=== PATIENT | male | born 1960 | race Caucasian/White ===

== ENCOUNTER → 2020-08-06 10:23 | Outpatient (BNVA) | payer MEDICARE, SELFPAY | PROVIDERS: Family Provider Family Medicine; Referring Provider Nurse Practitioner Family; Visit Provider Specialist | DX: M75.81 Other shoulder lesions, right shoulder (principal) | CPT/HCPCS: 73030 ==

== ENCOUNTER 2021-03-05 13:23 | Inpatient (IN) | payer MEDICARE, SELFPAY ==
[2021-03-05] VITALS (12 sets, daily range): BP systolic 100–127; BP diastolic 47–71; PULSE 60–114; RESP 18–30; TEMP 36.9–37.1; O2SAT 72–96; BMI 27.8; BMI 29.8
--- NOTE | 2021-03-05 14:04 | ECG_ITS ---
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 Measurements Intervals [place] Rate: 65 P: 49 VT: 171 QRS: 37 QRSD: 106 T: 21 QT: 436 QTc: 455 Interpretive Statements SINUS RHYTHM Compared to ECG 04/22/2017 17:23:08 Sinus bradycardia no longer present Electronically Signed On 03-07-2021 7:43:52 CDT by Mirna Finnegan M.D. [id number]
--- NOTE | 2021-03-05 14:04 | XRR_ITS ---
PROCEDURE INFORMATION: Exam: XR Chest Exam date and time: 03/05/2021 2:04 PM Age: 60 years old Clinical indication: Condition or disease; Lung condition and disease; Respiratory distress; Prior surgery; Surgery type: Thyroid; Patient HX: Covid symptoms x1week, SOB TECHNIQUE: Imaging protocol: XR of the chest. Views: Frontal portable upright view of the chest. COMPARISON: CR Chest 1 [place] [id number] 04/22/2017 4:50 PM FINDINGS: Lungs: Moderate pulmonary hypoexpansion. Heterogeneous interstitial and air space opacities in the bilateral mid-lower lung zones. The pulmonary vasculature is exaggerated by inspiratory volume. Pleural spaces: No pleural effusion. No pneumothorax. Heart/Mediastinum: The heart is normal in size and contour. Mediastinum: Stable. Bones/joints: Right lateral vertebral body marginal osteophytes are noted at multiple thoracic spinal levels. Other findings: . XR/XR chest 1V portable [id number] IMPRESSION: 1. Moderate pulmonary hypoexpansion. 2. Heterogeneous interstitial and air space opacities in the bilateral mid-lower lung zones. Pneumonitis, including viral pneumonitis, is difficult to exclude. Clinical correlation is recommended.
--- NOTE | 2021-03-05 14:04 | ED_ITS ---
HPI - COVID General: Chief Complaint: COVID symptoms Stated Complaint: SOB Time Seen by Provider: 03/05/21 13:49 Triage information: Has fever, cough or shortness of breath . Exposure to COVID + person last 14 days History of Present Illness: HPI Narrative: Mr. De is a 60 year old gentleman without significant past medical history who presents to the emergency department due to COVID symptoms and hypoxemia. Symptom onset was subacute approximately two to three weeks ago. He endorses typical symptoms including generalized malaise, fevers, chills, headache, cough, shortness of breath. Overall, the course of symptoms has been worsening and is now severe in intensity. He called EMS today do shortness breath and was found to have oxygen saturation in the mid 60s on room air. He was subsequently placed on non rebreather with some improvement in symptoms. he has sick contacts . His symptoms are worse with exertion and activity but do not go away with rest. No other specific exacerbating, alleviating, or provoking factors identified. COVID Results: SARS-CoV-2 Antigen (Rapid) Negative (Negative) 03/05/21 23:00 03/05/21 Nasal/Oral Coronavirus 2019 PCR Detected H 03/05/21 16:30 03/05/21 Review of Systems General: Reports: 10 or more systems reviewed and unremarkable except in HPI and below Narrative: CONSTITUTIONAL: As noted in HPI EYES - denies pain, denies loss of vision EARS - denies ear issues. NOSE - denies congestion or rhinorrhea. THROAT - denies sore throat or difficulty swallowing. CARDIOVASCULAR - denies chest pain and palpitations RESPIRATORY - see HPI GASTROINTESTINAL - denies abdominal pain, n/v intermittently GENITOURINARY - denies dysuria or urinary frequency MUSCULOSKELETAL- denies deformity. generalized arthralgias and myalgias SKIN - denies rashes or new changed skin lesions NEUROLOGIC - denies focal weakness or sensory changes HEMATOLOGIC/LYMPHATIC - denies easy bruising or lymphadenopathy. [facility] ED PFS: Medical History (Updated 03/05/21 @ 20:29 by Svetlana Sanchez MD) BPH (benign prostatic hyperplasia) Cardiomegaly Elevated PSA Hematuria Hypertriglyceridemia Hypokalemia Hypotension Papillary thyroid carcinoma Prostatitis Surgical History History of thyroidectomy 2014 due to cancer Social History Smoking and tobacco status: never smoked Alcohol intake: never Physical Exam Narrative: EXAM NARRATIVE: GENERAL/CONSTITUTIONAL - Ill appearing. Mild to moderate distress. Eyes - PERRL, no conjunctival injection ENMT - Atraumatic external nose and ears. Moist mucous membranes NECK - supple. trachea midline CARDIOVASCULAR - regular rate and rhythm. Peripheral pulses 2+ and equal RESPIRATORY - Course breath sounds throughout. Tachypnea. Mild accessory muscle use. ABDOMEN/GI - Nontender/Nondistended. No tenderness to percussion or evidence of peritonitis MSK - Extremities without obvious deformity or tenderness to palpation SKIN - Warm, Dry NEURO - alert and appropriately oriented. strength and sensation intact. Moves all extremities equally. PSYCH - Appropriate mood and affect Course ED course: - Monitor, IV access, and vital signs obtained. - The patient was seen and evaluated me at bedside. - Initial evaluation was notable for There were parents, patient has increased work of breathing and low oxygen saturations despite Non rebreather mask. - Labs and imaging were ordered. - heated high flow oxygen ordered - Labs and imaging were obtained and reviewed. - Labs notable for While Leukocytosis, procalcitonin negative. - Imaging notable for Infiltrate - Internal medicine hospitalist service, Dr Briggs, was contacted and agreed admit the patient. - Upon serial reexamation the patient's condition remained fair. He appeared more comfortable with improved work of breathing on heated high flow . They were admitted without incident or further clinical deterioration. Vital Signs: Vital signs: Vital Signs Temperature 97.8 F 03/06/21 19:28 Pulse Rate 68 03/06/21 19:28 Respiratory Rate 18 03/06/21 19:28 Blood Pressure 124/69 03/06/21 19:28 Pulse Oximetry 91 03/06/21 19:28 MDM - COVID 2 Medical Records: Attestation: I reviewed the patient's medical records. Lab Data: Attestation: I reviewed the patient's lab results. Labs: Lab Results 03/05/21 03/05/21 03/05/21 Range/Units 14:35 14:35 14:35 WBC 7.5 (4.0-10.0) 10^3/ uL RBC 4.24 (4.1-5.3) 10^6/u L Hgb 12.8 (11.7-16.6) g/dL Hct 37.3 L (42.0-52.0) % MCV 88.0 (80-94) fL MCH 30.2 (28.0-34.0) pg MCHC 34.3 (30.0-36.0) g/dL RDW 14.4 (12.1-15.1) % Plt Count 200 (130-400) 10^3/c mm MPV 9.4 (7.4-10.4) fL Neut % (Auto) 85.8 % Lymph % (Auto) 5.8 % Lynn % (Auto) 7.6 % Eos % (Auto) 0.0 % Baso % (Auto) 0.0 % Neut # (Auto) 6.47 (1.8-7.7) 10^3/u L Lymph # (Auto) 0.4 L (0.8-4.8) 10^3/u L Lynn # (Auto) 0.6 (0.2-0.9) 10^3/u L Eos # (Auto) 0.0 (0.0-0.8) 10^3/u L Baso # (Auto) 0.0 (0.0-0.1) 10^3/u L Nucleated RBC % (a uto) 0 % Nucleated RBCs # 0.0 /100WBC D-Dimer (0-0.59) ug/mIFE U Specimen Type Sample Site Gus Test VBG pH (7.32-7.42) VBG pCO2 (41-51) mmHg VBG pO2 (25-40) mmHg VBG HCO3 (24-28) mmol/L VBG Base Excess (-3.0-3.0) mmol/ L VBG Hematocrit (42-52) % O2 Delivery Device O2 Liters/Min % FiO2 % Welfare Project Manager ID Sodium 135 L (136-145) mmol/L Potassium 3.5 (3.5-5.1) mmol/L Chloride 98 (98-107) mmol/L Carbon Dioxide 25 (22-29) mmol/L Anion Gap 15.5 (5-19) BUN 18 (8-23) mg/dL Creatinine 0.7 (0.7-1.2) mg/dL GFR Calculation 114.6 (90-130) mL/min Glucose 115 (65-115) mg/dL Calculated Osmolal ity 283 L (285-295) mOsm/k g Lactic Acid 1.4 (0.5-2.2) mmol/L Calcium 7.6 L (8.5-10.5) mg/dL Total Bilirubin 1.4 H (0.15-1.2) mg/dL AST 53 H (0-40) U/L ALT 39 (0-41) U/L Alkaline Phosphata se 76 (40-130) IU/L C-Reactive Protein 147.7 H (0.0-4.9) mg/L NT-Pro-B Natriuret Pep 287 H (0-125) pg/mL Total Protein 6.0 L (6.6-8.7) g/dL Albumin 3.2 L (3.5-5.2) g/dL Globulin 2.8 (1.3-4.6) g/dL Procalcitonin 0.37 (0-0.5) ng/mL Nasal/Oral COVID-1 9 PCR 03/05/21 03/05/21 03/05/21 Range/Units 14:35 15:10 16:30 WBC (4.0-10.0) 10^3/ uL RBC (4.1-5.3) 10^6/u L Hgb (11.7-16.6) g/dL Hct (42.0-52.0) % MCV (80-94) fL MCH (28.0-34.0) pg MCHC (30.0-36.0) g/dL RDW (12.1-15.1) % Plt Count (130-400) 10^3/c mm MPV (7.4-10.4) fL Neut % (Auto) % Lymph % (Auto) % Lynn % (Auto) % Eos % (Auto) % Baso % (Auto) % Neut # (Auto) (1.8-7.7) 10^3/u L Lymph # (Auto) (0.8-4.8) 10^3/u L Lynn # (Auto) (0.2-0.9) 10^3/u L Eos # (Auto) (0.0-0.8) 10^3/u L Baso # (Auto) (0.0-0.1) 10^3/u L Nucleated RBC % (a uto) % Nucleated RBCs # /100WBC D-Dimer 1.60 H (0-0.59) ug/mIFE U Specimen Type Venous Sample Site Not Reportable Gus Test N/a VBG pH 7.47 H (7.32-7.42) VBG pCO2 41.5 (41-51) mmHg VBG pO2 29.2 (25-40) mmHg VBG HCO3 30.0 H (24-28) mmol/L VBG Base Excess 5.8 H (-3.0-3.0) mmol/ L VBG Hematocrit 7.5 L (42-52) % O2 Delivery Device Hag O2 Liters/Min 55.0 % FiO2 50.0 % Welfare Project Manager ID ,congi Sodium (136-145) mmol/L Potassium (3.5-5.1) mmol/L Chloride (98-107) mmol/L Carbon Dioxide (22-29) mmol/L Anion Gap (5-19) BUN (8-23) mg/dL Creatinine (0.7-1.2) mg/dL GFR Calculation (90-130) mL/min Glucose (65-115) mg/dL Calculated Osmolal ity (285-295) mOsm/k g Lactic Acid (0.5-2.2) mmol/L Calcium (8.5-10.5) mg/dL Total Bilirubin (0.15-1.2) mg/dL AST (0-40) U/L ALT (0-41) U/L Alkaline Phosphata se (40-130) IU/L C-Reactive Protein (0.0-4.9) mg/L NT-Pro-B Natriuret Pep (0-125) pg/mL Total Protein (6.6-8.7) g/dL Albumin (3.5-5.2) g/dL Globulin (1.3-4.6) g/dL Procalcitonin (0-0.5) ng/mL Nasal/Oral COVID-1 9 PCR Detected H Imaging Data: CXR: Attestation: I personally reviewed and interpreted this imaging study as follows: My impression: no pneumothorax, patchy consolidation Radiologist's impression: 1. Moderate pulmonary hypoexpansion. 2. Heterogeneous interstitial and air space opacities in the bilateral mid-lower lung zones. Pneumonitis, including viral pneumonitis, is difficult to exclude. Clinical correlation is recommended. EKG Data: EKG 1: Attestation: I personally reviewed and interpreted this EKG as follows: EKG interpretation date: 03/05/21 Prior EKG tracings: not available for review Ischemic changes: non-specific ST-T wave changes Interpretation: 12 lead EKG shows a regular sinus rhythm at a rate of 65. MD interval 171, QRS duration 106, QTC 455 . Normal axis. No St segment abnormalities meeting stemi criteria. Interpretation: sinus rhythm with nonspecific St segment abnormalities. COVID Results: SARS-CoV-2 Antigen (Rapid) Negative (Negative) 03/05/21 23:00 03/05/21 Nasal/Oral Coronavirus 2019 PCR Detected H 03/05/21 16:30 03/05/21 Discharge Plan Discharge Patient Disposition: Admitted As Inpatient Admit Provider: Ade Briggs Coding Level of Care Code ED Steel Layer for Miroslava Rodríguez
[2021-03-05 14:48] LABS: Hematocrit 37.3 % (42.0-52.0); Hemoglobin 12.8 g/dL (11.7-16.6); Lymphocytes # 0.4 10^3/uL (0.8-4.8); Lymphocytes % 5.8 %; Mean Corpuscular HGB Conc 34.3 g/dL (30.0-36.0); Mean Corpuscular Hemoglobin 30.2 pg (28.0-34.0); Mean Platelet Volume 9.4 fL (7.4-10.4); Monocytes # 0.6 10^3/uL (0.2-0.9); Monocytes % 7.6 %; Neutrophils # 6.47 10^3/uL (1.8-7.7); Neutrophils % 85.8 %; Nucleated Red Blood Cells % 0 %; Platelet Count 200 10^3/cmm (130-400); Red Blood Count 4.24 10^6/uL (4.1-5.3); Red Cell Distribution Width 14.4 % (12.1-15.1); White Blood Count 7.5 10^3/uL (4.0-10.0)
[2021-03-05 15:10] LABS: Lactic Sepsis W/Reflex 1.4 mmol/L (0.5-2.2)
[2021-03-05 15:22] LABS: Blood Gas Sample Type Venous
[2021-03-05 15:23] LABS: Oxygen Device HAG
[2021-03-05 15:27] LABS: PCO2 VBG 41.5 mmHg (41-51); PO2 VBG 29.2 mmHg (25-40); Venous Blood Gas Hematocrit 7.5 % (42-52); pH VBG 7.47 (7.32-7.42)
[2021-03-05 15:28] LABS: Base Excess VBG 5.8 mmol/L (-3.0-3.0)
[2021-03-05 15:30] LABS: NT Pro B Type Natriuretic Pept 287 pg/mL (0-125); Procalcitonin 0.37 ng/mL (0-0.5)
[2021-03-05 15:49] LABS: Alanine Aminotransferase 39 U/L (0-41); Albumin Level 3.2 g/dL (3.5-5.2); Alkaline Phosphatase 76 IU/L (40-130); Anion Gap 15.5 (5-19); Aspartate Amino Transferase 53 U/L (0-40); Blood Urea Nitrogen 18 mg/dL (8-23); C Reactive Protein 147.7 mg/L (0.0-4.9); Calcium 7.6 mg/dL (8.5-10.5); Carbon Dioxide 25 mmol/L (22-29); Chloride 98 mmol/L (98-107); Creatinine Clr Calc Pharmacy 127.6966; Globulin 2.8 g/dL (1.3-4.6); Glomerular Filtration Rate 114.6 mL/min (90-130); Glucose 115 mg/dL (65-115); Osmolality Calculated 283 mOsm/kg (285-295); Potassium 3.5 mmol/L (3.5-5.1); Sodium 135 mmol/L (136-145); Total Bilirubin 1.4 mg/dL (0.15-1.2)
--- NOTE | 2021-03-05 20:01 | PC.NURSE ---
Report received from BARBARA Lopez in ER. Reported: 60 yr M pt came from home normally on RA, but came in on non-rebreather transitioned over to heated HF. Pt noted to be A&Ox4, ambulates. Family currently sick with COVID (Daughter admitted). pt PCR done in ER sent to [facility] for results. RR 20, HR 110, 95% on heated HF, bp 100/47.
--- NOTE | 2021-03-05 20:15 | P.HP_ITS ---
Providers/Chief Complaint Admitting Physician: Ade Brigsg Primary Care Provider: SARA Sanchez Chief Complaint: SOB History of Present Illness Rickey De is a 60 year old male with PMH hypothyroidism, h/o thyroid malignancy presenting today with shortness of breath. 02 sat upon arrival at 72%, initially on NRB, now on heated hi flow. CXR with B/L infiltrates concerning for COVID 19 pneumonia. Covid PCR pending. Review of Systems General: Reports: 10 or more systems reviewed and unremarkable except in HPI and below Const: Denies: fever(s), chills or body aches Eyes: Denies: change in vision, blurry vision or photophobia ENMT: Reports: hoarseness; Denies: throat pain, enlarged tonsils, odynophagia or nasal congestion Card: Denies: chest pain, palpitations, irregular heart rhythm, edema, swelling of feet/ankles, lightheadedness, pre-syncope, dyspnea on exertion or orthopnea Resp: Denies: dyspnea, productive cough, non-productive cough, wheezing, stridor, pain on inspiration, change in phlegm color, hemoptysis or chest congestion GI: Denies: abdominal pain, nausea, vomiting, hematemesis, coffee ground emesis, dysphagia, heartburn, diarrhea, constipation, GI cramping, change in stool character, hematochezia or melena : Denies: flank pain, dysuria, urinary frequency, urinary urgency, urinary hesitancy or hematuria Musc: Denies: neck pain, back pain, extremity pain, joint swelling, joint warmth or deformity Neuro: Denies: headache(s), numbness in extremities, weakness in extremities, sensory changes, difficulty walking, frequent falls, dizziness, vertigo, behavioral changes, Slurred speech present or seizure-like activity Psych: Denies: anxiety, depression, suicidal ideation or homicidal ideation Endo: Denies: polyuria, polydipsia, tired all the time, cold intolerance or hot flashes Rolando/Lymph: Denies: easy bruising or easy bleeding Medications/Allergies Home Medications Medication Instructions Recorded Confirmed Last Taken Type aspirin 81 mg tablet,delayed 81 mg PO DAILY@79908/06/20 03/05/21 03/05/21 History release losartan 100 mg tablet 100 mg PO DAILY@79908/06/20 03/05/21 03/05/21 History metoprolol succinate 50 mg 50 mg PO DAILY@1800 08/06/20 03/05/21 03/04/21 H istory tablet,extended release 24 hr calcium carbonate-vitamin D3 1 tab PO DAILY@1800 03/05/21 03/05/21 03/04/21 History [Calcium + D] levothyroxine [Euthyrox] 200 mcg PO DAILY@0700 03/05/21 03/05/21 03/05/21 History Allergies Allergy/AdvReac Type Severity Reaction Status Date / Time No Known Allergies Allergy Verified 03/05/21 13:35 PFSH Acute PFSH: Medical History (Updated 03/05/21 @ 20:29 by Svetlana Sanchez MD) BPH (benign prostatic hyperplasia) Cardiomegaly Elevated PSA Hematuria Hypertriglyceridemia Hypokalemia Hypotension Papillary thyroid carcinoma Prostatitis Surgical History History of thyroidectomy 2014 due to cancer Social History Smoking and tobacco status: never smoked Alcohol intake: never Vitals/I&O/Wt Last Vital Signs Temp 98.5 F 03/05/21 13:26 Pulse 60 03/05/21 19:15 Resp 20 H 03/05/21 19:15 BP 100/47 03/05/21 19:15 Pulse Ox 95 03/05/21 19:15 Weight last 48 hrs Weight 90.718 kg Physical Exam Narrative: EXAM NARRATIVE: General: Heated hi flow HEENT: PERRLA, pupils bilaterally equal and reactive, pallors not present Chest: B/L coarse crackles to auscultation CVS: S1-S2 regular, no murmurs, no tachycardia, no gallops, no rubs Abdomen: Soft, nontender, no organomegaly, bowel sounds present Neuro: No focal deficits, no facial deformity, AO x3, power 5/5 in all limbs Data : 03/05/21 14:35 03/05/21 14:35 Micro: Microbiology 03/05/21 15:10 Blood Culture - Preliminary Blood SPECIMEN COLLECTED 03/05/21 14:35 Blood Culture - Preliminary Blood SPECIMEN COLLECTED A&P Assessment and plan (1) COVID-19: Presumed diagnosis based on clinical picture Pending Covid PCR, check rapid Ag Oxygen supplementation keeping saturation over 88%. Dexamethasone 6 mg daily. Remdesivir to finish a 5-day course. Advair, Spiriva. Pulmonary toilet with incentive spirometry flutter valve. We will monitor inflammatory markers including ferritin, ESR, CRP, D-dimer, fibrinogen. D-dimer elevated. CTA negative for pulmonary embolism. For now we will start patient on full dose anticoagulation given history of CVA, patient requiring high oxygen supplementation. Will monitor for anemia or blood loss. Check procalcitonin, blood culture. ceftriaxone and azithromycin empirically Strict input output charting, daily weights. Status: Acute Additional A&P Information Hypothyrodism: Continue levothyroxine Hold losartan given SBP 100 for now. Continue metoprolol Dvt ppx: lovenox Full code Attestations Medical Necessity Statement*: >2midnight stay anticipated for above defined care Coding Level of Care Code Acute Cogeneration Operator for [facility] Fwd Diagnoses COVID-19 U07.1
--- NOTE | 2021-03-05 20:58 | PC.NURSE ---
report to Shirin JIMENEZ
[2021-03-05] MEDS: ipratropium-albuterol 3 mL Neb INHALATION (21:09)
[2021-03-05] MEDS: budesonide 0.5 mg/2 mL Neb INHALATION (21:09)
--- NOTE | 2021-03-05 21:45 | PC.NURSE ---
Admit Note Patient admitted to [facility] from ER via [facility] @2130 ON 15L NON-REBREATHER (RESP @ BEDSIDE). Covering service notified. Patient presents with COVID SYMPTOMS AND HYPOXIA. PT PLACED IN FACILITY GOWN. Orders reviewed & will continue to monitor. Patient and/or traveling representative oriented to environment, equipment, and informed of the following as found in the admission booklet: patient rights & responsibilities, visitor policy, hand and respiratory hygiene practice. Other education includes: [SCD, CONTINUOUS PULSE OX, AND IV PUMP]. Patient and/or traveling representative VERBALIZED UNDERSTANDING
[2021-03-05] MEDS: enoxaparin 40 mg/0.4 mL Syringe SUBCUT (22:58)
[2021-03-05] MEDS: dexamethasone 4 mg/mL INJ 6 MG IVP (22:58)
[2021-03-05] MEDS: cefTRIAXone 1,000 MG in sodium chloride 0.9% (plus) 50 ML 100 MG IV (23:00)
[2021-03-05] MEDS: remdesivir 200 MG in sodium chloride 0.9% (100 ml) 100 ML 100 MG IV (23:30)
[2021-03-05] MEDS: azithromycin 500 MG in sodium chloride 0.9% 250 ML 250 MG IV (23:52)
[2021-03-06] VITALS (18 sets, daily range): BP systolic 103–146; BP diastolic 64–84; PULSE 54–85; RESP 16–26; TEMP 36.6–37.7; O2SAT 88–96
[2021-03-06 00:14] LABS: SARS Covid-2 Antigen Negative (Negative)
[2021-03-06] MEDS: ipratropium-albuterol 3 mL Neb INHALATION ×4 (02:18→20:01)
[2021-03-06 04:01] LABS: Basophils % 0.1 %; Hematocrit 37.8 % (42.0-52.0); Hemoglobin 12.6 g/dL (11.7-16.6); Lymphocytes # 0.4 10^3/uL (0.8-4.8); Lymphocytes % 4.8 %; Mean Corpuscular HGB Conc 33.3 g/dL (30.0-36.0); Mean Corpuscular Hemoglobin 29.8 pg (28.0-34.0); Mean Corpuscular Volume 89.4 fL (80-94); Mean Platelet Volume 9.4 fL (7.4-10.4); Monocytes # 0.4 10^3/uL (0.2-0.9); Monocytes % 5.1 %; Neutrophils # 7.15 10^3/uL (1.8-7.7); Neutrophils % 88.8 %; Nucleated Red Blood Cells % 0 %; Platelet Count 207 10^3/cmm (130-400); Red Blood Count 4.23 10^6/uL (4.1-5.3); Red Cell Distribution Width 14.4 % (12.1-15.1); White Blood Count 8.1 10^3/uL (4.0-10.0)
[2021-03-06 04:10] LABS: C Reactive Protein 148.8 mg/L (0.0-4.9); Lactate Dehydrogenase 660 U/L (135-225)
[2021-03-06 04:15] LABS: Alanine Aminotransferase 53 U/L (0-41); Albumin Level 3.2 g/dL (3.5-5.2); Alkaline Phosphatase 117 IU/L (40-130); Anion Gap 15.6 (5-19); Aspartate Amino Transferase 61 U/L (0-40); Blood Urea Nitrogen 19 mg/dL (8-23); Calcium 7.6 mg/dL (8.5-10.5); Carbon Dioxide 26 mmol/L (22-29); Chloride 100 mmol/L (98-107); Globulin 2.7 g/dL (1.3-4.6); Glomerular Filtration Rate 114.6 mL/min (90-130); Glucose 148 mg/dL (65-115); Osmolality Calculated 291 mOsm/kg (285-295); Potassium 3.6 mmol/L (3.5-5.1); Procalcitonin 0.28 ng/mL (0-0.5); Sodium 138 mmol/L (136-145); Total Bilirubin 1.5 mg/dL (0.15-1.2); Total Protein 5.9 g/dL (6.6-8.7)
[2021-03-06 05:16] LABS: Ferritin 1630 ng/mL (30-400)
[2021-03-06] MEDS: levothyroxine 200 mcg Tablet PO (06:31)
[2021-03-06] MEDS: budesonide 0.5 mg/2 mL Neb INHALATION ×2 (08:36→20:01)
[2021-03-06] MEDS: aspirin 81 mg EC Tablet PO (08:50)
[2021-03-06] MEDS: pantoprazole DR 40 mg Tablet PO (08:50)
[2021-03-06 14:53] LABS: Coronavirus Test Green County Detected
[2021-03-06] MEDS: metoprolol succinate ER (24 HR) 50 mg Tablet PO (17:04)
[2021-03-06] MEDS: remdesivir 100 MG in sodium chloride 0.9% (100 ml) 100 ML IV (17:04)
--- NOTE | 2021-03-06 17:09 | PC.NURSE ---
263 is asking if there is something he can do to get some sleep. he said if he falls asleep his oxygen drops and the machine wakes him up. notified Dr Briggs and RT
--- NOTE | 2021-03-06 17:58 | PC.NURSE ---
Called patient's sister Ana Maria [phone] and updated on patient's condition.
[2021-03-06] MEDS: enoxaparin 40 mg/0.4 mL Syringe SUBCUT (19:52)
--- NOTE | 2021-03-06 20:56 | P.PN_ITS ---
Subjective Subjective: Interval history: Patient was stable overnight. Continued on high-flow nasal cannula. Medications: Reviewed: Yes Vitals/I&O/Wt Last Vital Signs Temp 97.8 F 03/06/21 19:28 Pulse 75 03/06/21 20:13 Resp 22 H 03/06/21 20:01 BP 124/69 03/06/21 19:28 Pulse Ox 89 L 03/06/21 20:13 03/06/21 03/06/21 03/06/21 06:59 14:59 22:59 Intake Total 520 / 520 354 / 354 340 / 694 Output Total 600 / 600 200 / 200 Balance -80 / -80 354 / 354 140 / 494 Weight last 48 hrs Weight 97.069 kg Weight 90.718 kg Physical Exam Narrative: EXAM NARRATIVE: General: Heated hi flow HEENT: PERRLA, pupils bilaterally equal and reactive, pallors not present Chest: B/L coarse crackles to auscultation CVS: S1-S2 regular, no murmurs, no tachycardia, no gallops, no rubs Abdomen: Soft, nontender, no organomegaly, bowel sounds present Neuro: No focal deficits, no facial deformity, AO x3, power 5/5 in all limbs Data : 03/06/21 03:35 03/06/21 03:35 Micro: Microbiology 03/05/21 14:35 Blood Culture - Preliminary Blood NEGATIVE TO DATE 03/05/21 15:10 Blood Culture - Preliminary Blood NEGATIVE TO DATE A&P Assessment and plan (1) COVID-19: COVID-19 PCR positive Dexamethasone 6 mg daily. Remdesivir to finish a 5-day course. Advair, Spiriva. Pulmonary toilet with incentive spirometry flutter valve. We will monitor inflammatory markers including ferritin, ESR, CRP, D-dimer, fibrinogen. recheck in a.m. D-dimer elevated. CTA negative for pulmonary embolism. For now we will start patient on full dose anticoagulation given history of CVA, patient requiring high oxygen supplementation. Will monitor for anemia or blood loss. ceftriaxone and azithromycin empirically Strict input output charting, daily weights. Will likely require home O2 perform evaluation at the time of discharge Status: Acute Additional A&P Information Hypothyrodism: Continue levothyroxine Hold losartan given SBP 100 for now. Continue metoprolol Dvt ppx: lovenox Full code Attestations Medical Necessity Statement*: Require further hospitalizationFor management of COVID-19 pneumonia. Requiring high-flow nasal cannula and IV Remdesivir Time Spent in Patient Care: Greater than 35 minutes (>than 50% of time spent in counselling and/or direct pt care on unit) . Coding Level of Care Code Acute Security Sales Manager for [facility] Fwd Diagnoses COVID-19 U07.1
[2021-03-06] MEDS: cefTRIAXone 1,000 MG in sodium chloride 0.9% (plus) 50 ML 100 MG IV (22:41)
[2021-03-06] MEDS: dexamethasone 4 mg/mL INJ 6 MG IVP (22:41)
[2021-03-06] MEDS: azithromycin 500 MG in sodium chloride 0.9% 250 ML 250 MG IV (23:24)
[2021-03-07] VITALS (17 sets, daily range): BP systolic 119–160; BP diastolic 49–72; PULSE 54–79; RESP 16–20; TEMP 36.4–38.1; O2SAT 88–95
[2021-03-07] MEDS: ipratropium-albuterol 3 mL Neb INHALATION ×4 (02:58→21:06)
[2021-03-07] MEDS: levothyroxine 200 mcg Tablet PO (06:19)
[2021-03-07] MEDS: aspirin 81 mg EC Tablet PO (08:09)
[2021-03-07] MEDS: pantoprazole DR 40 mg Tablet PO (08:09)
[2021-03-07] MEDS: budesonide 0.5 mg/2 mL Neb INHALATION ×2 (09:21→21:06)
--- NOTE | 2021-03-07 10:41 | PC.CHAP ---
Pastoral Care Encounter/Spiritual Assessment Type of Contact [] Declined site reliability engineer visit [] Patient/Family/Request visit [] Outpatient visit [] Follow-up visit [] Physician referral [] Code/Alert [] Routine visit [] Staff referral [] Actively dying [] Patient sleeping [] Family support [] [] Out of room [] Palliative care [] [] Receiving care in room [] Pre-surgical visit [] Trauma [] Long length of stay [] ICU visit [x] Other: Isolation Relational/Emotional Strength [] Patient feels connected with others/family/visitors/staff [] Distress [] Loneliness/isolation [] Abandonment Spirituality of Patient [] Person of Basilia [] Attends Yazdanism of their Basilia [] Believes in Prayer [] Reads Bible or Bahai materials [] There are Spiritual issues to be addressed Sap Hana Developer Interventions [] Prayer [] Active listening [] Non-anxious presence [] Spiritual/emotional support [] Crisis/trauma care [] Spiritual counseling [] Bereavement support [] Provided bereavement packet [] Provided Bible/devotional materials [] Provided toy/stuffed animal, coloring book to patient or family member [] Provided Communion [] Anointing/[place] [] Salvation [] Completed spiritual assessment [] Other: Impact on Illness or Injury [] Angry [] Fearful [] Anxious [] Often cries [] Exhaustion [] Unable to work [] Unable to attend advent [] Unable to walk/stand [] Unable to read [] Unable to drive [] Unable to eat/drink [] Unable to sleep [] Unable to be with family [] Patient intubated [] Other: Summary Isolation Time spent with patient 5 mins
[2021-03-07] MEDS: acetaminophen 325 mg Tablet 650 MG PO (16:22)
--- NOTE | 2021-03-07 16:59 | P.PN_ITS ---
Subjective Subjective: Interval history: No new clinical events overnight. Medications: Reviewed: Yes Vitals/I&O/Wt Last Vital Signs Temp 100.5 F H 03/07/21 15:54 Pulse 54 L 03/07/21 15:54 Resp 19 H 03/07/21 15:54 BP 143/58 03/07/21 15:54 Pulse Ox 95 03/07/21 15:54 03/07/21 03/07/21 03/07/21 06:59 14:59 22:59 Intake Total 420 / 1114 660 / 660 Output Total 420 / 620 300 / 300 Balance 0 / 494 660 / 660 -300 / 360 Weight last 48 hrs Weight 97.069 kg Physical Exam 2 Narrative: EXAM NARRATIVE: General: Heated hi flow HEENT: PERRLA, pupils bilaterally equal and reactive, pallors not present Chest: B/L coarse crackles to auscultation CVS: S1-S2 regular, no murmurs, no tachycardia, no gallops, no rubs Abdomen: Soft, nontender, no organomegaly, bowel sounds present Neuro: No focal deficits, no facial deformity, AO x3, power 5/5 in all limbs Data : 03/06/21 03:35 03/06/21 03:35 Micro: Microbiology 03/05/21 14:35 Blood Culture - Preliminary Blood NEGATIVE TO DATE 03/05/21 15:10 Blood Culture - Preliminary Blood NEGATIVE TO DATE A&P Assessment and plan (1) COVID-19: COVID-19 PCR positive Dexamethasone 6 mg daily. Remdesivir to finish a 5-day course. Advair, Spiriva. Pulmonary toilet with incentive spirometry flutter valve. We will monitor inflammatory markers including ferritin, ESR, CRP, D-dimer, fibrinogen. recheck in a.m. D-dimer elevated. CTA negative for pulmonary embolism. For now we will start patient on full dose anticoagulation given history of CVA, patient requiring high oxygen supplementation. Will monitor for anemia or blood loss. ceftriaxone and azithromycin empirically Strict input output charting, daily weights. Will likely require home O2 perform evaluation at the time of discharge No change to current management as noted above Status: Acute Additional A&P Information Hypothyrodism: Continue levothyroxine Hold losartan given SBP 100 for now. Continue metoprolol Dvt ppx: lovenox Full code Attestations Medical Necessity Statement*: will require further hospitalization for management of COVID-19 pneumonia requiring IV Remdesivir Time Spent in Patient Care: Greater than 35 minutes (>than 50% of time spent in counselling and/or direct pt care on unit) . Coding Level of Care Code Acute Germination Testing Manager for [facility] Fwd Diagnoses COVID-19 U07.1
[2021-03-07] MEDS: remdesivir 100 MG in sodium chloride 0.9% (100 ml) 100 ML IV (17:14)
[2021-03-07] MEDS: metoprolol succinate ER (24 HR) 50 mg Tablet PO (17:14)
[2021-03-07] MEDS: enoxaparin 40 mg/0.4 mL Syringe SUBCUT (20:51)
[2021-03-07] MEDS: cefTRIAXone 1,000 MG in sodium chloride 0.9% (plus) 50 ML 100 MG IV (23:26)
[2021-03-07] MEDS: dexamethasone 4 mg/mL INJ 6 MG IVP (23:27)
[2021-03-08] VITALS (14 sets, daily range): BP systolic 133–152; BP diastolic 55–71; PULSE 59–85; RESP 18–28; TEMP 36.4–37.4; O2SAT 77–95
[2021-03-08] MEDS: azithromycin 500 MG in sodium chloride 0.9% 250 ML 250 MG IV (00:06)
[2021-03-08] MEDS: ipratropium-albuterol 3 mL Neb INHALATION ×4 (04:26→20:43)
[2021-03-08 05:03] LABS: ABG PCO2 34.2 mmHg (35-45); Arterial Blood Gas Hematocrit 38.8 % (42-52); Base Excess ABG 3.9 mmol/L (-2.0-2.0); Blood Gas Operator Identificat HARKR; Blood Gas Sample Site Brachial, right; Blood Gas Sample Type Arterial; HCO3 ABG 26.9 mmol/L (22-26); Oxygen Device HAG; PO2 ABG 54.9 mmHg (80.0-100.0)
[2021-03-08 05:33] LABS: Basophils % 0.2 %; Hematocrit 38.4 % (42.0-52.0); Hemoglobin 12.8 g/dL (11.7-16.6); Lymphocytes # 0.7 10^3/uL (0.8-4.8); Lymphocytes % 4.6 %; Mean Corpuscular HGB Conc 33.3 g/dL (30.0-36.0); Mean Corpuscular Volume 90.1 fL (80-94); Mean Platelet Volume 9.1 fL (7.4-10.4); Monocytes # 0.7 10^3/uL (0.2-0.9); Monocytes % 4.8 %; Neutrophils % 87.3 %; Nucleated Red Blood Cells % 0 %; Platelet Count 272 10^3/cmm (130-400); Red Blood Count 4.26 10^6/uL (4.1-5.3); Red Cell Distribution Width 13.7 % (12.1-15.1); White Blood Count 14.4 10^3/uL (4.0-10.0)
[2021-03-08 06:06] LABS: Alanine Aminotransferase 82 U/L (0-41); Albumin Level 2.9 g/dL (3.5-5.2); Alkaline Phosphatase 125 IU/L (40-130); Anion Gap 17.6 (5-19); Aspartate Amino Transferase 56 U/L (0-40); Blood Urea Nitrogen 23 mg/dL (8-23); C Reactive Protein 38.6 mg/L (0.0-4.9); Calcium 7.6 mg/dL (8.5-10.5); Carbon Dioxide 24 mmol/L (22-29); Chloride 102 mmol/L (98-107); Globulin 2.7 g/dL (1.3-4.6); Glucose 139 mg/dL (65-115); Osmolality Calculated 296 mOsm/kg (285-295); Potassium 3.6 mmol/L (3.5-5.1); Sodium 140 mmol/L (136-145); Total Bilirubin 0.9 mg/dL (0.15-1.2); Total Protein 5.6 g/dL (6.6-8.7)
[2021-03-08 06:10] LABS: Procalcitonin 0.13 ng/mL (0-0.5)
[2021-03-08 06:17] LABS: D Dimer >= 20.00 ug/mIFEU (0-0.59)
[2021-03-08] MEDS: levothyroxine 200 mcg Tablet PO (06:21)
[2021-03-08 06:31] LABS: Ferritin 1469 ng/mL (30-400)
[2021-03-08] MEDS: pantoprazole DR 40 mg Tablet PO (08:49)
[2021-03-08] MEDS: aspirin 81 mg EC Tablet PO (08:49)
[2021-03-08] MEDS: budesonide 0.5 mg/2 mL Neb INHALATION ×2 (09:16→20:43)
--- NOTE | 2021-03-08 10:01 | PM.PN ---
Subjective Subjective: Interval history: Increase work of breathing. hypoxia with ambulation Medications: Reviewed: Yes Vitals/I&O/Wt Last Vital Signs Temp 98.4 F 03/08/21 20:00 Pulse 64 03/08/21 20:44 Resp 28 H 03/08/21 20:44 BP 146/70 03/08/21 20:00 Pulse Ox 87 L 03/08/21 20:44 03/08/21 03/08/21 03/09/21 14:59 22:59 06:59 Intake Total 240 / 240 460 / 700 Output Total 700 / 700 200 / 900 Balance -460 / -460 260 / -200 Physical Exam Narrative: EXAM NARRATIVE: General: Heated hi flow HEENT: PERRLA, pupils bilaterally equal and reactive, pallors not present Chest: B/L coarse crackles to auscultation CVS: S1-S2 regular, no murmurs, no tachycardia, no gallops, no rubs Abdomen: Soft, nontender, no organomegaly, bowel sounds present Neuro: No focal deficits, no facial deformity, AO x3, power 5/5 in all limbs Data : 03/08/21 05:10 03/08/21 05:10 A&P Assessment and plan (1) COVID-19: COVID-19 PCR positive Dexamethasone 6 mg daily. Remdesivir to finish a 5-day course. Advair, Spiriva. Pulmonary toilet with incentive spirometry flutter valve. We will monitor inflammatory markers including ferritin, ESR, CRP, D-dimer, fibrinogen. recheck in a.m. D-dimer elevated. CTA negative for pulmonary embolism. For now we will start patient on full dose anticoagulation given history of CVA, patient requiring high oxygen supplementation. Will monitor for anemia or blood loss. Will increase lovenox to q12hr ceftriaxone and azithromycin empirically Strict input output charting, daily weights. Will likely require home O2 perform evaluation at the time of discharge Transfer to Status: Acute Additional A&P Information Hypothyrodism: Continue levothyroxine Hold losartan given SBP 100 for now. Continue metoprolol Dvt ppx: lovenox Full code Attestations Medical Necessity Statement*: will need ongoing hospitalization for management of covid19 induced respiratory failure Time Spent in Patient Care: Greater than 35 minutes (>than 50% of time spent in counselling and/or direct pt care on unit). Coding Level of Care Code Acute [employer] School Science Tutor for [facility] Fwd Diagnoses COVID-19 U07.1
--- NOTE | 2021-03-08 11:07 | PC.SOCIAL ---
IMM Update pg 2 of IMM reviewed w/ patient via telephone. Copy placed in chart.
--- NOTE | 2021-03-08 14:44 | PC.NURSE ---
Patient transferred to [facility] and nurse notified.
[2021-03-08] MEDS: acetaminophen 325 mg Tablet 650 MG PO (18:13)
[2021-03-08] MEDS: metoprolol succinate ER (24 HR) 50 mg Tablet PO (18:13)
[2021-03-08] MEDS: remdesivir 100 MG in sodium chloride 0.9% (100 ml) 100 ML IV (18:15)
--- NOTE | 2021-03-08 20:15 | PC.NURSE ---
Shift Note Frequent safety and comfort rounds continue. Orders and/or nursing care completed as indicated. Patient monitored for response to intervention and treatment(s). Education provided include such as importance of oxygen safety and Iv med for covid. Patient verbalizes understanding. Will continue to monitor.
[2021-03-08] MEDS: enoxaparin 40 mg/0.4 mL Syringe SUBCUT (20:24)
[2021-03-08] MEDS: dexamethasone 4 mg/mL INJ 6 MG IVP (22:44)
[2021-03-08] MEDS: cefTRIAXone 1,000 MG in sodium chloride 0.9% (plus) 50 ML 100 MG IV (22:44)
[2021-03-09] VITALS (28 sets, daily range): BP systolic 92–155; BP diastolic 45–78; PULSE 56–88; RESP 20–43; TEMP 36.6–37.2; O2SAT 89–98
[2021-03-09] MEDS: ALPRAZolam 0.5 mg Tablet PO ×2 (00:15→09:22)
[2021-03-09] MEDS: enoxaparin 40 mg/0.4 mL Syringe SUBCUT ×2 (00:42→09:22)
[2021-03-09] MEDS: morphine 4 mg/mL SDV 1 mL 2 MG IVP ×2 (02:20→15:07)
[2021-03-09] MEDS: ipratropium-albuterol 3 mL Neb INHALATION ×4 (02:27→21:31)
[2021-03-09] MEDS: levothyroxine 200 mcg Tablet PO (06:50)
[2021-03-09] MEDS: aspirin 81 mg EC Tablet PO (09:22)
[2021-03-09] MEDS: pantoprazole DR 40 mg Tablet PO (09:22)
[2021-03-09] MEDS: benzonatate 100 mg Capsule PO (09:22)
[2021-03-09] MEDS: budesonide 0.5 mg/2 mL Neb INHALATION ×2 (09:30→21:31)
--- NOTE | 2021-03-09 13:46 | P.PN_ITS ---
Subjective Subjective: Interval history: 60-year-old male with past medical history significant for hypertension, hypertriglyceridemia, papillary thyroid carcinoma status post thyroidectomy 2015, subsequent hypothyroidism, benign prostatic hyperplasia, who presented to the hospital with respiratory distress. Patient was found to have oxygen saturation in the 70s on arrival. He was placed on n on-rebreather however due to progressively worsening respiratory distress he was transition to high-flow nasal cannula.Imaging studies on admission included chest x-ray which showed a heterogeneous interstitial and airspace opacities in bilateral mid lower lung lobes. Monitor pulmonary hyperexpansion was also noted.Laboratory workup showed a WBC of 7.5, hemoglobin 12.8, hematocrit 37.3 and platelet count 200. D-dimer was 1.60. Sodium 135, potassium 3.5, chloride 98, bicarb 25, BUN 18 and creatinine of 0.7. Total bilirubin of 1.4. AST was elevated at 53. , ALT of 39. C reactive protein 147.7. ProBNP of 287. Patient was found to have COVID-19 PCR positive. He was started on Remdesivir 5 day protocol. Addition was started on Decadron 6 mg IV daily and empirically on IV Rocephin 1 g Q 24 hour. Initially patient was stable and improving however was unable to prone. Transferred to COVID-19 step-down unit. Due to progressively worsening respiratory distress he was requiring 60 L with 100% FiO2. O2 sats were maintained between mid to high 80s. D-dimer had increased to over 20. Suspected to have development of acute pulmonary embolism. Transition to full dose Lovenox. At this time patient was transferred to the intensive care unit. High risk for requiring intubation and mechanical ventilation. Medications: Reviewed: Yes Vitals/I&O/Wt Last Vital Signs Temp 97.9 F 03/09/21 08:00 Pulse 77 03/09/21 09:35 Resp 32 H 03/09/21 09:35 BP 129/67 03/09/21 08:00 Pulse Ox 92 03/09/21 09:35 03/08/21 03/09/21 03/09/21 22:59 06:59 14:59 Intake Total 460 / 700 290 / 990 Output Total 200 / 900 450 / 1350 200 / 200 Balance 260 / -200 -160 / -360 -200 / -200 Physical Exam Narrative: EXAM NARRATIVE: General: Heated hi flow 60 L, FiO2 100% HEENT: PERRLA, pupils bilaterally equal and reactive, pallors not present Chest: Labored respiration today CVS: S1-S2 regular, no murmurs, no tachycardia, no gallops, no rubs Abdomen: Soft, nontender, no organomegaly, bowel sounds present Neuro: No focal deficits, no facial deformity, AO x3, power 5/5 in all limbs Data : 03/08/21 05:10 03/08/21 05:10 A&P Assessment and plan (1) Acute respiratory failure due to severe acute respiratory syndrome fan virus 2 (SARS-CoV-2) infection: Status: Acute (2) D-dimer, elevated: Status: Acute (3) Transaminitis: Status: Acute (4) DVT prophylaxis: Status: Acute Additional A&P Information Acute respiratory failure with hypoxia due to COVID 19 pneumonia with probable PE Increased respiratory rate, labored respiration, on HFNC FIo2 100% - unvaccinated On Remdesivir - Final dose on 03/10/21 Decadron 6 mg IV daily - Started on 03/05 Will broaden abs coverage - Vancomycin/Zosyn Pharmacy to dose D-Dimer > 20 -> will change to full dose anticoagulation Lovenox 1mg/KG BID Actemra 780 mg Iv x 1 ordered CRP 147 - > 38.6, Ferritin 1630->1469 Repeat COVID inflammatory labs in am Ferritin, CRP, Pro-chirag in am Will obtain CT chest PE protocol stat now Continue to wean FIO2 - Currently 100%, 60L Continue duoneb q6hr, Pulmicort 0.5 mg inh BID Transfer to ICU - High risk for intubation May try Precedex D/w Dr. Herring / Dr. Niño Transaminitis Ast 53-> 56 ALT 39 -> 82 Trend LFT Hypertension Metoprolol XL 50 mg daily Hypothyroidism hx of papillary thyroid carcinoma Status post thyroidectomy Levothyroxine 200 mcg p.o. daily GI prophylaxis Protonix 40 mg oral daily DVT prophylaxis Lovenox 100 mg subcu b.i.d. Attestations Medical Necessity Statement*: Will require further hospitalizationFor management of COVID-19 related respiratory failure requiring high-flow oxygen and IV Remdesivir Decadron Time Spent in Patient Care: Greater than 35 minutes (>than 50% of time spent in counselling and/or direct pt care on unit) . Critical Care Time: Critical Care Time (min): 55 Coding Level of Care Code Acute Services Program Manager for [facility] Fwd Diagnoses Acute respiratory failure due to severe acute respiratory syndrome coronavirus 2 (SARS-CoV-2) infection U07.1; J96.00 D-dimer, elevated R79.89 Transaminitis R74.01 DVT prophylaxis Z29.9
--- NOTE | 2021-03-09 13:47 | CTR_ITS ---
PROCEDURE INFORMATION: Exam: CTA Chest With Contrast Exam date and time: 03/09/2021 1:47 PM Age: 60 years old Clinical indication: Other: SOB & covid +; Additional info: Concern for pe, SOB, covid + TECHNIQUE: Imaging protocol: Computed tomographic angiography of the chest with contrast. 3D rendering (Not supervised by radiologist): MIP and/or 3D reconstructed images were created by the technologist. Radiation optimization: All CT scans at this facility use at least one of these dose optimization techniques: automated exposure control; mA and/or kV adjustment per patient size (includes targeted exams where dose is matched to clinical indication); or iterative reconstruction. Contrast material: OMNI 350; Contrast volume: 72 ml; Contrast route: INTRAVENOUS (IV); COMPARISON: CT chest w con* [id number] 06/09/2014 12:46 PM RADIATION DOSE METRICS: Total DLP (mGy-cm): 567.74 FINDINGS: Pulmonary arteries: Positive for subsegmental pulmonary embolism in the right lower lung (series 2, image 271). No saddle embolism. Aorta: No aortic aneurysm. No aortic dissection. Lungs: Nearly diffuse multifocal ground-glass opacities and partial consolidation. Pleural spaces: Unremarkable. No pneumothorax. No pleural effusion. Heart: No cardiomegaly. No pericardial effusion. RV/LV ratio less than 1. Lymph nodes: No significant adenopathy. Bones/joints: No acute findings. Soft tissues: Unremarkable. CT/CT angio chest PE protcl [id number] IMPRESSION: Positive for subsegmental right lower lobe pulmonary embolism. Bilateral pneumonia consistent with COVID-19 pneumonia. Findings discussed with Dr. Edwards by Dr. Rodrick Espinosa at 4:37 p.m., 03/09/2021. Radiation Dose CTDIVOL = (mGy): DLP = 567.74 (mGy-cm)
[2021-03-09] MEDS: vancomycin 1,500 MG/300 ML PIGGYBACK 200 MG IV ×2 (15:08→23:55)
--- NOTE | 2021-03-09 15:46 | PC.NURSE ---
Patient arrived to ICU Room 10 at 1515. Patient resting in bed, vital signs as listed below. Pt on HHF fI02 100% at 50L. Patient has generalized pain at this time, 9 on a scale 1-10. Prn Morphine administered. Lungs sounds noted to be coarse bilaterally. Pulse strength 3+ on palpation to bilateral dorasalis pedis and bilateral radial pulses. Skin noted to be warm and dry, no edema noted. Pt states he is coughing up cream sputum. Pt denies N&V, bowel sounds are active with his last bowel movement being this am. Pt breathing is labored with RR 40 with O2 at 91%, Physician notified, Precedex drip ordered. Will continue to monitor.
[2021-03-09] MEDS: dexmedetomidine 400 MCG in sodium chloride 0.9% (100 ml) 100 ML IV (15:58)
[2021-03-09] MEDS: remdesivir 100 MG in sodium chloride 0.9% (100 ml) 100 ML IV (16:54)
[2021-03-09] MEDS: metoprolol succinate ER (24 HR) 50 mg Tablet PO (16:55)
--- NOTE | 2021-03-09 17:59 | XRR_ITS ---
PROCEDURE INFORMATION: Exam: XR Chest Exam date and time: 03/09/2021 5:59 PM Age: 60 years old Clinical indication: Device placement; Ett placement (vent status); Patient HX: Check S/P et and central line placement; Additional info: Post-intubation TECHNIQUE: Imaging protocol: XR of the chest. Views: 1 view. COMPARISON: CR XR chest 1V portable [id number] 03/05/2021 2:07 PM FINDINGS: Tubes, catheters and devices: Endotracheal tube is 6 cm above [place]. Left subclavian vein approach central venous catheter terminates at confluence of SVC and left innominate vein. Surgical clips in the right lateral neck. Lungs: Widespread ground-glass opacities of the lungs increased from comparison imaging with poor definition of the interstitial lung markings. Pleural spaces: Unremarkable. No pleural effusion. No pneumothorax. Heart/Mediastinum: Unremarkable. No cardiomegaly. Bones/joints: Unremarkable. XR/XR chest 1V portable [id number] IMPRESSION: 1. Satisfactory endotracheal tube and central venous catheter placements. 2. Increasing airspace opacities.
[2021-03-09] MEDS: succinylcholine 20 mg/mL SDV 10mL IVP (19:01)
[2021-03-09] MEDS: rocuronium 10 mg/mL INJ 5mL 50 MG (19:03)
[2021-03-09] MEDS: midazolam 1 mg/mL INJ 5 ML 5 MG (19:04)
[2021-03-09] MEDS: propofol 1,000 MG/100 ML INJ 11.65 MG IV (19:09)
--- NOTE | 2021-03-09 19:11 | ANES.PROC ---
Anesthesia Procedures Procedure/Date: 03/09/21 Intubation: Time Out Performed: Yes Consent: requested by attending/covering physician, risks and benefits reviewed and patient agrees to proceed Sedative (amount): etomidate (12mg) Paralytic (amount): succinylcholine (100mg) Laryngoscope: other (Glidescope) ET Tube Size: other (Per RT) ET Tube Uncuffed: Yes Tube Secured Depth (cm): 22 Tube Secured Location: teeth Tube Placement Confirmation: visualized tube passing through cords, equal breath sounds bilaterally, confirmation by capnometry and color change noted Patient Tolerated Procedure: well Intubation Complications: none
--- NOTE | 2021-03-09 19:21 | PC.NURSE ---
Patient HHF 50L @ FiO2 100% O2 84%. Physician called. Orders to prepare for intubation. Daughter called, face timed father. See physician's note for intubation proceedings. Physician placed central line.
--- NOTE | 2021-03-09 19:40 | PM.ACPR ---
Acute Procedures Central Line Placement^: Left SC: Time out performed: Yes Patient placed on monitor/pulse ox: Yes MD prep: mask, gown and gloves Central line prep: Povidone-Iodine 1% Ultrasound used for placement: No (Manual landmark identification ) Central line lumen inserted: triple Post procedure: sutured in place, good blood return, all ports aspirated, flushed, capped and sterile dressing applied Post procedure x-ray: tip of catheter in good position and no pneumothorax seen Patient tolerated procedure: well Complications: none Additional comments: Procedure was performed with direct supervision by Dr. Ayala Chest xray - confirmed position.
[2021-03-09] MEDS: cisatracurium 100 MG in sodium chloride 0.9% 50 ML IV (19:58)
[2021-03-09] MEDS: piperacillin-tazobactam 3.375 GM in sodium chloride 0.9% (plus) 50 ML IV (22:17)
[2021-03-09] MEDS: dexamethasone 4 mg/mL INJ 6 MG IVP (22:17)
[2021-03-09] MEDS: enoxaparin 100 mg/mL Syringe SUBCUT (22:18)
[2021-03-09] MEDS: famotidine 20 mg/2 mL INJ IVP (22:18)
[2021-03-09 23:28] LABS: Arterial Blood Gas Hematocrit 37.1 % (42-52); Base Excess ABG 3.7 mmol/L (-2.0-2.0); Blood Gas Allen Test Pos; Blood Gas Sample Site Radial, right; Blood Gas Sample Type Arterial; Blood Gas Tidal Volume 0.42; HCO3 ABG 31.8 mmol/L (22-26); Oxygen Device VENT
[2021-03-09 23:33] LABS: ABG PCO2 64.7 mmHg (35-45)
[2021-03-10] VITALS (28 sets, daily range): BP systolic 90–128; BP diastolic 45–68; PULSE 48–74; RESP 19–27; TEMP 35.9–36.9; O2SAT 93–100
[2021-03-10] MEDS: piperacillin-tazobactam 3.375 GM in sodium chloride 0.9% (plus) 50 ML IV ×3 (01:43→17:19)
[2021-03-10] MEDS: ipratropium-albuterol 3 mL Neb INHALATION ×3 (03:27→15:06)
[2021-03-10 04:03] LABS: Basophils # 0.1 10^3/uL (0.0-0.1); Basophils % 0.5 %; Eosinophils % 0.1 %; Hematocrit 34.1 % (42.0-52.0); Hemoglobin 11.5 g/dL (11.7-16.6); Lymphocytes # 0.3 10^3/uL (0.8-4.8); Mean Corpuscular HGB Conc 33.7 g/dL (30.0-36.0); Mean Corpuscular Hemoglobin 31.7 pg (28.0-34.0); Mean Corpuscular Volume 93.9 fl (80-94); Mean Platelet Volume 9.4 fL (7.4-10.4); Monocytes # 0.3 10^3/uL (0.2-0.9); Monocytes % 1.9 %; Neutrophils % 89.6 %; Nucleated Red Blood Cells % 0.3 %; Platelet Count 178 10^3/cmm (130-400); Red Blood Count 3.63 10^6/uL (4.1-5.3); Red Cell Distribution Width 14.3 % (12.1-15.1); White Blood Count 14.5 10^3/uL (4.0-10.0)
[2021-03-10 04:18] LABS: Alanine Aminotransferase 40 U/L (0-41); Albumin Level 2.5 g/dL (3.5-5.2); Alkaline Phosphatase 103 IU/L (40-130); Anion Gap 13.5 (5-19); Aspartate Amino Transferase 24 U/L (0-40); Blood Urea Nitrogen 27 mg/dL (8-23); C Reactive Protein 138.5 mg/L (0.0-4.9); Calcium 6.8 mg/dL (8.5-10.5); Carbon Dioxide 29 mmol/L (22-29); Chloride 101 mmol/L (98-107); Globulin 2.2 g/dL (1.3-4.6); Glomerular Filtration Rate 114.6 mL/min (90-130); Glucose 173 mg/dL (65-115); Osmolality Calculated 297 mOsm/kg (285-295); Potassium 4.5 mmol/L (3.5-5.1); Sodium 139 mmol/L (136-145); Total Bilirubin 0.7 mg/dL (0.15-1.2); Total Protein 4.7 g/dL (6.6-8.7)
[2021-03-10 04:22] LABS: D Dimer >= 20.00 ug/mIFEU (0-0.59); Procalcitonin 0.46 ng/mL (0-0.5)
[2021-03-10 04:39] LABS: Ferritin 1323 ng/mL (30-400)
[2021-03-10 04:54] LABS: Slide Review Slide Review Perform
[2021-03-10 05:49] LABS: ABG PCO2 46.9 mmHg (35-45); ABG PH Result 7.43 (7.35-7.45); Arterial Blood Gas Hematocrit 36.1 % (42-52); Base Excess ABG 5.6 mmol/L (-2.0-2.0); Blood Gas Allen Test Pos; Blood Gas Sample Type Arterial; HCO3 ABG 30.8 mmol/L (22-26)
[2021-03-10 05:51] LABS: Blood Gas Sample Site Radial, right; Blood Gas Tidal Volume 0.42; Oxygen Device VENT
[2021-03-10] MEDS: propofol 1,000 MG/100 ML INJ 29.12 MG IV ×2 (06:13→08:08)
--- NOTE | 2021-03-10 07:22 | XRR_ITS ---
PROCEDURE INFORMATION: Exam: XR Chest Exam date and time: 03/10/2021 7:22 AM Age: 60 years old Clinical indication: Device placement; Other: Og placement; Additional info: Confirm og placement TECHNIQUE: Imaging protocol: XR of the chest. Views: 1 view. Total images: 1 COMPARISON: CR (CHEST, ) 03/09/2021 6:57 PM FINDINGS: Tubes, catheters and devices: Enteric tube seen entering the stomach with tip not visualized. A left subclavian central venous catheter is present, with its tip overlying the region of the superior vena cava and unchanged from prior exam. An endotracheal tube is present, terminating above the [place] by 4 cm. Lungs: Bilateral pulmonary opacities have improved from the prior exam. Pleural spaces: Unremarkable. No pleural effusion. No pneumothorax. Heart/Mediastinum: Heart size is stable when compared to the prior exam. Bones/joints: Osseous structures are unchanged from the prior exam. XR/XR chest 1V portable [id number] IMPRESSION: 1. Enteric tube seen entering the stomach with tip not visualized. 2. A left subclavian central venous catheter is present, with its tip overlying the region of the superior vena cava and unchanged from prior exam. 3. An endotracheal tube is present, terminating above the [place] by 4 cm. 4. Bilateral pulmonary opacities have improved from the prior exam.
[2021-03-10 07:27] LABS: Vancomycin Trough 16.2 ug/mL (10-15)
[2021-03-10] MEDS: vancomycin 1,500 MG/300 ML PIGGYBACK 200 MG IV ×3 (08:06→23:30)
[2021-03-10] MEDS: famotidine 20 mg/2 mL INJ IVP ×2 (08:07→20:55)
[2021-03-10] MEDS: enoxaparin 100 mg/mL Syringe SUBCUT ×2 (10:13→20:55)
[2021-03-10] MEDS: FUROsemide 10 mg/mL SDV 4mL 40 MG IVP (10:54)
[2021-03-10] MEDS: cisatracurium 100 MG in sodium chloride 0.9% 50 ML IV (10:56)
--- NOTE | 2021-03-10 12:43 | PC.SOCIAL ---
IMM not updated IMM not updated. Patient is still intubated and not expected to D/c in the next 24-48 hours.
[2021-03-10] MEDS: propofol 1,000 MG/100 ML INJ 17.47 MG IV (14:38)
--- NOTE | 2021-03-10 15:46 | PC.NURSE ---
Patient home medication, Nintedanib, put in biohazard bad, labeled, and placed in pyxis.
[2021-03-10] MEDS: remdesivir 100 MG in sodium chloride 0.9% (100 ml) 100 ML IV (17:53)
--- NOTE | 2021-03-10 18:39 | P.PN_ITS ---
Subjective Subjective: Interval history: 60-year-old male with past medical history significant for hypertension, hypertriglyceridemia, papillary thyroid carcinoma status post thyroidectomy 2014, subsequent hypothyroidism, benign prostatic hyperplasia, who presented to the hospital with respiratory distress. Patient was found to have oxygen saturation in the 70s on arrival. He was placed on n on-rebreather however due to progressively worsening respiratory distress he was transition to high-flow nasal cannula.Imaging studies on admission included chest x-ray which showed a heterogeneous interstitial and airspace opacities in bilateral mid lower lung lobes. Monitor pulmonary hyperexpansion was also noted.Laboratory workup showed a WBC of 7.5, hemoglobin 12.8, hematocrit 37.3 and platelet count 200. D-dimer was 1.60. Sodium 135, potassium 3.5, chloride 98, bicarb 25, BUN 18 and creatinine of 0.7. Total bilirubin of 1.4. AST was elevated at 53. , ALT of 39. C reactive protein 147.7. ProBNP of 287. Patient was found to have COVID-19 PCR positive. He was started on Remdesivir 5 day protocol. Addition was started on Decadron 6 mg IV daily and empirically on IV Rocephin 1 g Q 24 hour. Initially patient was stable and improving however was unable to prone. Transferred to COVID-19 step-down unit. Due to progressively worsening respiratory distress he was requiring 60 L with 100% FiO2. O2 sats were maintained between mid to high 80s. D-dimer had increased to over 20. Suspected to have development of acute pulmonary embolism. Transition to full dose Lovenox. At this time patient was transferred to the intensive care unit. High risk for requiring intubation and mechanical ventilation. 03/10 Patient remained stable overnight on intubation No fever, chills, nausea or vomiting Medications: Reviewed: Yes Vitals/I&O/Wt Last Vital Signs Temp 98.2 F 03/10/21 15:00 Pulse 55 L 03/10/21 15:12 Resp 22 H 03/10/21 17:46 BP 112/54 03/10/21 15:00 Pulse Ox 96 03/10/21 17:46 03/10/21 03/10/21 03/10/21 06:59 14:59 22:59 Intake Total 571.006 / 1106.238 722.257 / 722.257 30.417 / 752.674 Output Total 450 / 650 1050 / 1050 Balance 121.006 / 456.238 722.257 / 722.257 -1019.583 / -297.326 Physical Exam Narrative: EXAM NARRATIVE: General: intubated on vent HEENT: ET tube in place. Chest: vented breath sounds, Left SC line CVS: S1-S2 regular, no murmurs, no tachycardia, no gallops, no rubs Abdomen:non-distended : Rodríguez Neuro: Sedated Urinary Catheter Management^: Rodríguez: Cath Placed During This Visit: yes Reason for Continuing Indwelling Catheter: Accurate Measurement of Urinary Output in Critically Ill Patients Urinary Catheter Date of Insertion: 03/09/21 Urinary Catheter Time of Insertion: 22:34 Data : 03/10/21 03:25 03/10/21 03:25 Micro: Microbiology 03/05/21 15:10 Blood Culture - Final Blood NO GROWTH AFTER 5 DAYS 03/05/21 14:35 Blood Culture - Final Blood NO GROWTH AFTER 5 DAYS A&P Assessment and plan (1) Acute respiratory failure due to severe acute respiratory syndrome coronavirus 2 (SARS-CoV-2) infection: Status: Acute (2) D-dimer, elevated: Status: Acute (3) Transaminitis: Status: Acute (4) DVT prophylaxis: Status: Acute Additional A&P Information Acute respiratory failure with hypoxia due to COVID 19 pneumonia with acute pulmonary embolism - S/p Remdesivir, Actemera - Continue decadron - Did not tolerate HFNC - Intubated and placed on MV on 03/09 - Continue fentanyl, versed , propofol for sedation - Maintain in deep sedation - intiated on nimbex - Prone 16hr on x 3 - Continue broad specturm abx - Continue Lovenox full dose - ABG and chest xray in am Transaminitis - Ast 53-> 56 - ALT 39 -> 82 - Trend LFT Hypertension - Metoprolol on hold Hypothyroidism hx of papillary thyroid carcinoma - Status post thyroidectomy - Levothyroxine 200 mcg p.o. daily GI prophylaxis - Pepcid 20 mg IV BID DVT prophylaxis - Lovenox 100 mg subcu b.i.d. Attestations Medical Necessity Statement*: Continue hospitalization for management of COVID-19 pneumonia requiring mechanical ventilation. Time Spent in Patient Care: Greater than 35 minutes (>than 50% of time spent in counselling and/or direct pt care on unit) . 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
--- NOTE | 2021-03-10 19:07 | PC.NURSE ---
TO4/BIS: 1000 1200 1400 1600 1800
--- NOTE | 2021-03-10 19:08 | PC.NURSE ---
Shift Note Frequent safety and comfort rounds continue. Orders and/or nursing care completed as indicated. Patient monitored for response to intervention and treatment. Overall uneventful shift. Patient Rested in bed throughout the day. Was placed prone at 1000 on 03/10/2021 and needs to go supine at 0200 on 03/11/2021. Proning was uneventful. We were able to reduce FIO2 requirement from 65% to 40%. Nurse has updated daughter chelsea on pt condition and treatment plan.
--- NOTE | 2021-03-10 19:26 | P.CONIM_ITS ---
Providers/Reason For Consult Consulting Physician/Specialty*: Brandon Niño MD/ Pulmonary Critical Care Medicine Reason for Consult*: Acute hypoxic respiratory failure sec acute hypoxic respiratory failure secondary to ARDS due to COVID-19 pneumonia Requesting Physician: Ade Velez Attending Physician: Ade Briggs Primary Care Provider: SARA Sanchez History of Present Illness History of Present Illness Rickey De is a 60 year old male past medical history significant for hypertension, hypertriglyceridemia, papillary thyroid carcinoma status post thyroidectomy 2014, subsequent hypothyroidism, benign prostatic hyperplasia, who presented to the hospital with respiratory distress on 03/05/2021. Patient was found to have oxygen saturation in 70s on and placed on nonrebreather and gradually worsened and required high flow nasal cannula. Admission chest x-ray which showed a heterogeneous interstitial and airspace opacities in bilateral mid lower lung lobes C reactive protein 147.7. ProBNP of 287. Patient was fo und to have COVID-19 PCR positive. He was started on Remdesivir 5 day protocol. Addition was started on Decadron 6 mg IV daily and empirically on IV Rocephin 1 g Q 24 hour. Initially patient was stable and improving however was unable to prone. Transferred to COVID-19 step-down unit. Due to progressively worsening respiratory distress he was requiring 60 L with 100% FiO2. O2 sats were [place]i manisha between mid to high 80s. D-dimer had increased to over 20. Suspected to have development of acute pulmonary embolism. Transition to full dose Lovenox. At this time patient was transferred to the intensive care unit. Critical care was consulted and eventually patient was intubated and connected to ventilator. Seen patient at bedside today morning Intubated and sedated Plan is to do first session of proning today Labs and imaging reviewed Review of Systems General: Reports: ROS unobtainable due to endotracheal tube, ROS unobtainable due to medical condition and ROS unobtainable due to mental status Meds/Allergies Home Medications and Allergies Home Medications Medication Instructions Recorded Confirmed Last Taken Type aspirin 81 mg tablet,delayed 81 mg PO DAILY@0800 08/06/20 03/05/21 03/05/21 History release losartan 100 mg tablet 100 mg PO DAILY@0800 08/06/20 03/05/21 03/05/21 History metoprolol succinate 50 mg 50 mg PO DAILY@1800 08/06/20 03/05/2121 History tablet,extended release 24 hr calcium carbonate-vitamin D3 1 tab PO DAILY@1800 03/05/21 03/05/21 03/04/21 History [Calcium + D] levothyroxine [Euthyrox] 200 mcg PO DAILY@0700 03/05/21 03/05/21 03/05/21 History Allergies Allergy/AdvReac Type Severity Reaction Status Date / Time No Known Allergies Allergy Verified 03/05/21 13:35 Current Medications Current Medications Generic Name Dose Route Start Last Admin Trade Name Freq PRN Reason Stop Dose Admin Acetaminophen 650 mg 03/05/21 20:05 03/08/21 18:13 Acetaminophen 325 Mg Tablet PO 650 mg Q6H PRN Administration Mild/Mod Pain Or Temp >/= 101 Albuterol/Ipratropium 3 ml 03/05/21 21:00 03/10/21 15:06 Ipratropium-Albuterol 3 Ml Neb INHALATION 3 ml Q6H.RESPIRATORY VICTORIANO Administration Aspirin 81 mg 03/06/21 08:00 03/10/21 10:12 Aspirin 81 Mg Ec Tablet PO Not Given DAILY@0800 [facility] Budesonide 0.5 mg 03/05/21 20:00 03/10/21 15:06 Budesonide 0.5 Mg/2 Ml Neb INHALATION Not Given BID.RESPIRATORY VICTORIANO Dexamethasone 6 mg 03/05/21 20:30 03/09/21 22:17 Dexamethasone 4 Mg/Ml Inj IVP 6 mg Q24H VICTORIANO Administration Enoxaparin Sodium 100 mg 03/09/21 21:00 03/10/21 10:13 Enoxaparin 100 Mg/Ml Syringe 1 mg/kg (100 mg) 100 mg SUBCUT Administration Q12H VICTORIANO Famotidine 20 mg 03/09/21 20:00 03/10/21 08:07 Famotidine 20 Mg/2 Ml Inj IVP 20 mg Q12H VICTORIANO Administration Piperacillin Sod/Tazobactam 50 mls @ 12.5 mls/hr 03/09/21 16:30 03/10/21 17:19 Sod 3.375 gm/ Sodium Chloride IV 12.5 mls/hr Q8H VICTORIANO Administration Protocol As Directed Vancomycin/PEG/NADA/Lysine/Water 1,500 mg in 300 mls @ 200 mls/hr 03/09/21 15:00 03/10/21 15:56 Vancocin IV 200 mls/hr Q8H VICTORIANO Administration Dexmedetomidine HCl 400 mcg/ 104 mls @ 0 mls/hr 03/09/21 15:45 03/10/21 13:27 Sodium Chloride IV 0 mcg/kg/hr .Q0M VICTORIANO 0 mls/hr Titration Protocol Per Protocol Propofol 1,000 mg in 100 mls @ 0 mls/hr 03/09/21 18:00 03/10/21 14:38 Diprivan IV 30 mcg/kg/min .Q0M VICTORIANO 17.47 mls/hr Administration Protocol Per Protocol Fentanyl 1,000 mcg/ Sodium 100 mls @ 0 mls/hr 03/09/21 18:30 03/10/21 15:53 Chloride IV 125 mcg/hr .Q0M VICTORIANO 12.5 mls/hr Administration Protocol Per Protocol Cisatracurium Besylate 100 mg/ 100 mls @ 0 mls/hr 03/09/21 19:30 03/10/21 13:27 Sodium Chloride IV 1.05 mcg/kg/min .Q0M VICTORIANO 6.12 mls/hr Titration Protocol Per Protocol Midazolam HCl 100 mg/ Sodium 100 mls @ 0 mls/hr 03/10/21 10:30 03/10/21 13:28 Chloride IV 3 mg/hr .Q0M VICTORIANO 3 mls/hr Titration Protocol Per Protocol Levothyroxine Sodium 200 mcg 03/06/21 07:00 03/10/21 10:12 Levothyroxine 200 Mcg Tablet PO Not Given DAILY@0700 VICTORIANO PFSH Acute PFSH: Medical History (Updated 03/10/21 @ 23:42 by Brandon Niño MD) BPH (benign prostatic hyperplasia) Cardiomegaly Elevated PSA Hematuria Hypertriglyceridemia Hypokalemia Hypotension Papillary thyroid carcinoma Prostatitis Surgical History History of thyroidectomy 2014 due to cancer Social History Smoking and tobacco status: never smoked Alcohol intake: never Vitals/I&O/Wt Last Vital Signs Temp 97.6 F 03/10/21 17:00 Pulse 52 L 03/10/21 17:00 Resp 22 H 03/10/21 17:46 BP 99/54 08/15/21 17:00 Pulse Ox 96 03/10/21 17:46 03/10/21 03/10/21 03/10/21 06:59 14:59 22:59 Intake Total 571.006 / 1106.238 722.257 / 722.257 30.417 / 752.674 Output Total 450 / 650 1400 / 1400 Balance 121.006 / 456.238 722.257 / 722.257 -1369.583 / -647.326 Physical Exam Narrative: EXAM NARRATIVE: PHYSICAL EXAM: General: lying in bed, sedated and intubated. HEENT:NCAT, PERRLA, EOMI Neck: Supple Lungs: Clear, Heart: s1/s2, RRR Abd: soft, NT, ND, BS + Normoactive Extremities: No edema PASTORAL WORKER: sedated and limited PASTORAL WORKER exam possible. SKIN: no rash LDA: # CVC: Left subclavian central line 03/09/2021 # Rodríguez: 03/09/2021 Urinary Catheter Management^: Rodríguez: Cath Placed During This Visit: yes Reason for Continuing Indwelling Catheter: Accurate Measurement of Urinary Output in Critically Ill Patients Urinary Catheter Date of Insertion: 03/09/21 Urinary Catheter Time of Insertion: 22:34 Data Labs: Other Labs: Laboratory Results WBC 14.5 10^3/uL (4.0 -10.0) H 03/10/21 03:25 RBC 3.63 10^6/uL (4.1 -5.3) L 03/10/21 03:25 Hgb 11.5 g/dL (11.7-1 6.6) L 03/10/21 03:25 Hct 34.1 % (42.0-52.0 ) L 03/10/21 03:25 MCV 93.9 fl (80-94) 03/10/21 03:25 MCH 31.7 pg (28.0-34. 0) 03/10/21 03:25 MCHC 33.7 g/dL (30.0-3 6.0) 03/10/21 03:25 RDW 14.3 % (12.1-15.1 ) 03/10/21 03:25 Plt Count 178 10^3/cmm (130 -400) 03/10/21 03:25 MPV 9.4 fL (7.4-10.4) 03/10/21 03:25 Neut % (Auto) 89.6 % 03/10/21 03:25 Lymph % (Auto) 2.0 % 03/10/21 03:25 [place] % (Auto) 1.9 % 03/10/21 03:25 Eos % (Auto) 0.1 % 03/10/21 03:25 Baso % (Auto) 0.5 % 03/10/21 03:25 Neut # (Auto) 13.00 10^3/uL (1. 8-7.7) H 03/10/21 03:25 Lymph # (Auto) 0.3 10^3/uL (0.8- 4.8) L 03/10/21 03:25 [place] # (Auto) 0.3 10^3/uL (0.2- 0.9) 03/10/21 03:25 Eos # (Auto) 0.0 10^3/uL (0.0- 0.8) 03/10/21 03:25 Baso # (Auto) 0.1 10^3/uL (0.0- 0.1) 03/10/21 03:25 Nucleated RBC % (a uto) 0.3 % 03/10/21 03:25 Nucleated RBCs # 0.0 /100WBC 03/10/21 03:25 D-Dimer >= 20.00 ug/mIFEU (0-0.59) H 03/10/21 03:25 Specimen Type Arterial 03/10/21 05:45 Sample Site Radial, right 03/10/21 05:45 ABG pH 7.43 (7.35-7.45) 03/10/21 05:45 ABG pCO2 46.9 mmHg (35-45) H 03/10/21 05:45 ABG pO2 124.0 mmHg (80.0- 100.0) H 03/10/21 05:45 ABG HCO3 30.8 mmol/L (22-2 6) H 03/10/21 05:45 ABG Base Excess 5.6 mmol/L (-2.0- 2.0) H 03/10/21 05:45 Gus Test Pos 03/10/21 05:45 VBG pH 7.47 (7.32-7.42) H 03/05/21 15:10 VBG pCO2 41.5 mmHg (41-51) 03/05/21 15:10 VBG pO2 29.2 mmHg (25-40) 03/05/21 15:10 VBG HCO3 30.0 mmol/L (24-2 8) H 03/05/21 15:10 VBG Base Excess 5.8 mmol/L (-3.0- 3.0) H 03/05/21 15:10 VBG Hematocrit 7.5 % (42-52) L 03/05/21 15:10 Hematocrit 36.1 % (42-52) L 03/10/21 05:45 O2 Delivery Device Vent 03/10/21 05:45 O2 Liters/Min 55.0 % 03/08/21 04:52 FiO2 75.0 % 03/10/21 05:45 Tidal Volume 0.42 03/10/21 05:45 PEEP 15.0 cmH20 03/10/21 05:45 Driver License Agent ID Hinja 03/10/21 05:45 Sodium 139 mmol/L (136-1 45) 03/10/21 03:25 Potassium 4.5 mmol/L (3.5-5 .1) 03/10/21 03:25 Chloride 101 mmol/L (98-10 7) 03/10/21 03:25 Carbon Dioxide 29 mmol/L (22-29) 03/10/21 03:25 Anion Gap 13.5 (5-19) 03/10/21 03:25 BUN 27 mg/dL (8-23) H 03/10/21 03:25 Creatinine 0.7 mg/dL (0.7-1. 2) 03/10/21 03:25 GFR Calculation 114.6 mL/min (90- 130) 03/10/21 03:25 Glucose 173 mg/dL (65-115 ) H 03/10/21 03:25 Calculated Osmolal ity 297 mOsm/kg (285- 295) H 03/10/21 03:25 Lactic Acid 1.4 mmol/L (0.5-2 .2) 03/05/21 14:35 Calcium 6.8 mg/dL (8.5-10 .5) L 03/10/21 03:25 Magnesium 2.0 mg/dL (1.7-2. 3) 03/08/21 05:10 Ferritin 1323 ng/mL (30-40 0) H 03/10/21 03:25 Total Bilirubin 0.7 mg/dL (0.15-1 .2) 03/10/21 03:25 AST 24 U/L (0-40) 03/10/21 03:25 ALT 40 U/L (0-41) 03/10/21 03:25 Alkaline Phosphata se 103 IU/L (40-130) 03/10/21 03:25 Lactate Dehydrogen ase 660 U/L (135-225) H 03/06/21 03:35 C-Reactive Protein 138.5 mg/L (0.0-4 .9) H 03/10/21 03:25 NT-Pro-B Natriuret Pep 287 pg/mL (0-125) H 03/05/21 14:35 Total Protein 4.7 g/dL (6.6-8.7 ) L 03/10/21 03:25 Albumin 2.5 g/dL (3.5-5.2 ) L 03/10/21 03:25 Globulin 2.2 g/dL (1.3-4.6 ) 03/10/21 03:25 Procalcitonin 0.46 ng/mL (0-0.5 ) 03/10/21 03:25 Vancomycin Trough 16.2 ug/mL (10-15 ) H 03/10/21 06:30 Nasal/Oral COVID-1 9 PCR Detected H 03/05/21 16:30 SARS-CoV-2 Ag (Rap id) Negative (Negati ve) 03/05/21 23:00 Impressions Chest CTA 03/09/21 13:47 IMPRESSION: Positive for subsegmental right lower lobe pulmonary embolism. Bilateral pneumonia consistent with COVID-19 pneumonia. Findings discussed with Dr. Edwards by Dr. Rodrick Espinosa at 4:37 p.m., 03/09/2021. Radiation Dose CTDIVOL = (mGy): DLP = 567.74 (mGy-cm) Chest X-Ray 03/10/21 07:22 IMPRESSION: 1. Enteric tube seen entering the stomach with tip not visualized. 2. A left subclavian central venous catheter is present, with its tip overlying the region of the superior vena cava and unchanged from prior exam. 3. An endotracheal tube is present, terminating above the [place] by 4 cm. 4. Bilateral pulmonary opacities have improved from the prior exam. Micro: Micro: Microbiology 03/05/21 15:10 Blood Culture - Fi nal Blood NO GROWTH AFTER 5 DAYS 03/05/21 14:35 Blood Culture - Fi nal Blood NO GROWTH AFTER 5 DAYS A&P Assessment and plan (1) Acute respiratory failure with hypoxia: Status: Acute (2) Acute respiratory failure due to severe acute respiratory syndrome coronavirus 2 (SARS-CoV-2) infection: Status: Acute (3) DVT prophylaxis: Status: Acute (4) Transaminitis: Status: Acute (5) COVID-19: Status: Acute (6) BPH (benign prostatic hyperplasia): Status: Acute Qualifiers: Lower urinary tract symptom presence: unspecified whether lower urinary tract symptoms present Qualified Code(s): N40.0 - Benign prostatic hyperplasia without lower urinary tract symptoms (7) Hypothyroidism associated with surgical procedure: Status: Acute (8) Pulmonary embolism associated with COVID-19: Status: Acute #Acute respiratory #acute hypoxic respiratory failure secondary to ARDS due to COVID-19 pneumonia complicated by right subsegmental PE #Transaminitis due to COVID-19 pneumonia #Hypothyroidism #BPH #Hypertension - Covid PCR positive, CRP 138 - CTA Positive for PE - intubated, sedated and connected to ventilator-plan is to paralyze & prone-due for first session today -Currently on 420/15/75% CMV-ABG today morning 7.4 3/46/124/30 -DuoNeb nebulizations and Pulmicort nebulization scheduled -Currently on empiric coverage with Rocephin and azithromycin started 03/05/2021 -On remdesivir 5-day protocol started 03/06/2021 -On dexamethasone 6 mg daily started 03/05/2021 -Monitor inflammatory markers every 48 hours -s/p 1 dose of Actemra -Urine Legionella negative; bacterial antigens negative; MRSA nares pending , low procalcitonin -Blood cultures so far negative; On empiric Vancomycin and zosyn -Monitor renal functions and urine output-try to keep negative to even -Flomax 0.4 mg p.o. daily for BPH -Lovenox 100 q12 hr for Right subsegmental PE -Levothyroxine 200 mcg PO daily -Diabetes-A1c 7.5 -N.p.o. for now -We will start Glucerna tomorrow after first proning session -Insulin scale coverage-monitor sugars -[id number] for GI prophylaxis -Full code -Prognosis guarded -updated family Hospitalist, RN, RT covering discussed with hospitalist, RN, RT covering the patient Consult Attestations Medical Necessity Statement: Acute hypoxic complicated wave subsegmental PE needs close ICU monitoring for respiratory status-currently intubated and connected to ventilator Time Spent in Patient Care: Greater than 35 minutes (>than 50% of time spent in counselling and/or direct pt care on unit) . Critical Care Time: Critical Care Time (min): 45 Coding Level of Care Code New Pt Acute Prompt Care Rn for Chg Fwd Patient Type New History Comprehensive Exam Comprehensive Medical Decision Making High Complexity Diagnoses Acute respiratory failure with hypoxia J96.01 Acute respiratory failure due to severe acute respiratory syndrome coronavirus 2 (SARS-CoV-2) infection U07.1; J96.00 DVT prophylaxis Z29.9 Transaminitis R74.01 COVID-19 U07.1 BPH (benign prostatic hyperplasia) N40.0 Lower urinary tract symptom presence: unspecified whether lower urinary tract symptoms present Hypothyroidism associated with surgical procedure E89.0 Pulmonary embolism associated with COVID-19 U07.1; I26.99 Time Spent (min) 45
--- NOTE | 2021-03-10 20:49 | PC.NUTR ---
NUTR TF RECOMMENDATIONS: Jevity with a goal rate of 50 ml/hr providing 1440 kcal (73%), 66 g PRO (85%), and 968 ml fluid (49%)(%NEEDS). Suggest starting TF at 20 ml/hr and increase by 10 ml Q6H as tolerated till goal rate is met. Suggest 120 ml H2O flushes Q4H to approach fluid needs or per physician.
[2021-03-10] MEDS: propofol 1,000 MG/100 ML INJ 11.65 MG IV (22:00)
[2021-03-10] MEDS: cisatracurium 100 MG in sodium chloride 0.9% 50 ML 11.65 MG IV (22:29)
[2021-03-10] MEDS: dexamethasone 4 mg/mL INJ 6 MG IVP (22:30)
[2021-03-11] VITALS (31 sets, daily range): BP systolic 100–201; BP diastolic 55–94; PULSE 46–98; RESP 18–97; TEMP 36.5–37.1; O2SAT 94–100
[2021-03-11] MEDS: ipratropium-albuterol 3 mL Neb INHALATION ×5 (02:26→20:00)
[2021-03-11] MEDS: piperacillin-tazobactam 3.375 GM in sodium chloride 0.9% (plus) 50 ML IV ×3 (02:50→15:40)
--- NOTE | 2021-03-11 04:00 | XRR_ITS ---
PROCEDURE INFORMATION: Exam: XR Chest Exam date and time: 03/11/2021 4:00 AM Age: 60 years old Clinical indication: Condition or disease; Lung condition and disease; Patient HX: Covid+ resp failure; Additional info: Respiratory failure TECHNIQUE: Imaging protocol: XR of the chest. Views: 1 view. Total images: 1 COMPARISON: CR (CHEST, ) 03/10/2021 7:54 AM FINDINGS: Tubes, catheters and devices: Tubes and catheters are unchanged from the prior exam. Lungs: Bilateral pulmonary opacities have slightly improved from the prior exam. Pleural spaces: Unremarkable. No pleural effusion. No pneumothorax. Heart/Mediastinum: Heart size is stable when compared to the prior exam. Bones/joints: Osseous structures are unchanged from the prior exam. XR/XR chest 1V portable [id number] IMPRESSION: 1. Tubes and catheters are unchanged from the prior exam. 2. Bilateral pulmonary opacities have slightly improved from the prior exam.
[2021-03-11 04:53] LABS: ABG PCO2 51.6 mmHg (35-45); ABG PH Result 7.42 (7.35-7.45); Arterial Blood Gas Hematocrit 35.3 % (42-52); Base Excess ABG 7.9 mmol/L (-2.0-2.0); Blood Gas Allen Test Pos; Blood Gas Sample Type Arterial; HCO3 ABG 33.7 mmol/L (22-26); PO2 ABG 97.4 mmHg (80.0-100.0)
[2021-03-11 04:56] LABS: Blood Gas Sample Site Radial, right; Blood Gas Tidal Volume 0.45; Oxygen Device VENT
[2021-03-11] MEDS: propofol 1,000 MG/100 ML INJ 11.65 MG IV (05:36)
[2021-03-11 06:37] LABS: Basophils % 0.2 %; Eosinophils % 0.1 %; Hematocrit 34.8 % (42.0-52.0); Hemoglobin 11.5 g/dL (11.7-16.6); Lymphocytes # 0.2 10^3/uL (0.8-4.8); Lymphocytes % 1.5 %; Mean Corpuscular Hemoglobin 31.2 pg (28.0-34.0); Mean Corpuscular Volume 94.3 fl (80-94); Mean Platelet Volume 9.5 fL (7.4-10.4); Monocytes # 0.4 10^3/uL (0.2-0.9); Neutrophils # 12.04 10^3/uL (1.8-7.7); Nucleated Red Blood Cells % 0.1 %; Platelet Count 213 10^3/cmm (130-400); Red Blood Count 3.69 10^6/uL (4.1-5.3); Red Cell Distribution Width 14.2 % (12.1-15.1); White Blood Count 13.7 10^3/uL (4.0-10.0)
[2021-03-11 06:41] LABS: Alanine Aminotransferase 31 U/L (0-41); Albumin Level 2.5 g/dL (3.5-5.2); Alkaline Phosphatase 91 IU/L (40-130); Anion Gap 10.4 (5-19); Aspartate Amino Transferase 16 U/L (0-40); Blood Urea Nitrogen 31 mg/dL (8-23); C Reactive Protein 53.4 mg/L (0.0-4.9); Calcium 6.9 mg/dL (8.5-10.5); Carbon Dioxide 33 mmol/L (22-29); Chloride 102 mmol/L (98-107); Globulin 2.3 g/dL (1.3-4.6); Glucose 150 mg/dL (65-115); Osmolality Calculated 301 mOsm/kg (285-295); Potassium 4.4 mmol/L (3.5-5.1); Sodium 141 mmol/L (136-145); Total Bilirubin 0.6 mg/dL (0.15-1.2); Total Protein 4.8 g/dL (6.6-8.7); Triglycerides 202 mg/dL (0-150)
[2021-03-11 06:53] LABS: Ferritin 1507 ng/mL (30-400)
[2021-03-11 07:20] LABS: Neutrophils % 95.2 %
--- NOTE | 2021-03-11 08:56 | PC.CHAP ---
Pastoral Care Encounter/Spiritual Assessment Type of Contact [] Declined transformer mechanic visit [] Patient/Family/Request visit [] Outpatient visit [] Follow-up visit [] Physician referral [] Code/Alert [x] Routine visit [] Staff referral [] Actively dying [] Patient sleeping [] Family support [] [] Out of room [] Palliative care [] [] Receiving care in room [] Pre-surgical visit [] Trauma [] Long length of stay []x ICU visit [x] Other:vent Relational/Emotional Strength [] Patient feels connected with others/family/visitors/staff [] Distress [] Loneliness/isolation [] Abandonment Spirituality of Patient [] Person of Basilia [] Attends Jain of their Basilia [] Believes in Prayer [] Reads Bible or Hoahaoism materials [] There are Spiritual issues to be addressed Compressed Gas Tester Interventions [x] Prayer [] Active listening [] Non-anxious presence [] Spiritual/emotional support [] Crisis/trauma care [] Spiritual counseling [] Bereavement support [] Provided bereavement packet [] Provided Bible/devotional materials [] Provided toy/stuffed animal, coloring book to patient or family member [] Provided Communion [] Anointing/[place] [] Salvation [x] Completed spiritual assessment [] Other: Impact on Illness or Injury [] Angry [] Fearful [] Anxious [] Often cries [] Exhaustion [] Unable to work [] Unable to attend yarsanism [] Unable to walk/stand [] Unable to read [] Unable to drive [] Unable to eat/drink [] Unable to sleep [] Unable to be with family [] Patient intubated [] Other: Summary Time spent with patient
[2021-03-11] MEDS: vancomycin 1,500 MG/300 ML PIGGYBACK 200 MG IV ×3 (09:05→23:36)
[2021-03-11] MEDS: famotidine 20 mg/2 mL INJ IVP ×2 (09:05→21:02)
[2021-03-11] MEDS: enoxaparin 100 mg/mL Syringe SUBCUT ×2 (09:07→21:02)
[2021-03-11] MEDS: budesonide 0.5 mg/2 mL Neb INHALATION ×2 (10:01→19:56)
--- NOTE | 2021-03-11 11:24 | PC.NURSE ---
Proned patient at 1100 on 03/11/2021. Repositioning was uneventful. This is the start of the second proning session. Needs to supinate at 0300 on 03/12/2021
[2021-03-11] MEDS: cisatracurium 100 MG in sodium chloride 0.9% 50 ML 8.15 MG IV (12:28)
[2021-03-11] MEDS: propofol 1,000 MG/100 ML INJ 17.47 MG IV ×3 (12:29→23:37)
[2021-03-11] MEDS: hyDRALAzine 20 mg/mL INJ 1 mL 10 MG IVP (17:34)
--- NOTE | 2021-03-11 19:45 | PC.NURSE ---
TOF/BIS: 03/11/2021 1000 1200 1400 1600 1800
--- NOTE | 2021-03-11 19:46 | PC.NURSE ---
Shift Note Frequent safety and comfort rounds continue. Orders and/or nursing care completed as indicated. Patient monitored for response to intervention and treatment. Uneventful shift for patient. Patient was proned at 1100 without incident and needs to be placed supine at 0300 on 03/12/2021. THis will be the second proning session completed. Patient did have an episode of hypertension (systolic of 220) PRN hydralazine was given but was not effective. Nurse repositioned patient to previous position, with left arm towards the head of the bed, patient facing left, and right arm down by his side. Patient blood pressure returned to normal.
--- NOTE | 2021-03-11 20:08 | P.PN_ITS ---
Subjective Subjective: Interval history: 60-year-old male with past medical history significant for hypertension, hypertriglyceridemia, papillary thyroid carcinoma status post thyroidectomy 2014, subsequent hypothyroidism, benign prostatic hyperplasia, who presented to the hospital with respiratory distress. Patient was found to have oxygen saturation in the 70s on arrival. He was placed on n on-rebreather however due to progressively worsening respiratory distress he was transition to high-flow nasal cannula.Imaging studies on admission included chest x-ray which showed a heterogeneous interstitial and airspace opacities in bilateral mid lower lung lobes. Monitor pulmonary hyperexpansion was also noted.Laboratory workup showed a WBC of 7.5, hemoglobin 12.8, hematocrit 37.3 and platelet count 200. D-dimer was 1.60. Sodium 135, potassium 3.5, chloride 98, bicarb 25, BUN 18 and creatinine of 0.7. Total bilirubin of 1.4. AST was elevated at 53. , ALT of 39. C reactive protein 147.7. ProBNP of 287. Patient was found to have COVID-19 PCR positive. He was started on Remdesivir 5 day protocol. Addition was started on Decadron 6 mg IV daily and empirically on IV Rocephin 1 g Q 24 hour. Initially patient was stable and improving however was unable to prone. Transferred to COVID-19 step-down unit. Due to progressively worsening respiratory distress he was requiring 60 L with 100% FiO2. O2 sats were maintained between mid to high 80s. D-dimer had increased to over 20. Suspected to have development of acute pulmonary embolism. Transition to full dose Lovenox. At this time patient was transferred to the intensive care unit. High risk for requiring intubation and mechanical ventilation. 03/10 Patient remained stable overnight on intubation No fever, chills, nausea or vomiting 03/11 Stable on vent overnight. Medications: Reviewed: Yes Vitals/I&O/Wt Last Vital Signs Temp 98.7 F 03/11/21 17:00 Pulse 86 03/11/21 20:00 Resp 22 H 03/11/21 19:55 BP 201/94 03/11/21 17:00 Pulse Ox 94 03/11/21 19:55 03/11/21 03/11/21 03/11/21 06:59 14:59 22:59 Intake Total 614.658 / 2005.604 562.455 / 562.455 150 / 712.455 Output Total 700 / 2100 800 / 800 Balance -85.342 / -94.396 562.455 / 562.455 -650 / -87.545 Physical Exam Narrative: EXAM NARRATIVE: General: intubated on vent HEENT: ET tube in place. Chest: vented breath sounds, Left SC line CVS: S1-S2 regular, no murmurs, no tachycardia, no gallops, no rubs Abdomen:non-distended : Rodríguez Neuro: Sedated Urinary Catheter Management^: Rodríguez: Cath Placed During This Visit: yes Reason for Continuing Indwelling Catheter: Accurate Measurement of Urinary Output in Critically Ill Patients Urinary Catheter Date of Insertion: 03/09/21 Urinary Catheter Time of Insertion: 22:34 Data : 03/11/21 05:50 03/11/21 05:50 Micro: Microbiology 03/10/21 09:38 Gram Stain - Final Sputum - Endotracheal Tube Aspirate 03/11/21 03:15 MRSA Culture - Final Nose 03/11/21 03:15 Legionella Urinary Antigen - Final Urine,Clean Catch Bacterial Antigens - Final 03/05/21 15:10 Blood Culture - Final Blood NO GROWTH AFTER 5 DAYS 03/05/21 14:35 Blood Culture - Final Blood NO GROWTH AFTER 5 DAYS A&P Assessment and plan (1) Acute respiratory failure due to severe acute respiratory syndrome coronavirus 2 (SARS-CoV-2) infection: Status: Acute (2) D-dimer, elevated: Status: Acute (3) Transaminitis: Status: Acute (4) DVT prophylaxis: Status: Acute Additional A&P Information Acute respiratory failure with hypoxia due to COVID 19 pneumonia with acute pulmonary embolism - S/p Remdesivir, Actemera - Continue decadron - Did not tolerate HFNC - Intubated and placed on MV on 03/09 - Continue fentanyl, propofol for sedation - Maintain in deep sedation - - Paralytic and proning - Prone 16hr on x 3 - Continue broad specturm abx - Continue Lovenox full dose - ABG and chest xray in am Transaminitis - Ast 53-> 56 - ALT 39 -> 82 - Trend LFT - Cmp in am Hypertension - Metoprolol on hold - Hyralazine 10 mg IV q8hr prn added Hypothyroidism hx of papillary thyroid carcinoma - Status post thyroidectomy - Levothyroxine 200 mcg p.o. daily GI prophylaxis - Pepcid 20 mg IV BID DVT prophylaxis - Lovenox 100 mg subcu b.i.d. Attestations Medical Necessity Statement*: Continue current hospitalization for management of resp failure Time Spent in Patient Care: Greater than 35 minutes (>than 50% of time spent in counselling and/or direct pt care on unit) . 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
[2021-03-11] MEDS: sennosides-docusate Tablet 1 TAB PO (21:01)
--- NOTE | 2021-03-11 23:22 | PM.PN ---
Subjective Subjective: Interval history: -Patient seen at bedside today -Labs and imaging reviewed -No overnight events -Due for first proning session today Medications: Reviewed: Yes Vitals/I&O/Wt Last Vital Signs Temp 98.7 F 03/11/21 19:00 Pulse 69 03/11/21 23:00 Resp 22 H 03/11/21 23:00 BP 124/58 03/11/21 23:00 Pulse Ox 94 03/11/21 20:57 03/11/21 03/11/21 03/12/21 14:59 22:59 06:59 Intake Total 562.455 / 562.455 450 / 1012.455 Output Total 800 / 800 Balance 562.455 / 562.455 -350 / 212.455 Physical Exam Narrative: EXAM NARRATIVE: EXAM NARRATIVE: PHYSICAL EXAM: General: lying in bed, sedated and intubated. HEENT:NCAT, PERRLA, EOMI Neck: Supple Lungs: Bilateral diffuse crackles Heart: s1/s2, RRR Abd: soft, NT, ND, BS + Normoactive Extremities: No edema COBBLER APPRENTICE: sedated and limited COBBLER APPRENTICE exam possible. SKIN: no rash LDA: # CVC: Left subclavian central line 03/09/2021 # Rodríguez: 03/09/2021 Urinary Catheter Management^: Rodríguez: Cath Placed During This Visit: yes Reason for Continuing Indwelling Catheter: Accurate Measurement of Urinary Output in Critically Ill Patients Urinary Catheter Date of Insertion: 03/09/21 Urinary Catheter Time of Insertion: 22:34 Data : 03/13/21 03:50 03/13/21 03:50 Other Labs: Laboratory Results WBC 13.7 10^3/uL (4.0-10.0) H 03/11/21 05:50 RBC 3.69 10^6/uL (4.1-5.3) L 03/11/21 05:50 Hgb 11.5 g/dL (11.7-16.6) L 03/11/21 05:50 Hct 34.8 % (42.0-52.0) L 03/11/21 05:50 MCV 94.3 fl (80-94) H 03/11/21 05:50 MCH 31.2 pg (28.0-34.0) 03/11/21 05:50 MCHC 33.0 g/dL (30.0-36.0) 03/11/21 05:50 RDW 14.2 % (12.1-15.1) 03/11/21 05:50 Plt Count 213 10^3/cmm (130-400) 03/11/21 05:50 MPV 9.5 fL (7.4-10.4) 03/11/21 05:50 Neut % (Auto) 95.2 % 03/11/21 05:50 Lymph % (Auto) 1.5 % 03/11/21 05:50 [place] % (Auto) 3.0 % 03/11/21 05:50 Eos % (Auto) 0.1 % 03/11/21 05:50 Baso % (Auto) 0.2 % 03/11/21 05:50 Neut # (Auto) 12.04 10^3/uL (1.8-7.7) H 03/11/21 05:50 Lymph # (Auto) 0.2 10^3/uL (0.8-4.8) L 03/11/21 05:50 [place] # (Auto) 0.4 10^3/uL (0.2-0.9) 03/11/21 05:50 Eos # (Auto) 0.0 10^3/uL (0.0-0.8) 03/11/21 05:50 Baso # (Auto) 0.0 10^3/uL (0.0-0.1) 03/11/21 05:50 Nucleated RBC % (auto) 0.1 % 03/11/21 05:50 Nucleated RBCs # 0.0 /100WBC 03/11/21 05:50 D-Dimer >= 20.00 ug/mIFEU (0-0.59) H 03/10/21 03:25 Specimen Type Arterial 03/11/21 04:40 Sample Site Radial, right 03/11/21 04:40 ABG pH 7.42 (7.35-7.45) 03/11/21 04:40 ABG pCO2 51.6 mmHg (35-45) H 03/11/21 04:40 ABG pO2 97.4 mmHg (80.0-100.0) 03/11/21 04:40 ABG HCO3 33.7 mmol/L (22-26) H 03/11/21 04:40 ABG Base Excess 7.9 mmol/L (-2.0-2.0) H 03/11/21 04:40 Gus Test Pos 03/11/21 04:40 VBG pH 7.47 (7.32-7.42) H 03/05/21 15:10 VBG pCO2 41.5 mmHg (41-51) 03/05/21 15:10 VBG pO2 29.2 mmHg (25-40) 03/05/21 15:10 VBG HCO3 30.0 mmol/L (24-28) H 03/05/21 15:10 VBG Base Excess 5.8 mmol/L (-3.0-3.0) H 03/05/21 15:10 VBG Hematocrit 7.5 % (42-52) L 03/05/21 15:10 Hematocrit 35.3 % (42-52) L 03/11/21 04:40 O2 Delivery Device Vent 03/11/21 04:40 O2 Liters/Min 55.0 % 03/08/21 04:52 FiO2 50.0 % 03/11/21 04:40 Tidal Volume 0.45 03/11/21 04:40 PEEP 12.0 cmH20 03/11/21 04:40 Leak Operator Paraffin Plant ID Hinja 03/11/21 04:40 Sodium 141 mmol/L (136-145) 03/11/21 05:50 Potassium 4.4 mmol/L (3.5-5.1) 03/11/21 05:50 Chloride 102 mmol/L (98-107) 03/11/21 05:50 Carbon Dioxide 33 mmol/L (22-29) H 03/11/21 05:50 Anion Gap 10.4 (5-19) 03/11/21 05:50 BUN 31 mg/dL (8-23) H 03/11/21 05:50 Creatinine 0.6 mg/dL (0.7-1.2) L 03/11/21 05:50 GFR Calculation 137.0 mL/min (90-130) H 03/11/21 05:50 Glucose 150 mg/dL (65-115) H 03/11/21 05:50 Calculated Osmolality 301 mOsm/kg (285-295) H 03/11/21 05:50 Lactic Acid 1.4 mmol/L (0.5-2.2) 03/05/21 14:35 Calcium 6.9 mg/dL (8.5-10.5) L 03/11/21 05:50 Magnesium 2.0 mg/dL (1.7-2.3) 03/08/21 05:10 Ferritin 1507 ng/mL (30-400) H 03/11/21 05:50 Total Bilirubin 0.6 mg/dL (0.15-1.2) 03/11/21 05:50 AST 16 U/L (0-40) 03/11/21 05:50 ALT 31 U/L (0-41) 03/11/21 05:50 Alkaline Phosphatase 91 IU/L (40-130) 03/11/21 05:50 Lactate Dehydrogenase 660 U/L (135-225) H 03/06/21 03:35 C-Reactive Protein 53.4 mg/L (0.0-4.9) H 03/11/21 05:50 NT-Pro-B Natriuret Pep 287 pg/mL (0-125) H 03/05/21 14:35 Total Protein 4.8 g/dL (6.6-8.7) L 03/11/21 05:50 Albumin 2.5 g/dL (3.5-5.2) L 03/11/21 05:50 Globulin 2.3 g/dL (1.3-4.6) 03/11/21 05:50 Triglycerides 202 mg/dL (0-150) H 03/11/21 05:50 Procalcitonin 0.46 ng/mL (0-0.5) 03/10/21 03:25 Vancomycin Trough 16.2 ug/mL (10-15) H 03/10/21 06:30 Nasal/Oral COVID-19 PCR Detected H 03/05/21 16:30 SARS-CoV-2 Ag (Rapid) Negative (Negative) 03/05/21 23:00 Impressions Chest CTA 03/09/21 13:47 IMPRESSION: Positive for subsegmental right lower lobe pulmonary embolism. Bilateral pneumonia consistent with COVID-19 pneumonia. Findings discussed with Dr. Edwards by Dr. Rodrick Espinosa at 4:37 p.m., 03/09/2021. Radiation Dose CTDIVOL = (mGy): DLP = 567.74 (mGy-cm) Chest X-Ray 03/11/21 04:00 IMPRESSION: 1. Tubes and catheters are unchanged from the prior exam. 2. Bilateral pulmonary opacities have slightly improved from the prior exam. Micro: Microbiology 03/10/21 09:38 Gram Stain - Final Sputum - Endotracheal Tube Aspirate 03/11/21 03:15 MRSA Culture - Final Nose 03/11/21 03:15 Legionella Urinary Antigen - Final Urine,Clean Catch Bacterial Antigens - Final A&P Assessment and plan (1) Acute respiratory failure with hypoxia: Status: Acute (2) Acute respiratory failure due to severe acute respiratory syndrome coronavirus 2 (SARS-CoV-2) infection: Status: Acute (3) DVT prophylaxis: Status: Acute (4) Transaminitis: Status: Acute (5) COVID-19: Status: Acute (6) BPH (benign prostatic hyperplasia): Status: Acute Qualifiers: Lower urinary tract symptom presence: unspecified whether lower urinary tract symptoms present Qualified Code(s): N40.0 - Benign prostatic hyperplasia without lower urinary tract symptoms (7) Hypothyroidism associated with surgical procedure: Status: Acute (8) Pulmonary embolism associated with COVID-19: Status: Acute #Acute respiratory #acute hypoxic respiratory failure secondary to ARDS due to COVID-19 pneumonia complicated by right subsegmental PE #Transaminitis due to COVID-19 pneumonia #Hypothyroidism #BPH #Hypertension - Covid PCR positive, CRP 138 - CTA Positive for PE - intubated, sedated and connected to ventilator-plan is to paralyze & prone-for first session today -Currently on percent-ABG 7.4 //33/ -DuoNeb nebulizations and Pulmicort nebulization scheduled -On remdesivir 5-day protocol started 03/06/2021 -On dexamethasone 6 mg daily started 03/05/2021 -Monitor inflammatory markers every 48 hours -s/p 1 dose of Actemra 03/09/2021 -Urine Legionella negative; bacterial antigens negative; MRSA nares pending , low procalcitonin- -Blood cultures so far negative; On empiric Vancomycin and zosyn; discontinue Rocephin and azithromycin -Monitor renal functions and urine output-try to keep negative to even -Flomax 0.4 mg p.o. daily for BPH -Lovenox 100 q12 hr for Right subsegmental PE -Levothyroxine 200 mcg PO daily -Diabetes-A1c 7.5 -N.p.o. during proning and We will start Glucerna after proning session -Insulin scale coverage-monitor sugars -[id number] for GI prophylaxis -Full code -Prognosis guarded -updated family Hospitalist, RN, RT covering discussed with hospitalist, RN, RT covering the patient Attestations Medical Necessity Statement*: Acute hypoxic respiratory failure secondary to ARDS due to COVID-19 pneumonia complicated by pulmonary embolism requiring mechanical ventilation for respiratory support Time Spent in Patient Care: Greater than 35 minutes (>than 50% of time spent in counselling and/or direct pt care on unit). Critical Care Time: The high probability of a clinically significant, sudden or life threatening deterioration of the patient's [respiratory, hepatic, endocrine] system(s) required my full and direct attention, intervention and personal management. The critical care time is as shown. This time is in addition to time spent performing any reported procedures but includes the following: [x] Data and vital sign review and interpretation [x] Patient assessment, examination and intervention [x] Documentation [x] Medication orders and management Critical Care Time (min): 45 Coding Level of Care Code Established Pt Acute Painter Rough for Chg Fwd Patient Type Established History Comprehensive Exam Comprehensive Medical Decision Making High Complexity Diagnoses Acute respiratory failure with hypoxia J96.01 Acute respiratory failure due to severe acute respiratory syndrome coronavirus 2 (SARS-CoV-2) infection U07.1; J96.00 DVT prophylaxis Z29.9 Transaminitis R74.01 COVID-19 U07.1 BPH (benign prostatic hyperplasia) N40.0 Lower urinary tract symptom presence: unspecified whether lower urinary tract symptoms present Hypothyroidism associated with surgical procedure E89.0 Pulmonary embolism associated with COVID-19 U07.1; I26.99 Time Spent (min) 45
[2021-03-11] MEDS: dexamethasone 4 mg/mL INJ 6 MG IVP (23:37)
[2021-03-12] VITALS (30 sets, daily range): BP systolic 110–156; BP diastolic 57–77; PULSE 51–94; RESP 18–26; TEMP 36.3–37.2; O2SAT 88–97
[2021-03-12] MEDS: cisatracurium 100 MG in sodium chloride 0.9% 50 ML 11.65 MG IV (00:09)
[2021-03-12] MEDS: piperacillin-tazobactam 3.375 GM in sodium chloride 0.9% (plus) 50 ML IV ×2 (01:54→08:13)
[2021-03-12] MEDS: ipratropium-albuterol 3 mL Neb INHALATION ×4 (02:50→20:07)
--- NOTE | 2021-03-12 04:24 | PC.NURSE ---
patient proned at this time. paralytic paused. patient tolerated events well.
[2021-03-12] MEDS: propofol 1,000 MG/100 ML INJ 17.47 MG IV ×4 (04:26→20:36)
[2021-03-12 05:32] LABS: Basophils # 0.1 10^3/uL (0.0-0.1); Basophils % 0.4 %; Eosinophils # 0.1 10^3/uL (0.0-0.8); Eosinophils % 0.6 %; Hematocrit 35.6 % (42.0-52.0); Hemoglobin 11.7 g/dL (11.7-16.6); Lymphocytes # 0.2 10^3/uL (0.8-4.8); Mean Corpuscular HGB Conc 32.9 g/dL (30.0-36.0); Mean Corpuscular Hemoglobin 30.2 pg (28.0-34.0); Mean Platelet Volume 9.2 fL (7.4-10.4); Monocytes # 0.5 10^3/uL (0.2-0.9); Monocytes % 4.1 %; Neutrophils # 9.55 10^3/uL (1.8-7.7); Neutrophils % 84.8 %; Nucleated Red Blood Cells % 0.2 %; Platelet Count 219 10^3/cmm (130-400); Red Blood Count 3.87 10^6/uL (4.1-5.3); Red Cell Distribution Width 14.3 % (12.1-15.1); White Blood Count 11.3 10^3/uL (4.0-10.0)
[2021-03-12 05:46] LABS: Alanine Aminotransferase 27 U/L (0-41); Albumin Level 2.4 g/dL (3.5-5.2); Alkaline Phosphatase 82 IU/L (40-130); Anion Gap 6.3 (5-19); Aspartate Amino Transferase 16 U/L (0-40); Blood Urea Nitrogen 40 mg/dL (8-23); Calcium 7.1 mg/dL (8.5-10.5); Carbon Dioxide 35 mmol/L (22-29); Chloride 104 mmol/L (98-107); Globulin 2.3 g/dL (1.3-4.6); Glucose 157 mg/dL (65-115); Magnesium 2.5 mg/dL (1.7-2.3); Osmolality Calculated 305 mOsm/kg (285-295); Potassium 4.3 mmol/L (3.5-5.1); Sodium 141 mmol/L (136-145); Total Bilirubin 0.8 mg/dL (0.15-1.2); Total Protein 4.7 g/dL (6.6-8.7)
[2021-03-12 05:58] LABS: Slide Review Slide Review Perform; Vancomycin Trough 16.4 ug/mL (10-15)
--- NOTE | 2021-03-12 06:00 | XRR_ITS ---
PROCEDURE INFORMATION: Exam: XR Chest Exam date and time: 03/12/2021 6:00 AM Age: 60 years old Clinical indication: Condition or disease; Lung condition and disease; Pneumonia; Patient HX: F/u covid. Intubated. TECHNIQUE: Imaging protocol: XR of the chest. Views: 1 view. Total images: 1 COMPARISON: CR XR chest 1V portable [id number] 03/11/2021 4:59 AM FINDINGS: Tubes, catheters and devices: Tubes and catheters are unchanged from the prior exam. Multiple surgical clips are present. Lungs: Bilateral pulmonary opacities are again noted with the right-sided opacities showing interval worsening. Pleural spaces: Unremarkable. No pleural effusion. No pneumothorax. Heart/Mediastinum: Heart size is stable when compared to the prior exam. Bones/joints: Osseous structures are unchanged from the prior exam. XR/XR chest 1V portable [id number] IMPRESSION: 1. Tubes and catheters are unchanged from the prior exam. 2. Bilateral pulmonary opacities are again noted with the right-sided opacities showing interval worsening.
[2021-03-12] MEDS: vancomycin 1,500 MG/300 ML PIGGYBACK 200 MG IV ×3 (06:06→23:59)
[2021-03-12] MEDS: levothyroxine 200 mcg Tablet PO (06:06)
--- NOTE | 2021-03-12 06:11 | PC.NURSE ---
Shift Note Frequent safety and comfort rounds continue. Orders and nursing care completed as indicated. Patient monitored for response to intervention and treatments. Education provided including ventilator management and proning therapy. Patients daughter verbalizes understanding. Will continue to monitor.
--- NOTE | 2021-03-12 08:09 | PM.PN ---
Subjective Subjective: Interval history: 60-year-old male with past medical history significant for hypertension, hypertriglyceridemia, papillary thyroid carcinoma status post thyroidectomy 2014, subsequent hypothyroidism, benign prostatic hyperplasia, who presented to the hospital with respiratory distress. Patient was found to have oxygen saturation in the 70s on arrival. He was placed on non-rebreather however due to progressively worsening respiratory distress he was transition to high-flow nasal cannula.Imaging studies on admission included chest x-ray which showed a heterogeneous interstitial and airspace opacities in bilateral mid lower lung lobes. Monitor pulmonary hyperexpansion was also noted.Laboratory workup showed a WBC of 7.5, hemoglobin 12.8, hematocrit 37.3 and platelet count 200. D-dimer was 1.60. Sodium 135, potassium 3.5, chloride 98, bicarb 25, BUN 18 and creatinine of 0.7. Total bilirubin of 1.4. AST was elevated at 53. , ALT of 39. C reactive protein 147.7. ProBNP of 287. Patient was found to have COVID-19 PCR positive. He was started on Remdesivir 5 day protocol. Addition was started on Decadron 6 mg IV daily and empirically on IV Rocephin 1 g Q 24 hour. Initially patient was stable and improving however was unable to prone. Transferred to COVID-19 step-down unit. Due to progressively worsening respiratory distress he was requiring 60 L with 100% FiO2. O2 sats were maintained between mid to high 80s. D-dimer had increased to over 20. Suspected to have development of acute pulmonary embolism. Transition to full dose Lovenox. At this time patient was transferred to the intensive care unit. High risk for requiring intubation and mechanical ventilation. 03/10 Patient remained stable overnight on intubation No fever, chills, nausea or vomiting 03/11 Stable on vent overnight. 03/11 patient remained on mechanical ventilation overnight. No new clinical events. Is able to prone x3. Medications: Reviewed: Yes Vitals/I&O/Wt Last Vital Signs Temp 97.9 F 03/13/21 07:00 Pulse 62 03/13/21 07:00 Resp 21 H 03/13/21 05:00 BP 115/67 03/13/21 07:00 Pulse Ox 96 03/13/21 05:00 03/12/21 03/13/21 03/13/21 22:59 06:59 14:59 Intake Total 1488.122 / 1925.083 678.933 / 2604.016 Output Total 1000 / 1000 1000 / 2000 Balance 488.122 / 925.083 -321.067 / 604.016 Weight last 48 hrs Weight 95.481 kg Weight 97.636 kg Physical Exam Narrative: EXAM NARRATIVE: General: intubated on vent HEENT: ET tube in place. Chest: vented breath sounds, Left SC line CVS: S1-S2 regular, no murmurs, no tachycardia, no gallops, no rubs Abdomen:non-distended : Rodríguez Neuro: Sedated Urinary Catheter Management^: Rodríguez: Cath Placed During This Visit: yes Reason for Continuing Indwelling Catheter: Accurate Measurement of Urinary Output in Critically Ill Patients Urinary Catheter Date of Insertion: 03/09/21 Urinary Catheter Time of Insertion: 22:34 Data : 03/13/21 03:50 03/13/21 03:50 Micro: Microbiology 03/10/21 09:38 Gram Stain - Final Sputum - Endotracheal Tube Aspirate Sputum Culture - Preliminary Gram Negative Rods A&P Assessment and plan (1) Acute respiratory failure due to severe acute respiratory syndrome coronavirus 2 (SARS-CoV-2) infection: Status: Acute (2) D-dimer, elevated: Status: Acute (3) Transaminitis: Status: Acute (4) DVT prophylaxis: Status: Acute Additional A&P Information Acute respiratory failure with hypoxia due to COVID 19 pneumonia with acute pulmonary embolism - S/p Remdesivir, Actemera - Continue decadron - Did not tolerate HFNC - Intubated and placed on MV on 03/09 - Continue fentanyl, propofol for sedation - Maintain in deep sedation - - Paralytic and proning - Continue broad specturm abx - Continue Lovenox full dose - ABG and chest xray in am - Status post prone x3 - pulmonary Critical Care on board Transaminitis - Ast 53-> 56 - ALT 39 -> 82 - Trend LFT - Cmp in am Hypertension - Metoprolol on hold - Hyralazine 10 mg IV q8hr prn added Hypothyroidism hx of papillary thyroid carcinoma - Status post thyroidectomy - Levothyroxine 200 mcg p.o. daily GI prophylaxis - Pepcid 20 mg IV BID DVT prophylaxis - Lovenox 100 mg subcu b.i.d. Attestations Medical Necessity Statement*: continue hospitalization for management of COVID-19 Time Spent in Patient Care: Greater than 35 minutes (>than 50% of time spent in counselling and/or direct pt care on unit). Coding Level of Care Code Acute [employer] Developer for [facility] Fwd Diagnoses Acute respiratory failure due to severe acute respiratory syndrome coronavirus 2 (SARS-CoV-2) infection U07.1; J96.00 D-dimer, elevated R79.89 Transaminitis R74.01 DVT prophylaxis Z29.9
[2021-03-12] MEDS: budesonide 0.5 mg/2 mL Neb INHALATION ×2 (08:10→20:07)
[2021-03-12] MEDS: enoxaparin 100 mg/mL Syringe SUBCUT ×2 (08:12→20:35)
[2021-03-12] MEDS: docusate sodium 100 mg Capsule PO ×2 (08:12→17:35)
[2021-03-12] MEDS: famotidine 20 mg/2 mL INJ IVP ×2 (08:12→20:35)
[2021-03-12] MEDS: aspirin 81 mg EC Tablet PO (08:12)
--- NOTE | 2021-03-12 09:06 | PC.SOCIAL ---
IMM update IMM not updated as patient is still intubated and not expected to Dc in the next 24-48 hours.
--- NOTE | 2021-03-12 09:42 | PC.CHAP ---
Pastoral Care Encounter/Spiritual Assessment Type of Contact [] Declined manager nc visit [] Patient/Family/Request visit [] Outpatient visit [] Follow-up visit [] Physician referral [] Code/Alert [x] Routine visit [] Staff referral [] Actively dying [] Patient sleeping [] Family support [] [] Out of room [] Palliative care [] [] Receiving care in room [] Pre-surgical visit [] Trauma [] Long length of stay [x] ICU visit [x] Other: vent Relational/Emotional Strength [] Patient feels connected with others/family/visitors/staff [] Distress [] Loneliness/isolation [] Abandonment Spirituality of Patient [] Person of Basilia [] Attends Church of their Basilia [] Believes in Prayer [] Reads Bible or Orthodox materials [] There are Spiritual issues to be addressed Administrative Services Coordinator Interventions [x] Prayer [] Active listening [] Non-anxious presence [] Spiritual/emotional support [] Crisis/trauma care [] Spiritual counseling [] Bereavement support [] Provided bereavement packet [] Provided Bible/devotional materials [] Provided toy/stuffed animal, coloring book to patient or family member [] Provided Communion [] Anointing/[place] [] Salvation [x] Completed spiritual assessment [] Other: Impact on Illness or Injury [] Angry [] Fearful [] Anxious [] Often cries [] Exhaustion [] Unable to work [] Unable to attend mandaen [] Unable to walk/stand [] Unable to read [] Unable to drive [] Unable to eat/drink [] Unable to sleep [] Unable to be with family [] Patient intubated [] Other: Summary Time spent with patient
[2021-03-12] MEDS: sennosides-docusate Tablet 1 TAB PO (20:35)
--- NOTE | 2021-03-12 21:35 | PC.NURSE ---
attempted to decrease patients sedation. patient became agitated, never following commands. asynchronous with ventilator. sedation increased at this time for vent compliance
--- NOTE | 2021-03-12 23:19 | P.PN_ITS ---
Subjective Subjective: Interval history: -Patient seen at bedside today -Due for second proning session -Labs and imaging reviewed Medications: Reviewed: Yes Vitals/I&O/Wt Last Vital Signs Temp 98.2 F 03/12/21 19:00 Pulse 92 03/12/21 21:00 Resp 18 03/12/21 21:00 BP 153/77 03/12/21 21:00 Pulse Ox 94 03/12/21 21:00 03/12/21 03/12/21 03/13/21 14:59 22:59 06:59 Intake Total 436.961 / 279.952 5334.122 / 1925.083 Output Total 1000 / 1000 Balance 436.961 / 436.961 488.122 / 925.083 Weight last 48 hrs Weight 215 lb 4 oz Physical Exam Narrative: EXAM NARRATIVE: EXAM NARRATIVE: PHYSICAL EXAM: General: lying in bed, sedated and intubated. HEENT:NCAT, PERRLA, EOMI Neck: Supple Lungs: Bilateral diffuse crackles Heart: s1/s2, RRR Abd: soft, NT, ND, BS + Normoactive Extremities: No edema PREFABRICATED HOUSES TRIMMER: sedated and limited PREFABRICATED HOUSES TRIMMER exam possible. SKIN: no rash LDA: # CVC: Left subclavian central line 03/09/2021 # Rodríguez: 03/09/2021 Urinary Catheter Management^: Rodríguez: Cath Placed During This Visit: yes Reason for Continuing Indwelling Catheter: Accurate Measurement of Urinary Output in Critically Ill Patients Urinary Catheter Date of Insertion: 03/09/21 Urinary Catheter Time of Insertion: 22:34 Data : 03/13/21 03:50 03/13/21 03:50 Other Labs: Laboratory Results WBC 11.3 10^3/uL (4.0-10.0) H 03/12/21 05:20 RBC 3.87 10^6/uL (4.1-5.3) L 03/12/21 05:20 Hgb 11.7 g/dL (11.7-16.6) 03/12/21 05:20 Hct 35.6 % (42.0-52.0) L 03/12/21 05:20 MCV 92.0 fl (80-94) 03/12/21 05:20 MCH 30.2 pg (28.0-34.0) 03/12/21 05:20 MCHC 32.9 g/dL (30.0-36.0) 03/12/21 05:20 RDW 14.3 % (12.1-15.1) 03/12/21 05:20 Plt Count 219 10^3/cmm (130-400) 03/12/21 05:20 MPV 9.2 fL (7.4-10.4) 03/12/21 05:20 Neut % (Auto) 84.8 % 03/12/21 05:20 Lymph % (Auto) 2.0 % 03/12/21 05:20 [place] % (Auto) 4.1 % 03/12/21 05:20 Eos % (Auto) 0.6 % 03/12/21 05:20 Baso % (Auto) 0.4 % 03/12/21 05:20 Neut # (Auto) 9.55 10^3/uL (1.8-7.7) H 03/12/21 05:20 Lymph # (Auto) 0.2 10^3/uL (0.8-4.8) L 03/12/21 05:20 [place] # (Auto) 0.5 10^3/uL (0.2-0.9) 03/12/21 05:20 Eos # (Auto) 0.1 10^3/uL (0.0-0.8) 03/12/21 05:20 Baso # (Auto) 0.1 10^3/uL (0.0-0.1) 03/12/21 05:20 Nucleated RBC % (auto) 0.2 % 03/12/21 05:20 Nucleated RBCs # 0.0 /100WBC 03/12/21 05:20 D-Dimer >= 20.00 ug/mIFEU (0-0.59) H 03/10/21 03:25 Specimen Type Arterial 03/11/21 04:40 Sample Site Radial, right 03/11/21 04:40 ABG pH 7.42 (7.35-7.45) 03/11/21 04:40 ABG pCO2 51.6 mmHg (35-45) H 03/11/21 04:40 ABG pO2 97.4 mmHg (80.0-100.0) 03/11/21 04:40 ABG HCO3 33.7 mmol/L (22-26) H 03/11/21 04:40 ABG Base Excess 7.9 mmol/L (-2.0-2.0) H 03/11/21 04:40 Gus Test Pos 03/11/21 04:40 VBG pH 7.47 (7.32-7.42) H 03/05/21 15:10 VBG pCO2 41.5 mmHg (41-51) 03/05/21 15:10 VBG pO2 29.2 mmHg (25-40) 03/05/21 15:10 VBG HCO3 30.0 mmol/L (24-28) H 03/05/21 15:10 VBG Base Excess 5.8 mmol/L (-3.0-3.0) H 03/05/21 15:10 VBG Hematocrit 7.5 % (42-52) L 03/05/21 15:10 Hematocrit 35.3 % (42-52) L 03/11/21 04:40 O2 Delivery Device Vent 03/11/21 04:40 O2 Liters/Min 55.0 % 03/08/21 04:52 FiO2 50.0 % 03/11/21 04:40 Tidal Volume 0.45 03/11/21 04:40 PEEP 12.0 cmH20 03/11/21 04:40 Drawer Liner ID Hinja 03/11/21 04:40 Sodium 141 mmol/L (136-145) 03/12/21 05:20 Potassium 4.3 mmol/L (3.5-5.1) 03/12/21 05:20 Chloride 104 mmol/L (98-107) 03/12/21 05:20 Carbon Dioxide 35 mmol/L (22-29) H 03/12/21 05:20 Anion Gap 6.3 (5-19) 03/12/21 05:20 BUN 40 mg/dL (8-23) H 03/12/21 05:20 Creatinine 0.5 mg/dL (0.7-1.2) L 03/12/21 05:20 GFR Calculation 169.0 mL/min (90-130) H 03/12/21 05:20 Glucose 157 mg/dL (65-115) H 03/12/21 05:20 Calculated Osmolality 305 mOsm/kg (285-295) H 03/12/21 05:20 Lactic Acid 1.4 mmol/L (0.5-2.2) 03/05/21 14:35 Calcium 7.1 mg/dL (8.5-10.5) L 03/12/21 05:20 Magnesium 2.5 mg/dL (1.7-2.3) H 03/12/21 05:20 Ferritin 1507 ng/mL (30-400) H 03/11/21 05:50 Total Bilirubin 0.8 mg/dL (0.15-1.2) 03/12/21 05:20 AST 16 U/L (0-40) 03/12/21 05:20 ALT 27 U/L (0-41) 03/12/21 05:20 Alkaline Phosphatase 82 IU/L (40-130) 03/12/21 05:20 Lactate Dehydrogenase 660 U/L (135-225) H 03/06/21 03:35 C-Reactive Protein 53.4 mg/L (0.0-4.9) H 03/11/21 05:50 NT-Pro-B Natriuret Pep 287 pg/mL (0-125) H 03/05/21 14:35 Total Protein 4.7 g/dL (6.6-8.7) L 03/12/21 05:20 Albumin 2.4 g/dL (3.5-5.2) L 03/12/21 05:20 Globulin 2.3 g/dL (1.3-4.6) 03/12/21 05:20 Triglycerides 202 mg/dL (0-150) H 03/11/21 05:50 Procalcitonin 0.46 ng/mL (0-0.5) 03/10/21 03:25 Vancomycin Trough 16.4 ug/mL (10-15) H 03/12/21 05:20 Nasal/Oral COVID-19 PCR Detected H 03/05/21 16:30 SARS-CoV-2 Ag (Rapid) Negative (Negative) 03/05/21 23:00 Impressions Chest CTA 03/09/21 13:47 IMPRESSION: Positive for subsegmental right lower lobe pulmonary embolism. Bilateral pneumonia consistent with COVID-19 pneumonia. Findings discussed with Dr. Edwards by Dr. Rodrick Espinosa at 4:37 p.m., 03/09/2021. Radiation Dose CTDIVOL = (mGy): DLP = 567.74 (mGy-cm) Chest X-Ray 03/12/21 06:00 IMPRESSION: 1. Tubes and catheters are unchanged from the prior exam. 2. Bilateral pulmonary opacities are again noted with the right-sided opacities showing interval worsening. Micro: Microbiology 03/10/21 09:38 Gram Stain - Final Sputum - Endotracheal Tube Aspirate Sputum Culture - Preliminary Gram Negative Rods A&P Assessment and plan (1) Acute respiratory failure due to severe acute respiratory syndrome coronavirus 2 (SARS-CoV-2) infection: Status: Acute (2) D-dimer, elevated: Status: Acute (3) Transaminitis: Status: Acute (4) DVT prophylaxis: Status: Acute (5) Pneumonia due to gram-negative bacteria: Status: Acute Additional A&P Information #Acute respiratory #acute hypoxic respiratory failure secondary to ARDS due to COVID-19 pneumonia complicated by right subsegmental PE #Transaminitis due to COVID-19 pneumonia #Hypothyroidism #BPH #Hypertension - Covid PCR positive, CRP 138 - CTA Positive for PE - intubated 03/09/2021, sedated and connected to ventilator-plan is to paralyze & prone-for first session today -Currently on CMV 20/450/8/45% -DuoNeb nebulizations and Pulmicort nebulization scheduled -On remdesivir 5-day protocol started 03/06/2021 -On dexamethasone 6 mg daily started 03/05/2021 -Monitor inflammatory markers every 48 hours -s/p 1 dose of Actemra 03/09/2021 -Urine Legionella negative; bacterial antigens negative; MRSA nares negative, low procalcitonin- -Blood cultures so far negative; On empiric Vancomycin and zosyn; -Sputum cultures gram-negative rods - DC vancomycin and and imipenem -Monitor renal functions and urine output-try to keep negative to even -Flomax 0.4 mg p.o. daily for BPH -Lovenox 100 q12 hr for Right subsegmental PE -Levothyroxine 200 mcg PO daily -Diabetes-A1c 7.5 -N.p.o. during proning and We will start Glucerna after proning session -Insulin scale coverage-monitor sugars -[id number] for GI prophylaxis -Full code -Prognosis guarded -updated family Hospitalist, RN, RT covering discussed with hospitalist, RN, RT covering the patient Attestations Medical Necessity Statement*: Acute hypoxic respiratory failure secondary to ARDS due to COVID-19 pneumonia complicated by pulmonary embolism requiring mechanical ventilation for respiratory support Time Spent in Patient Care: Greater than 35 minutes (>than 50% of time spent in counselling and/or direct pt care on unit) . Critical Care Time: The high probability of a clinically significant, sudden or life threatening deterioration of the patient's [respiratory, hepatic, endocrine] system(s) required my full and direct attention, intervention and personal management. The critical care time is as shown. This time is in addition to time spent performing any reported procedures but includes the following: [x] Data and vital sign review and interpretation [x] Patient assessment, examination and intervention [x] Documentation [x] Medication orders and management Critical Care Time (min): 45 Coding Level of Care Code Established Pt Acute Harvest Manager for g Fwd Patient Type Established History Comprehensive Exam Comprehensive Diagnoses Acute respiratory failure due to severe acute respiratory syndrome coronavirus 2 (SARS-CoV-2) infection U07.1; J96.00 D-dimer, elevated R79.89 Transaminitis R74.01 DVT prophylaxis Z29.9 Pneumonia due to gram-negative bacteria J15.6
--- NOTE | 2021-03-12 23:57 | PC.NURSE ---
episode of desaturation noted. RT called to bedside. Patient suctioned with return of pink tinged secretions. bilat breath sounds noted. JVD noted at this time. patient repositioned for comfort. fio2 titrated to 50%.
[2021-03-13] VITALS (27 sets, daily range): BP systolic 115–186; BP diastolic 67–91; PULSE 62–110; RESP 14–34; TEMP 36.6–37.7; O2SAT 90–97
[2021-03-13] MEDS: propofol 1,000 MG/100 ML INJ 17.47 MG IV (02:20)
[2021-03-13] MEDS: ipratropium-albuterol 3 mL Neb INHALATION ×4 (02:39→20:36)
--- NOTE | 2021-03-13 04:11 | PC.NURSE ---
bath done at this time. Skin assessed. coccyx and inner buttocks red and blancheable. increased redness of groin folds noted.
[2021-03-13 04:15] LABS: ABG PCO2 47.1 mmHg (35-45); ABG PH Result 7.47 (7.35-7.45); Alveolar-Arterial Oxygen Gradi 23.9 mmHg (5-10); Arterial Blood Gas Hematocrit 40.9 % (42-52); Base Excess ABG 8.9 mmol/L (-2.0-2.0); Blood Gas Allen Test Pos; Blood Gas Operator Identificat MONRO; Blood Gas Sample Site Radial, right; Blood Gas Sample Type Arterial; Blood Gas Tidal Volume 0.45; Carboxyhemoglobin 1.1 %THgb (0.4-20.1); HGB O2 Sat 94.2 % (95-100); Ionized Calcium Level - ABG 1.1 mmol/L (1.1-1.4); Methemoglobin 0.7 % (0.4-1.5); Oxygen Device VENT; Oxygen Saturation ABG 95.9; Potassium Level - ABG 4.1 mmol/L (3.5-5.0); Total Hemoglobin 13.3 g/dL (14-18)
[2021-03-13 04:20] LABS: Basophils # 0.1 10^3/uL (0.0-0.1); Basophils % 0.3 %; Eosinophils # 0.1 10^3/uL (0.0-0.8); Eosinophils % 0.5 %; Hematocrit 39.7 % (42.0-52.0); Hemoglobin 12.9 g/dL (11.7-16.6); Lymphocytes # 0.3 10^3/uL (0.8-4.8); Lymphocytes % 1.6 %; Mean Corpuscular HGB Conc 32.5 g/dL (30.0-36.0); Mean Corpuscular Hemoglobin 30.1 pg (28.0-34.0); Mean Corpuscular Volume 92.5 fl (80-94); Mean Platelet Volume 9.2 fL (7.4-10.4); Monocytes # 0.7 10^3/uL (0.2-0.9); Monocytes % 3.8 %; Neutrophils # 16.73 10^3/uL (1.8-7.7); Neutrophils % 86.5 %; Nucleated Red Blood Cells % 0.1 %; Platelet Count 246 10^3/cmm (130-400); Red Blood Count 4.29 10^6/uL (4.1-5.3); Red Cell Distribution Width 14.1 % (12.1-15.1); White Blood Count 19.4 10^3/uL (4.0-10.0)
[2021-03-13 04:36] LABS: Alanine Aminotransferase 25 U/L (0-41); Albumin Level 2.8 g/dL (3.5-5.2); Alkaline Phosphatase 82 IU/L (40-130); Anion Gap 8.2 (5-19); Aspartate Amino Transferase 28 U/L (0-40); Blood Urea Nitrogen 36 mg/dL (8-23); Calcium 7.2 mg/dL (8.5-10.5); Carbon Dioxide 33 mmol/L (22-29); Chloride 103 mmol/L (98-107); Globulin 2.2 g/dL (1.3-4.6); Glucose 163 mg/dL (65-115); Magnesium 2.2 mg/dL (1.7-2.3); Osmolality Calculated 302 mOsm/kg (285-295); Potassium 4.2 mmol/L (3.5-5.1); Sodium 140 mmol/L (136-145); Total Bilirubin 1.1 mg/dL (0.15-1.2)
[2021-03-13 05:03] LABS: Slide Review Slide Review Perform
[2021-03-13] MEDS: levothyroxine 200 mcg Tablet PO (05:56)
[2021-03-13] MEDS: vancomycin 1,500 MG/300 ML PIGGYBACK 200 MG IV (05:56)
--- NOTE | 2021-03-13 06:00 | XR_ITS ---
WS: [id number] Portable AP semiupright chest, 03/13/2021 Clinical Data: pneumonia Comparison: Portable chest, 03/12/2021 Findings: The endotracheal tube, nasogastric tube and feeding left subclavian catheter remain in same position. The bilateral pulmonary opacities show little change. The heart is enlarged. Monitor leads on the chest wall. XR/XR chest 1V portable [id number] Impression: 1. No change in multiple tubes. 2. No change in bilateral patchy pulmonary opacities.
--- NOTE | 2021-03-13 06:05 | PC.NURSE ---
Shift Note Frequent safety and comfort rounds continue. Orders and nursing care completed as indicated. Patient monitored for response to intervention and treatments. spoke with patients daughter at the beginning of the shift. updated on progress and plan of care for tonight. Education provided including ventilator management and sedation medication. she verbalizes understanding and has no further questions. patient continues to have agitation that prevents weaning of sedation due to ventilator asynchrony. patient does not appear to follow commands, does not track, and has sluggish blink and corneal reflexes. patient does have cough and gag reflex. movements appear to be spontaneous but withdrawal to noxious stimuli also noted. oxygen requirements have decreased through the shift. patient continues to have thick, copious secretions. they have become pink tinged at times Will continue to monitor.
[2021-03-13] MEDS: propofol 1,000 MG/100 ML INJ 23.3 MG IV ×3 (07:04→17:01)
[2021-03-13] MEDS: FUROsemide 10 mg/mL SDV 4mL 40 MG IVP (07:20)
[2021-03-13] MEDS: enoxaparin 100 mg/mL Syringe SUBCUT ×2 (09:18→20:58)
[2021-03-13] MEDS: docusate sodium 100 mg Capsule PO ×2 (09:19→17:01)
[2021-03-13] MEDS: famotidine 20 mg/2 mL INJ IVP ×2 (09:19→20:58)
[2021-03-13] MEDS: aspirin 81 mg EC Tablet PO (09:19)
[2021-03-13] MEDS: budesonide 0.5 mg/2 mL Neb INHALATION ×2 (10:10→20:36)
--- NOTE | 2021-03-13 13:03 | PC.NUTR ---
Addendum entered by Nida Galvin 03/14/21 17:04: Per initial RD assessment on 03/10 for LOS, no po intake was noted X [address]. [address]'s completion of follow-up assessment 03/13, noted no further po intake 03/11-03/13, and therefore documented as 9 days. However, upon further review of chart today going back to the time window documented by other RD, noted some po intakes through 03/08/21, indicating today is day 7 of no intake, not day 10. Have notified MD. However, given 7 days of no intake, continue to recommend as below. Original Note: Tube feeding follow up: Possible extubation today. If fails, recommend initiation of tube feeding as soon as safely possible (if consistent with goals of care) given 9 days of no nutrition. Agree with previous RD recommendation: Jevity 1.2 with a goal rate of 50 ml/hr, with 120 ml H2O flushes q 4 hrs, to provide 1440 kcal, 66 g PRO, and 1688 ml fluid. Suggest starting TF at 20 ml/hr and increase by 10 ml Q6H as tolerated till goal rate is met. Noted propofol providing additional 615 ml/hr at current rate. See full RD assessments for further details.
--- NOTE | 2021-03-13 14:04 | P.PN_ITS ---
Subjective Subjective: Interval history: 60-year-old male with past medical history significant for hypertension, hypertriglyceridemia, papillary thyroid carcinoma status post thyroidectomy 2014, subsequent hypothyroidism, benign prostatic hyperplasia, who presented to the hospital with respiratory distress. Patient was found to have oxygen saturation in the 70s on arrival. He was placed on n on-rebreather however due to progressively worsening respiratory distress he was transition to high-flow nasal cannula.Imaging studies on admission included chest x-ray which showed a heterogeneous interstitial and airspace opacities in bilateral mid lower lung lobes. Monitor pulmonary hyperexpansion was also noted.Laboratory workup showed a WBC of 7.5, hemoglobin 12.8, hematocrit 37.3 and platelet count 200. D-dimer was 1.60. Sodium 135, potassium 3.5, chloride 98, bicarb 25, BUN 18 and creatinine of 0.7. Total bilirubin of 1.4. AST was elevated at 53. , ALT of 39. C reactive protein 147.7. ProBNP of 287. Patient was found to have COVID-19 PCR positive. He was started on Remdesivir 5 day protocol. Addition was started on Decadron 6 mg IV daily and empirically on IV Rocephin 1 g Q 24 hour. Initially patient was stable and improving however was unable to prone. Transferred to COVID-19 step-down unit. Due to progressively worsening respiratory distress he was requiring 60 L with 100% FiO2. O2 sats were maintained between mid to high 80s. D-dimer had increased to over 20. Suspected to have development of acute pulmonary embolism. Transition to full dose Lovenox. At this time patient was transferred to the intensive care unit. High risk for requiring intubation and mechanical ventilation. 03/10 Patient remained stable overnight on intubation No fever, chills, nausea or vomiting 03/11 Stable on vent overnight. 03/12 patient remained on mechanical ventilation overnight. No new clinical events. Is able to prone x3. 03/13 Weaning sedation and vent, no new clinical events overnight Medications: Reviewed: Yes Vitals/I&O/Wt Last Vital Signs Temp 98.1 F 03/13/21 09:00 Pulse 90 03/13/21 11:00 Resp 23 H 03/13/21 12:10 BP 150/87 03/13/21 11:00 Pulse Ox 95 03/13/21 12:10 03/12/21 03/13/21 03/13/21 22:59 06:59 14:59 Intake Total 1488.122 / 1925.083 778.933 / 2704.016 143.333 / 143.333 Output Total 1000 / 1000 1000 / 2000 Balance 488.122 / 925.083 -221.067 / 704.016 143.333 / 143.333 Weight last 48 hrs Weight 95.481 kg Weight 97.636 kg Physical Exam Narrative: EXAM NARRATIVE: General: intubated on vent HEENT: ET tube in place. Chest: vented breath sounds, Left SC line CVS: S1-S2 regular, no murmurs, no tachycardia, no gallops, no rubs Abdomen:non-distended : Rodríguez Neuro: Sedated Urinary Catheter Management^: Rodríguez: Cath Placed During This Visit: yes Reason for Continuing Indwelling Catheter: Accurate Measurement of Urinary Output in Critically Ill Patients Urinary Catheter Date of Insertion: 03/09/21 Urinary Catheter Time of Insertion: 22:34 Data : 03/13/21 03:50 03/13/21 03:50 Micro: Microbiology 03/10/21 09:38 Gram Stain - Final Sputum - Endotracheal Tube Aspirate Sputum Culture - Final Stenotrophomonas maltophilia A&P Assessment and plan (1) Acute respiratory failure due to severe acute respiratory syndrome coron avirus 2 (SARS-CoV-2) infection: Status: Acute (2) D-dimer, elevated: Status: Acute (3) Transaminitis: Status: Acute (4) DVT prophylaxis: Status: Acute Additional A&P Information Acute respiratory failure with hypoxia due to COVID 19 pneumonia with acute pulmonary embolism - S/p Remdesivir, Actemera - Continue decadron - Did not tolerate HFNC - Intubated and placed on MV on 03/09 - Weaning sedation - S/p Proning x 3 - Continue broad specturm abx - Continue Lovenox full dose - ABG and chest xray in am - Lasix 40 mg IV x 1 given today - Pulmonary/Critical Care on board Transaminitis - Resolved - LFT returned to normal Hypertension - Metoprolol on hold - Hyralazine 10 mg IV q8hr prn added Hypothyroidism hx of papillary thyroid carcinoma - Status post thyroidectomy - Levothyroxine 200 mcg p.o. daily GI prophylaxis - Pepcid 20 mg IV BID DVT prophylaxis - Lovenox 100 mg subcu b.i.d. Attestations Medical Necessity Statement*: continue hospitalization for management of respiratory failure due to COVID-19 pneumonia Time Spent in Patient Care: Greater than 35 minutes (>than 50% of time spe nt in counselling and/or direct pt care on unit) . Coding Level of Care Code Acute Childbirth And Infant Care Teacher for [facility] Fwd Diagnoses Acute respiratory failure due to severe acute respiratory syndrome coronavirus 2 (SARS-CoV-2) infection U07.1; J96.00 D-dimer, elevated R79.89 Transaminitis R74.01 DVT prophylaxis Z29.9
--- NOTE | 2021-03-13 14:44 | PC.RESP ---
RT Shift Note Frequent safety and respiratory rounds continue. Orders completed as indicated. Patient monitored pre and post treatments throughout shift. Patient [Did] tolerate treatments appropriately. Condition [.DidNotChange]. Patient and/or medical detail representative educated on respiratory treatment and medications. Patient and/or medical detail representative [unable to comprehend]. Will continue to monitor patient progress.
--- NOTE | 2021-03-13 18:15 | P.PN_ITS ---
Subjective Subjective: Interval history: -Patient seen at bedside today -Plan is to taper down sedation and start awakening him -No overnight events -Labs and imaging reviewed Medications: Reviewed: Yes Vitals/I&O/Wt Last Vital Signs Temp 98.1 F 03/13/21 17:00 Pulse 83 03/13/21 17:00 Resp 21 H 03/13/21 17:11 BP 182/70 03/13/21 17:00 Pulse Ox 90 03/13/21 17:11 03/13/21 03/13/21 03/13/21 06:59 14:59 22:59 Intake Total 778.933 / 2704.016 143.333 / 143.333 200 / 343.333 Output Total 1000 / 2000 1100 / 1100 Balance -221.067 / 704.016 143.333 / 143.333 -900 / -756.667 Weight last 48 hrs Weight 210 lb 8 oz Weight 215 lb 4 oz Physical Exam Narrative: EXAM NARRATIVE: General: lying in bed, sedated and intubated. HEENT:NCAT, PERRLA, EOMI Neck: Supple Lungs: Bilateral diffuse crackles Heart: s1/s2, RRR Abd: soft, NT, ND, BS + Normoactive Extremities: No edema MANAGER AUTO: sedated and limited MANAGER AUTO exam possible. SKIN: no rash LDA: # CVC: Left subclavian central line 03/09/2021 # Rodríguez: 03/09/2021 Urinary Catheter Management^: Rodríguez: Cath Placed During This Visit: yes Reason for Continuing Indwelling Catheter: Accurate Measurement of Urinary Output in Critically Ill Patients Urinary Catheter Date of Insertion: 03/09/21 Urinary Catheter Time of Insertion: 22:34 Data : 03/13/21 03:50 03/13/21 03:50 Other Labs: Laboratory Results WBC 19.4 10^3/uL (4.0-10.0) H 03/13/21 03:50 RBC 4.29 10^6/uL (4.1-5.3) 03/13/21 03:50 Hgb 12.9 g/dL (11.7-16.6) 03/13/21 03:50 Hct 39.7 % (42.0-52.0) L 03/13/21 03:50 MCV 92.5 fl (80-94) 03/13/21 03:50 MCH 30.1 pg (28.0-34.0) 03/13/21 03:50 MCHC 32.5 g/dL (30.0-36.0) 03/13/21 03:50 RDW 14.1 % (12.1-15.1) 03/13/21 03:50 Plt Count 246 10^3/cmm (130-400) 03/13/21 03:50 MPV 9.2 fL (7.4-10.4) 03/13/21 03:50 Neut % (Auto) 86.5 % 03/13/21 03:50 Lymph % (Auto) 1.6 % 03/13/21 03:50 Toole % (Auto) 3.8 % 03/13/21 03:50 Eos % (Auto) 0.5 % 03/13/21 03:50 Baso % (Auto) 0.3 % 03/13/21 03:50 Neut # (Auto) 16.73 10^3/uL (1.8-7.7) H 03/13/21 03:50 Lymph # (Auto) 0.3 10^3/uL (0.8-4.8) L 03/13/21 03:50 Toole # (Auto) 0.7 10^3/uL (0.2-0.9) 03/13/21 03:50 Eos # (Auto) 0.1 10^3/uL (0.0-0.8) 03/13/21 03:50 Baso # (Auto) 0.1 10^3/uL (0.0-0.1) 03/13/21 03:50 Nucleated RBC % (auto) 0.1 % 03/13/21 03:50 Nucleated RBCs # 0.0 /100WBC 03/13/21 03:50 D-Dimer >= 20.00 ug/mIFEU (0-0.59) H 03/10/21 03:25 Specimen Type Arterial 03/13/21 04:00 Sample Site Radial, right 03/13/21 04:00 ABG pH 7.47 (7.35-7.45) H 03/13/21 04:00 ABG pCO2 47.1 mmHg (35-45) H 03/13/21 04:00 ABG pO2 79.0 mmHg (80.0-100.0) L 03/13/21 04:00 ABG HCO3 34.0 mmol/L (22-26) H 03/13/21 04:00 ABG O2 Saturation 95.9 03/13/21 04:00 ABG Base Excess 8.9 mmol/L (-2.0-2.0) H 03/13/21 04:00 Gus Test Pos 03/13/21 04:00 VBG pH 7.47 (7.32-7.42) H 03/05/21 15:10 VBG pCO2 41.5 mmHg (41-51) 03/05/21 15:10 VBG pO2 29.2 mmHg (25-40) 03/05/21 15:10 VBG HCO3 30.0 mmol/L (24-28) H 03/05/21 15:10 VBG Base Excess 5.8 mmol/L (-3.0-3.0) H 03/05/21 15:10 VBG Hematocrit 7.5 % (42-52) L 03/05/21 15:10 A-a O2 Gradient 23.9 mmHg (5-10) H 03/13/21 04:00 Hematocrit 40.9 % (42-52) L 03/13/21 04:00 Hgb O2 Saturation 94.2 % (95-100) L 03/13/21 04:00 Carboxyhemoglobin 1.1 %THgb (0.4-20.1) 03/13/21 04:00 Methemoglobin 0.7 % (0.4-1.5) 03/13/21 04:00 Total Hemoglobin 13.3 g/dL (14-18) L 03/13/21 04:00 Sodium 142.0 mmol/L (131-143) 03/13/21 04:00 Potassium 4.1 mmol/L (3.5-5.0) 03/13/21 04:00 Glucose 161.0 mg/dL (70-115) H 03/13/21 04:00 Ionized Calcium 1.1 mmol/L (1.1-1.4) 03/13/21 04:00 O2 Delivery Device Vent 03/13/21 04:00 O2 Liters/Min 55.0 % 03/08/21 04:52 FiO2 45.0 % 03/13/21 04:00 Tidal Volume 0.45 03/13/21 04:00 PEEP 10.0 cmH20 03/13/21 04:00 Cutter Operator Brick ID Monro 03/13/21 04:00 Sodium 140 mmol/L (136-145) 03/13/21 03:50 Potassium 4.2 mmol/L (3.5-5.1) 03/13/21 03:50 Chloride 103 mmol/L (98-107) 03/13/21 03:50 Carbon Dioxide 33 mmol/L (22-29) H 03/13/21 03:50 Anion Gap 8.2 (5-19) 03/13/21 03:50 BUN 36 mg/dL (8-23) H 03/13/21 03:50 Creatinine 0.5 mg/dL (0.7-1.2) L 03/13/21 03:50 GFR Calculation 169.0 mL/min (90-130) H 03/13/21 03:50 Glucose 163 mg/dL (65-115) H 03/13/21 03:50 Calculated Osmolality 302 mOsm/kg (285-295) H 03/13/21 03:50 Lactic Acid 1.4 mmol/L (0.5-2.2) 03/05/21 14:35 Calcium 7.2 mg/dL (8.5-10.5) L 03/13/21 03:50 Magnesium 2.2 mg/dL (1.7-2.3) 03/13/21 03:50 Ferritin 1507 ng/mL (30-400) H 03/11/21 05:50 Total Bilirubin 1.1 mg/dL (0.15-1.2) 03/13/21 03:50 AST 28 U/L (0-40) 03/13/21 03:50 ALT 25 U/L (0-41) 03/13/21 03:50 Alkaline Phosphatase 82 IU/L (40-130) 03/13/21 03:50 Lactate Dehydrogenase 660 U/L (135-225) H 03/06/21 03:35 C-Reactive Protein 53.4 mg/L (0.0-4.9) H 03/11/21 05:50 NT-Pro-B Natriuret Pep 287 pg/mL (0-125) H 03/05/21 14:35 Total Protein 5.0 g/dL (6.6-8.7) L 03/13/21 03:50 Albumin 2.8 g/dL (3.5-5.2) L 03/13/21 03:50 Globulin 2.2 g/dL (1.3-4.6) 03/13/21 03:50 Triglycerides 202 mg/dL (0-150) H 03/11/21 05:50 Procalcitonin 0.46 ng/mL (0-0.5) 03/10/21 03:25 Vancomycin Trough 16.4 ug/mL (10-15) H 03/12/21 05:20 Nasal/Oral COVID-19 PCR Detected H 03/05/21 16:30 SARS-CoV-2 Ag (Rapid) Negative (Negative) 03/05/21 23:00 Impressions Chest CTA 03/09/21 13:47 IMPRESSION: Positive for subsegmental right lower lobe pulmonary embolism. Bilateral pneumonia consistent with COVID-19 pneumonia. Findings discussed with Dr. Edwards by Dr. Rodrick Espinosa at 4:37 p.m., 03/09/2021. Radiation Dose CTDIVOL = (mGy): DLP = 567.74 (mGy-cm) Chest X-Ray 03/13/21 06:00 Impression: 1. No change in multiple tubes. 2. No change in bilateral patchy pulmonary opacities. Micro: Microbiology 03/10/21 09:38 Gram Stain - Final Sputum - Endotracheal Tube Aspirate Sputum Culture - Final Stenotrophomonas maltophilia A&P Assessment and plan (1) Acute respiratory failure due to severe acute respiratory syndrome coronavirus 2 (SARS-CoV-2) infection: Status: Acute (2) D-dimer, elevated: Status: Acute (3) Transaminitis: Status: Acute (4) DVT prophylaxis: Status: Acute (5) Pneumonia due to gram-negative bacteria: Status: Acute (6) Pulmonary embolism associated with COVID-19: Status: Acute Additional A&P Information #Acute respiratory #acute hypoxic respiratory failure secondary to ARDS due to COVID-19 pneumonia complicated by right subsegmental PE #Stenotrophomonas maltophilia-sensitive to Levaquin #Transaminitis due to COVID-19 pneumonia-improved #Hypothyroidism #BPH #Hypertension - Covid PCR positive, CRP 138 - CTA Positive for PE - intubated 03/09/2021, sedated and connected to ventilator-completed to proning sessions -Today's goal is to taper off sedation and do awakening trial -Currently on CMV 450/45%/10 and ABG 7.4 7/47/79/34/95% -DuoNeb nebulizations and Pulmicort nebulization scheduled -On remdesivir 5-day protocol started 03/06/2021 -On dexamethasone 6 mg daily started 03/05/2021 -Monitor inflammatory markers every 48 hours -s/p 1 dose of Actemra 03/09/2021 -Urine Legionella negative; bacterial antigens negative; MRSA nares negative, low procalcitonin- -Blood cultures so far negative; On empiric Vancomycin and zosyn; -Sputum cultures 03/10/2021 + for Stenotrophomonas maltophilia sensitive to Levaquin, discontinue imipenem and started on Levaquin-monitor QTC -Input output +521 cc last 24 hours / +1.9 L since admission-Lasix 40 mg 1 dose given -Monitor renal functions and urine output-try to keep negative to even -Flomax 0.4 mg p.o. daily for BPH -Lovenox 100 q12 hr for Right subsegmental PE -Levothyroxine 200 mcg PO daily -Diabetes-A1c 7.5 -Continue tube feeds -Insulin scale coverage-monitor sugars -[id number] for GI prophylaxis -Full code -Prognosis guarded -updated family Discussed with hospitalist, RN, RT covering the patient Attestations Medical Necessity Statement*: Acute hypoxic respiratory failure secondary to ARDS due to COVID-19 pneumonia complicated by pulmonary embolism requiring mechanical ventilation for respiratory support Time Spent in Patient Care: Greater than 35 minutes (>than 50% of time spent in counselling and/or direct pt care on unit) . Critical Care Time: The high probability of a clinically significant, sudden or life threatening deterioration of the patient's [respiratory, hepatic, end ocrine] system(s) required my full and direct attention, intervention and p ersonal management. The critical care time is as shown. This time is in addition to time spent performing any reported procedures but includes the following: [x] Data and vital sign review and interpretation [x] Patient assessment, examination and intervention [x] Documentation [x] Medication orders and management Critical Care Time (min): 45 Coding Level of Care Code Established Pt Acute Senior Asset Manager for Chg Fwd Patient Type Established History Comprehensive Exam Comprehensive Medical Decision Making High Complexity Diagnoses Acute respiratory failure due to severe acute respiratory syndrome coronavirus 2 (SARS-CoV-2) infection U07.1; J96.00 D-dimer, elevated R79.89 Transaminitis R74.01 DVT prophylaxis Z29.9 Pneumonia due to gram-negative bacteria J15.6 Pulmonary embolism associated with COVID-19 U07.1; I26.99 Time Spent (min) 45
[2021-03-13] MEDS: sennosides-docusate Tablet 1 TAB PO (20:58)
[2021-03-13] MEDS: levofloxacin-dextrose 5 % 750 MG/150 ML PREMIX 100 MG IV (20:58)
--- NOTE | 2021-03-13 21:17 | PC.NURSE ---
patient seems increasingly more agitated despite current sedation medication. patient started on precedex gtt for sedation management at this time. propofol gtt decreased. BP continues to decrease and signs of agitation are decreasing
--- NOTE | 2021-03-13 21:28 | PC.NURSE ---
patients daughter updated on progress and plan of care at this time
[2021-03-13] MEDS: hyDRALAzine 20 mg/mL INJ 1 mL 10 MG IVP (21:46)
[2021-03-13] MEDS: propofol 1,000 MG/100 ML INJ 11.65 MG IV (22:04)
--- NOTE | 2021-03-13 22:12 | PC.NURSE ---
Dr. grullon notified of increasing blood pressure and tachycardia despite hydralazine administration
[2021-03-13] MEDS: dexamethasone 4 mg/mL INJ 6 MG IVP ×2 (22:45)
[2021-03-14] VITALS (27 sets, daily range): BP systolic 144–205; BP diastolic 79–173; PULSE 49–89; RESP 16–28; TEMP 36.5–36.9; O2SAT 90–96
[2021-03-14] MEDS: dexmedetomidine 400 MCG in sodium chloride 0.9% (100 ml) 100 ML 17.67 MCG IV ×4 (02:26→21:32)
[2021-03-14] MEDS: ipratropium-albuterol 3 mL Neb INHALATION ×4 (03:22→20:44)
[2021-03-14 05:27] LABS: Hematocrit 38.6 % (42.0-52.0); Hemoglobin 12.7 g/dL (11.7-16.6); Mean Corpuscular HGB Conc 32.9 g/dL (30.0-36.0); Mean Corpuscular Hemoglobin 29.9 pg (28.0-34.0); Mean Corpuscular Volume 90.8 fl (80-94); Mean Platelet Volume 9.2 fL (7.4-10.4); Platelet Count 197 10^3/cmm (130-400); Red Blood Count 4.25 10^6/uL (4.1-5.3); Red Cell Distribution Width 13.8 % (12.1-15.1); White Blood Count 13.5 10^3/uL (4.0-10.0)
[2021-03-14 05:48] LABS: Procalcitonin 0.08 ng/mL (0-0.5)
[2021-03-14 05:50] LABS: Alanine Aminotransferase 26 U/L (0-41); Albumin Level 2.8 g/dL (3.5-5.2); Alkaline Phosphatase 82 IU/L (40-130); Aspartate Amino Transferase 29 U/L (0-40); Blood Urea Nitrogen 31 mg/dL (8-23); Calcium 7.2 mg/dL (8.5-10.5); Carbon Dioxide 31 mmol/L (22-29); Chloride 103 mmol/L (98-107); Globulin 2.2 g/dL (1.3-4.6); Glomerular Filtration Rate 304.8 mL/min (90-130); Glucose 157 mg/dL (65-115); Magnesium 2.1 mg/dL (1.7-2.3); Osmolality Calculated 300 mOsm/kg (285-295); Sodium 140 mmol/L (136-145); Total Bilirubin 1.3 mg/dL (0.15-1.2); Triglycerides 250 mg/dL (0-150)
[2021-03-14 05:51] LABS: ABG PH Result 7.51 (7.35-7.45); Arterial Blood Gas Hematocrit 39.6 % (42-52); Base Excess ABG 8.5 mmol/L (-2.0-2.0); Blood Gas Sample Type Arterial; HCO3 ABG 32.4 mmol/L (22-26); PO2 ABG 59.9 mmHg (80.0-100.0)
[2021-03-14 05:53] LABS: Blood Gas Operator Identificat HARKR; Blood Gas Sample Site Brachial, right; Blood Gas Tidal Volume 0.45; Oxygen Device VENT
[2021-03-14] MEDS: levothyroxine 200 mcg Tablet PO (06:12)
[2021-03-14 06:25] LABS: Absolute Eosinophils 0.1 10^3/cmm (0.0-0.7); Absolute Neutrophil 12.3 10^3/cmm (1.4-6.5); Absolute Segmented Neutrophil 11.6 10/cmm (1.6-7.1); Band Neutrophils Absolute 0.7 10^3/cmm (0.0-1.2); Eosinophils 1 %; Lymphocytes 4 %; Lymphocytes Absolute 0.7 10^3/cmm (1.2-3.4); Monocytes Absolute 0.1 10^3/cmm (0.1-0.6); Platelet Estimate Normal (Normal); Segmented Neutrophils 86 %; Slide Review Slide Review Perform; Total Cells Counted 100 (0-100)
--- NOTE | 2021-03-14 07:00 | XR_ITS ---
WS: [id number] Portable AP semiupright chest, 03/14/2021 Clinical Data: respiratory failure Comparison: Portable chest, yesterday Findings: The bilateral patchy opacities in both lungs are not changed. The endotracheal tube, nasoga stric tube and left subclavian catheter remain in same position. The heart is slightly enlarged. Yoselin tor leads are on the chest wall. XR/XR chest 1V portable [id number] Impression: 1. No change in multiple tubes. 2. No change in bilateral pulmonary opacities.
--- NOTE | 2021-03-14 07:42 | PC.NURSE ---
Shift Note Frequent safety and comfort rounds continue. Orders and nursing care completed as indicated. Patient monitored for response to intervention and treatments. Education provided including ventilator management. Patient requires reinforcement due to sedation. Will continue to monitor.
[2021-03-14] MEDS: aspirin 81 mg EC Tablet PO (08:30)
[2021-03-14] MEDS: docusate sodium 100 mg Capsule PO ×2 (08:30→17:31)
[2021-03-14] MEDS: famotidine 20 mg/2 mL INJ IVP ×2 (08:30→20:13)
[2021-03-14] MEDS: enoxaparin 100 mg/mL Syringe SUBCUT ×2 (08:31→20:13)
[2021-03-14] MEDS: budesonide 0.5 mg/2 mL Neb INHALATION ×2 (08:34→20:44)
[2021-03-14] MEDS: hyDRALAzine 20 mg/mL INJ 1 mL 10 MG IVP (10:25)
[2021-03-14] MEDS: ALPRAZolam 0.5 mg Tablet PO (11:05)
--- NOTE | 2021-03-14 13:17 | PC.NURSE ---
1305 RT extubated patient to a heated lisa flow on 50L and 75%, head of bed elevated to sit up straight. Asking with sore throat for drink of water, swabbed mouth and let suck on swab once.
--- NOTE | 2021-03-14 14:09 | PC.SOCIAL ---
IMM not Updated IMM not updated. Pt is still intubated & not expected to discharge within the next 24-48hrs.
--- NOTE | 2021-03-14 14:14 | PC.RESP ---
RT Shift Note Frequent safety and respiratory rounds continue. Orders completed as indicated. Patient monitored pre and post treatments throughout shift. Patient [Did.] tolerate treatments appropriately. Condition [Improved.]. Patient and/or patient financial representative educated on respiratory treatment and medications. Patient and/or patient financial representative [unable to comprehend]. Will continue to monitor patient progress.
--- NOTE | 2021-03-14 19:59 | PM.PN ---
Subjective Subjective: Interval history: Patient was extubated to high-flow nasal cannula. Medications: Reviewed: Yes Vitals/I&O/Wt Last Vital Signs Temp 97.7 F 03/14/21 18:00 Pulse 68 03/14/21 18:00 Resp 20 H 03/14/21 18:00 BP 167/84 03/14/21 18:00 Pulse Ox 93 03/14/21 18:00 03/14/21 03/14/21 03/14/21 06:59 14:59 22:59 Intake Total 281.445 / 822.929 208 / 208 34.917 / 242.917 Output Total 1250 / 2350 950 / 950 Balance -968.555 / -1527.071 208 / 208 -915.083 / -707.083 Weight last 48 hrs Weight 94.801 kg Weight 95.481 kg Physical Exam Narrative: EXAM NARRATIVE: General: extubated to high-flow HEENT: ET tube in place. Chest: Nonlabored respiration CVS: S1-S2 regular, no murmurs, no tachycardia, no gallops, no rubs Abdomen:non-distended : Rodríguez Neuro: awake however drowsy Urinary Catheter Management^: Rodríguez: Cath Placed During This Visit: yes Reason for Continuing Indwelling Catheter: Accurate Measurement of Urinary Output in Critically Ill Patients Urinary Catheter Date of Insertion: 03/09/21 Urinary Catheter Time of Insertion: 22:34 Data : 03/14/21 04:25 03/14/21 04:25 A&P Assessment and plan (1) Acute respiratory failure due to severe acute respiratory syndrome coronavirus 2 (SARS-CoV-2) infection: Status: Acute (2) D-dimer, elevated: Status: Acute (3) Transaminitis: Status: Acute (4) DVT prophylaxis: Status: Acute Additional A&P Information Acute respiratory failure with hypoxia due to COVID 19 pneumonia with acute pulmonary embolism - S/p Remdesivir, Actemera - Continue decadron - Did not tolerate HFNC - Intubated and placed on MV on 03/09 -extubated today - Weaning sedation -currently on Precedex - Continue broad specturm abx - Continue Lovenox full dose - ABG and chest xray in am - Lasix 40 mg IV x 1 given today - Pulmonary/Critical Care on board - Repeat labs in a.m. Transaminitis - Resolved - LFT returned to normal Hypertension - Metoprolol on hold - Hyralazine 10 mg IV q8hr prn added Hypothyroidism hx of papillary thyroid carcinoma - Status post thyroidectomy - Levothyroxine 200 mcg p.o. daily GI prophylaxis - Pepcid 20 mg IV BID DVT prophylaxis - Lovenox 100 mg subcu b.i.d. Attestations Medical Necessity Statement*: continue hospitalization for COVID-19 pneumonia Time Spent in Patient Care: Greater than 35 minutes (>than 50% of time spent in counselling and/or direct pt care on unit). Coding Level of Care Code Acute Accounts Receivable Specialist for [facility] Fwd Diagnoses Acute respiratory failure due to severe acute respiratory syndrome coronavirus 2 (SARS-CoV-2) infection U07.1; J96.00 D-dimer, elevated R79.89 Transaminitis R74.01 DVT prophylaxis Z29.9
[2021-03-14] MEDS: levofloxacin-dextrose 5 % 750 MG/150 ML PREMIX 100 MG IV (20:13)
[2021-03-14] MEDS: sennosides-docusate Tablet 1 TAB PO (20:18)
--- NOTE | 2021-03-14 22:55 | PM.PN ---
Subjective Subjective: Interval history: - Patient seen at bedside multiple times-prior to extubation and after extubation -Awakening in the following commands when tapered off sedation -Successfully extubated to HFNC 50 L and 50% -Continue bedside physical therapy and incentive spirometry -Bedside swallow evaluation and start feeding -Other labs and imaging reviewed Medications: Reviewed: Yes Vitals/I&O/Wt Last Vital Signs Temp 97.7 F 03/14/21 18:00 Pulse 89 03/14/21 21:00 Resp 23 H 03/14/21 21:00 BP 205/173 03/14/21 21:00 Pulse Ox 90 03/14/21 21:00 03/14/21 03/14/21 03/14/21 06:59 14:59 22:59 Intake Total 281.445 / 822.929 208 / 208 138.917 / 346.917 Output Total 1250 / 2350 950 / 950 Balance -968.555 / -1527.071 208 / 208 -811.083 / -603.083 Weight last 48 hrs Weight 209 lb Weight 210 lb 8 oz Physical Exam Narrative: EXAM NARRATIVE: General: lying in bed, extubated to high flow nasal cannula-following commands HEENT:NCAT, PERRLA, EOMI Neck: Supple Lungs: Bilateral diffuse crackles Heart: s1/s2, RRR Abd: soft, NT, ND, BS + Normoactive Extremities: No edema RF TEST ENGINEER: Off sedation, awake but drowsy and following commands, moving all limbs SKIN: no rash LDA: # CVC: Left subclavian central line 03/09/2021 # Rodríguez: 03/09/2021 Urinary Catheter Management^: Rodríguez: Cath Placed During This Visit: yes Reason for Continuing Indwelling Catheter: Accurate Measurement of Urinary Output in Critically Ill Patients Urinary Catheter Date of Insertion: 03/09/21 Urinary Catheter Time of Insertion: 22:34 Data : 03/15/21 03:00 03/15/21 03:00 Other Labs: Laboratory Results WBC 13.5 10^3/uL (4.0-10.0) H 03/14/21 04:25 RBC 4.25 10^6/uL (4.1-5.3) 03/14/21 04:25 Hgb 12.7 g/dL (11.7-16.6) 03/14/21 04:25 Hct 38.6 % (42.0-52.0) L 03/14/21 04:25 MCV 90.8 fl (80-94) 03/14/21 04:25 MCH 29.9 pg (28.0-34.0) 03/14/21 04:25 MCHC 32.9 g/dL (30.0-36.0) 03/14/21 04:25 RDW 13.8 % (12.1-15.1) 03/14/21 04:25 Plt Count 197 10^3/cmm (130-400) 03/14/21 04:25 MPV 9.2 fL (7.4-10.4) 03/14/21 04:25 Neut % (Auto) 86.5 % 03/13/21 03:50 Lymph % (Auto) Not Reportable 03/14/21 04:25 Taliaferro % (Auto) Not Reportable 03/14/21 04:25 Eos % (Auto) 0.5 % 03/13/21 03:50 Baso % (Auto) 0.3 % 03/13/21 03:50 Neut # (Auto) 16.73 10^3/uL (1.8-7.7) H 03/13/21 03:50 Lymph # (Auto) Not Reportable 03/14/21 04:25 Taliaferro # (Auto) Not Reportable 03/14/21 04:25 Eos # (Auto) 0.1 10^3/uL (0.0-0.8) 03/13/21 03:50 Baso # (Auto) 0.1 10^3/uL (0.0-0.1) 03/13/21 03:50 Nucleated RBC % (auto) 0.1 % 03/13/21 03:50 Total Counted 100 (0-100) 03/14/21 04:25 Atypical Lymphs % 1.0 % (0-5) 03/14/21 04:25 Absolute Neutrophils 12.3 10^3/cmm (1.4-6.5) H 03/14/21 04:25 Segmented Neutrophils 86 % 03/14/21 04:25 Abs Segm Neuts (Man) 11.6 10/cmm (1.6-7.1) H 03/14/21 04:25 Band Neutrophils 5.0 % 03/14/21 04:25 Abs Band Neuts (Man) 0.7 10^3/cmm (0.0-1.2) 03/14/21 04:25 Absolute Lymphocytes 0.7 10^3/cmm (1.2-3.4) L 03/14/21 04:25 Lymphocytes (Manual) 4 % 03/14/21 04:25 Monocytes (Manual) 1.0 % 03/14/21 04:25 Absolute Monocytes 0.1 10^3/cmm (0.1-0.6) 03/14/21 04:25 Eosinophils (Manual) 1 % 03/14/21 04:25 Absolute Eosinophils 0.1 10^3/cmm (0.0-0.7) 03/14/21 04:25 Basophils (Manual) 0.0 % 03/14/21 04:25 Absolute Basophils 0.0 10^3/cmm (0.0-0.2) 03/14/21 04:25 Metamyelocytes 1.0 % 03/14/21 04:25 Myelocytes 1.0 % 03/14/21 04:25 Nucleated RBCs 1.0 /100WBC (0-1) 03/14/21 04:25 Nucleated RBCs # 0.0 /100WBC 03/13/21 03:50 Platelet Estimate Normal (Normal) 03/14/21 04:25 D-Dimer >= 20.00 ug/mIFEU (0-0.59) H 03/10/21 03:25 Specimen Type Arterial 03/14/21 05:41 Sample Site Brachial, right 03/14/21 05:41 ABG pH 7.51 (7.35-7.45) H 03/14/21 05:41 ABG pCO2 41.0 mmHg (35-45) 03/14/21 05:41 ABG pO2 59.9 mmHg (80.0-100.0) L 03/14/21 05:41 ABG HCO3 32.4 mmol/L (22-26) H 03/14/21 05:41 ABG O2 Saturation 95.9 03/13/21 04:00 ABG Base Excess 8.5 mmol/L (-2.0-2.0) H 03/14/21 05:41 Gus Test N/a 03/14/21 05:41 VBG pH 7.47 (7.32-7.42) H 03/05/21 15:10 VBG pCO2 41.5 mmHg (41-51) 03/05/21 15:10 VBG pO2 29.2 mmHg (25-40) 03/05/21 15:10 VBG HCO3 30.0 mmol/L (24-28) H 03/05/21 15:10 VBG Base Excess 5.8 mmol/L (-3.0-3.0) H 03/05/21 15:10 VBG Hematocrit 7.5 % (42-52) L 03/05/21 15:10 A-a O2 Gradient 23.9 mmHg (5-10) H 03/13/21 04:00 Hematocrit 39.6 % (42-52) L 03/14/21 05:41 Hgb O2 Saturation 94.2 % (95-100) L 03/13/21 04:00 Carboxyhemoglobin 1.1 %THgb (0.4-20.1) 03/13/21 04:00 Methemoglobin 0.7 % (0.4-1.5) 03/13/21 04:00 Total Hemoglobin 13.3 g/dL (14-18) L 03/13/21 04:00 Sodium 142.0 mmol/L (131-143) 03/13/21 04:00 Potassium 4.1 mmol/L (3.5-5.0) 03/13/21 04:00 Glucose 161.0 mg/dL (70-115) H 03/13/21 04:00 Ionized Calcium 1.1 mmol/L (1.1-1.4) 03/13/21 04:00 O2 Delivery Device Vent 03/14/21 05:41 O2 Liters/Min 55.0 % 03/08/21 04:52 FiO2 40.0 % 03/14/21 05:41 Tidal Volume 0.45 03/14/21 05:41 PEEP 8.0 cmH20 03/14/21 05:41 Wrong Address Clerk ID Harkr 03/14/21 05:41 Sodium 140 mmol/L (136-145) 03/14/21 04:25 Potassium 4.0 mmol/L (3.5-5.1) 03/14/21 04:25 Chloride 103 mmol/L (98-107) 03/14/21 04:25 Carbon Dioxide 31 mmol/L (22-29) H 03/14/21 04:25 Anion Gap 10.0 (5-19) 03/14/21 04:25 BUN 31 mg/dL (8-23) H 03/14/21 04:25 Creatinine 0.3 mg/dL (0.7-1.2) L 03/14/21 04:25 GFR Calculation 304.8 mL/min (90-130) H 03/14/21 04:25 Glucose 157 mg/dL (65-115) H 03/14/21 04:25 Calculated Osmolality 300 mOsm/kg (285-295) H 03/14/21 04:25 Lactic Acid 1.4 mmol/L (0.5-2.2) 03/05/21 14:35 Calcium 7.2 mg/dL (8.5-10.5) L 03/14/21 04:25 Magnesium 2.1 mg/dL (1.7-2.3) 03/14/21 04:25 Ferritin 1507 ng/mL (30-400) H 03/11/21 05:50 Total Bilirubin 1.3 mg/dL (0.15-1.2) H 03/14/21 04:25 AST 29 U/L (0-40) 03/14/21 04:25 ALT 26 U/L (0-41) 03/14/21 04:25 Alkaline Phosphatase 82 IU/L (40-130) 03/14/21 04:25 Lactate Dehydrogenase 660 U/L (135-225) H 03/06/21 03:35 C-Reactive Protein 53.4 mg/L (0.0-4.9) H 03/11/21 05:50 NT-Pro-B Natriuret Pep 287 pg/mL (0-125) H 03/05/21 14:35 Total Protein 5.0 g/dL (6.6-8.7) L 03/14/21 04:25 Albumin 2.8 g/dL (3.5-5.2) L 03/14/21 04:25 Globulin 2.2 g/dL (1.3-4.6) 03/14/21 04:25 Triglycerides 250 mg/dL (0-150) H 03/14/21 04:25 Procalcitonin 0.08 ng/mL (0-0.5) 03/14/21 04:25 Vancomycin Trough 16.4 ug/mL (10-15) H 03/12/21 05:20 Nasal/Oral COVID-19 PCR Detected H 03/05/21 16:30 SARS-CoV-2 Ag (Rapid) Negative (Negative) 03/05/21 23:00 Impressions Chest CTA 03/09/21 13:47 IMPRESSION: Positive for subsegmental right lower lobe pulmonary embolism. Bilateral pneumonia consistent with COVID-19 pneumonia. Findings discussed with Dr. Edwards by Dr. Rodrick Espinosa at 4:37 p.m., 03/09/2021. Radiation Dose CTDIVOL = (mGy): DLP = 567.74 (mGy-cm) Chest X-Ray 03/14/21 07:00 Impression: 1. No change in multiple tubes. 2. No change in bilateral pulmonary opacities. A&P Assessment and plan (1) Acute respiratory failure due to severe acute respiratory syndrome coronavirus 2 (SARS-CoV-2) infection: Status: Acute (2) D-dimer, elevated: Status: Acute (3) Transaminitis: Status: Acute (4) DVT prophylaxis: Status: Acute (5) Pneumonia due to gram-negative bacteria: Status: Acute (6) Pulmonary embolism associated with COVID-19: Status: Acute Additional A&P Information #Acute respiratory #acute hypoxic respiratory failure secondary to ARDS due to COVID-19 pneumonia complicated by right subsegmental PE #Stenotrophomonas maltophilia-sensitive to Levaquin #Transaminitis due to COVID-19 pneumonia-improved #Hypothyroidism #BPH #Hypertension - Covid PCR positive, CRP 138 - CTA Positive for PE - intubated 03/09/2021, sedated and connected to ventilator-completed 2 proning sessions -Today morning CMV 450/40%/8 and ABG 7.5 //32 -Successful awakening trial and breathing trial, following commands-extubated to high flow 50 L 50% -DuoNeb nebulizations and Pulmicort nebulization scheduled -On remdesivir 5-day protocol started 03/06/2021 -On dexamethasone 6 mg daily started 03/05/2021 -Monitor inflammatory markers every 48 hours -s/p 1 dose of Actemra 03/09/2021 -Urine Legionella negative; bacterial antigens negative; MRSA nares negative, low procalcitonin- -Blood cultures so far negative; On empiric Vancomycin and zosyn; -Sputum cultures 03/10/2021 + for Stenotrophomonas maltophilia sensitive to Levaquin, discontinue imipenem and started on Levaquin 03/13/2021-monitor QTC -Input output +15 cc last 24 hours / +700 cc since admission -Monitor renal functions and urine output-try to keep negative to even -Flomax 0.4 mg p.o. daily for BPH -Lovenox 100 q12 hr for Right subsegmental PE -Levothyroxine 200 mcg PO daily -Diabetes-A1c 7.5 -Just extubated-need bedside swallow evaluation before feeding -Sugars controlled, insulin scale coverage-monitor sugars -[id number] for GI prophylaxis -Full code -Prognosis guarded -updated family Discussed with hospitalist, RN, RT covering the patient Attestations Medical Necessity Statement*: Acute hypoxic respiratory failure secondary to ARDS due to COVID-19 pneumonia complicated by pulmonary embolism requiring mechanical ventilation for respiratory support Time Spent in Patient Care: Greater than 35 minutes (>than 50% of time spent in counselling and/or direct pt care on unit). Critical Care Time: The high probability of a clinically significant, sudden or life threatening deterioration of the patient's [respiratory, hepatic, endocrine] system(s) required my full and direct attention, intervention and personal management. The critical care time is as shown. This time is in addition to time spent performing any reported procedures but includes the following: [x] Data and vital sign review and interpretation [x] Patient assessment, examination and intervention [x] Documentation [x] Medication orders and management Critical Care Time (min): 45 Coding Level of Care Code Established Pt Acute Embroidery Assistant for g Fwd Patient Type Established History Comprehensive Exam Comprehensive Medical Decision Making High Complexity Diagnoses Acute respiratory failure due to severe acute respiratory syndrome coronavirus 2 (SARS-CoV-2) infection U07.1; J96.00 D-dimer, elevated R79.89 Transaminitis R74.01 DVT prophylaxis Z29.9 Pneumonia due to gram-negative bacteria J15.6 Pulmonary embolism associated with COVID-19 U07.1; I26.99 Time Spent (min) 45
[2021-03-14] MEDS: dexamethasone 4 mg/mL INJ 6 MG IVP (23:19)
[2021-03-15] VITALS (41 sets, daily range): BP systolic 126–175; BP diastolic 68–107; PULSE 56–89; RESP 16–36; TEMP 36.7–37; O2SAT 88–97
[2021-03-15] MEDS: ipratropium-albuterol 3 mL Neb INHALATION ×4 (02:11→20:15)
[2021-03-15] MEDS: dexmedetomidine 400 MCG in sodium chloride 0.9% (100 ml) 100 ML 17.67 MCG IV ×2 (03:24→08:56)
[2021-03-15 03:52] LABS: Basophils # 0.1 10^3/uL (0.0-0.1); Basophils % 0.4 %; Eosinophils % 0.2 %; Hematocrit 39.6 % (42.0-52.0); Hemoglobin 13.3 g/dL (11.7-16.6); Lymphocytes # 0.3 10^3/uL (0.8-4.8); Lymphocytes % 1.8 %; Mean Corpuscular HGB Conc 33.6 g/dL (30.0-36.0); Mean Corpuscular Volume 89.4 fl (80-94); Mean Platelet Volume 9.5 fL (7.4-10.4); Monocytes # 0.4 10^3/uL (0.2-0.9); Monocytes % 2.6 %; Neutrophils # 12.72 10^3/uL (1.8-7.7); Nucleated Red Blood Cells % 0.1 %; Platelet Count 157 10^3/cmm (130-400); Red Blood Count 4.43 10^6/uL (4.1-5.3); Red Cell Distribution Width 13.9 % (12.1-15.1); White Blood Count 14.1 10^3/uL (4.0-10.0)
[2021-03-15 03:53] LABS: Alanine Aminotransferase 26 U/L (0-41); Albumin Level 2.8 g/dL (3.5-5.2); Alkaline Phosphatase 83 IU/L (40-130); Anion Gap 14.7 (5-19); Aspartate Amino Transferase 21 U/L (0-40); Blood Urea Nitrogen 28 mg/dL (8-23); Calcium 7.6 mg/dL (8.5-10.5); Carbon Dioxide 27 mmol/L (22-29); Chloride 103 mmol/L (98-107); Globulin 2.1 g/dL (1.3-4.6); Glomerular Filtration Rate 304.8 mL/min (90-130); Glucose 143 mg/dL (65-115); Osmolality Calculated 300 mOsm/kg (285-295); Potassium 3.7 mmol/L (3.5-5.1); Sodium 141 mmol/L (136-145); Total Bilirubin 2.4 mg/dL (0.15-1.2); Total Protein 4.9 g/dL (6.6-8.7)
[2021-03-15] MEDS: levothyroxine 200 mcg Tablet PO (06:43)
[2021-03-15] MEDS: aspirin 81 mg EC Tablet PO (08:12)
[2021-03-15] MEDS: enoxaparin 100 mg/mL Syringe SUBCUT ×2 (08:12→20:37)
[2021-03-15] MEDS: famotidine 20 mg/2 mL INJ IVP ×2 (08:12→20:36)
[2021-03-15] MEDS: docusate sodium 100 mg Capsule PO ×2 (08:12→16:53)
[2021-03-15] MEDS: budesonide 0.5 mg/2 mL Neb INHALATION ×2 (08:13→20:15)
--- NOTE | 2021-03-15 10:49 | PC.NURSE ---
Witnessed waste of 55ml fentanyl with Jasmin JIMENEZ.
--- NOTE | 2021-03-15 10:51 | PC.NURSE ---
Wasted 55ml of Fentanyl at this time.
[2021-03-15 11:48] LABS: Glucose Point of Care 121 mg/dL (70-110)
--- NOTE | 2021-03-15 16:03 | PM.PN ---
Subjective Subjective: Interval history: Remained on HFNC with 50% fio2 No new clinical events. Medications: Reviewed: Yes Vitals/I&O/Wt Last Vital Signs Temp 98.6 F 03/15/21 15:13 Pulse 86 03/15/21 15:13 Resp 18 03/15/21 15:13 BP 133/70 03/15/21 15:13 Pulse Ox 92 03/15/21 15:13 03/15/21 03/15/21 03/15/21 06:59 14:59 22:59 Intake Total 103.664 / 450.581 363.258 / 363.258 33.022 / 396.280 Output Total 1000 / 1950 600 / 600 Balance -896.336 / -1499.419 -236.742 / -236.742 33.022 / -203.720 Weight last 48 hrs Weight 92.079 kg Weight 94.801 kg Physical Exam Narrative: EXAM NARRATIVE: General: extubated to high-flow HEENT: ET tube in place. Chest: Nonlabored respiration CVS: S1-S2 regular, no murmurs, no tachycardia, no gallops, no rubs Abdomen:non-distended : Rodríguez Neuro: awake however drowsy Urinary Catheter Management^: Rodríguez: Cath Placed During This Visit: yes Reason for Continuing Indwelling Catheter: Accurate Measurement of Urinary Output in Critically Ill Patients Urinary Catheter Date of Insertion: 03/09/21 Urinary Catheter Time of Insertion: 22:34 Data : 03/15/21 03:00 03/15/21 03:00 A&P Assessment and plan (1) Acute respiratory failure due to severe acute respiratory syndrome coronavirus 2 (SARS-CoV-2) infection: Status: Acute (2) D-dimer, elevated: Status: Acute (3) Transaminitis: Status: Acute (4) DVT prophylaxis: Status: Acute Additional A&P Information Acute respiratory failure with hypoxia due to COVID 19 pneumonia with acute pulmonary embolism - S/p Remdesivir, Actemera - Continue decadron - Initially did not tolerate HFNC - Intubated and placed on MV on 03/09 -extubated 03/14 - Continue broad specturm abx - Continue Lovenox full dose - change to eliquis 10mg PO BID x 7 days -> 5 mg PO BID - Lasix PRN - Pulmonary/Critical Care on board - Repeat labs in a.m. Transaminitis - Resolved - LFT returned to normal Hypertension - Metoprolol on hold - Hyralazine 10 mg IV q8hr prn added Hypothyroidism hx of papillary thyroid carcinoma - Status post thyroidectomy - Levothyroxine 200 mcg p.o. daily GI prophylaxis - Pepcid 20 mg IV BID DVT prophylaxis - Lovenox 100 mg subcu b.i.d. Attestations Medical Necessity Statement*: continue hospitalization for managment of covid 19 Time Spent in Patient Care: Greater than 35 minutes Coding Level of Care Code Acute Stripping Shovel Operator for g Fwd Diagnoses Acute respiratory failure due to severe acute respiratory syndrome coronavirus 2 (SARS-CoV-2) infection U07.1; J96.00 D-dimer, elevated R79.89 Transaminitis R74.01 DVT prophylaxis Z29.9
[2021-03-15] MEDS: dexmedetomidine 400 MCG in sodium chloride 0.9% (100 ml) 100 ML 12.62 MCG IV (18:08)
[2021-03-15] MEDS: dexamethasone 4 mg/mL INJ 6 MG IVP (20:37)
[2021-03-15] MEDS: levofloxacin-dextrose 5 % 750 MG/150 ML PREMIX 100 MG IV (20:37)
[2021-03-15] MEDS: sennosides-docusate Tablet 1 TAB PO (20:37)
--- NOTE | 2021-03-15 22:36 | PM.PN ---
Subjective Subjective: Interval history: -Extubated yesterday -Still on 50 L and 50% FiO2 -Passed bedside swallow evaluation-started on oral feeding -Today plan is to do bedside physical therapy, incentive spirometry -Labs and imaging reviewed Medications: Reviewed: Yes Vitals/I&O/Wt Last Vital Signs Temp 98.0 F 03/15/21 20:00 Pulse 60 03/15/21 22:00 Resp 32 H 03/15/21 22:00 BP 142/69 03/15/21 22:00 Pulse Ox 92 03/15/21 22:00 03/15/21 03/15/21 03/15/21 06:59 14:59 22:59 Intake Total 103.664 / 450.581 363.258 / 363.258 34.249 / 397.507 Output Total 1000 / 1950 600 / 600 150 / 750 Balance -896.336 / -1499.419 -236.742 / -236.742 -115.751 / -352.493 Weight last 48 hrs Weight 203 lb Weight 209 lb Physical Exam Narrative: EXAM NARRATIVE: General: lying in bed, extubated to high flow nasal cannula-following commands HEENT:NCAT, PERRLA, EOMI Neck: Supple Lungs: Bilateral diffuse crackles Heart: s1/s2, RRR Abd: soft, NT, ND, BS + Normoactive Extremities: No edema ROOM SERVICE ATTENDANT: Off sedation, awake but drowsy and following commands, moving all limbs SKIN: no rash LDA: # CVC: Left subclavian central line 03/09/2021 # Rodríguez: 03/09/2021 Urinary Catheter Management^: Rodríguez: Cath Placed During This Visit: yes Reason for Continuing Indwelling Catheter: Accurate Measurement of Urinary Output in Critically Ill Patients Urinary Catheter Date of Insertion: 03/09/21 Urinary Catheter Time of Insertion: 22:34 Data : 03/15/21 03:00 03/15/21 03:00 Other Labs: Laboratory Results WBC 14.1 10^3/uL (4.0-10.0) H 03/15/21 03:00 RBC 4.43 10^6/uL (4.1-5.3) 03/15/21 03:00 Hgb 13.3 g/dL (11.7-16.6) 03/15/21 03:00 Hct 39.6 % (42.0-52.0) L 03/15/21 03:00 MCV 89.4 fl (80-94) 03/15/21 03:00 MCH 30.0 pg (28.0-34.0) 03/15/21 03:00 MCHC 33.6 g/dL (30.0-36.0) 03/15/21 03:00 RDW 13.9 % (12.1-15.1) 03/15/21 03:00 Plt Count 157 10^3/cmm (130-400) 03/15/21 03:00 MPV 9.5 fL (7.4-10.4) 03/15/21 03:00 Neut % (Auto) 90.0 % 03/15/21 03:00 Lymph % (Auto) 1.8 % 03/15/21 03:00 Wilkinson % (Auto) 2.6 % 03/15/21 03:00 Eos % (Auto) 0.2 % 03/15/21 03:00 Baso % (Auto) 0.4 % 03/15/21 03:00 Neut # (Auto) 12.72 10^3/uL (1.8-7.7) H 03/15/21 03:00 Lymph # (Auto) 0.3 10^3/uL (0.8-4.8) L 03/15/21 03:00 Wilkinson # (Auto) 0.4 10^3/uL (0.2-0.9) 03/15/21 03:00 Eos # (Auto) 0.0 10^3/uL (0.0-0.8) 03/15/21 03:00 Baso # (Auto) 0.1 10^3/uL (0.0-0.1) 03/15/21 03:00 Nucleated RBC % (auto) 0.1 % 03/15/21 03:00 Total Counted 100 (0-100) 03/14/21 04:25 Atypical Lymphs % 1.0 % (0-5) 03/14/21 04:25 Absolute Neutrophils 12.3 10^3/cmm (1.4-6.5) H 03/14/21 04:25 Segmented Neutrophils 86 % 03/14/21 04:25 Abs Segm Neuts (Man) 11.6 10/cmm (1.6-7.1) H 03/14/21 04:25 Band Neutrophils 5.0 % 03/14/21 04:25 Abs Band Neuts (Man) 0.7 10^3/cmm (0.0-1.2) 03/14/21 04:25 Absolute Lymphocytes 0.7 10^3/cmm (1.2-3.4) L 03/14/21 04:25 Lymphocytes (Manual) 4 % 03/14/21 04:25 Monocytes (Manual) 1.0 % 03/14/21 04:25 Absolute Monocytes 0.1 10^3/cmm (0.1-0.6) 03/14/21 04:25 Eosinophils (Manual) 1 % 03/14/21 04:25 Absolute Eosinophils 0.1 10^3/cmm (0.0-0.7) 03/14/21 04:25 Basophils (Manual) 0.0 % 03/14/21 04:25 Absolute Basophils 0.0 10^3/cmm (0.0-0.2) 03/14/21 04:25 Metamyelocytes 1.0 % 03/14/21 04:25 Myelocytes 1.0 % 03/14/21 04:25 Nucleated RBCs 1.0 /100WBC (0-1) 03/14/21 04:25 Nucleated RBCs # 0.0 /100WBC 03/15/21 03:00 Platelet Estimate Normal (Normal) 03/14/21 04:25 D-Dimer >= 20.00 ug/mIFEU (0-0.59) H 03/10/21 03:25 Specimen Type Arterial 03/14/21 05:41 Sample Site Brachial, right 03/14/21 05:41 ABG pH 7.51 (7.35-7.45) H 03/14/21 05:41 ABG pCO2 41.0 mmHg (35-45) 03/14/21 05:41 ABG pO2 59.9 mmHg (80.0-100.0) L 03/14/21 05:41 ABG HCO3 32.4 mmol/L (22-26) H 03/14/21 05:41 ABG O2 Saturation 95.9 03/13/21 04:00 ABG Base Excess 8.5 mmol/L (-2.0-2.0) H 03/14/21 05:41 Gus Test N/a 03/14/21 05:41 VBG pH 7.47 (7.32-7.42) H 03/05/21 15:10 VBG pCO2 41.5 mmHg (41-51) 03/05/21 15:10 VBG pO2 29.2 mmHg (25-40) 03/05/21 15:10 VBG HCO3 30.0 mmol/L (24-28) H 03/05/21 15:10 VBG Base Excess 5.8 mmol/L (-3.0-3.0) H 03/05/21 15:10 VBG Hematocrit 7.5 % (42-52) L 03/05/21 15:10 A-a O2 Gradient 23.9 mmHg (5-10) H 03/13/21 04:00 Hematocrit 39.6 % (42-52) L 03/14/21 05:41 Hgb O2 Saturation 94.2 % (95-100) L 03/13/21 04:00 Carboxyhemoglobin 1.1 %THgb (0.4-20.1) 03/13/21 04:00 Methemoglobin 0.7 % (0.4-1.5) 03/13/21 04:00 Total Hemoglobin 13.3 g/dL (14-18) L 03/13/21 04:00 Sodium 142.0 mmol/L (131-143) 03/13/21 04:00 Potassium 4.1 mmol/L (3.5-5.0) 03/13/21 04:00 Glucose 161.0 mg/dL (70-115) H 03/13/21 04:00 Ionized Calcium 1.1 mmol/L (1.1-1.4) 03/13/21 04:00 O2 Delivery Device Vent 03/14/21 05:41 O2 Liters/Min 55.0 % 03/08/21 04:52 FiO2 40.0 % 03/14/21 05:41 Tidal Volume 0.45 03/14/21 05:41 PEEP 8.0 cmH20 03/14/21 05:41 Grounds/Maintenance Specialist ID Harkr 03/14/21 05:41 Sodium 141 mmol/L (136-145) 03/15/21 03:00 Potassium 3.7 mmol/L (3.5-5.1) 03/15/21 03:00 Chloride 103 mmol/L (98-107) 03/15/21 03:00 Carbon Dioxide 27 mmol/L (22-29) 03/15/21 03:00 Anion Gap 14.7 (5-19) 03/15/21 03:00 BUN 28 mg/dL (8-23) H 03/15/21 03:00 Creatinine 0.3 mg/dL (0.7-1.2) L 03/15/21 03:00 GFR Calculation 304.8 mL/min (90-130) H 03/15/21 03:00 Glucose 143 mg/dL (65-115) H 03/15/21 03:00 POC Glucose 121 mg/dL (70-110) H 03/15/21 11:44 Calculated Osmolality 300 mOsm/kg (285-295) H 03/15/21 03:00 Lactic Acid 1.4 mmol/L (0.5-2.2) 03/05/21 14:35 Calcium 7.6 mg/dL (8.5-10.5) L 03/15/21 03:00 Magnesium 2.1 mg/dL (1.7-2.3) 03/14/21 04:25 Ferritin 1507 ng/mL (30-400) H 03/11/21 05:50 Total Bilirubin 2.4 mg/dL (0.15-1.2) H 03/15/21 03:00 AST 21 U/L (0-40) 03/15/21 03:00 ALT 26 U/L (0-41) 03/15/21 03:00 Alkaline Phosphatase 83 IU/L (40-130) 03/15/21 03:00 Lactate Dehydrogenase 660 U/L (135-225) H 03/06/21 03:35 C-Reactive Protein 53.4 mg/L (0.0-4.9) H 03/11/21 05:50 NT-Pro-B Natriuret Pep 287 pg/mL (0-125) H 03/05/21 14:35 Total Protein 4.9 g/dL (6.6-8.7) L 03/15/21 03:00 Albumin 2.8 g/dL (3.5-5.2) L 03/15/21 03:00 Globulin 2.1 g/dL (1.3-4.6) 03/15/21 03:00 Triglycerides 250 mg/dL (0-150) H 03/14/21 04:25 Procalcitonin 0.08 ng/mL (0-0.5) 03/14/21 04:25 Vancomycin Trough 16.4 ug/mL (10-15) H 03/12/21 05:20 Nasal/Oral COVID-19 PCR Detected H 03/05/21 16:30 SARS-CoV-2 Ag (Rapid) Negative (Negative) 03/05/21 23:00 Impressions Chest CTA 03/09/21 13:47 IMPRESSION: Positive for subsegmental right lower lobe pulmonary embolism. Bilateral pneumonia consistent with COVID-19 pneumonia. Findings discussed with Dr. Edwards by Dr. Rodrick Espinosa at 4:37 p.m., 03/09/2021. Radiation Dose CTDIVOL = (mGy): DLP = 567.74 (mGy-cm) Chest X-Ray 03/14/21 07:00 Impression: 1. No change in multiple tubes. 2. No change in bilateral pulmonary opacities. A&P Assessment and plan (1) Acute respiratory failure due to severe acute respiratory syndrome coronavirus 2 (SARS-CoV-2) infection: Status: Acute (2) D-dimer, elevated: Status: Acute (3) Transaminitis: Status: Acute (4) DVT prophylaxis: Status: Acute (5) Pneumonia due to gram-negative bacteria: Status: Acute (6) Pulmonary embolism associated with COVID-19: Status: Acute Additional A&P Information #Acute respiratory #acute hypoxic respiratory failure secondary to ARDS due to COVID-19 pneumonia complicated by right subsegmental PE #Stenotrophomonas maltophilia-sensitive to Levaquin #Transaminitis due to COVID-19 pneumonia-improved #Hypothyroidism #BPH #Hypertension - Covid PCR positive, CRP 138 - CTA Positive for PE - intubated 03/09/2021, sedated and connected to ventilator-completed 2 proning sessions -Successful awakening trial and breathing trial, following commands-extubated to high flow 50 L 50% on 03/14/2021 -Gradually wean off fentanyl drip and later wean down on Precedex drip -Encourage bedside physical therapy, incentive spirometry, flutter valve and out of bed to chair -DuoNeb nebulizations and Pulmicort nebulization scheduled -On remdesivir 5-day protocol started 03/06/2021 -On dexamethasone 6 mg daily started 03/05/2021 -Monitor inflammatory markers every 48 hours -s/p 1 dose of Actemra 03/09/2021 -Urine Legionella negative; bacterial antigens negative; MRSA nares negative, low procalcitonin- -Blood cultures so far negative; On empiric Vancomycin and zosyn; -Sputum cultures 03/10/2021 + for Stenotrophomonas maltophilia sensitive to Levaquin, discontinue imipenem and started on Levaquin 03/13/2021-monitor QTC -Afebrile last 24 hours Endo WBC 14 K -Input output -1500 cc last 24 hours / - 895 cc since admission -Monitor renal functions and urine output-try to keep negative to even -Flomax 0.4 mg p.o. daily for BPH -Lovenox 100 q12 hr for Right subsegmental PE -Levothyroxine 200 mcg PO daily -Diabetes-A1c 7.5 -Just extubated-need bedside swallow evaluation before feeding -Sugars controlled, insulin scale coverage-monitor sugars -[id number] for GI prophylaxis -Full code -Prognosis guarded -updated family Discussed with hospitalist, RN, RT covering the patient Attestations Medical Necessity Statement*: Acute hypoxic respiratory failure secondary to ARDS due to COVID-19 pneumonia complicated by pulmonary embolism requiring mechanical ventilation for respiratory support Time Spent in Patient Care: Greater than 35 minutes (>than 50% of time spent in counselling and/or direct pt care on unit). Critical Care Time: The high probability of a clinically significant, sudden or life threatening deterioration of the patient's [respiratory, hepatic, endocrine] system(s) required my full and direct attention, intervention and personal management. The critical care time is as shown. 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
[2021-03-16] VITALS (38 sets, daily range): BP systolic 104–187; BP diastolic 55–103; PULSE 53–120; RESP 20–58; TEMP 36.8–37.1; O2SAT 83–97; BMI 28.3
[2021-03-16] MEDS: dexmedetomidine 400 MCG in sodium chloride 0.9% (100 ml) 100 ML 12.62 MCG IV ×2 (02:11→18:36)
[2021-03-16] MEDS: ipratropium-albuterol 3 mL Neb INHALATION ×4 (02:44→21:20)
[2021-03-16] MEDS: ALPRAZolam 0.5 mg Tablet PO ×3 (03:07→22:14)
--- NOTE | 2021-03-16 03:54 | XRR_ITS ---
PROCEDURE INFORMATION: Exam: XR Chest Exam date and time: 03/16/2021 3:54 AM Age: 60 years old Clinical indication: Dyspnea and shortness of breath; Patient HX: Worsening hypoxia with sob/dyspnea. Covid +; Additional info: Acute distress TECHNIQUE: Imaging protocol: XR of the chest. Views: 1 view. COMPARISON: CR XR chest 1V portable [id number] 03/14/2021 5:10 AM FINDINGS: Tubes, catheters and devices: Left subclavian approach central line is in satisfactory position, with distal tip in the SVC, approximately 8 cm above the SVC/RA junction. Interval removal of endotracheal tube and feeding tube; Surgical clip is seen projecting over the right lower neck/lung apex. Lungs: Persistent bilateral airspace opacities. No large pleural effusion or pneumothorax. Pleural spaces: See Lungs finding. Heart/Mediastinum: Stable cardiomediastinal silhouette. Bones/joints: No acute osseous injury identified. XR/XR chest 1V portable [id number] IMPRESSION: Persistent bilateral airspace opacities.
[2021-03-16] MEDS: morphine 4 mg/mL SDV 1 mL 2 MG IVP (04:32)
[2021-03-16 04:55] LABS: ABG PCO2 35.2 mmHg (35-45); ABG PH Result 7.48 (7.35-7.45); Arterial Blood Gas Hematocrit 44.4 % (42-52); Base Excess ABG 3.2 mmol/L (-2.0-2.0); Blood Gas Allen Test Pos; Blood Gas Sample Site Radial, right; Blood Gas Sample Type Arterial; HCO3 ABG 26.5 mmol/L (22-26); PO2 ABG 54.2 mmHg (80.0-100.0)
--- NOTE | 2021-03-16 05:04 | P.PNCC_ITS ---
Critical Care Event Note Critical Care Event The high probability of a clinically significant, sudden or life threatening deterioration of the patient's respiratory system(s) required my full and direct attention, intervention and personal management. The critical care time is as shown. This time is in addition to time spent performing any reported procedures but includes the following: [x] Data and vital sign review and interpretation [x] Patient assessment, examination and intervention [x] Documentation [x] Medication orders and management Mr. De has been on heated high flow with FiO2 of 90 to 100% since around 3:00 or so yesterday afternoon. He had been having increased work of breathing but was doing okay. Recently however he has had increasing respiratory rate up into the 50s and 60s. Oxygen saturations have dropped into the upper 80s. Chest x-ray does not show any evidence of pneumothorax. Bilateral infiltrates are more prominent than on x-ray from 2 days ago. He is negative approximately 1600 mL for the hospital stay and approximately 700 mL in the last 24 hours. BiPAP was tried but he did not tolerate it with significant retractions, abdominal breathing and progressive tachypnea. He has received some morphine, his Precedex drip has been increased. I am going to give him some Lasix and will also give him some Ativan. He had Xanax not too long ago. We have changed him back to heated high flow and he is doing better currently with respiratory rate in the upper 20s low 30s. Oxygen saturations are maintaining around 87%. ABG shows 7.4 8/35/54/26. Blood pressure is currently elevated. Will monitor response closely. I was concerned that we would have to reintubate him for a while but his work of breathing has improved. He may still require reintubation if we are not able to see some improvement. He may simply be tiring out. Critical Care Time Critical Care Time: Code activated: No Critical Care Time (min): 32 Coding Level of Care Code Acute Insurance Claims Representative for Miroslava Rodríguez
[2021-03-16 05:16] LABS: Basophils # 0.1 10^3/uL (0.0-0.1); Basophils % 0.3 %; Hematocrit 42.8 % (42.0-52.0); Hemoglobin 14.1 g/dL (11.7-16.6); Lymphocytes # 0.4 10^3/uL (0.8-4.8); Lymphocytes % 1.6 %; Mean Corpuscular HGB Conc 32.9 g/dL (30.0-36.0); Mean Corpuscular Volume 91.1 fl (80-94); Mean Platelet Volume 8.9 fL (7.4-10.4); Monocytes # 0.9 10^3/uL (0.2-0.9); Monocytes % 3.3 %; Neutrophils # 24.34 10^3/uL (1.8-7.7); Neutrophils % 90.3 %; Nucleated Red Blood Cells % 0.1 %; Platelet Count 180 10^3/cmm (130-400); Red Cell Distribution Width 14.3 % (12.1-15.1)
[2021-03-16] MEDS: LORazepam 2 mg/mL INJ 1 mL 1 MG IVP (05:35)
[2021-03-16] MEDS: FUROsemide 10 mg/mL SDV 2mL 20 MG IVP (05:35)
[2021-03-16 05:43] LABS: Alanine Aminotransferase 32 U/L (0-41); Alkaline Phosphatase 106 IU/L (40-130); Anion Gap 15.5 (5-19); Aspartate Amino Transferase 36 U/L (0-40); Blood Urea Nitrogen 30 mg/dL (8-23); Carbon Dioxide 26 mmol/L (22-29); Chloride 101 mmol/L (98-107); Globulin 2.5 g/dL (1.3-4.6); Glomerular Filtration Rate 304.8 mL/min (90-130); Glucose 131 mg/dL (65-115); Osmolality Calculated 296 mOsm/kg (285-295); Potassium 3.5 mmol/L (3.5-5.1); Sodium 139 mmol/L (136-145); Total Bilirubin 3.1 mg/dL (0.15-1.2); Total Protein 5.5 g/dL (6.6-8.7)
[2021-03-16] MEDS: levothyroxine 200 mcg Tablet PO (06:54)
[2021-03-16] MEDS: potassium chloride premix 100 ML 50 MEQ IV (06:55)
[2021-03-16] MEDS: dexmedetomidine 400 MCG in sodium chloride 0.9% (100 ml) 100 ML 25.24 MCG IV (08:11)
[2021-03-16] MEDS: budesonide 0.5 mg/2 mL Neb INHALATION ×2 (09:13→21:20)
[2021-03-16] MEDS: aspirin 81 mg EC Tablet PO (09:51)
[2021-03-16] MEDS: vancomycin 1,500 MG/300 ML PIGGYBACK 200 MG IV ×2 (09:51→18:04)
[2021-03-16] MEDS: docusate sodium 100 mg Capsule PO ×2 (09:51→18:04)
[2021-03-16] MEDS: famotidine 20 mg/2 mL INJ IVP ×2 (09:51→20:41)
[2021-03-16] MEDS: enoxaparin 100 mg/mL Syringe SUBCUT ×2 (09:51→20:41)
[2021-03-16] MEDS: cefepime 1,000 MG in sodium chloride 0.9% (plus) 100 ML 200 MG IV ×2 (09:52→20:40)
--- NOTE | 2021-03-16 11:57 | PC.NURSE ---
Haley De, daughter, called with update. Pt out of bed to chair, pt weak but able to stand with help. He became nervous after and his O2 sats decreased. He needed encouragement to relax and deep breath.
--- NOTE | 2021-03-16 12:00 | PC.NURSE ---
Pt up to chair at bedside. Pt able to bear weight but is very weak repetitive encouragement needed, remain calm and deep breaths, for pt.
[2021-03-16] MEDS: dexmedetomidine 400 MCG in sodium chloride 0.9% (100 ml) 100 ML 20.19 MCG IV (12:41)
--- NOTE | 2021-03-16 13:50 | PC.NURSE ---
Pt back to bed with Physical Therapy.
--- NOTE | 2021-03-16 14:36 | PC.SOCIAL ---
IMM update IMM updated with patient's daughter. Verbalized an understanding. Intialled, date, timed, and placed in chart.
--- NOTE | 2021-03-16 14:53 | P.PN_ITS ---
Subjective Subjective: Interval history: Overnight patient was noted have respiratory distress. Was given Lasix 20 mg IV x1 in a.m., Ativan. FiO2 remained 100%. At the time of my evaluation is respiratory status had somewhat improved. No fever, chills, nausea vomiting. Medications: Reviewed: Yes Vitals/I&O/Wt Last Vital Signs Temp 98.2 F 03/16/21 13:00 Pulse 77 03/16/21 14:37 Resp 20 H 03/16/21 14:37 BP 131/75 03/16/21 14:00 Pulse Ox 92 03/16/21 14:37 03/15/21 03/16/21 03/16/21 22:59 06:59 14:59 Intake Total 34.249 / 397.507 282.510 / 222.168 6058.081 / 1247.081 Output Total 150 / 750 1150 / 1900 750 / 750 Balance -115.751 / -352.493 -867.490 / -1219.983 497.081 / 497.081 Weight last 48 hrs Weight 92.079 kg Weight 92.079 kg Physical Exam Narrative: EXAM NARRATIVE: General: extubated to high-flow HEENT: ET tube in place. Chest: Nonlabored respiration CVS: S1-S2 regular, no murmurs, no tachycardia, no gallops, no rubs Abdomen:non-distended : Rodríguez Neuro: awake however drowsy Urinary Catheter Management^: Rodríguez: Cath Placed During This Visit: yes Reason for Continuing Indwelling Catheter: Accurate Measurement of Urinary Output in Critically Ill Patients Urinary Catheter Date of Insertion: 03/09/21 Urinary Catheter Time of Insertion: 22:34 Data : 03/16/21 04:15 03/16/21 04:15 Micro: Microbiology 03/16/21 09:00 Blood Culture - Preliminary Blood SPECIMEN COLLECTED 03/16/21 09:05 Blood Culture - Preliminary Blood SPECIMEN COLLECTED A&P Assessment and plan (1) Acute respiratory failure due to severe acute respiratory syndrome coronavirus 2 (SARS-CoV-2) infection: Status: Acute (2) D-dimer, elevated: Status: Acute (3) Transaminitis: Status: Acute (4) DVT prophylaxis: Status: Acute Additional A&P Information Acute respiratory failure with hypoxia due to COVID 19 pneumonia with acute pulmonary embolism - S/p Remdesivir, Actemera - Continue decadron - Initially did not tolerate HFNC - Intubated and placed on MV on 03/09 -extubated 03/14 - Continue broad specturm abx - Vancomycin pharmacy to dose and Cefepime - Continue Lovenox full dose -Will maintain lovenox until respiratory status improves - Lasix 40 mg PO daily - Pulmonary/Critical Care on board - Repeat labs in a.m. - Currently on HFNC with 100% fio2 Transaminitis - Resolved - LFT returned to normal Hypertension - Metoprolol on hold - Hyralazine 10 mg IV q8hr prn added Hypothyroidism hx of papillary thyroid carcinoma - Status post thyroidectomy - Levothyroxine 200 mcg p.o. daily GI prophylaxis - Pepcid 20 mg IV BID DVT prophylaxis - Lovenox 100 mg subcu b.i.d. Attestations Medical Necessity Statement*: Will require further hospitalization for management of COVID-19 Time Spent in Patient Care: Greater than 35 minutes (>than 50% of time spent in counselling and/or direct pt care on unit) . Coding Level of Care Code Acute Brake Engineer for [facility] Fwd Diagnoses Acute respiratory failure due to severe acute respiratory syndrome coronavirus 2 (SARS-CoV-2) infection U07.1; J96.00 D-dimer, elevated R79.89 Transaminitis R74.01 DVT prophylaxis Z29.9
--- NOTE | 2021-03-16 15:26 | PC.NUTR ---
Nutrition follow up: Exbuated 03/14. Consumed 25% of breakfast today, which was first intake in 8 days. (Most recent nutrition intake was on 03/08) Spoke with pt regarding tolerance of today's meal (first meal since 03/08). Reports nausea, but denies other symptoms of poor tolerance. Reports poor appetite at this time. Requesting milk, juice, pudding, and jello. Does not want nutritional supplements. See full RD note for further details.
--- NOTE | 2021-03-16 16:29 | PC.RESP ---
RT Shift Note Frequent safety and respiratory rounds continue. Orders completed as indicated. Patient monitored pre and post treatments throughout shift. Patient tolerated treatments appropriately. Condition did not change. Patient and/or abrasives sales representative educated on respiratory treatment and medications. Patient and/or abrasives sales representative verbalized understanding. Will continue to monitor patient progress.
--- NOTE | 2021-03-16 17:20 | PC.NURSE ---
Daughter, Haley, called for further update. Pt resting well after sitting up in hair His O2 sats are at 96% when he stays calm and relzed.
[2021-03-16] MEDS: fentaNYL 50 mcg/mL INJ 2mL 25 MCG IVP ×2 (18:40→23:08)
--- NOTE | 2021-03-16 19:44 | PC.NURSE ---
Shift Note Frequent safety and comfort rounds continue. Orders and/or nursing care completed as indicated. Patient monitored for response to intervention and treatment(s). Education provided includes relaxing and deep breathing, ways to reduce anxiety, eating to improve healing, . Patient and/or family verbalizes understanding but needs reinforcement. Will continue to monitor.
[2021-03-16] MEDS: levofloxacin-dextrose 5 % 750 MG/150 ML PREMIX 100 MG IV (20:39)
[2021-03-16] MEDS: sennosides-docusate Tablet 1 TAB PO (20:41)
[2021-03-16] MEDS: LORazepam 2 mg/mL INJ 1 mL IVP (20:55)
--- NOTE | 2021-03-16 20:55 | P.PN_ITS ---
Subjective Subjective: Interval history: - pt seen at bedside today - pt back to 100% fio2 and 50L on HFNC - high risk for intubation - received fentanyl 25 mcg push and on precedex drip and is comfortably resting for now - labs and imaging reviewed Medications: Reviewed: Yes Vitals/I&O/Wt Last Vital Signs Temp 98.7 F 03/16/21 16:00 Pulse 55 L 03/16/21 19:00 Resp 27 H 03/16/21 19:00 BP 117/59 03/16/21 19:00 Pulse Ox 92 03/16/21 19:00 03/16/21 03/16/21 03/16/21 06:59 14:59 22:59 Intake Total 282.510 / 717.690 2099.081 / 1247.081 704.000 / 1951.081 Output Total 1150 / 1900 750 / 750 500 / 1250 Balance -867.490 / -1219.983 497.081 / 497.081 204.000 / 701.081 Weight last 48 hrs Weight 203 lb Weight 203 lb Physical Exam Narrative: EXAM NARRATIVE: General: lying in bed, extubated to high flow nasal cannula-following commands HEENT:NCAT, PERRLA, EOMI Neck: Supple Lungs: Bilateral diffuse crackles Heart: s1/s2, RRR Abd: soft, NT, ND, BS + Normoactive Extremities: No edema COKE WORKER: Off sedation, awake but drowsy and following commands, moving all limbs SKIN: no rash LDA: # CVC: Left subclavian central line 03/09/2021 # Rodríguez: 03/09/2021 Urinary Catheter Management^: Rodríguez: Cath Placed During This Visit: yes Reason for Continuing Indwelling Catheter: Accurate Measurement of Urinary Output in Critically Ill Patients Urinary Catheter Date of Insertion: 03/09/21 Urinary Catheter Time of Insertion: 22:34 Data : 03/17/21 03:50 03/17/21 03:50 Other Labs: Laboratory Results WBC 27.0 10^3/uL (4.0-10.0) H 03/16/21 04:15 RBC 4.70 10^6/uL (4.1-5.3) 03/16/21 04:15 Hgb 14.1 g/dL (11.7-16.6) 03/16/21 04:15 Hct 42.8 % (42.0-52.0) 03/16/21 04:15 MCV 91.1 fl (80-94) 03/16/21 04:15 MCH 30.0 pg (28.0-34.0) 03/16/21 04:15 MCHC 32.9 g/dL (30.0-36.0) 03/16/21 04:15 RDW 14.3 % (12.1-15.1) 03/16/21 04:15 Plt Count 180 10^3/cmm (130-400) 03/16/21 04:15 MPV 8.9 fL (7.4-10.4) 03/16/21 04:15 Neut % (Auto) 90.3 % 03/16/21 04:15 Lymph % (Auto) 1.6 % 03/16/21 04:15 Stevens % (Auto) 3.3 % 03/16/21 04:15 Eos % (Auto) 0.0 % 03/16/21 04:15 Baso % (Auto) 0.3 % 03/16/21 04:15 Neut # (Auto) 24.34 10^3/uL (1.8-7.7) H 03/16/21 04:15 Lymph # (Auto) 0.4 10^3/uL (0.8-4.8) L 03/16/21 04:15 Stevens # (Auto) 0.9 10^3/uL (0.2-0.9) 03/16/21 04:15 Eos # (Auto) 0.0 10^3/uL (0.0-0.8) 03/16/21 04:15 Baso # (Auto) 0.1 10^3/uL (0.0-0.1) 03/16/21 04:15 Nucleated RBC % (auto) 0.1 % 03/16/21 04:15 Total Counted 100 (0-100) 03/14/21 04:25 Atypical Lymphs % 1.0 % (0-5) 03/14/21 04:25 Absolute Neutrophils 12.3 10^3/cmm (1.4-6.5) H 03/14/21 04:25 Segmented Neutrophils 86 % 03/14/21 04:25 Abs Segm Neuts (Man) 11.6 10/cmm (1.6-7.1) H 03/14/21 04:25 Band Neutrophils 5.0 % 03/14/21 04:25 Abs Band Neuts (Man) 0.7 10^3/cmm (0.0-1.2) 03/14/21 04:25 Absolute Lymphocytes 0.7 10^3/cmm (1.2-3.4) L 03/14/21 04:25 Lymphocytes (Manual) 4 % 03/14/21 04:25 Monocytes (Manual) 1.0 % 03/14/21 04:25 Absolute Monocytes 0.1 10^3/cmm (0.1-0.6) 03/14/21 04:25 Eosinophils (Manual) 1 % 03/14/21 04:25 Absolute Eosinophils 0.1 10^3/cmm (0.0-0.7) 03/14/21 04:25 Basophils (Manual) 0.0 % 03/14/21 04:25 Absolute Basophils 0.0 10^3/cmm (0.0-0.2) 03/14/21 04:25 Metamyelocytes 1.0 % 03/14/21 04:25 Myelocytes 1.0 % 03/14/21 04:25 Nucleated RBCs 1.0 /100WBC (0-1) 03/14/21 04:25 Nucleated RBCs # 0.0 /100WBC 03/16/21 04:15 Platelet Estimate Normal (Normal) 03/14/21 04:25 D-Dimer >= 20.00 ug/mIFEU (0-0.59) H 03/10/21 03:25 Specimen Type Arterial 03/16/21 04:45 Sample Site Radial, right 03/16/21 04:45 ABG pH 7.48 (7.35-7.45) H 03/16/21 04:45 ABG pCO2 35.2 mmHg (35-45) 03/16/21 04:45 ABG pO2 54.2 mmHg (80.0-100.0) L 03/16/21 04:45 ABG HCO3 26.5 mmol/L (22-26) H 03/16/21 04:45 ABG O2 Saturation 95.9 03/13/21 04:00 ABG Base Excess 3.2 mmol/L (-2.0-2.0) H 03/16/21 04:45 Gus Test Pos 03/16/21 04:45 VBG pH 7.47 (7.32-7.42) H 03/05/21 15:10 VBG pCO2 41.5 mmHg (41-51) 03/05/21 15:10 VBG pO2 29.2 mmHg (25-40) 03/05/21 15:10 VBG HCO3 30.0 mmol/L (24-28) H 03/05/21 15:10 VBG Base Excess 5.8 mmol/L (-3.0-3.0) H 03/05/21 15:10 VBG Hematocrit 7.5 % (42-52) L 03/05/21 15:10 A-a O2 Gradient 23.9 mmHg (5-10) H 03/13/21 04:00 Hematocrit 44.4 % (42-52) 03/16/21 04:45 Hgb O2 Saturation 94.2 % (95-100) L 03/13/21 04:00 Carboxyhemoglobin 1.1 %THgb (0.4-20.1) 03/13/21 04:00 Methemoglobin 0.7 % (0.4-1.5) 03/13/21 04:00 Total Hemoglobin 13.3 g/dL (14-18) L 03/13/21 04:00 Sodium 142.0 mmol/L (131-143) 03/13/21 04:00 Potassium 4.1 mmol/L (3.5-5.0) 03/13/21 04:00 Glucose 161.0 mg/dL (70-115) H 03/13/21 04:00 Ionized Calcium 1.1 mmol/L (1.1-1.4) 03/13/21 04:00 O2 Delivery Device N/a 03/16/21 04:45 O2 Liters/Min 60.0 % 03/16/21 04:45 FiO2 100.0 % 03/16/21 04:45 Tidal Volume 0.45 03/14/21 05:41 PEEP 8.0 cmH20 03/14/21 05:41 Health Care Sanitary Technician ID Hinja 03/16/21 04:45 Sodium 139 mmol/L (136-145) 03/16/21 04:15 Potassium 3.5 mmol/L (3.5-5.1) 03/16/21 04:15 Chloride 101 mmol/L (98-107) 03/16/21 04:15 Carbon Dioxide 26 mmol/L (22-29) 03/16/21 04:15 Anion Gap 15.5 (5-19) 03/16/21 04:15 BUN 30 mg/dL (8-23) H 03/16/21 04:15 Creatinine 0.3 mg/dL (0.7-1.2) L 03/16/21 04:15 GFR Calculation 304.8 mL/min (90-130) H 03/16/21 04:15 Glucose 131 mg/dL (65-115) H 03/16/21 04:15 POC Glucose 121 mg/dL (70-110) H 03/15/21 11:44 Calculated Osmolality 296 mOsm/kg (285-295) H 03/16/21 04:15 Lactic Acid 1.4 mmol/L (0.5-2.2) 03/05/21 14:35 Calcium 8.0 mg/dL (8.5-10.5) L 03/16/21 04:15 Magnesium 2.1 mg/dL (1.7-2.3) 03/14/21 04:25 Ferritin 1507 ng/mL (30-400) H 03/11/21 05:50 Total Bilirubin 3.1 mg/dL (0.15-1.2) H 03/16/21 04:15 AST 36 U/L (0-40) 03/16/21 04:15 ALT 32 U/L (0-41) 03/16/21 04:15 Alkaline Phosphatase 106 IU/L (40-130) 03/16/21 04:15 Lactate Dehydrogenase 660 U/L (135-225) H 03/06/21 03:35 C-Reactive Protein 53.4 mg/L (0.0-4.9) H 03/11/21 05:50 NT-Pro-B Natriuret Pep 287 pg/mL (0-125) H 03/05/21 14:35 Total Protein 5.5 g/dL (6.6-8.7) L 03/16/21 04:15 Albumin 3.0 g/dL (3.5-5.2) L 03/16/21 04:15 Globulin 2.5 g/dL (1.3-4.6) 03/16/21 04:15 Triglycerides 250 mg/dL (0-150) H 03/14/21 04:25 Procalcitonin 0.08 ng/mL (0-0.5) 03/14/21 04:25 Vancomycin Trough 16.4 ug/mL (10-15) H 03/12/21 05:20 Nasal/Oral COVID-19 PCR Detected H 03/05/21 16:30 SARS-CoV-2 Ag (Rapid) Negative (Negative) 03/05/21 23:00 Impressions Chest CTA 03/09/21 13:47 IMPRESSION: Positive for subsegmental right lower lobe pulmonary embolism. Bilateral pneumonia consistent with COVID-19 pneumonia. Findings discussed with Dr. Edwards by Dr. Rodrick Espinosa at 4:37 p.m., 03/09/2021. Radiation Dose CTDIVOL = (mGy): DLP = 567.74 (mGy-cm) Chest X-Ray 03/16/21 03:54 IMPRESSION: Persistent bilateral airspace opacities. Micro: Microbiology 03/16/21 09:00 Blood Culture - Preliminary Blood SPECIMEN COLLECTED 03/16/21 09:05 Blood Culture - Preliminary Blood SPECIMEN COLLECTED A&P Assessment and plan (1) Acute respiratory failure due to severe acute respiratory syndrome coronavirus 2 (SARS-CoV-2) infection: Status: Acute (2) D-dimer, elevated: Status: Acute (3) Transaminitis: Status: Acute (4) DVT prophylaxis: Status: Acute (5) Pneumonia due to gram-negative bacteria: Status: Acute (6) Pulmonary embolism associated with COVID-19: Status: Acute Additional A&P Information #Acute respiratory #acute hypoxic respiratory failure secondary to ARDS due to COVID-19 pneumonia complicated by right subsegmental PE #Stenotrophomonas maltophilia-sensitive to Levaquin #Transaminitis due to COVID-19 pneumonia-improved #Hypothyroidism #BPH #Hypertension - Covid PCR positive, CRP 138 - CTA Positive for PE - intubated 03/09/2021, sedated and connected to ventilator-completed 2 proning sessions -Successful awakening trial and breathing trial, following commands-extubated to high flow 50 L 50% on 03/14/2021 -Today - pt back to 100% fio2 and 50L on HFNC but FIO2 down to 70% after receiving ativan 1 mg and Fentanyl 25 mcg one dose - On precedex as well. - high risk for intubation -DuoNeb nebulizations and Pulmicort nebulization scheduled -completed remdesivir 5-day protocol started 03/06/2021 and extended course -On dexamethasone 6 mg daily started 03/05/2021 -Monitor inflammatory markers every 48 hours -s/p 1 dose of Actemra 03/09/2021 -Urine Legionella negative; bacterial antigens negative; MRSA nares negative, low procalcitonin- -Blood cultures so far negative; On empiric Vancomycin and zosyn; -Sputum cultures 03/10/2021 + for Stenotrophomonas maltophilia sensitive to Levaquin, discontinue imipenem and started on Levaquin 03/13/2021-monitor QTC -Afebrile last 24 hours; WBC increased to 27 K -broaden coverage with vancomycin and cefepime -Input output -1.2 L last 24 hours /-2.1 Lsince admission -Monitor renal functions and urine output-try to keep negative to even -Flomax 0.4 mg p.o. daily for BPH -Lovenox 100 q12 hr for Right subsegmental PE -Levothyroxine 200 mcg PO daily -Diabetes-A1c 7.5 -N.p.o. for now as patient is high risk for intubation -Sugars controlled, insulin scale coverage-monitor sugars -[id number] for GI prophylaxis -Full code -Prognosis guarded -updated family Discussed with hospitalist, RN, RT covering the patient Attestations Medical Necessity Statement*: Acute hypoxic respiratory failure secondary to ARDS due to COVID-19 pneumonia complicated by pulmonary embolism requiring mechanical ventilation for respiratory support Time Spent in Patient Care: Greater than 35 minutes (>than 50% of time spent in counselling and/or direct pt care on unit) . Critical Care Time: The high probability of a clinically significant, sudden or life threatening deterioration of the patient's [respiratory, hepatic, endocrine] system(s) required my full and direct attention, intervention and personal management. The critical care time is as shown. This time is in addition to time spent performing any reported procedures but includes the following: [x] Data and vital sign review and interpretation [x] Patient assessment, examination and intervention [x] Documentation [x] Medication orders and management Critical Care Time (min): 45 Coding Level of Care Code Established Pt Acute Non Destructive Evaluation Technician for Ch[facility] Fwd Patient Type Established History Comprehensive Exam Comprehensive Medical Decision Making High Complexity Diagnoses Acute respiratory failure due to severe acute respiratory syndrome coronavirus 2 (SARS-CoV-2) infection U07.1; J96.00 D-dimer, elevated R79.89 Transaminitis R74.01 DVT prophylaxis Z29.9 Pneumonia due to gram-negative bacteria J15.6 Pulmonary embolism associated with COVID-19 U07.1; I26.99 Time Spent (min) 45
--- NOTE | 2021-03-16 22:00 | PC.NURSE ---
received verbal order to titrate precedex to 1 mcg/kg/hr
[2021-03-16] MEDS: dexamethasone 4 mg/mL INJ 6 MG IVP (22:20)
--- NOTE | 2021-03-16 23:42 | XRR_ITS ---
PROCEDURE INFORMATION: Exam: XR Chest Exam date and time: 03/16/2021 11:42 PM Age: 60 years old Clinical indication: Device placement; Ett placement (vent status); Additional info: Post-intubation TECHNIQUE: Imaging protocol: XR of the chest. Views: 1 view. COMPARISON: CR (CHEST, ) 03/16/2021 3:56 AM FINDINGS: Tubes, catheters and devices: The endotracheal tube is appropriately positioned in the distal thoracic trachea with the tip above the [place]. Left subclavian central line tip is in the left brachiocephalic vein or upper SVC. Lungs: There is stable extensive ill-defined bilateral pulmonary consolidation. Pleural spaces: Unremarkable. No pleural effusion. No pneumothorax. Heart/Mediastinum: There is mild enlargement of the cardiac silhouette. Bones/joints: Bones are unremarkable. Gastrointestinal tract: There is gaseous distention of the stomach. XR/XR chest 1V portable [id number] IMPRESSION: 1. Stable bilateral pulmonary consolidation. 2. Satisfactory endotracheal tube position. 3. Stable position of the left subclavian central line with the tip in the left brachiocephalic vein or upper SVC. 4. New gaseous distention of the stomach.
[2021-03-17] VITALS (51 sets, daily range): BP systolic 68–209; BP diastolic 42–108; PULSE 72–131; RESP 21–40; TEMP 36.5–37.9; O2SAT 91–100
[2021-03-17 00:47] LABS: ABG PCO2 52.8 mmHg (35-45); ABG PH Result 7.32 (7.35-7.45); Base Excess ABG 0.3 mmol/L (-2.0-2.0); Blood Gas Allen Test Pos; Blood Gas Sample Type Arterial; HCO3 ABG 27.4 mmol/L (22-26); PO2 ABG 66.6 mmHg (80.0-100.0)
[2021-03-17 00:49] LABS: Blood Gas Sample Site Radial, right; Oxygen Device VENT
--- NOTE | 2021-03-17 00:51 | P.PNCC_ITS ---
Critical Care Event Note Critical Care Event The high probability of a clinically significant, sudden or life threatening deterioration of the patient's respiratorysystem(s) required my full and direct attention, intervention and personal management. The critical care time is as shown. This time is in addition to time spent performing any reported procedures but includes the following: [x] Data and vital sign review and interpretation [x] Patient assessment, examination and intervention [x] Documentation [x] Medication orders and management Patient with increasing work of breathing again. Was changed from HHF to bipap with facemask. Was not tolerating either HHF or Biapap and started having hallucinations, trying to pull off whatever was on for oxygen. Tried fentanyl which had worked earlier without improvement. He was breathing 40+ times a minutes with significant retractions and abdominal breathing. Decision made to proceed with re-intubation. Spoke to daughter Haley at [phone]. Patients was with the daughter. Discussed with them plan to re-intubate. Also discussed with patient that we were going to let him get some rest by sedating him, replacing the ETT and resumung ventilation. He gave a thumbs up sign. Supplies and medications were prepared and checked and ED physican called to be on hand as back up. RSI medications administered. Able to easily visualize the cords but the first ETT would not pass through the cords. Tube was withdrawn and lubricated. Again easily visualized the cords and this time able to pass tube through cords to 26 at lip. Saturations initially improved to 93%, HR and BP stable. A few moments later a cuff leak was noted and saturations began to drop. Cuff had been checked prior to the first attempt but not rechecked before the 2nd attempt. ED provider first attempted to use bougie to replace ETT. ETT was dislodged in process. Patient was bagged and attempts to reintubate with henry blade unsuccessful. Some bleeding from oropharygeal mucosa noted and suctioned. Patient received another 20 etomidate and 100 succinylcholine. Fentanyl and versed drips had been started. Attempted reintubation with glidescope and with cricoid pressure able to place a new 8.0 ETT, visualized passing through the cords, condensation seen, color change, equal breath sounds. Again saturations improved. HR and BP remained stable. Pulse strong. Initial ETT was confirmed to have a small tear in it, probably from teeth on removal. A few minutes later, patient again began to desaturate. Vent settings CMV 500 R20 P12 100% FIO2. He would not improve with bagging but was easy to bag. No crepitus, not tracheal deviation, equal breath sounds with bagging. Increased sedation and gave 100 Ray, repositioned his neck. Small amount of blood suctioned from ETT. Saturations ultimately improved with adjustments. Nimbix will be started to keep him paralyzed to allow adequate ventilation this evening. Have increased versed to 8, fentanyl to 150. Propofol is being started. Precedex is also ordered. Has had some hypertension and tachycardia which is being monitored as we increase sedation. Post intubation ABG Laboratory Tests 03/17/21 00:45 ABG pH 7.32 L ABG pCO2 52.8 H ABG pO2 66.6 L ABG HCO3 27.4 H Critical Care Time Critical Care Time: Code activated: No Critical Care Time (min): 135 Additional information about critical care time: 100% of time on unit caring for patient, updating family, discussing with respiratory therapy and nursing staff Procedures Intubation Time out performed: Yes Sedative: etomidate Mg given: 20 Paralytic: succinylcholine Mg given: 100 Laryngoscope: fiber optic video scope ET tube size: 8 ET tube uncuffed: No Tube secured depth (cm): 26 Tube secured location: lips Tube placement confirmation: visualized tube passing through cords, equal breath sounds bilaterally, no breath sounds over epigastrium and color change noted Patient tolerated procedure: well Intubation complications: other (see narrative) Additional comments: versed 2 mg also given Intubation Time out performed: Yes Sedative: etomidate Mg given: 20 Paralytic: succinylcholine Mg given: 100 Laryngoscope: fiber optic video scope ET tube size: 8 ET tube uncuffed: No Tube secured depth (cm): 26 Tube secured location: lips Tube placement confirmation: visualized tube passing through cords, equal breath sounds bilaterally, no breath sounds over epigastrium and color change noted Patient tolerated procedure: well Intubation complications: other (see narrative) Coding Level of Care Code Acute Terminal Operations Manager for Miroslava Rodríguez
[2021-03-17] MEDS: cisatracurium 100 MG in sodium chloride 0.9% 50 ML IV (01:03)
[2021-03-17] MEDS: rocuronium 10 mg/mL INJ 5mL 100 MG IV (01:06)
[2021-03-17] MEDS: midazolam 1 mg/mL INJ 2 mL 2 MG IVP ×2 (01:07→01:10)
[2021-03-17] MEDS: succinylcholine 20 mg/mL SDV 10mL IVP (01:08)
--- NOTE | 2021-03-17 01:12 | PC.NURSE ---
Received verbal orders from Dr. Herring to titrate Fentanyl up to 100 mcg/hr.
[2021-03-17] MEDS: hyDRALAzine 20 mg/mL INJ 1 mL 10 MG IVP (01:16)
[2021-03-17] MEDS: propofol 1,000 MG/100 ML INJ 2.76 MG IV (01:19)
--- NOTE | 2021-03-17 01:30 | PC.NURSE ---
received verbal order from Dr Herring to titrate Nimbex to 1 mcg/kg/min
--- NOTE | 2021-03-17 01:36 | PC.NURSE ---
received verbal orders to titrate versed to 6 mg/hr, fentanyl to 125 mcg/hr, propofol to 30 mcg/kg/min
[2021-03-17] MEDS: vancomycin 1,500 MG/300 ML PIGGYBACK 200 MG IV ×3 (01:49→18:20)
--- NOTE | 2021-03-17 02:23 | PC.NURSE ---
late entry, pt not maintaining O2 sat on heated high flow O2, pt placed on bipap, pt with labored breathing, notified Dr Herring and received telephone order for 25 mcg fentenyl, pt still not tolerating bipap, decision made to intubate pt 0005 HR 78, O2 sat 91% bp 113/79 0009 2 mg versed, 139/76, HR 76, 82% 0010 Etomidate 0011 Succs, HR 80, 82% 0012 75% bag 0013 86%, 220/123, HR 84 0014 + color change, equal breath sounds, 25 @ lip, ETT 8 size 0015 188/99, HR 70, 94% 0019 HR 64, 176/87, 86%, tube leak 0021 142/72, 81% - 79%, 100 mg Succ 0023 62% 0025 LMA, 52%, HR 80, 245/139, 25 @ lip 0026 91%, HR 85 0028 HR 77, 90%, 146/88
[2021-03-17] MEDS: ipratropium-albuterol 3 mL Neb INHALATION ×4 (03:46→20:06)
[2021-03-17 04:10] LABS: Basophils # 0.2 10^3/uL (0.0-0.1); Basophils % 0.4 %; Hematocrit 45.4 % (42.0-52.0); Hemoglobin 14.7 g/dL (11.7-16.6); Lymphocytes # 0.5 10^3/uL (0.8-4.8); Mean Corpuscular HGB Conc 32.4 g/dL (30.0-36.0); Mean Corpuscular Hemoglobin 30.5 pg (28.0-34.0); Mean Corpuscular Volume 94.2 fl (80-94); Mean Platelet Volume 9.6 fL (7.4-10.4); Monocytes # 1.6 10^3/uL (0.2-0.9); Monocytes % 3.3 %; Neutrophils # 42.34 10^3/uL (1.8-7.7); Nucleated Red Blood Cells % 0 %; Platelet Count 240 10^3/cmm (130-400); Red Blood Count 4.82 10^6/uL (4.1-5.3); Red Cell Distribution Width 15.2 % (12.1-15.1)
[2021-03-17 04:20] LABS: White Blood Count 46.5 10^3/uL (4.0-10.0)
[2021-03-17 04:43] LABS: Alanine Aminotransferase 34 U/L (0-41); Albumin Level 3.1 g/dL (3.5-5.2); Alkaline Phosphatase 138 IU/L (40-130); Anion Gap 14.6 (5-19); Aspartate Amino Transferase 28 U/L (0-40); Blood Urea Nitrogen 33 mg/dL (8-23); Calcium 7.8 mg/dL (8.5-10.5); Carbon Dioxide 25 mmol/L (22-29); Chloride 103 mmol/L (98-107); Globulin 2.6 g/dL (1.3-4.6); Glomerular Filtration Rate 218.7 mL/min (90-130); Glucose 157 mg/dL (65-115); Osmolality Calculated 299 mOsm/kg (285-295); Potassium 3.6 mmol/L (3.5-5.1); Sodium 139 mmol/L (136-145); Total Bilirubin 2.4 mg/dL (0.15-1.2); Total Protein 5.7 g/dL (6.6-8.7)
[2021-03-17 05:01] LABS: ABG PH Result 7.21 (7.35-7.45); Arterial Blood Gas Hematocrit 45.4 % (42-52); Base Excess ABG -2.3 mmol/L (-2.0-2.0); Blood Gas Allen Test Pos; Blood Gas Sample Type Arterial; Carboxyhemoglobin 1.3 %THgb (0.4-20.1); HCO3 ABG 27.5 mmol/L (22-26); HGB O2 Sat 94.3 % (95-100); Ionized Calcium Level - ABG 1.2 mmol/L (1.1-1.4); Methemoglobin 0.9 % (0.4-1.5); Oxygen Saturation ABG 96.5; Potassium Level - ABG 3.4 mmol/L (3.5-5.0); Total Hemoglobin 14.8 g/dL (14-18)
[2021-03-17 05:02] LABS: Alveolar-Arterial Oxygen Gradi 69.4 mmHg (5-10); Blood Gas Sample Site Radial, left; Oxygen Device VENT
[2021-03-17 05:05] LABS: ABG PCO2 69.7 mmHg (35-45)
--- NOTE | 2021-03-17 06:05 | PC.NURSE ---
Shift Note Frequent safety and comfort rounds continue. Orders and/or nursing care completed as indicated. Patient monitored for response to intervention and treatment(s). Education provided includes plan of care. 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 Will continue to monitor.
[2021-03-17] MEDS: propofol 1,000 MG/100 ML INJ 14.56 MG IV ×2 (07:39→14:35)
[2021-03-17] MEDS: famotidine 20 mg/2 mL INJ IVP ×2 (07:41→20:32)
--- NOTE | 2021-03-17 08:22 | PC.NURSE ---
Haley De daughter called for an update> NO significant changes since intubation on pm shift.
[2021-03-17] MEDS: budesonide 0.5 mg/2 mL Neb INHALATION ×2 (08:27→20:06)
[2021-03-17 08:53] LABS: ABG PH Result 7.25 (7.35-7.45); Alveolar-Arterial Oxygen Gradi 48.2 mmHg (5-10); Arterial Blood Gas Hematocrit 46.4 % (42-52); Base Excess ABG -0.7 mmol/L (-2.0-2.0); Blood Gas Allen Test Pos; Blood Gas Sample Site Radial, right; Blood Gas Sample Type Arterial; Carboxyhemoglobin 1.3 %THgb (0.4-20.1); HCO3 ABG 28.3 mmol/L (22-26); HGB O2 Sat 93.7 % (95-100); Ionized Calcium Level - ABG 1.1 mmol/L (1.1-1.4); Methemoglobin 0.8 % (0.4-1.5); Oxygen Device VENT; Oxygen Saturation ABG 95.7; PO2 ABG 87.5 mmHg (80.0-100.0); Potassium Level - ABG 3.8 mmol/L (3.5-5.0); Total Hemoglobin 15.1 g/dL (14-18)
[2021-03-17 10:17] LABS: Vancomycin Trough 15.1 ug/mL (10-15)
--- NOTE | 2021-03-17 11:10 | XRR_ITS ---
PROCEDURE INFORMATION: Exam: XR Chest Exam date and time: 03/17/2021 11:10 AM Age: 60 years old Clinical indication: Device placement; Other: Og; Additional info: Og tube placement TECHNIQUE: Imaging protocol: XR of the chest. Views: 1 view. COMPARISON: CR (CHEST, ) 03/17/2021 12:25 AM FINDINGS: The thorax is partially obscured by overlying EKG leads and patch. Tubes, catheters and devices: Endotracheal tube, feeding tube, central venous catheter. The endotracheal tube terminates 5.0 cm above the af[place]. The feeding tube terminates in the proximal stomach. Lungs: Interstitial/airspace disease, with asymmetric airspace disease in the left mid lung field and interval improvement in right-sided airspace disease. Pleural spaces: No significant pleural effusion. Heart/Mediastinum: No cardiomegaly. Bones/joints: Mild scoliosis and degenerative change. XR/XR chest 1V portable [id number] IMPRESSION: Interstitial/airspace disease, with asymmetric airspace disease in the left mid lung field and interval improvement in right-sided airspace disease.
--- NOTE | 2021-03-17 11:10 | PC.NURSE ---
OG placed as ordered. Difficult insertion. Placement auscultated and xray obtained to verify. Dr Niño, on unit, verified placement per xray. He was also notified of difficult placement, blood in tube.
--- NOTE | 2021-03-17 11:57 | PC.NURSE ---
Haley De, daughter, called with update. Pt o ut fo bed to chair, pt weak but able to stand with help.He became nervous after and his O2 sats decreased. He needed encouragement to relax and deep breath.
[2021-03-17] MEDS: cefepime 1,000 MG in sodium chloride 0.9% (plus) 100 ML 200 MG IV ×2 (12:13→20:32)
[2021-03-17] MEDS: aspirin 81 mg EC Tablet PO (12:18)
[2021-03-17] MEDS: docusate sodium 100 mg Capsule PO ×2 (12:18→18:20)
[2021-03-17] MEDS: enoxaparin 100 mg/mL Syringe SUBCUT ×2 (12:18→20:33)
[2021-03-17] MEDS: FUROsemide 10 mg/mL SDV 4mL 40 MG IVP (12:22)
[2021-03-17] MEDS: dexmedetomidine 400 MCG in sodium chloride 0.9% (100 ml) 100 ML IV (12:22)
--- NOTE | 2021-03-17 14:35 | PC.NURSE ---
Hypotension . Levophed started. ET crowing , Rt and Dr Datar at bed side. Rocuronium admin. ETT changed out. Propofol, adjusted for comfort
[2021-03-17] MEDS: rocuronium 10 mg/mL INJ 5mL 50 MG IV (15:35)
--- NOTE | 2021-03-17 15:42 | XRR_ITS ---
PROCEDURE INFORMATION: Exam: XR Chest Exam date and time: 03/17/2021 3:42 PM Age: 60 years old Clinical indication: Device placement; Ett placement (vent status); Additional info: Post reintubation TECHNIQUE: Imaging protocol: XR of the chest. Views: 1 view. COMPARISON: CR XR chest 1V portable [id number] 03/17/2021 11:02 AM FINDINGS: Tubes, catheters and devices: Endotracheal tube in the midtrachea with unremarkable position. Enteric tube in the gastric fundus. Left-sided central venous catheter terminates in the midline of the upper chest in the expected region of the left innominate vein stable from prior. Lungs: There is compression of the right lung. Widespread airspace opacities are somewhat increased from prior. Pleural spaces: There is development of a large right-sided pneumothorax. Heart/Mediastinum: Mild leftward mediastinal shift cannot be excluded. Bones/joints: Unremarkable. XR/XR chest 1V portable [id number] IMPRESSION: Large right pneumothorax. Tension pneumothorax is not excluded.
--- NOTE | 2021-03-17 15:56 | PC.NURSE ---
Returned daughter, Haley De, call. Updated her on pt's condition: sedation medications, Levophed, hypotension, ETT changed.
--- NOTE | 2021-03-17 17:11 | XRR_ITS ---
PROCEDURE INFORMATION: Exam: XR Chest Exam date and time: 03/17/2021 5:11 PM Age: 60 years old Clinical indication: Device placement; Chest tube; Additional info: Chest tube placement TECHNIQUE: Imaging protocol: XR of the chest. Views: 1 view. COMPARISON: CR (CHEST, ) 03/17/2021 4:17 PM FINDINGS: Tubes, catheters and devices: Placement of a right pleural drainage catheter. No changes in position of endotracheal tube, central venous catheter, or enteric tube. Lungs: Scattered alveolar ground-glass opacities and diffusely increased interstitial opacities are unchanged from prior imaging. Pleural spaces: There is a trace residual right pneumothorax but significant improvement from prior is noted. Heart/Mediastinum: Unremarkable. No cardiomegaly. Bones/joints: Unremarkable. XR/XR chest 1V portable [id number] IMPRESSION: Interval treatment of a large right pneumothorax with a pleural drainage catheter in good position. Trace right lateral residual pneumothorax noted.
--- NOTE | 2021-03-17 17:32 | P.PCN_ITS ---
Procedure/Consent Time out: Time Out Performed: Yes Consent: Consent for Procedure: Emergency procedure Procedure Narrative: 28 Fr Chest tube Placement Date of procedure: 03/17/2021 Pre-op Diagnosis: Large right-sided pneumothorax Post-op diagnosis: same Procedure Done: 1. Right 28 Nauruan thoracostomy tube placement Pathology: none sent Manager Business Development Hosp[facility]: Brandon Niño MD Anesthesia: Local Complications: None: Post procedure chest x-ray reveals significant right lung expansion with evidence for small atrial pneumothorax Condition: critical Disposition: ICU Brief History: Procedure: The patient was placed in the supine position with the right chest slightly elevated. IV conscious sedation continued with continous monitoring of heart rate, rhythm, ekg, and O2 saturation. The entire right chest was thorough ly prepped and draped. 1% lidocaine was infiltrated in the midaxillary line over the seventh rib. A #15 scalpel blade was used to incise the skin, silk stay suture was placed, followed by utilizing a small hemostat to enter the pleural space with return of air and pleural fluid. A 28 Nauruan drain was placed. Chest tube was secured to the skin followed by placement of sterile dressings. Chest tube is placed to Pleur-evac suction. Post procedure chest x-ray:Interval treatment of a large right pneumothorax with a pleural drainage catheter in good position. Trace right lateral residual pne umothorax noted. Complications: None Acute Procedures Epistaxis Control: Time out performed: Yes
--- NOTE | 2021-03-17 17:32 | P.PCN_ITS ---
Procedure/Consent Time out: Time Out Performed: Yes Consent: Consent for Procedure: Emergency procedure Procedure Narrative: Endotracheal tube exchange: Indication: -Patient has significant air leak since morning -patient has been pulling variable tidal volumes ranging from 160cc to 800 cc -Patient is saturating 97% on FiO2 75% Consent: There was not time to obtain consent. The patient was in immediate danger, and required the procedure emergently. Sedation: Patient is already sedated with fentanyl, Versed, propofol drips Paralytic: Rocuronium 50 mg given Equipment: Bougie Procedure: After achieving adequate sedation with titration of drips rocuronium 50 mg was given. New 8.0 cm tube was exchanged with the old ET tube. Cuff inflated and connected to ventilator. Desaturation she was 92% during the procedure. Fogging of ET tube seen and left the ET at lip cm Number of attempts: 1 ETT location confirmed by chest x-ray Brandon Niño MD Pulm/Critical Care Medicine [facility] Acute Procedures Epistaxis Control: Time out performed: Yes
--- NOTE | 2021-03-17 17:32 | PM.PN ---
Subjective Subjective: Interval history: -Patient was intubated overnight and his ET tube has been exchanged -Today morning labs showed significant leukocytosis 40 6K -Patient is sedated and on ventilator -Rounded afternoon noted significant exudate with variable tidal volumes and so again ET tube was exchanged. Apparently the cuff at the rupture also noted to the right -Pneumothorax on the chest x-ray-chest tube was placed and connected to suction -Labs and imaging reviewed Medications: Reviewed: Yes Vitals/I&O/Wt Last Vital Signs Temp 97.7 F 03/17/21 13:30 Pulse 85 03/17/21 16:00 Resp 25 H 03/17/21 17:23 BP 94/60 03/17/21 16:00 Pulse Ox 98 03/17/21 17:23 03/17/21 03/17/21 03/17/21 06:59 14:59 22:59 Intake Total 893.135 / 3538.386 665.387 / 665.387 59.640 / 725.027 Output Total 700 / 1950 Balance 193.135 / 1588.386 665.387 / 665.387 59.640 / 725.027 Weight last 48 hrs Weight 210 lb Weight 203 lb Physical Exam Narrative: EXAM NARRATIVE: General: Lying in bed, sedated and connected to ventilator HEENT:NCAT, PERRLA, EOMI Neck: Supple Lungs: Bilateral diffuse crackles; right chest tube in place Heart: s1/s2, RRR Abd: soft, NT, ND, BS + Normoactive Extremities: No edema EMR IMPLEMENTATION SPECIALIST: Sedated and 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 SKIN: no rash LDA: # CVC: Left subclavian central line 03/09/2021 # Rodríguez: 03/09/2021 Urinary Catheter Management^: Rodríguez: Cath Placed During This Visit: yes Reason for Continuing Indwelling Catheter: Accurate Measurement of Urinary Output in Critically Ill Patients Urinary Catheter Date of Insertion: 03/09/21 Urinary Catheter Time of Insertion: 22:34 Data : 03/17/21 03:50 03/17/21 03:50 Other Labs: Laboratory Results WBC 46.5 10^3/uL (4.0-10.0) H* 03/17/21 03:50 RBC 4.82 10^6/uL (4.1-5.3) 03/17/21 03:50 Hgb 14.7 g/dL (11.7-16.6) 03/17/21 03:50 Hct 45.4 % (42.0-52.0) 03/17/21 03:50 MCV 94.2 fl (80-94) H 03/17/21 03:50 MCH 30.5 pg (28.0-34.0) 03/17/21 03:50 MCHC 32.4 g/dL (30.0-36.0) 03/17/21 03:50 RDW 15.2 % (12.1-15.1) H 03/17/21 03:50 Plt Count 240 10^3/cmm (130-400) D 03/17/21 03:50 MPV 9.6 fL (7.4-10.4) 03/17/21 03:50 Neut % (Auto) 91.0 % 03/17/21 03:50 Lymph % (Auto) 1.0 % 03/17/21 03:50 Miner % (Auto) 3.3 % 03/17/21 03:50 Eos % (Auto) 0.0 % 03/17/21 03:50 Baso % (Auto) 0.4 % 03/17/21 03:50 Neut # (Auto) 42.34 10^3/uL (1.8-7.7) H 03/17/21 03:50 Lymph # (Auto) 0.5 10^3/uL (0.8-4.8) L 03/17/21 03:50 Miner # (Auto) 1.6 10^3/uL (0.2-0.9) H 03/17/21 03:50 Eos # (Auto) 0.0 10^3/uL (0.0-0.8) 03/17/21 03:50 Baso # (Auto) 0.2 10^3/uL (0.0-0.1) H 03/17/21 03:50 Nucleated RBC % (auto) 0 % 03/17/21 03:50 Total Counted 100 (0-100) 03/14/21 04:25 Atypical Lymphs % 1.0 % (0-5) 03/14/21 04:25 Absolute Neutrophils 12.3 10^3/cmm (1.4-6.5) H 03/14/21 04:25 Segmented Neutrophils 86 % 03/14/21 04:25 Abs Segm Neuts (Man) 11.6 10/cmm (1.6-7.1) H 03/14/21 04:25 Band Neutrophils 5.0 % 03/14/21 04:25 Abs Band Neuts (Man) 0.7 10^3/cmm (0.0-1.2) 03/14/21 04:25 Absolute Lymphocytes 0.7 10^3/cmm (1.2-3.4) L 03/14/21 04:25 Lymphocytes (Manual) 4 % 03/14/21 04:25 Monocytes (Manual) 1.0 % 03/14/21 04:25 Absolute Monocytes 0.1 10^3/cmm (0.1-0.6) 03/14/21 04:25 Eosinophils (Manual) 1 % 03/14/21 04:25 Absolute Eosinophils 0.1 10^3/cmm (0.0-0.7) 03/14/21 04:25 Basophils (Manual) 0.0 % 03/14/21 04:25 Absolute Basophils 0.0 10^3/cmm (0.0-0.2) 03/14/21 04:25 Metamyelocytes 1.0 % 03/14/21 04:25 Myelocytes 1.0 % 03/14/21 04:25 Nucleated RBCs 1.0 /100WBC (0-1) 03/14/21 04:25 Nucleated RBCs # 0.0 /100WBC 03/17/21 03:50 Platelet Estimate Normal (Normal) 03/14/21 04:25 D-Dimer >= 20.00 ug/mIFEU (0-0.59) H 03/10/21 03:25 Specimen Type Arterial 03/17/21 08:42 Sample Site Radial, right 03/17/21 08:42 ABG pH 7.25 (7.35-7.45) L 03/17/21 08:42 ABG pCO2 64.7 mmHg (35-45) H* 03/17/21 08:42 ABG pO2 87.5 mmHg (80.0-100.0) 03/17/21 08:42 ABG HCO3 28.3 mmol/L (22-26) H 03/17/21 08:42 ABG O2 Saturation 95.7 03/17/21 08:42 ABG Base Excess -0.7 mmol/L (-2.0-2.0) 03/17/21 08:42 Gus Test Pos 03/17/21 08:42 VBG pH 7.47 (7.32-7.42) H 03/05/21 15:10 VBG pCO2 41.5 mmHg (41-51) 03/05/21 15:10 VBG pO2 29.2 mmHg (25-40) 03/05/21 15:10 VBG HCO3 30.0 mmol/L (24-28) H 03/05/21 15:10 VBG Base Excess 5.8 mmol/L (-3.0-3.0) H 03/05/21 15:10 VBG Hematocrit 7.5 % (42-52) L 03/05/21 15:10 A-a O2 Gradient 48.2 mmHg (5-10) H 03/17/21 08:42 Hematocrit 46.4 % (42-52) 03/17/21 08:42 Hgb O2 Saturation 93.7 % (95-100) L 03/17/21 08:42 Carboxyhemoglobin 1.3 %THgb (0.4-20.1) 03/17/21 08:42 Methemoglobin 0.8 % (0.4-1.5) 03/17/21 08:42 Total Hemoglobin 15.1 g/dL (14-18) 03/17/21 08:42 Sodium 142.0 mmol/L (131-143) 03/17/21 08:42 Potassium 3.8 mmol/L (3.5-5.0) 03/17/21 08:42 Glucose 137.0 mg/dL (70-115) H 03/17/21 08:42 Ionized Calcium 1.1 mmol/L (1.1-1.4) 03/17/21 08:42 O2 Delivery Device Vent 03/17/21 08:42 O2 Liters/Min 60.0 % 03/16/21 04:45 Mechanical Rate 20.0 03/17/21 04:50 FiO2 75.0 % 03/17/21 08:42 Tidal Volume 0.50 03/17/21 04:50 PEEP 12.0 cmH20 03/17/21 08:42 Rotor Balancer ID [id number] 03/17/21 08:42 Sodium 139 mmol/L (136-145) 03/17/21 03:50 Potassium 3.6 mmol/L (3.5-5.1) 03/17/21 03:50 Chloride 103 mmol/L (98-107) 03/17/21 03:50 Carbon Dioxide 25 mmol/L (22-29) 03/17/21 03:50 Anion Gap 14.6 (5-19) 03/17/21 03:50 BUN 33 mg/dL (8-23) H 03/17/21 03:50 Creatinine 0.4 mg/dL (0.7-1.2) L 03/17/21 03:50 GFR Calculation 218.7 mL/min (90-130) H 03/17/21 03:50 Glucose 157 mg/dL (65-115) H 03/17/21 03:50 POC Glucose 121 mg/dL (70-110) H 03/15/21 11:44 Calculated Osmolality 299 mOsm/kg (285-295) H 03/17/21 03:50 Lactic Acid 1.4 mmol/L (0.5-2.2) 03/05/21 14:35 Calcium 7.8 mg/dL (8.5-10.5) L 03/17/21 03:50 Magnesium 2.1 mg/dL (1.7-2.3) 03/14/21 04:25 Ferritin 1507 ng/mL (30-400) H 03/11/21 05:50 Total Bilirubin 2.4 mg/dL (0.15-1.2) H 03/17/21 03:50 AST 28 U/L (0-40) 03/17/21 03:50 ALT 34 U/L (0-41) 03/17/21 03:50 Alkaline Phosphatase 138 IU/L (40-130) H 03/17/21 03:50 Lactate Dehydrogenase 660 U/L (135-225) H 03/06/21 03:35 C-Reactive Protein 53.4 mg/L (0.0-4.9) H 03/11/21 05:50 NT-Pro-B Natriuret Pep 287 pg/mL (0-125) H 03/05/21 14:35 Total Protein 5.7 g/dL (6.6-8.7) L 03/17/21 03:50 Albumin 3.1 g/dL (3.5-5.2) L 03/17/21 03:50 Globulin 2.6 g/dL (1.3-4.6) 03/17/21 03:50 Triglycerides 250 mg/dL (0-150) H 03/14/21 04:25 Procalcitonin 0.08 ng/mL (0-0.5) 03/14/21 04:25 Vancomycin Trough 15.1 ug/mL (10-15) H 03/17/21 09:10 Nasal/Oral COVID-19 PCR Detected H 03/05/21 16:30 SARS-CoV-2 Ag (Rapid) Negative (Negative) 03/05/21 23:00 Impressions Chest CTA 03/09/21 13:47 IMPRESSION: Positive for subsegmental right lower lobe pulmonary embolism. Bilateral pneumonia consistent with COVID-19 pneumonia. Findings discussed with Dr. Edwards by Dr. Rodrick Espinosa at 4:37 p.m., 03/09/2021. Radiation Dose CTDIVOL = (mGy): DLP = 567.74 (mGy-cm) Chest X-Ray 03/17/21 17:11 IMPRESSION: Interval treatment of a large right pneumothorax with a pleural drainage catheter in good position. Trace right lateral residual pneumothorax noted. Micro: Microbiology 03/16/21 08:14 Urine Culture - Preliminary Urine Catheterized 03/16/21 09:00 Blood Culture - Preliminary Blood NEGATIVE TO DATE 03/16/21 09:05 Blood Culture - Preliminary Blood NEGATIVE TO DATE A&P Assessment and plan (1) Acute respiratory failure due to severe acute respiratory syndrome coronavirus 2 (SARS-CoV-2) infection: Status: Acute (2) D-dimer, elevated: Status: Acute (3) Transaminitis: Status: Acute (4) DVT prophylaxis: Status: Acute (5) Pneumonia due to gram-negative bacteria: Status: Acute (6) Pulmonary embolism associated with COVID-19: Status: Acute Additional A&P Information #Acute respiratory #acute hypoxic respiratory failure secondary to ARDS due to COVID-19 pneumonia complicated by right subsegmental PE #Right lung pneumothorax-s/p chest tube placement 03/17/2021 #Stenotrophomonas maltophilia-sensitive to Levaquin #Transaminitis due to COVID-19 pneumonia-improved #Hypothyroidism #BPH #Hypertension - Covid PCR positive, CRP 138 - CTA Positive for PE - intubated 03/09/2021, sedated and connected to ventilator-completed 2 proning sessions -Successful awakening trial and breathing trial, following commands-extubated to high flow 50 L 50% on 03/14/2021 -Reintubated 03/16/2021 night and ET tube exchanged yesterday after intubation -ET tube cuff leak noted again today and changed -Chest x-ray right large pneumothorax-s/p chest tube placement-post procedure chest x-ray showed significant improvement -DuoNeb nebulizations and Pulmicort nebulization scheduled -completed remdesivir 5-day protocol started 03/06/2021 and extended course -On dexamethasone 6 mg daily started 03/05/2021 -Monitor inflammatory markers every 48 hours -s/p 1 dose of Actemra 03/09/2021 -Urine Legionella negative; bacterial antigens negative; MRSA nares negative, low procalcitonin- -Blood cultures so far negative; On empiric Vancomycin and zosyn; -Sputum cultures 03/10/2021 + for Stenotrophomonas maltophilia sensitive to Levaquin, discontinue imipenem and started on Levaquin 03/13/2021-monitor QTC -Afebrile last 24 hours; WBC increased to 46K-already broaden coverage with vancomycin and cefepime -Input output 1.5 L last 24 hours /290 cc since admission -Monitor renal functions and urine output-try to keep negative to even -Flomax 0.4 mg p.o. daily for BPH -Lovenox 100 q12 hr for Right subsegmental PE -Levothyroxine 200 mcg PO daily -Diabetes-A1c 7.5 -Can start tube feeds -Sugars controlled, insulin scale coverage-monitor sugars -[id number] for GI prophylaxis -Full code -Prognosis guarded -updated family Discussed with hospitalist, RN, RT covering the patient Attestations Medical Necessity Statement*: Acute hypoxic respiratory failure secondary to ARDS due to COVID-19 pneumonia complicated by pulmonary embolism requiring mechanical ventilation for respiratory support Time Spent in Patient Care: Greater than 35 minutes (>than 50% of time spent in counselling and/or direct pt care on unit). Critical Care Time: The high probability of a clinically significant, sudden or life threatening deterioration of the patient's [respiratory, hepatic, endocrine] system(s) required my full and direct attention, intervention and personal management. The critical care time is as shown. This time is in addition to time spent performing any reported procedures but includes the following: [x] Data and vital sign review and interpretation [x] Patient assessment, examination and intervention [x] Documentation [x] Medication orders and management Critical Care Time (min): 75 Coding Level of Care Code Established Pt Acute Veterinary Medicine Scientist for Chg Fwd Patient Type Established History Comprehensive Exam Comprehensive Medical Decision Making High Complexity Diagnoses Acute respiratory failure due to severe acute respiratory syndrome coronavirus 2 (SARS-CoV-2) infection U07.1; J96.00 D-dimer, elevated R79.89 Transaminitis R74.01 DVT prophylaxis Z29.9 Pneumonia due to gram-negative bacteria J15.6 Pulmonary embolism associated with COVID-19 U07.1; I26.99 Time Spent (min) 75
[2021-03-17 17:43] LABS: ABG PCO2 64.7 mmHg (35-45)
--- NOTE | 2021-03-17 17:48 | PC.NURSE ---
Chest tube inserted by Dr Niño. Xray confirmation of placement.
--- NOTE | 2021-03-17 17:51 | PM.PN ---
Subjective Subjective: Interval history: Overnight patient was noted to have worsening respiratory distress. Was required 100% on high-flow nasal cannula. Eventually patient was intubated and placed on mechanical ventilation again. Throughout the day patient was noted to have a cuff leak. Subsequent chest x-ray did show patient to have pneumothorax. This was discussed with patients family. Medications: Reviewed: Yes Vitals/I&O/Wt Last Vital Signs Temp 97.7 F 03/17/21 13:30 Pulse 85 03/17/21 16:00 Resp 25 H 03/17/21 17:23 BP 94/60 03/17/21 16:00 Pulse Ox 98 03/17/21 17:23 03/17/21 03/17/21 03/17/21 06:59 14:59 22:59 Intake Total 893.135 / 3538.386 665.387 / 665.387 59.640 / 725.027 Output Total 700 / 1950 Balance 193.135 / 1588.386 665.387 / 665.387 59.640 / 725.027 Weight last 48 hrs Weight 95.254 kg Weight 92.079 kg Physical Exam Narrative: EXAM NARRATIVE: General: Intubated on MV HEENT: ET tube in place. Chest: Vent support CVS: S1-S2 regular, no murmurs, no tachycardia, no gallops, no rubs Abdomen:non-distended : Rodríguez Neuro: Sedation Urinary Catheter Management^: Rodríguez: Cath Placed During This Visit: yes Reason for Continuing Indwelling Catheter: Accurate Measurement of Urinary Output in Critically Ill Patients Urinary Catheter Date of Insertion: 03/09/21 Urinary Catheter Time of Insertion: 22:34 Data : 03/17/21 03:50 03/17/21 03:50 Micro: Microbiology 03/16/21 08:14 Urine Culture - Preliminary Urine Catheterized 03/16/21 09:00 Blood Culture - Preliminary Blood NEGATIVE TO DATE 03/16/21 09:05 Blood Culture - Preliminary Blood NEGATIVE TO DATE A&P Assessment and plan (1) Acute respiratory failure due to severe acute respiratory syndrome coronavirus 2 (SARS-CoV-2) infection: Status: Acute (2) D-dimer, elevated: Status: Acute (3) Transaminitis: Status: Acute (4) DVT prophylaxis: Status: Acute (5) Infection due to Stenotrophomonas maltophilia: Status: Acute Additional A&P Information Acute respiratory failure with hypoxia due to COVID 19 pneumonia with acute pulmonary embolism plus 2ndary bacterial pneumonia - S/p Remdesivir, Actemera - Continue decadron - Initially did not tolerate HFNC - Intubated and placed on MV on 03/09 -extubated 03/14 - Reintubated on 03/17 am - Noted to have a PTX - Chest tube placement - Continue Lovenox full dose -Will maintain lovenox until respiratory status improves - Lasix 40 mg PO daily - Changed to IV - Pulmonary/Critical Care on board - Sputum culture - Stenotrophomonas maltophilia - Continue broad specturm abx - Vancomycin pharmacy to dose and Cefepime / Levaquin Transaminitis - Resolved - LFT returned to normal Hypertension - Metoprolol on hold - Hyralazine 10 mg IV q8hr prn added Hypothyroidism hx of papillary thyroid carcinoma - Status post thyroidectomy - Levothyroxine 200 mcg p.o. daily GI prophylaxis - Pepcid 20 mg IV BID DVT prophylaxis - Lovenox 100 mg subcu b.i.d. Prognosis: Guarded - Family updated Attestations Medical Necessity Statement*: Require further hospitalizationFor management of COVID-19 requiring mechanical ventilation and pneumonia requiring IV antibiotics Time Spent in Patient Care: Greater than 35 minutes (>than 50% of time spent in counselling and/or direct pt care on unit). Coding Level of Care Code Acute Airport Operations Supervisor for [facility] Fwd Diagnoses Acute respiratory failure due to severe acute respiratory syndrome coronavirus 2 (SARS-CoV-2) infection U07.1; J96.00 D-dimer, elevated R79.89 Transaminitis R74.01 DVT prophylaxis Z29.9 Infection due to Stenotrophomonas maltophilia A49.8
--- NOTE | 2021-03-17 17:55 | PC.RESP ---
RT Shift Note Frequent safety and respiratory rounds continue. Orders completed as indicated. Patient monitored pre and post treatments throughout shift. Patient tolerated treatments appropriately. Condition declined throughout the shift. Patient and/or transportation services representative educated on respiratory treatment and medications. Patient and/or transportation services representative unable to comprehend. Will continue to monitor patient progress.
[2021-03-17] MEDS: propofol 1,000 MG/100 ML INJ 16.57 MG IV (18:39)
--- NOTE | 2021-03-17 19:24 | PC.NURSE ---
Shift Note: Pt remains intubated and sedated. OG inserted and xray verified. Nimbex off this am. See MAR for titration for comfort. Levophed gtt started, to achieve comfort level, pt became hypotensive. ETT replaced today, cuff had tear. Pt developed pneumothorax this afternoon. Chest tube inserted at bedside by Dr Niño. Pt tolerated well. Pt received Lasix this am. Dark yellow urine output of 1350 this shift. Oral care and HOB elevation provided to prevent VAP. Frequent safety and comfort rounds continue. Orders and/or nursing care completed as indicated. Patient monitored for response to intervention and treatment(s). Education provided includes sedation, comfort management, chest tube, 'breathing tube'. Patient and/or operations support representative verbalized understanidng of ongoing care. Will continue to monitor.
[2021-03-17] MEDS: dexmedetomidine 400 MCG in sodium chloride 0.9% (100 ml) 100 ML 7.57 MCG IV (19:53)
[2021-03-17] MEDS: levofloxacin-dextrose 5 % 750 MG/150 ML PREMIX 100 MG IV (20:32)
[2021-03-17] MEDS: sennosides-docusate Tablet 1 TAB PO (20:33)
[2021-03-17] MEDS: dexamethasone 4 mg/mL INJ 6 MG IVP (23:14)
--- NOTE | 2021-03-17 23:45 | XRR_ITS ---
PROCEDURE INFORMATION: Exam: XR Chest Exam date and time: 03/17/2021 11:45 PM Age: 60 years old Clinical indication: Dyspnea; Additional info: Pneumothorax, on vent, f/u S/P chest tube placement today TECHNIQUE: Imaging protocol: XR of the chest. Views: 1 view. COMPARISON: CR (CHEST, ) 03/17/2021 5:30 PM FINDINGS: Tubes, catheters and devices: Endotracheal tube tip in place 4.6 cm above the [place]. Enteric tube tip below the diaphragm over the gastric bubble. Left central venous catheter tip in the region of the brachiocephalic vein. Lungs: Patchy bilateral mixed interstitial and airspace infiltrates. Pleural spaces: Right-sided superiorly directed chest tube, negative for pneumothorax. Heart/Mediastinum: Unremarkable. No cardiomegaly. Bones/joints: Unremarkable. XR/XR chest 1V portable [id number] IMPRESSION: 1. Endotracheal tube tip in place 4.6 cm above the [place]. 2. Right-sided superiorly directed chest tube, negative for pneumothorax. 3. Enteric tube tip below the diaphragm over the gastric bubble. 4. Left central venous catheter tip in the region of the brachiocephalic vein. 5. Patchy bilateral mixed interstitial and airspace infiltrates.
[2021-03-18] VITALS (64 sets, daily range): BP systolic 78–149; BP diastolic 40–88; PULSE 65–74; RESP 4–142; TEMP 36.5–38.1; O2SAT 86–100; BMI 29.2
[2021-03-18] MEDS: propofol 1,000 MG/100 ML INJ 16.57 MG IV ×2 (02:00→06:47)
[2021-03-18] MEDS: vancomycin 1,500 MG/300 ML PIGGYBACK 200 MG IV ×3 (02:01→18:27)
[2021-03-18] MEDS: dexmedetomidine 400 MCG in sodium chloride 0.9% (100 ml) 100 ML 7.57 MCG IV ×2 (02:33→08:51)
[2021-03-18] MEDS: ipratropium-albuterol 3 mL Neb INHALATION ×5 (03:57→23:31)
[2021-03-18 04:21] LABS: ABG PCO2 28.1 mmHg (35-45); Arterial Blood Gas Hematocrit 39.9 % (42-52); Base Excess ABG 4.5 mmol/L (-2.0-2.0); Blood Gas Allen Test Pos; Blood Gas Sample Type Arterial; HCO3 ABG 25.8 mmol/L (22-26); PO2 ABG 73.8 mmHg (80.0-100.0)
[2021-03-18 04:22] LABS: Blood Gas Sample Site Radial, right; Oxygen Device VENT
[2021-03-18 04:24] LABS: ABG PH Result 7.57 (7.35-7.45)
[2021-03-18 05:49] LABS: Basophils # 0.1 10^3/uL (0.0-0.1); Basophils % 0.2 %; Hematocrit 36.8 % (42.0-52.0); Hemoglobin 12.3 g/dL (11.7-16.6); Lymphocytes # 0.4 10^3/uL (0.8-4.8); Lymphocytes % 1.4 %; Mean Corpuscular HGB Conc 33.4 g/dL (30.0-36.0); Mean Corpuscular Hemoglobin 30.2 pg (28.0-34.0); Mean Corpuscular Volume 90.4 fl (80-94); Mean Platelet Volume 10.3 fL (7.4-10.4); Monocytes # 0.9 10^3/uL (0.2-0.9); Monocytes % 3.3 %; Neutrophils # 25.41 10^3/uL (1.8-7.7); Neutrophils % 92.8 %; Nucleated Red Blood Cells % 0 %; Platelet Count 162 10^3/cmm (130-400); Red Blood Count 4.07 10^6/uL (4.1-5.3); Red Cell Distribution Width 15.1 % (12.1-15.1); White Blood Count 27.4 10^3/uL (4.0-10.0)
[2021-03-18 06:13] LABS: Alanine Aminotransferase 27 U/L (0-41); Albumin Level 2.6 g/dL (3.5-5.2); Alkaline Phosphatase 102 IU/L (40-130); Anion Gap 14.2 (5-19); Aspartate Amino Transferase 21 U/L (0-40); Blood Urea Nitrogen 32 mg/dL (8-23); C Reactive Protein 13.1 mg/L (0.0-4.9); Calcium 7.4 mg/dL (8.5-10.5); Carbon Dioxide 24 mmol/L (22-29); Chloride 105 mmol/L (98-107); Globulin 1.9 g/dL (1.3-4.6); Glucose 146 mg/dL (65-115); Magnesium 1.9 mg/dL (1.7-2.3); Osmolality Calculated 300 mOsm/kg (285-295); Potassium 3.2 mmol/L (3.5-5.1); Sodium 140 mmol/L (136-145); Total Bilirubin 2.2 mg/dL (0.15-1.2); Total Protein 4.5 g/dL (6.6-8.7)
[2021-03-18 06:16] LABS: D Dimer 2.36 ug/mIFEU (0-0.59)
[2021-03-18] MEDS: levothyroxine 200 mcg Tablet PO (06:47)
[2021-03-18 07:00] LABS: Procalcitonin 0.66 ng/mL (0-0.5)
--- NOTE | 2021-03-18 07:00 | XRR_ITS ---
PROCEDURE INFORMATION: Exam: XR Chest Exam date and time: 03/18/2021 7:00 AM Age: 60 years old Clinical indication: Dyspnea; Additional info: Respiratory failure TECHNIQUE: Imaging protocol: XR of the chest. Views: 1 view. COMPARISON: CR XR chest 1V portable [id number] 03/17/2021 11:53 PM FINDINGS: Tubes, catheters and devices: Stable support tubes and lines. Lungs: Stable bilateral pulmonary infiltrates. Pleural spaces: Unremarkable. No pleural effusion. No pneumothorax. Heart/Mediastinum: Unremarkable. No cardiomegaly. Bones/joints: Unremarkable. XR/XR chest 1V portable [id number] IMPRESSION: 1. Stable support tubes and lines. 2. Stable bilateral pulmonary infiltrates.
[2021-03-18 07:06] LABS: Ferritin 1510 ng/mL (30-400)
[2021-03-18] MEDS: budesonide 0.5 mg/2 mL Neb INHALATION ×2 (08:31→19:49)
[2021-03-18] MEDS: potassium chloride oral liq 20 mEq/15 mL UDC 40 MEQ PO (08:38)
[2021-03-18] MEDS: famotidine 20 mg/2 mL INJ IVP ×2 (08:39→19:25)
[2021-03-18] MEDS: cefepime 1,000 MG in sodium chloride 0.9% (plus) 100 ML 200 MG IV (08:40)
[2021-03-18] MEDS: FUROsemide 10 mg/mL SDV 4mL 40 MG IVP (08:46)
[2021-03-18] MEDS: enoxaparin 100 mg/mL Syringe SUBCUT ×2 (08:46→21:04)
--- NOTE | 2021-03-18 09:00 | PC.NURSE ---
Report received from BARBARA Fall. Care assumed.
--- NOTE | 2021-03-18 09:05 | PC.CHAP ---
Pastoral Care Encounter/Spiritual Assessment Type of Contact [] Declined senior qa tester visit [] Patient/Family/Request visit [] Outpatient visit [] Follow-up visit [] Physician referral [] Code/Alert [x] Routine visit [] Staff referral [] Actively dying [] Patient sleeping [] Family support [] [] Out of room [] Palliative care [] [] Receiving care in room [] Pre-surgical visit [] Trauma [] Long length of stay [x] ICU visit [] Other: Relational/Emotional Strength [] Patient feels connected with others/family/visitors/staff [] Distress [] Loneliness/isolation [] Abandonment Spirituality of Patient [] Person of Basilia [] Attends Scientology of their Basilia [] Believes in Prayer [] Reads Bible or Taoist materials [] There are Spiritual issues to be addressed Medical Education Specialist Interventions [x] Prayer [] Active listening [] Non-anxious presence [] Spiritual/emotional support [] Crisis/trauma care [] Spiritual counseling [] Bereavement support [] Provided bereavement packet [] Provided Bible/devotional materials [] Provided toy/stuffed animal, coloring book to patient or family member [] Provided Communion [] Anointing/[place] [] Salvation [x] Completed spiritual assessment [] Other: Impact on Illness or Injury [] Angry [] Fearful [] Anxious [] Often cries [] Exhaustion [] Unable to work [] Unable to attend mu-ism [] Unable to walk/stand [] Unable to read [] Unable to drive [] Unable to eat/drink [] Unable to sleep [] Unable to be with family [] Patient intubated [] Other: Summary Time spent with patient
--- NOTE | 2021-03-18 09:06 | PC.SOCIAL ---
IMM update IMM not updated due to patient being intubated and not expected to DC in the next 24-48 hours.
[2021-03-18] MEDS: propofol 1,000 MG/100 ML INJ 27.62 MG IV ×4 (10:31→21:41)
--- NOTE | 2021-03-18 11:05 | PC.PT ---
Nurse consulted for patient condition and recommended hold again today.
--- NOTE | 2021-03-18 13:41 | PC.NURSE ---
Pt recently repositioned to right side. Pt over breathing vent at 36 bpm. O2 sats down to 86%. Per Critical care message from Dr Herring orders ( sedation medication limits), Fentanyl increased to 130mcg/hr and Versed increased to 5mg/hr for pt comfort. Levophed increased to keep MAP greater than 65.
--- NOTE | 2021-03-18 15:06 | XR_ITS ---
WS: [id number] Exam: XR chest 1V portable [id number] Date/Time of Exam: 03/18/2021 3:06 PM Reason For Exam: pneumothorax Compared to the last exam on the same day at 0347 hours. Right-sided chest tube is in place unchanged. No obvious pneumothorax. Patchy bilateral pulmonary inf iltrates show slight improvement. No pleural effusions are seen. Normal cardiomediastinal silhouette. ET tube remains in good position. An NG tube is looped in the gastric cardia. A left subclavian cent ral line is noted and appears to end at the expected region of the medial left subclavian vein. XR/XR chest 1V portable [id number] IMPRESSION: 1. Bilateral pulmonary infiltrates showing minimal improvement. 2. No pneumothorax is seen. 3. ET tube and right chest tube unchanged in position. NG tube ending in the ca rdia of the stomach. Left-sided subclavian line probably ending in the proximal left subclavian vein.
[2021-03-18] MEDS: dexmedetomidine 400 MCG in sodium chloride 0.9% (100 ml) 100 ML 17.67 MCG IV ×2 (15:37→21:47)
--- NOTE | 2021-03-18 15:42 | PC.NURSE ---
After repeated sedation gtt increases, pt remains breathing over vent . Repositioned pt to left side.. Fentanyl gtt increased to 150mcg/min, the maximum rate. No changes to Propofol or Precedex. Chest tube draining without difficulties. Will continue to monitor.
[2021-03-18 16:07] LABS: ABG PCO2 33.8 mmHg (35-45); ABG PH Result 7.52 (7.35-7.45); Alveolar-Arterial Oxygen Gradi 52.3 mmHg (5-10); Arterial Blood Gas Hematocrit 36.4 % (42-52); Base Excess ABG 4.7 mmol/L (-2.0-2.0); Blood Gas Allen Test Pos; Blood Gas Operator Identificat CAK; Blood Gas Sample Site Radial, left; Blood Gas Sample Type Arterial; Carboxyhemoglobin 1.4 %THgb (0.4-20.1); HCO3 ABG 27.5 mmol/L (22-26); HGB O2 Sat 89.2 % (95-100); Ionized Calcium Level - ABG 1.1 mmol/L (1.1-1.4); Methemoglobin 0.7 % (0.4-1.5); Oxygen Device VENT; Oxygen Saturation ABG 91.1; PO2 ABG 52.8 mmHg (80.0-100.0); Total Hemoglobin 11.9 g/dL (14-18)
[2021-03-18 16:34] LABS: Blood Gas Tidal Volume 0.45
[2021-03-18 16:36] LABS: ABG PCO2 53.6 mmHg (35-45); ABG PH Result 7.42 (7.35-7.45); Base Excess ABG 8.6 mmol/L (-2.0-2.0); Blood Gas Operator Identificat HARKR; HCO3 ABG 34.7 mmol/L (22-26); Oxygen Device VENT; PO2 ABG 73.3 mmHg (80.0-100.0)
[2021-03-18 16:37] LABS: Arterial Blood Gas Hematocrit 38.4 % (42-52); Blood Gas Sample Type Arterial
--- NOTE | 2021-03-18 16:40 | PC.NUTR ---
Tube feeding recommendations: No po intake since 03/08 (10 days) with exception of 25% X 2 meals while extubated 03/16. No TF provided during these 10 days. Also noted ok to start TF per MD note 03/17. Recommend initiation of TF as soon as medically appropriate. Recommend Jevity 1.2, starting at 15 ml/hr, increasing by 10 ml/hr q 8 hours to goal rate of 70 ml/hr, with 100 ml H2O flushes q 4 hrs, to provide 2016 kcal, 92 g PRO, and 1956 ml fluid. Propofol providing 729 kcal/day at current rate. If unable to safely feed enterally, recommend initiation of TPN in accordance with ASPEN recommendations. See full RD assessment for further details.
[2021-03-18] MEDS: docusate sodium 100 mg Capsule PO (18:28)
[2021-03-18 18:32] LABS: Blood Gas Allen Test Pos; Blood Gas Sample Site Radial, left
--- NOTE | 2021-03-18 19:08 | PM.PN ---
Subjective Subjective: Interval history: -Patient seen at bedside today -Still critically ill requiring 75% FiO2 on ventilator -On sedation with fentanyl, Versed and requiring paralytic and sedated -Patient hypotensive requiring Levophed -200 cc serosanguineous fluid noted in the atrium; drop in H&Hfrom . -Later until evening did not notice any bloody output -We will continue to monitor -Labs and imaging reviewed Medications: Reviewed: Yes Vitals/I&O/Wt Last Vital Signs Temp 100.6 F H 03/18/21 13:00 Pulse 70 03/18/21 16:00 Resp 25 H 03/18/21 17:19 BP 102/52 03/18/21 16:00 Pulse Ox 94 03/18/21 17:19 03/18/21 03/18/21 03/18/21 06:59 14:59 22:59 Intake Total 1102.777 / 2900.677 1028.579 / 1028.579 222.490 / 1251.069 Output Total 615 / 615 Balance 487.777 / 2285.677 1018.579 / 1018.579 222.490 / 1241.069 Weight last 48 hrs Weight 210 lb Weight 210 lb Physical Exam Narrative: EXAM NARRATIVE: General: Lying in bed, sedated and connected to ventilator HEENT:NCAT, PERRLA, EOMI Neck: Supple Lungs: Bilateral diffuse crackles; right chest tube in place; noted bloody secretions in the atrium Heart: s1/s2, RRR Abd: soft, NT, ND, BS + Normoactive Extremities: No edema SENIOR INFORMATION SECURITY ANALYST: Sedated and 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 SKIN: no rash LDA: # CVC: Left subclavian central line 03/09/2021 # Rodríguez: 03/09/2021 # Right side chest tube 03/17/21 Urinary Catheter Management^: Rodríguez: Cath Placed During This Visit: yes Reason for Continuing Indwelling Catheter: Accurate Measurement of Urinary Output in Critically Ill Patients Urinary Catheter Date of Insertion: 03/09/21 Urinary Catheter Time of Insertion: 22:34 Data : 03/19/21 13:25 03/19/21 04:00 Other Labs: Laboratory Results WBC 27.4 10^3/uL (4.0-10.0) H 03/18/21 04:30 RBC 4.07 10^6/uL (4.1-5.3) L 03/18/21 04:30 Hgb 12.3 g/dL (11.7-16.6) 03/18/21 04:30 Hct 36.8 % (42.0-52.0) L 03/18/21 04:30 MCV 90.4 fl (80-94) 03/18/21 04:30 MCH 30.2 pg (28.0-34.0) 03/18/21 04:30 MCHC 33.4 g/dL (30.0-36.0) 03/18/21 04:30 RDW 15.1 % (12.1-15.1) 03/18/21 04:30 Plt Count 162 10^3/cmm (130-400) D 03/18/21 04:30 MPV 10.3 fL (7.4-10.4) 03/18/21 04:30 Neut % (Auto) 92.8 % 03/18/21 04:30 Lymph % (Auto) 1.4 % 03/18/21 04:30 [place] % (Auto) 3.3 % 03/18/21 04:30 Eos % (Auto) 0.0 % 03/18/21 04:30 Baso % (Auto) 0.2 % 03/18/21 04:30 Neut # (Auto) 25.41 10^3/uL (1.8-7.7) H 03/18/21 04:30 Lymph # (Auto) 0.4 10^3/uL (0.8-4.8) L 03/18/21 04:30 [place] # (Auto) 0.9 10^3/uL (0.2-0.9) 03/18/21 04:30 Eos # (Auto) 0.0 10^3/uL (0.0-0.8) 03/18/21 04:30 Baso # (Auto) 0.1 10^3/uL (0.0-0.1) 03/18/21 04:30 Nucleated RBC % (auto) 0 % 03/18/21 04:30 Total Counted 100 (0-100) 03/14/21 04:25 Atypical Lymphs % 1.0 % (0-5) 03/14/21 04:25 Absolute Neutrophils 12.3 10^3/cmm (1.4-6.5) H 03/14/21 04:25 Segmented Neutrophils 86 % 03/14/21 04:25 Abs Segm Neuts (Man) 11.6 10/cmm (1.6-7.1) H 03/14/21 04:25 Band Neutrophils 5.0 % 03/14/21 04:25 Abs Band Neuts (Man) 0.7 10^3/cmm (0.0-1.2) 03/14/21 04:25 Absolute Lymphocytes 0.7 10^3/cmm (1.2-3.4) L 03/14/21 04:25 Lymphocytes (Manual) 4 % 03/14/21 04:25 Monocytes (Manual) 1.0 % 03/14/21 04:25 Absolute Monocytes 0.1 10^3/cmm (0.1-0.6) 03/14/21 04:25 Eosinophils (Manual) 1 % 03/14/21 04:25 Absolute Eosinophils 0.1 10^3/cmm (0.0-0.7) 03/14/21 04:25 Basophils (Manual) 0.0 % 03/14/21 04:25 Absolute Basophils 0.0 10^3/cmm (0.0-0.2) 03/14/21 04:25 Metamyelocytes 1.0 % 03/14/21 04:25 Myelocytes 1.0 % 03/14/21 04:25 Nucleated RBCs 1.0 /100WBC (0-1) 03/14/21 04:25 Nucleated RBCs # 0.0 /100WBC 03/18/21 04:30 Platelet Estimate Normal (Normal) 03/14/21 04:25 D-Dimer 2.36 ug/mIFEU (0-0.59) H 03/18/21 04:30 Specimen Type Arterial 03/18/21 15:55 Sample Site Radial, left 03/18/21 15:55 ABG pH 7.52 (7.35-7.45) H 03/18/21 15:55 ABG pCO2 33.8 mmHg (35-45) L 03/18/21 15:55 ABG pO2 52.8 mmHg (80.0-100.0) L 03/18/21 15:55 ABG HCO3 27.5 mmol/L (22-26) H 03/18/21 15:55 ABG O2 Saturation 91.1 03/18/21 15:55 ABG Base Excess 4.7 mmol/L (-2.0-2.0) H 03/18/21 15:55 Gus Test Pos 03/18/21 15:55 VBG pH 7.47 (7.32-7.42) H 03/05/21 15:10 VBG pCO2 41.5 mmHg (41-51) 03/05/21 15:10 VBG pO2 29.2 mmHg (25-40) 03/05/21 15:10 VBG HCO3 30.0 mmol/L (24-28) H 03/05/21 15:10 VBG Base Excess 5.8 mmol/L (-3.0-3.0) H 03/05/21 15:10 VBG Hematocrit 7.5 % (42-52) L 03/05/21 15:10 A-a O2 Gradient 52.3 mmHg (5-10) H 03/18/21 15:55 Hematocrit 36.4 % (42-52) L 03/18/21 15:55 Hgb O2 Saturation 89.2 % (95-100) L 03/18/21 15:55 Carboxyhemoglobin 1.4 %THgb (0.4-20.1) 03/18/21 15:55 Methemoglobin 0.7 % (0.4-1.5) 03/18/21 15:55 Total Hemoglobin 11.9 g/dL (14-18) L 03/18/21 15:55 Sodium 140.0 mmol/L (131-143) 03/18/21 15:55 Potassium 3.0 mmol/L (3.5-5.0) L 03/18/21 15:55 Glucose 122.0 mg/dL (70-115) H 03/18/21 15:55 Ionized Calcium 1.1 mmol/L (1.1-1.4) 03/18/21 15:55 O2 Delivery Device Vent 03/18/21 15:55 O2 Liters/Min 60.0 % 03/16/21 04:45 Mechanical Rate 20.0 03/17/21 04:50 FiO2 70.0 % 03/18/21 15:55 Tidal Volume 0.50 03/17/21 04:50 PEEP 5.0 cmH20 03/18/21 15:55 Molder Bench ID Cak 03/18/21 15:55 Sodium 140 mmol/L (136-145) 03/18/21 04:30 Potassium 3.2 mmol/L (3.5-5.1) L 03/18/21 04:30 Chloride 105 mmol/L (98-107) 03/18/21 04:30 Carbon Dioxide 24 mmol/L (22-29) 03/18/21 04:30 Anion Gap 14.2 (5-19) 03/18/21 04:30 BUN 32 mg/dL (8-23) H 03/18/21 04:30 Creatinine 0.5 mg/dL (0.7-1.2) L 03/18/21 04:30 GFR Calculation 169.0 mL/min (90-130) H 03/18/21 04:30 Glucose 146 mg/dL (65-115) H 03/18/21 04:30 POC Glucose 121 mg/dL (70-110) H 03/15/21 11:44 Calculated Osmolality 300 mOsm/kg (285-295) H 03/18/21 04:30 Lactic Acid 1.4 mmol/L (0.5-2.2) 03/05/21 14:35 Calcium 7.4 mg/dL (8.5-10.5) L 03/18/21 04:30 Magnesium 1.9 mg/dL (1.7-2.3) 03/18/21 04:30 Ferritin 1510 ng/mL (30-400) H 03/18/21 04:30 Total Bilirubin 2.2 mg/dL (0.15-1.2) H 03/18/21 04:30 AST 21 U/L (0-40) 03/18/21 04:30 ALT 27 U/L (0-41) 03/18/21 04:30 Alkaline Phosphatase 102 IU/L (40-130) 03/18/21 04:30 Lactate Dehydrogenase 660 U/L (135-225) H 03/06/21 03:35 C-Reactive Protein 13.1 mg/L (0.0-4.9) H 03/18/21 04:30 NT-Pro-B Natriuret Pep 287 pg/mL (0-125) H 03/05/21 14:35 Total Protein 4.5 g/dL (6.6-8.7) L 03/18/21 04:30 Albumin 2.6 g/dL (3.5-5.2) L 03/18/21 04:30 Globulin 1.9 g/dL (1.3-4.6) 03/18/21 04:30 Triglycerides 250 mg/dL (0-150) H 03/14/21 04:25 Procalcitonin 0.66 ng/mL (0-0.5) H 03/18/21 04:30 Vancomycin Trough 15.1 ug/mL (10-15) H 03/17/21 09:10 Nasal/Oral COVID-19 PCR Detected H 03/05/21 16:30 SARS-CoV-2 Ag (Rapid) Negative (Negative) 03/05/21 23:00 Impressions Chest CTA 03/09/21 13:47 IMPRESSION: Positive for subsegmental right lower lobe pulmonary embolism. Bilateral pneumonia consistent with COVID-19 pneumonia. Findings discussed with Dr. Edwards by Dr. Rodrick Espinosa at 4:37 p.m., 03/09/2021. Radiation Dose CTDIVOL = (mGy): DLP = 567.74 (mGy-cm) Chest X-Ray 03/18/21 15:06 IMPRESSION: 1. Bilateral pulmonary infiltrates showing minimal improvement. 2. No pneumothorax is seen. 3. ET tube and right chest tube unchanged in position. NG tube ending in the cardia of the stomach. Left-sided subclavian line probably ending in the proximal left subclavian vein. Micro: Microbiology 03/18/21 13:30 Gram Stain - Final Sputum - Endotracheal Tube Aspirate 03/16/21 08:14 Urine Culture - Final Urine Catheterized 03/16/21 09:00 Blood Culture - Preliminary Blood A&P Assessment and plan (1) Acute respiratory failure due to severe acute respiratory syndrome coronavirus 2 (SARS-CoV-2) infection: Status: Acute (2) D-dimer, elevated: Status: Acute (3) Transaminitis: Status: Acute (4) DVT prophylaxis: Status: Acute (5) Pneumonia due to gram-negative bacteria: Status: Acute (6) Pulmonary embolism associated with COVID-19: Status: Acute Additional A&P Information #Acute respiratory #acute hypoxic respiratory failure secondary to ARDS due to COVID-19 pneumonia complicated by right subsegmental PE #Right lung pneumothorax-s/p chest tube placement 03/17/2021 #Stenotrophomonas maltophilia-sensitive to Levaquin #Transaminitis due to COVID-19 pneumonia-improved #Hypothyroidism #BPH #Hypertension - Covid PCR positive, CRP 138 > 13 - CTA Positive for PE - intubated 03/09/2021, sedated and connected to ventilator-completed 2 proning sessions -Successful awakening trial and breathing trial, following commands-extubated to high flow 50 L 50% on 03/14/2021 -Reintubated 03/16/2021 night and ET tube exchanged immediately after intubation -ET tube cuff leak noted again 03/17/21 and changed -Chest x-ray right large pneumothorax-s/p chest tube placement 03/17/21-post procedure chest x-ray showed significant improvement -Today noted bloody secretions -DuoNeb nebulizations and Pulmicort nebulization scheduled -completed remdesivir 5-day protocol started 03/06/2021 and extended course -On dexamethasone 6 mg daily started 03/05/2021 -Monitor inflammatory markers every 48 hours -s/p 1 dose of Actemra 03/09/2021 -Urine Legionella negative; bacterial antigens negative; MRSA nares negative, low procalcitonin- -Sputum cultures 03/10/2021 + for Stenotrophomonas maltophiliaon levaquin 03/13/21 - low grade fever - wbc 46K yesterday- sent for [place] cultures - already broaden coverage with vancomycin, levaquin and cefepime;changed cefepime to imipenam -+2.2L / + 1.6L ; k 3.2 - supplemented -Monitor renal functions and urine output-try to keep negative to even -Flomax 0.4 mg p.o. daily for BPH -Lovenox 100 q12 hr for Right subsegmental PE -Levothyroxine 200 mcg PO daily -Diabetes-A1c 7.5 -Continue tube feeds -Sugars controlled, insulin scale coverage-monitor sugars -V8autixlbs for GI prophylaxis -Full code -Prognosis guarded -updated family Discussed with hospitalist, RN, RT covering the patient Attestations Medical Necessity Statement*: Acute hypoxic respiratory failure secondary to ARDS due to COVID-19 pneumonia complicated by pulmonary embolism requiring mechanical ventilation for respiratory support Time Spent in Patient Care: Greater than 35 minutes (>than 50% of time spent in counselling and/or direct pt care on unit). Critical Care Time: The high probability of a clinically significant, sudden or life threatening deterioration of the patient's [respiratory, hepatic, endocrine] system(s) required my full and direct attention, intervention and personal management. The critical care time is as shown. This time is in addition to time spent performing any reported procedures but includes the following: [x] Data and vital sign review and interpretation [x] Patient assessment, examination and intervention [x] Documentation [x] Medication orders and management Critical Care Time (min): 45 Coding Level of Care Code Established Pt Acute Saw Maker for Chg Fwd Patient Type Established History Comprehensive Exam Comprehensive Medical Decision Making High Complexity Diagnoses Acute respiratory failure due to severe acute respiratory syndrome coronavirus 2 (SARS-CoV-2) infection U07.1; J96.00 D-dimer, elevated R79.89 Transaminitis R74.01 DVT prophylaxis Z29.9 Pneumonia due to gram-negative bacteria J15.6 Pulmonary embolism associated with COVID-19 U07.1; I26.99 Time Spent (min) 45
--- NOTE | 2021-03-18 19:20 | PC.NURSE ---
Shift Note: Pt remains intubated and sedated. Pt does not tolerate position changes very well he starts breathing over vent. Sedation adjusted to try to relieve that. Levophed increased due to sedation increase. Chest tube patent. Blood noted n m outh at oral care times. Urine output of 1100ml this shift. Frequent safety and comfort rounds continue. Orders and/or nursing care completed as indicated. Patient monitored for response to intervention and treatment(s). Education provided includes vent compliance, sedation medications,. Daughter verbalized understanding. Will continue to monitor.
[2021-03-18] MEDS: levofloxacin-dextrose 5 % 750 MG/150 ML PREMIX 100 MG IV (20:15)
[2021-03-18] MEDS: sennosides-docusate Tablet 1 TAB PO (21:04)
--- NOTE | 2021-03-18 21:11 | P.PN_ITS ---
Subjective Subjective: Interval history: Hospital course, labs appreciated. Seen multiple times during the day, multiple discussions with fire management technician. Currently on examination patient is on sedation with Precedex, fentanyl, Versed. On pressor support with Levophed. Ventilator setting of rate of 20, PEEP of 5, FiO2 of 60%. Mild hypotension during the day for which Levophed had to be titrated up. Medications: Reviewed: Yes Vitals/I&O/Wt Last Vital Signs Temp 100.6 F H 03/18/21 13:00 Pulse 67 03/18/21 19:57 Resp 20 H 03/18/21 19:53 BP 124/71 03/18/21 19:00 Pulse Ox 93 03/18/21 19:53 03/18/21 03/18/21 03/18/21 06:59 14:59 22:59 Intake Total 1102.777 / 2900.677 1028.579 / 1028.579 622.490 / 1651.069 Output Total 615 / 615 1190 / 1200 Balance 487.777 / 2285.677 1018.579 / 1018.579 -567.510 / 451.069 Weight last 48 hrs Weight 95.254 kg Weight 95.254 kg Physical Exam Narrative: EXAM NARRATIVE: General: Intubated on MV HEENT: ET tube in place. Chest: Vent support CVS: S1-S2 regular, no murmurs, no tachycardia, no gallops, no rubs Abdomen:non-distended : Rodríguez Neuro: Sedation Urinary Catheter Management^: Rodríguez: Cath Placed During This Visit: yes Reason for Continuing Indwelling Catheter: Accurate Measurement of Urinary Output in Critically Ill Patients Urinary Catheter Date of Insertion: 03/09/21 Urinary Catheter Time of Insertion: 22:34 Data : 03/18/21 04:30 03/18/21 04:30 Micro: Microbiology 03/18/21 13:30 Gram Stain - Final Sputum - Endotracheal Tube Aspirate 03/16/21 08:14 Urine Culture - Final Urine Catheterized 03/16/21 09:00 Blood Culture - Preliminary Blood A&P Assessment and plan (1) Septic shock: Status: Acute (2) Acute respiratory failure due to severe acute respiratory syndrome coron avirus 2 (SARS-CoV-2) infection: Status: Acute (3) Pulmonary embolism associated with COVID-19: Status: Acute (4) Infection due to Stenotrophomonas maltophilia: Status: Acute (5) Pneumothorax: Status: Acute (6) Transaminitis: Status: Acute (7) D-dimer, elevated: Status: Acute Additional A&P Information Acute respiratory failure with hypoxia due to COVID 19 pneumonia with acute pulmonary embolism along with superimposed bacterial infection and pneumothorax - Intubated and placed on MV on 03/09 -extubated 03/14 - Reintubated on 03/17 am. Requiring multiple tube exchanges because of cuff leak. - S/p Remdesivir, Actemera - Continue decadron. Patient has finished 10-day course so we will decrease the dose to 3 mg IV daily. - Noted to have a PTX - Chest tube placement. Monitor chest tube output. X-ray results appreciated. - Continue Lovenox full dose -Will maintain lovenox until respiratory status improves Patient has leukocytosis along with septic shock. Sputum culture growing stenotrophomonas. Continue Levaquin. Switch cefepime to imipenem for better coverage. Continue with vancomycin. Blood cultures so far negative. Repeat sputum culture, culture from chest tube. For now start patient on caspofungin 70 mg stat followed by 50 mg IV daily. If patient does not improve or leukocytosis worsens can plan for bronchoscopy. Appreciate pulmonary recommendations. Septic shock: Antibiotics as above. Blood cultures so far negative. Check procalcitonin, MRSA swab. Continue Levophed keeping mean arterial pressure over 65. Check stool studies to rule out C. difficile. Transaminitis - Resolved - LFT returned to normal Hypothyroidism hx of papillary thyroid carcinoma - Status post thyroidectomy - Levothyroxine 200 mcg p.o. daily GI prophylaxis - Pepcid 20 mg IV BID Lovenox on hold for DVT prophylaxis as well. Full code. Prognosis: Guarded - Family updated Attestations Medical Necessity Statement*: Requires further hospitalization for management of septic shock, respiratory failure secondary to COVID-19 pneumonia, superimposed bacterial infection along with pulmonary embolism and pneumothorax Critical Care Time: The high probability of a clinically significant, sudden or life threatening deterioration of the patient's [pulmonary, cardiac] system(s) required my full and direct attention, intervention and personal management. The critical care time is as shown. This time is in addition to time spent performing any reported procedures but includes the following: [x] Data and vital sign review and interpretation [x] Patient assessment, examination and intervention [x] Documentation [x] Medication orders and management Coding Level of Care Code Acute Produce Sorter for g Fwd Diagnoses Septic shock A41.9; R65.21 Acute respiratory failure due to severe acute respiratory syndrome coronavirus 2 (SARS-CoV-2) infection U07.1; J96.00 Pulmonary embolism associated with COVID-19 U07.1; I26.99 Infection due to Stenotrophomonas maltophilia A49.8 Pneumothorax J93.9 Transaminitis R74.01 D-dimer, elevated R79.89
[2021-03-18] MEDS: LORazepam 2 mg/mL INJ 1 mL IVP (21:14)
--- NOTE | 2021-03-18 22:03 | PC.NURSE ---
After turning patient to right side, O2 sats decreased to 84-85%. Hyperoxygenated patient and suctioned with inline suction, small amount of blood tinged secretions noted. Ativan given for elevated respiratory rate with rate noted to be decreased to 22bpm from 27-30 bpm. Decreased amount of turn to right side and notified RT. RT increased FI02 on vent to 80%. Daughter Haley called for an update, notified of need to increase O2 on vent.
[2021-03-18] MEDS: dexamethasone 4 mg/mL INJ 6 MG IVP (23:01)
[2021-03-19] VITALS (73 sets, daily range): BP systolic 78–126; BP diastolic 40–67; PULSE 58–81; RESP 14–25; TEMP 36.5–37.2; O2SAT 83–98
[2021-03-19] MEDS: propofol 1,000 MG/100 ML INJ 33.15 MG IV ×2 (01:18→04:00)
[2021-03-19] MEDS: vancomycin 1,500 MG/300 ML PIGGYBACK 200 MG IV ×3 (01:29→17:57)
[2021-03-19] MEDS: ipratropium-albuterol 3 mL Neb INHALATION ×6 (03:08→23:29)
[2021-03-19 04:33] LABS: Hematocrit 31.5 % (42.0-52.0); Hemoglobin 10.5 g/dL (11.7-16.6); Mean Corpuscular HGB Conc 33.3 g/dL (30.0-36.0); Mean Corpuscular Hemoglobin 30.5 pg (28.0-34.0); Mean Corpuscular Volume 91.6 fl (80-94); Mean Platelet Volume 10.1 fL (7.4-10.4); Platelet Count 99 10^3/cmm (130-400); Red Blood Count 3.44 10^6/uL (4.1-5.3); Red Cell Distribution Width 15.1 % (12.1-15.1); White Blood Count 17.8 10^3/uL (4.0-10.0)
[2021-03-19] MEDS: dexmedetomidine 400 MCG in sodium chloride 0.9% (100 ml) 100 ML 17.67 MCG IV ×3 (04:45→18:00)
--- NOTE | 2021-03-19 04:49 | XRR_ITS ---
PROCEDURE INFORMATION: Exam: XR Chest Exam date and time: 03/19/2021 4:49 AM Age: 60 years old Clinical indication: Dyspnea; Additional info: Check for pneumothorax TECHNIQUE: Imaging protocol: XR of the chest. Views: 1 view. COMPARISON: CR XR chest 1V portable [id number] 03/18/2021 3:28 PM FINDINGS: Tubes, catheters and devices: ET tube still in adequate position; interval slight retraction not excluded. Tip of the enteric tube still in the gastric fundus following a gentle loop in the proximal stomach. Tip of the left venous catheter still in the area of the left innominate vein. No definite change in positioning of the right chest tube. Lungs: Continued extensive bilateral patchy airspace opacities. Interval slight worsening of the right lung disease felt to be conceivable. Pleural spaces: Multiple extrinsic structures overlying the right upper chest precluding exclusion of an interval minimal right apical pneumothorax. Still no obvious left pneumothorax. No interval large pleural effusion. Heart/Mediastinum: Mild cardiomegaly still likely. Bones/joints: No apparent acute disease. XR/XR chest 1V portable [id number] IMPRESSION: 1. Inability to exclude an interval minimal right apical pneumothorax due to the overlapping extrinsic structures. 2. Extensive bilateral lung disease still present. Interval slight worsening of the right lung disease felt to be conceivable. 3. No significant change in positioning of the life-supporting tubes. Other findings detailed above.
[2021-03-19 05:09] LABS: Alanine Aminotransferase 25 U/L (0-41); Albumin Level 2.5 g/dL (3.5-5.2); Alkaline Phosphatase 69 IU/L (40-130); Anion Gap 11.4 (5-19); Aspartate Amino Transferase 17 U/L (0-40); Blood Urea Nitrogen 24 mg/dL (8-23); Calcium 7.1 mg/dL (8.5-10.5); Carbon Dioxide 26 mmol/L (22-29); Chloride 108 mmol/L (98-107); Globulin 1.6 g/dL (1.3-4.6); Glomerular Filtration Rate 304.8 mL/min (90-130); Glucose 146 mg/dL (65-115); Osmolality Calculated 301 mOsm/kg (285-295); Potassium 3.4 mmol/L (3.5-5.1); Sodium 142 mmol/L (136-145); Total Bilirubin 1.6 mg/dL (0.15-1.2); Total Protein 4.1 g/dL (6.6-8.7)
[2021-03-19 05:10] LABS: Procalcitonin 0.43 ng/mL (0-0.5)
--- NOTE | 2021-03-19 05:11 | PC.NURSE ---
0415 - O2 sats decreased to 85%, hyperoxygenated and suctioned. Momentary increase in O2 sat to 94% but decreased to 84-86%. Notified RT. 0515 -- O2 sat remains low, RT in room obtaining ABG.
[2021-03-19 05:22] LABS: ABG PCO2 43.4 mmHg (35-45); ABG PH Result 7.41 (7.35-7.45); Alveolar-Arterial Oxygen Gradi 50.5 mmHg (5-10); Arterial Blood Gas Hematocrit 33.3 % (42-52); Base Excess ABG 2.8 mmol/L (-2.0-2.0); Blood Gas Allen Test Pos; Blood Gas Operator Identificat JB; Blood Gas Sample Site Brachial, right; Blood Gas Sample Type Arterial; Carboxyhemoglobin 1.3 %THgb (0.4-20.1); HCO3 ABG 27.7 mmol/L (22-26); HGB O2 Sat 88.4 % (95-100); Ionized Calcium Level - ABG 1.1 mmol/L (1.1-1.4); Methemoglobin 0.5 % (0.4-1.5); Oxygen Device VENT; Oxygen Saturation ABG 90.1; PO2 ABG 56.6 mmHg (80.0-100.0); Potassium Level - ABG 3.3 mmol/L (3.5-5.0); Total Hemoglobin 10.9 g/dL (14-18)
[2021-03-19 05:26] LABS: Absolute Neutrophil 17.1 10^3/cmm (1.4-6.5); Band Neutrophils Absolute 1.1 10^3/cmm (0.0-1.2); Eosinophils 0 %; Lymphocytes 1 %; Lymphocytes Absolute 0.2 10^3/cmm (1.2-3.4); Monocytes Absolute 0.5 10^3/cmm (0.1-0.6); Platelet Estimate Decreased (Normal); Segmented Neutrophils 90 %; Total Cells Counted 100 (0-100)
[2021-03-19] MEDS: levothyroxine 200 mcg Tablet PO (06:07)
[2021-03-19] MEDS: propofol 1,000 MG/100 ML INJ 27.62 MG IV ×5 (07:56→21:21)
[2021-03-19] MEDS: famotidine 20 mg/2 mL INJ IVP ×2 (08:27→19:36)
[2021-03-19] MEDS: aspirin 81 mg EC Tablet PO (08:27)
[2021-03-19] MEDS: docusate sodium 100 mg Capsule PO ×2 (08:27→17:57)
--- NOTE | 2021-03-19 08:27 | PC.CHAP ---
Pastoral Care Encounter/Spiritual Assessment Type of Contact [] Declined advertising dispatch clerk visit [] Patient/Family/Request visit [] Outpatient visit [] Follow-up visit [] Physician referral [] Code/Alert [x] Routine visit [] Staff referral [] Actively dying [] Patient sleeping [] Family support [] [] Out of room [] Palliative care [] [] Receiving care in room [] Pre-surgical visit [] Trauma [] Long length of stay [x] ICU visit [x] Other:vent Relational/Emotional Strength [] Patient feels connected with others/family/visitors/staff [] Distress [] Loneliness/isolation [] Abandonment Spirituality of Patient [] Person of Basilia [] Attends Voodoo of their Basilia [] Believes in Prayer [] Reads Bible or Orthodox materials [] There are Spiritual issues to be addressed Efficiency Manager Interventions [x] Prayer [] Active listening [] Non-anxious presence [] Spiritual/emotional support [] Crisis/trauma care [] Spiritual counseling [] Bereavement support [] Provided bereavement packet [] Provided Bible/devotional materials [] Provided toy/stuffed animal, coloring book to patient or family member [] Provided Communion [] Anointing/[place] [] Salvation [x] Completed spiritual assessment [] Other: Impact on Illness or Injury [] Angry [] Fearful [] Anxious [] Often cries [] Exhaustion [] Unable to work [] Unable to attend mandaeism [] Unable to walk/stand [] Unable to read [] Unable to drive [] Unable to eat/drink [] Unable to sleep [] Unable to be with family [] Patient intubated [] Other: Summary Time spent with patient
[2021-03-19] MEDS: enoxaparin 100 mg/mL Syringe SUBCUT (08:28)
[2021-03-19] MEDS: artificial tears Op Oint 3.5 gm 1 APPLIC EYE-BOTH ×2 (08:30→09:06)
[2021-03-19] MEDS: budesonide 0.5 mg/2 mL Neb INHALATION ×2 (08:53→19:20)
[2021-03-19 09:24] LABS: INR 1.11 (0.8-1.2)
[2021-03-19 09:25] LABS: Partial Thromboplastin Time 33.6 SECONDS (23.9-36.7)
[2021-03-19 09:26] LABS: Fibrinogen 341 mg/dL (174-498)
[2021-03-19 09:28] LABS: D Dimer 1.51 ug/mIFEU (0-0.59)
--- NOTE | 2021-03-19 09:30 | PC.NURSE ---
Haley, daughter, called for update. No changes in vent settings. Chest tube draining well.
--- NOTE | 2021-03-19 12:23 | PC.NURSE ---
New air leak noted in chest tube chamber. Removed dressing to change, saturated with blood, rivulets running down pt's side from insertion site. A firm raised are noted around insertion site, looked like a hematoma. Dr Niño notified of findings.
--- NOTE | 2021-03-19 12:38 | XR_ITS ---
WS: [id number] Exam: XR chest 1V portable [id number] Date/Time of Exam: 03/19/2021 12:52 PM Reason For Exam: right chest tube leaking blood - hematoma Comparison 03/19/2021 at 0518 hours. Right chest tube is unchanged in position. No obvious pneumothora x is seen. Bilateral pulmonary infiltrates slightly improved. Left-sided subclavian central line unch anged in location. ET tube remains in satisfactory position ending about 4 cm above the [place]. An en teric tube is looped in the stomach and ends in the gastric cardia. Heart size is within normal limit s. No mediastinal widening. XR/XR chest 1V portable [id number] IMPRESSION: 1. Right-sided chest tube unchanged in position. No obvious pneumothorax. 2. Bilateral pulmonary infiltrates most marked on the right. There has been sli ght improvement. 3. ET tube, enteric tube and left subclavian central line all unchanged in posi tion.
--- NOTE | 2021-03-19 13:19 | CT_ITS ---
WS: [id number] CT CHEST TECHNIQUE: Noncontrast CT of the chest with coronal and sagittal reformatted images. CLINICAL INFORMATION: pneumothorax, chest tube site bleeding, chest hematoma COMPARISON: March 09, 2021 DLP: 982.[address] scans at [facility] use at least one of these dose optimization techniques: automat ed exposure control; mA and/or kV adjustment per patient size (includes targeted exams where dose is matched to clinical indication); or iterative reconstruction. FINDINGS: Small to moderate right anterior and peripheral pneumothorax. Right chest tube extends along the righ t lateral lung with tip in the right lung apex in good position. No left-sided pneumothorax. Diffuse hazy bilateral groundglass infiltrates compatible with COVID 19 pneumonia. Consolidation developing i n the right lower lobe with air bronchograms. Slight consolidation left lower lobe. Endotracheal tube with tip above the [place]. Enteric tube with tip in the stomach. Air-fluid level in the stomach. No evidence of large hematoma along the right lateral chest wall. Small amount of indur ation and edema Left central venous catheter with tip in the innominate. Adrenal glands are normal. Mild thoracic kyp hosis. In the subcutaneous fat. CT/CT chest wo con [id number] IMPRESSION: 1. Stable moderate right anterior and peripheral pneumothorax. Right chest tub e appears in good position with tip in the right lung apex. 2. No significant chest wall hematoma. Small amount of edema and induration at the chest tube insertion site. 3. Small amount of fluid in the right pleural space. 4. Diffuse bilateral hazy groundglass infiltrates compatible with COVID 19 pne umonia. Progressed airspace consolidation right lower lobe with air bronchogram s. Small amount of airspace consolidation left lower lobe. 5. Endotracheal tube with tip above the [place]. Notified Jose Alfredo Priest MD at 03/19/2021 2:39 PM.
[2021-03-19 13:55] LABS: Basophils % 0.2 %; Hematocrit 33.4 % (42.0-52.0); Hemoglobin 10.9 g/dL (11.7-16.6); Lymphocytes # 0.3 10^3/uL (0.8-4.8); Lymphocytes % 1.5 %; Mean Corpuscular HGB Conc 32.6 g/dL (30.0-36.0); Mean Corpuscular Hemoglobin 30.6 pg (28.0-34.0); Mean Corpuscular Volume 93.8 fl (80-94); Mean Platelet Volume 10.4 fL (7.4-10.4); Monocytes # 1.2 10^3/uL (0.2-0.9); Monocytes % 5.1 %; Neutrophils # 21.03 10^3/uL (1.8-7.7); Neutrophils % 91.7 %; Nucleated Red Blood Cells % 0 %; Platelet Count 124 10^3/cmm (130-400); Red Blood Count 3.56 10^6/uL (4.1-5.3); Red Cell Distribution Width 15.5 % (12.1-15.1); White Blood Count 22.9 10^3/uL (4.0-10.0)
--- NOTE | 2021-03-19 14:25 | PC.NURSE ---
Pt to CT, for chest as ordered. ,
[2021-03-19 15:04] LABS: Slide Review Slide Review Perform
--- NOTE | 2021-03-19 17:26 | P.PN_ITS ---
Subjective Subjective: Interval history: Patient seen multiple times during the day. Discussed multiple times with desk assistant. Events today-patient has remained on ventilator, sedated with fentanyl, propofol, Precedex. Has remained on minimal Levophed. Today morning found to have 460 cc of serosanguineous fluid through chest tube because of which Lovenox was discontinued, CT chest showed moderate right anterior and peripheral pneumothorax Medications: Reviewed: Yes Vitals/I&O/Wt Last Vital Signs Temp 98.9 F 03/19/21 17:24 Pulse 66 03/19/21 17:24 Resp 18 03/19/21 17:24 BP 101/54 03/19/21 17:24 Pulse Ox 89 L 03/19/21 17:24 03/19/21 03/19/21 03/19/21 06:59 14:59 22:59 Intake Total 949.678 / 3298.588 1052.462 / 1052.462 0 / 1052.462 Output Total 1300 / 2500 Balance -350.322 / 797.335 7095.462 / 1052.462 0 / 1052.462 Weight last 48 hrs Weight 94.892 kg Weight 95.254 kg Physical Exam Narrative: EXAM NARRATIVE: General: Intubated on MV HEENT: ET tube in place. Chest: Vent support CVS: S1-S2 regular, no murmurs, no tachycardia, no gallops, no rubs Abdomen:non-distended : Rodríguez Neuro: Sedation Urinary Catheter Management^: Rodríguez: Cath Placed During This Visit: yes Reason for Continuing Indwelling Catheter: Accurate Measurement of Urinary Output in Critically Ill Patients Urinary Catheter Date of Insertion: 03/09/21 Urinary Catheter Time of Insertion: 22:34 Data : 03/20/21 07:39 03/20/21 07:39 Other Labs: Abnormal lab results 03/12/21 03/19/21 03/19/21 Range/Units 04:43 04:00 04:00 WBC 17.8 H (4.0-10.0) 10^3/uL RBC 3.44 L (4.1-5.3) 10^6/uL Hgb 10.5 L (11.7-16.6) g/dL Hct 31.5 L (42.0-52.0) % RDW (12.1-15.1) % Plt Count 99 L D (130-400) 10^3/cmm Neut # (Auto) (1.8-7.7) 10^3/uL Lymph # (Auto) (0.8-4.8) 10^3/uL [place] # (Auto) (0.2-0.9) 10^3/uL Absolute Neutrophils 17.1 H (1.4-6.5) 10^3/cmm Abs Segm Neuts (Man) 16.0 H (1.6-7.1) 10/cmm Absolute Lymphocytes 0.2 L (1.2-3.4) 10^3/cmm Fibrin Degrad Products (NEG) ug/mL D-Dimer (0-0.59) ug/mIFEU ABG pCO2 53.6 H (35-45) mmHg ABG pO2 73.3 L (80.0-100.0) mmHg ABG HCO3 34.7 H (22-26) mmol/L ABG Base Excess 8.6 H (-2.0-2.0) mmol/L A-a O2 Gradient (5-10) mmHg Hematocrit 38.4 L (42-52) % Hgb O2 Saturation (95-100) % Total Hemoglobin (14-18) g/dL Potassium 3.4 L (3.5-5.1) mmol/L Chloride 108 H (98-107) mmol/L BUN 24 H (8-23) mg/dL Creatinine 0.3 L (0.7-1.2) mg/dL GFR Calculation 304.8 H (90-130) mL/min Glucose 146 H (65-115) mg/dL Calculated Osmolality 301 H (285-295) mOsm/kg Calcium 7.1 L (8.5-10.5) mg/dL Total Bilirubin 1.6 H (0.15-1.2) mg/dL Total Protein 4.1 L (6.6-8.7) g/dL Albumin 2.5 L (3.5-5.2) g/dL 03/19/21 03/19/21 03/19/21 Range/Units 05:08 08:50 13:25 WBC 22.9 H (4.0-10.0) 10^3/uL RBC 3.56 L (4.1-5.3) 10^6/uL Hgb 10.9 L (11.7-16.6) g/dL Hct 33.4 L (42.0-52.0) % RDW 15.5 H (12.1-15.1) % Plt Count 124 L (130-400) 10^3/cmm Neut # (Auto) 21.03 H (1.8-7.7) 10^3/uL Lymph # (Auto) 0.3 L (0.8-4.8) 10^3/uL [place] # (Auto) 1.2 H (0.2-0.9) 10^3/uL Absolute Neutrophils (1.4-6.5) 10^3/cmm Abs Segm Neuts (Man) (1.6-7.1) 10/cmm Absolute Lymphocytes (1.2-3.4) 10^3/cmm Fibrin Degrad Products Pos, 10-40 H (NEG) ug/mL D-Dimer 1.51 H (0-0.59) ug/mIFEU ABG pCO2 (35-45) mmHg ABG pO2 56.6 L (80.0-100.0) mmHg ABG HCO3 27.7 H (22-26) mmol/L ABG Base Excess 2.8 H (-2.0-2.0) mmol/L A-a O2 Gradient 50.5 H (5-10) mmHg Hematocrit 33.3 L (42-52) % Hgb O2 Saturation 88.4 L (95-100) % Total Hemoglobin 10.9 L (14-18) g/dL Potassium 3.3 L (3.5-5.1) mmol/L Chloride (98-107) mmol/L BUN (8-23) mg/dL Creatinine (0.7-1.2) mg/dL GFR Calculation (90-130) mL/min Glucose 166.0 H (65-115) mg/dL Calculated Osmolality (285-295) mOsm/kg Calcium (8.5-10.5) mg/dL Total Bilirubin (0.15-1.2) mg/dL Total Protein (6.6-8.7) g/dL Albumin (3.5-5.2) g/dL Impressions Chest CTA 03/09/21 13:47 IMPRESSION: Positive for subsegmental right lower lobe pulmonary embolism. Bilateral pneumonia consistent with COVID-19 pneumonia. Findings discussed with Dr. Edwards by Dr. Rodrick Espinosa at 4:37 p.m., 03/09/2021. Radiation Dose CTDIVOL = (mGy): DLP = 567.74 (mGy-cm) Chest X-Ray 03/19/21 12:38 IMPRESSION: 1. Right-sided chest tube unchanged in position. No obvious pneumothorax. 2. Bilateral pulmonary infiltrates most marked on the right. There has been slight improvement. 3. ET tube, enteric tube and left subclavian central line all unchanged in position. Chest CT 03/19/21 13:19 IMPRESSION: 1. Stable moderate right anterior and peripheral pneumothorax. Right chest tube appears in good position with tip in the right lung apex. 2. No significant chest wall hematoma. Small amount of edema and induration at the chest tube insertion site. 3. Small amount of fluid in the right pleural space. 4. Diffuse bilateral hazy groundglass infiltrates compatible with COVID 19 pneumonia. Progressed airspace consolidation right lower lobe with air bronchograms. Small amount of airspace consolidation left lower lobe. 5. Endotracheal tube with tip above the [place]. Notified Jose Alfredo Priest MD at 03/19/2021 2:39 PM. Micro: Microbiology 03/16/21 09:00 Blood Culture - Preliminary Blood Staphylococcus sp coag neg 03/18/21 13:30 Gram Stain - Final Sputum - Endotracheal Tube Aspirate A&P Assessment and plan (1) Septic shock: Status: Acute (2) Acute respiratory failure due to severe acute respiratory syndrome coronavirus 2 (SARS-CoV-2) infection: Status: Acute (3) Pulmonary embolism associated with COVID-19: Status: Acute (4) Infection due to Stenotrophomonas maltophilia: Status: Acute (5) Pneumothorax: Status: Acute (6) Transaminitis: Status: Acute (7) D-dimer, elevated: Status: Acute Additional A&P Information Acute respiratory failure with hypoxia due to COVID 19 pneumonia with acute pulmonary embolism along with superimposed bacterial infection and pneumothorax - Intubated and placed on MV on 03/09 -extubated 03/14 - Reintubated on 03/17 am. Requiring multiple tube exchanges because of cuff leak. - S/p Remdesivir, Actemera - Continue decadron. Patient has finished 10-day course so we will decrease the dose to 3 mg IV daily for next 5 days and then stop. - Noted to have a PTX - Chest tube placement. Monitor chest tube output. X-ray results appreciated. -Stop Lovenox for now as patient having bleeding through the chest. And possible hemothorax. Patient has leukocytosis along with septic shock. Sputum culture growing stenotrophomonas. Continue Levaquin, imipenem, vancomycin. Repeat sputum culture and fluid culture for now pending. Can plan to stop caspofungin as do not appreciate any fungus or yeast cultures. If patient does not improve or leukocytosis worsens can plan for bronchoscopy. Appreciate pulmonary recommendations. Septic shock: Antibiotics as above. Blood cultures so far negative. Pending. Continue Levophed keeping mean arterial pressure over 65. Check stool studies to rule out C. difficile. Transaminitis - Resolved - LFT returned to normal Hypothyroidism hx of papillary thyroid carcinoma - Status post thyroidectomy - Levothyroxine 200 mcg p.o. daily History of laryngeal cancer. GI prophylaxis - Pepcid 20 mg IV BID Hold Lovenox given bleeding through chest tube. Patient remains stable in next 24 hours with plan to start on tube feedings. We will plan to start slow tube feedings to prevent refeeding syndrome as has been n.p.o. for over a week during this hospitalization. Full code. Prognosis: Family including daughter updated about grave prognosis, worsening covid, superimposed stenotrophomonas bacterial infection, subsegmental PE, loculated pneumothorax, complicated by bleeding through chest tube on anticoagulation. Daughter verbalized understanding and wanted to do everything to do for now and will decide on further goals of care after talking pt.s . Attestations Medical Necessity Statement*: Further hospitalization for management of acute respiratory failure secondary COVID-19 pneumonia, hemopneumothorax on anticoagulation for pulmonary embolism, septic shock, ventilator dependent Critical Care Time: The high probability of a clinically significant, sudden or life threatening deterioration of the patient's [pulmonary, cardiac, ID] system(s) required my full and direct attention, intervention and personal management. The critical care time is as shown. This time is in addition to time spent performing any reported procedures but includes the following: [x] Data and vital sign review and interpretation [x] Patient assessment, examination and intervention [x] Documentation [x] Medication orders and management Critical Care Time (min): 60 Coding Level of Care Code Acute Twister Operator for Chg Fwd Diagnoses Septic shock A41.9; R65.21 Acute respiratory failure due to severe acute respiratory syndrome coronavirus 2 (SARS-CoV-2) infection U07.1; J96.00 Pulmonary embolism associated with COVID-19 U07.1; I26.99 Infection due to Stenotrophomonas maltophilia A49.8 Pneumothorax J93.9 Transaminitis R74.01 D-dimer, elevated R79.89
[2021-03-19 18:39] LABS: ABG PCO2 52.6 mmHg (35-45); ABG PH Result 7.35 (7.35-7.45); Alveolar-Arterial Oxygen Gradi 52.3 mmHg (5-10); Arterial Blood Gas Hematocrit 24.2 % (42-52); Base Excess ABG 2.8 mmol/L (-2.0-2.0); Blood Gas Allen Test Pos; Blood Gas Operator Identificat CAK; Blood Gas Sample Site Radial, left; Blood Gas Sample Type Arterial; Carboxyhemoglobin 1.7 %THgb (0.4-20.1); HCO3 ABG 28.9 mmol/L (22-26); HGB O2 Sat 91.5 % (95-100); Ionized Calcium Level - ABG 1.2 mmol/L (1.1-1.4); Oxygen Device VENT; PO2 ABG 67.7 mmHg (80.0-100.0); Potassium Level - ABG 3.5 mmol/L (3.5-5.0); Total Hemoglobin 7.9 g/dL (14-18)
[2021-03-19] MEDS: levofloxacin-dextrose 5 % 750 MG/150 ML PREMIX 100 MG IV (19:56)
--- NOTE | 2021-03-19 20:15 | PC.NURSE ---
Shift Note: Pt remains intubated and sedated. Chest tube started an air leak this afternoon, with copious sangiousness drainage. CBC , and DIC panel completed. CT of chest completed. Dr Niño requested daughter and her mother in to discuss pt's ongoing care. Family came for discussion. One unit of platelet administered. Final chest tube dressing change at 1600, still dry and intact at shift report. Dressing changed 3 times, each saturated. Precedex, Propofol, Fentanyl , Versed and Levophed remain infusing. Urine output has decreased, 675ml this shift. Frequent safety and comfort rounds continue. Orders and/or nursing care completed as indicated. Patient monitored for response to intervention and treatment(s). Education provided includes critical nature of pt's illness, chest tube care, CT, lab results, pneumonia. Daughter, Haley, verbalized undeerstanding of pt's continuing care. Will continue to monitor.
[2021-03-19] MEDS: sennosides-docusate Tablet 1 TAB PO (20:53)
[2021-03-19] MEDS: potassium chloride ER 20 mEq Tablet 40 MEQ PO (20:53)
--- NOTE | 2021-03-19 21:01 | PM.PN ---
Subjective Subjective: Interval history: -Patient seen at bedside today -460 cc sanguinous fluid noted in the chest tube; discontinue Lovenox -Repeat CBC hemoglobin 10 and remained stable after 4 hours -Chest CT Stable moderate right anterior and peripheral pneumothorax. Right chest tube appears in good position with tip in the right lung apex. -Labs and imaging reviewed Medications: Reviewed: Yes Vitals/I&O/Wt Last Vital Signs Temp 98.6 F 03/19/21 20:00 Pulse 65 03/19/21 20:45 Resp 16 03/19/21 20:00 BP 110/58 03/19/21 20:45 Pulse Ox 95 03/19/21 20:45 03/19/21 03/19/21 03/19/21 06:59 14:59 22:59 Intake Total 949.678 / 3298.588 1121.295 / 0639.023 2626.280 / 2309.575 Output Total 1300 / 2500 375 / 375 795 / 1170 Balance -350.322 / 798.588 746.295 / 746.295 393.280 / 1139.575 Weight last 48 hrs Weight 209 lb 3.2 oz Weight 210 lb Physical Exam Narrative: EXAM NARRATIVE: General: Lying in bed, sedated and connected to ventilator HEENT:NCAT, PERRLA, EOMI Neck: Supple Lungs: Bilateral diffuse crackles; right chest tube in place; noted bloody secretions in the atrium Heart: s1/s2, RRR Abd: soft, NT, ND, BS + Normoactive Extremities: No edema HEADER OPERATOR: Sedated and 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 SKIN: no rash LDA: # CVC: Left subclavian central line 03/09/2021 # Rodríguez: 03/09/2021 # Right side chest tube 03/17/21 Urinary Catheter Management^: Rodríguez: Cath Placed During This Visit: yes Reason for Continuing Indwelling Catheter: Accurate Measurement of Urinary Output in Critically Ill Patients Urinary Catheter Date of Insertion: 03/09/21 Urinary Catheter Time of Insertion: 22:34 Data : 03/19/21 13:25 03/19/21 04:00 Other Labs: Laboratory Results WBC 22.9 10^3/uL (4.0-10.0) H 03/19/21 13:25 RBC 3.56 10^6/uL (4.1-5.3) L 03/19/21 13:25 Hgb 10.9 g/dL (11.7-16.6) L 03/19/21 13:25 Hct 33.4 % (42.0-52.0) L 03/19/21 13:25 MCV 93.8 fl (80-94) 03/19/21 13:25 MCH 30.6 pg (28.0-34.0) 03/19/21 13:25 MCHC 32.6 g/dL (30.0-36.0) 03/19/21 13:25 RDW 15.5 % (12.1-15.1) H 03/19/21 13:25 Plt Count 124 10^3/cmm (130-400) L 03/19/21 13:25 MPV 10.4 fL (7.4-10.4) 03/19/21 13:25 Neut % (Auto) 91.7 % 03/19/21 13:25 Lymph % (Auto) 1.5 % 03/19/21 13:25 [place] % (Auto) 5.1 % 03/19/21 13:25 Eos % (Auto) 0.0 % 03/19/21 13:25 Baso % (Auto) 0.2 % 03/19/21 13:25 Neut # (Auto) 21.03 10^3/uL (1.8-7.7) H 03/19/21 13:25 Lymph # (Auto) 0.3 10^3/uL (0.8-4.8) L 03/19/21 13:25 [place] # (Auto) 1.2 10^3/uL (0.2-0.9) H 03/19/21 13:25 Eos # (Auto) 0.0 10^3/uL (0.0-0.8) 03/19/21 13:25 Baso # (Auto) 0.0 10^3/uL (0.0-0.1) 03/19/21 13:25 Nucleated RBC % (auto) 0 % 03/19/21 13:25 Total Counted 100 (0-100) 03/19/21 04:00 Atypical Lymphs % 0.0 % (0-5) 03/19/21 04:00 Absolute Neutrophils 17.1 10^3/cmm (1.4-6.5) H 03/19/21 04:00 Segmented Neutrophils 90 % 03/19/21 04:00 Abs Segm Neuts (Man) 16.0 10/cmm (1.6-7.1) H 03/19/21 04:00 Band Neutrophils 6.0 % 03/19/21 04:00 Abs Band Neuts (Man) 1.1 10^3/cmm (0.0-1.2) 03/19/21 04:00 Absolute Lymphocytes 0.2 10^3/cmm (1.2-3.4) L 03/19/21 04:00 Lymphocytes (Manual) 1 % 03/19/21 04:00 Monocytes (Manual) 3.0 % 03/19/21 04:00 Absolute Monocytes 0.5 10^3/cmm (0.1-0.6) 03/19/21 04:00 Eosinophils (Manual) 0 % 03/19/21 04:00 Absolute Eosinophils 0.0 10^3/cmm (0.0-0.7) 03/19/21 04:00 Basophils (Manual) 0.0 % 03/19/21 04:00 Absolute Basophils 0.0 10^3/cmm (0.0-0.2) 03/19/21 04:00 Metamyelocytes 1.0 % 03/14/21 04:25 Myelocytes 1.0 % 03/14/21 04:25 Nucleated RBCs 1.0 /100WBC (0-1) 03/14/21 04:25 Nucleated RBCs # 0.0 /100WBC 03/19/21 13:25 Platelet Estimate Decreased (Normal) 03/19/21 04:00 PT 14.60 SECONDS (12.1-14.9) 03/19/21 08:50 INR 1.11 (0.8-1.2) 03/19/21 08:50 APTT 33.6 SECONDS (23.9-36.7) 03/19/21 08:50 Fibrinogen 341 mg/dL (174-498) 03/19/21 08:50 Fibrin Degrad Products Pos, 10-40 ug/mL (NEG) H 03/19/21 08:50 D-Dimer 1.51 ug/mIFEU (0-0.59) H 03/19/21 08:50 Specimen Type Arterial 03/19/21 18: Sample Site Radial, left 03/19/21 18: ABG pH 7.35 (7.35-7.45) 03/19/21 18: ABG pCO2 52.6 mmHg (35-45) H 03/19/21 18: ABG pO2 67.7 mmHg (80.0-100.0) L 03/19/21 18: ABG HCO3 28.9 mmol/L (22-26) H 03/19/21 18: ABG O2 Saturation 94.0 03/19/21 18: ABG Base Excess 2.8 mmol/L (-2.0-2.0) H 03/19/21 18: Gus Test Pos 03/19/21 18: VBG pH 7.47 (7.32-7.42) H 03/05/21 15:10 VBG pCO2 41.5 mmHg (41-51) 03/05/21 15:10 VBG pO2 29.2 mmHg (25-40) 03/05/21 15:10 VBG HCO3 30.0 mmol/L (24-28) H 03/05/21 15:10 VBG Base Excess 5.8 mmol/L (-3.0-3.0) H 03/05/21 15:10 VBG Hematocrit 7.5 % (42-52) L 03/05/21 15:10 A-a O2 Gradient 52.3 mmHg (5-10) H 03/19/21 18: Hematocrit 24.2 % (42-52) L 03/19/21 18: Hgb O2 Saturation 91.5 % (95-100) L 03/19/21 18: Carboxyhemoglobin 1.7 %THgb (0.4-20.1) 03/19/21 18: Methemoglobin 1.0 % (0.4-1.5) 03/19/21 18: Total Hemoglobin 7.9 g/dL (14-18) L 03/19/21 18: Sodium 141.0 mmol/L (131-143) 03/19/21 18: Potassium 3.5 mmol/L (3.5-5.0) 03/19/21 18: Glucose 131.0 mg/dL (70-115) H 03/19/21 18:27 Ionized Calcium 1.2 mmol/L (1.1-1.4) 03/19/21 18:27 O2 Delivery Device Vent 03/19/21 18:27 O2 Liters/Min 60.0 % 03/16/21 04:45 Mechanical Rate 20.0 03/17/21 04:50 FiO2 75.0 % 03/19/21 18:27 Tidal Volume 0.50 03/17/21 04:50 PEEP 5.0 cmH20 03/19/21 18:27 Cable Splicer Assistant ID Cak 03/19/21 18:27 Sodium 142 mmol/L (136-145) 03/19/21 04:00 Potassium 3.4 mmol/L (3.5-5.1) L 03/19/21 04:00 Chloride 108 mmol/L (98-107) H 03/19/21 04:00 Carbon Dioxide 26 mmol/L (22-29) 03/19/21 04:00 Anion Gap 11.4 (5-19) 03/19/21 04:00 BUN 24 mg/dL (8-23) H 03/19/21 04:00 Creatinine 0.3 mg/dL (0.7-1.2) L 03/19/21 04:00 GFR Calculation 304.8 mL/min (90-130) H 03/19/21 04:00 Glucose 146 mg/dL (65-115) H 03/19/21 04:00 POC Glucose 121 mg/dL (70-110) H 03/15/21 11:44 Calculated Osmolality 301 mOsm/kg (285-295) H 03/19/21 04:00 Lactic Acid 1.4 mmol/L (0.5-2.2) 03/05/21 14:35 Calcium 7.1 mg/dL (8.5-10.5) L 03/19/21 04:00 Magnesium 1.9 mg/dL (1.7-2.3) 03/18/21 04:30 Ferritin 1510 ng/mL (30-400) H 03/18/21 04:30 Total Bilirubin 1.6 mg/dL (0.15-1.2) H 03/19/21 04:00 AST 17 U/L (0-40) 03/19/21 04:00 ALT 25 U/L (0-41) 03/19/21 04:00 Alkaline Phosphatase 69 IU/L (40-130) 03/19/21 04:00 Lactate Dehydrogenase 660 U/L (135-225) H 03/06/21 03:35 C-Reactive Protein 13.1 mg/L (0.0-4.9) H 03/18/21 04:30 NT-Pro-B Natriuret Pep 287 pg/mL (0-125) H 03/05/21 14:35 Total Protein 4.1 g/dL (6.6-8.7) L 03/19/21 04:00 Albumin 2.5 g/dL (3.5-5.2) L 03/19/21 04:00 Globulin 1.6 g/dL (1.3-4.6) 03/19/21 04:00 Triglycerides 250 mg/dL (0-150) H 03/14/21 04:25 Procalcitonin 0.43 ng/mL (0-0.5) 03/19/21 04:00 Vancomycin Trough 15.0 ug/mL (10-15) 03/19/21 08:50 Nasal/Oral COVID-19 PCR Detected H 03/05/21 16:30 SARS-CoV-2 Ag (Rapid) Negative (Negative) 03/05/21 23:00 Blood Type A Positive 03/19/21 13:25 Rho(D) Type Positive 03/19/21 13:25 Impressions Chest CTA 03/09/21 13:47 IMPRESSION: Positive for subsegmental right lower lobe pulmonary embolism. Bilateral pneumonia consistent with COVID-19 pneumonia. Findings discussed with Dr. Edwards by Dr. Rodrick Espinosa at 4:37 p.m., 03/09/2021. Radiation Dose CTDIVOL = (mGy): DLP = 567.74 (mGy-cm) Chest X-Ray 03/19/21 12:38 IMPRESSION: 1. Right-sided chest tube unchanged in position. No obvious pneumothorax. 2. Bilateral pulmonary infiltrates most marked on the right. There has been slight improvement. 3. ET tube, enteric tube and left subclavian central line all unchanged in position. Chest CT 03/19/21 13:19 IMPRESSION: 1. Stable moderate right anterior and peripheral pneumothorax. Right chest tube appears in good position with tip in the right lung apex. 2. No significant chest wall hematoma. Small amount of edema and induration at the chest tube insertion site. 3. Small amount of fluid in the right pleural space. 4. Diffuse bilateral hazy groundglass infiltrates compatible with COVID 19 pneumonia. Progressed airspace consolidation right lower lobe with air bronchograms. Small amount of airspace consolidation left lower lobe. 5. Endotracheal tube with tip above the [place]. Notified Jose Alfredo Priest MD at 03/19/2021 2:39 PM. Micro: Microbiology 03/19/21 20:06 Blood Culture - Preliminary Blood SPECIMEN COLLECTED 03/19/21 20:00 Blood Culture - Preliminary Blood SPECIMEN COLLECTED 03/16/21 09:00 Blood Culture - Preliminary Blood Staphylococcus sp coag neg 03/16/21 09:05 Blood Culture - Preliminary Blood 03/18/21 13:30 Gram Stain - Final Sputum - Endotracheal Tube Aspirate A&P Assessment and plan (1) Acute respiratory failure due to severe acute respiratory syndrome coronavirus 2 (SARS-CoV-2) infection: Status: Acute (2) D-dimer, elevated: Status: Acute (3) Transaminitis: Status: Acute (4) DVT prophylaxis: Status: Acute (5) Pneumonia due to gram-negative bacteria: Status: Acute (6) Pulmonary embolism associated with COVID-19: Status: Acute Additional A&P Information #Acute respiratory #acute hypoxic respiratory failure secondary to ARDS due to COVID-19 pneumonia complicated by right subsegmental PE #Right lung pneumothorax-s/p chest tube placement 03/17/2021 - #Stenotrophomonas maltophilia-sensitive to Levaquin #Transaminitis due to COVID-19 pneumonia-improved #Hypothyroidism #BPH #Hypertension - Covid PCR positive, CRP 138 > 13 - CTA Positive for PE - intubated 03/09/2021, sedated and connected to ventilator-completed 2 proning sessions -Successful awakening trial and breathing trial, following commands-extubated to high flow 50 L 50% on 03/14/2021 -Reintubated 03/16/2021 night and ET tube exchanged immediately after intubation -ET tube cuff leak noted again 03/17/21 and changed -Chest x-ray right large pneumothorax-s/p chest tube placement 03/17/21-post procedure chest x-ray showed significant improvement; 12 hours after chest tube placement patient started Sanguinous discharge-possibly chest tube might have eroded subcostal blood vessel. held lovenox (being given for PE), and monitor H&H and transfuse to keep h&h > 02/13 - CT chest 03/19/21 showed: Stable moderate right anterior and peripheral pneumothorax. Right chest tube appears in good position with tip in the right lung apex. - Dexamethasone 10mg daily x 14 days - tapered to 3mg daily for 5 days -DuoNeb nebulizations and Pulmicort nebulization scheduled -completed remdesivir 5-day protocol started 03/06/2021 and extended course -On dexamethasone 6 mg daily started 03/05/2021 -Monitor inflammatory markers every 48 hours -s/p 1 dose of Actemra 03/09/2021 -Urine Legionella negative; bacterial antigens negative; MRSA nares negative, low procalcitonin- -Sputum cultures 03/10/2021 + for Stenotrophomonas maltophilia on levaquin 03/13/21 - afebrile- wbc 46K yesterdaydown to 17K today- Cuevas cultures pending - already broaden coverage with vancomycin, levaquin and imipenam -+798cc / + 2.52L ; k 3.4 - supplemented -Monitor renal functions and urine output-try to keep negative to even -Flomax 0.4 mg p.o. daily for BPH -held Lovenox 100 q12 hr for Right subsegmental PE -Levothyroxine 200 mcg PO daily -Diabetes-A1c 7.5 -Continue tube feeds -Sugars controlled, insulin scale coverage-monitor sugars -P2rpltougk for GI prophylaxis -Full code -Prognosis guarded -updated family -about grave prognosis, worsening covid, superimposed stenotrophomonas bacterial infection, subsegmental PE, loculated pneumothorax, complicated by bleeding through chest tube on anticoagulation. Daughter verbalized understanding and wanted to do everything to do for now and will decide on further goals of care after talking pt.s . Discussed with hospitalist, RN, RT covering the patient Attestations Medical Necessity Statement*: Acute hypoxic respiratory failure secondary to ARDS due to COVID-19 pneumonia complicated by pulmonary embolism requiring mechanical ventilation for respiratory support Time Spent in Patient Care: Greater than 35 minutes (>than 50% of time spent in counselling and/or direct pt care on unit). Critical Care Time: The high probability of a clinically significant, sudden or life threatening deterioration of the patient's [respiratory, hepatic, endocrine] system(s) required my full and direct attention, intervention and personal management. The critical care time is as shown. This time is in addition to time spent performing any reported procedures but includes the following: [x] Data and vital sign review and interpretation [x] Patient assessment, examination and intervention [x] Documentation [x] Medication orders and management Critical Care Time (min): 60 Coding Level of Care Code Acute Machine Inspector for [facility] Fwd Diagnoses Acute respiratory failure due to severe acute respiratory syndrome coronavirus 2 (SARS-CoV-2) infection U07.1; J96.00 D-dimer, elevated R79.89 Transaminitis R74.01 DVT prophylaxis Z29.9 Pneumonia due to gram-negative bacteria J15.6 Pulmonary embolism associated with COVID-19 U07.1; I26.99
[2021-03-19 21:21] LABS: Basophils # 0.1 10^3/uL (0.0-0.1); Basophils % 0.2 %; Eosinophils % 0.1 %; Hematocrit 31.1 % (42.0-52.0); Hemoglobin 10.3 g/dL (11.7-16.6); Lymphocytes # 0.3 10^3/uL (0.8-4.8); Lymphocytes % 1.6 %; Mean Corpuscular HGB Conc 33.1 g/dL (30.0-36.0); Mean Corpuscular Hemoglobin 30.7 pg (28.0-34.0); Mean Corpuscular Volume 92.6 fl (80-94); Mean Platelet Volume 10.1 fL (7.4-10.4); Monocytes # 1.1 10^3/uL (0.2-0.9); Monocytes % 4.8 %; Neutrophils # 19.93 10^3/uL (1.8-7.7); Nucleated Red Blood Cells % 0 %; Platelet Count 140 10^3/cmm (130-400); Red Blood Count 3.36 10^6/uL (4.1-5.3); Red Cell Distribution Width 15.6 % (12.1-15.1); White Blood Count 21.7 10^3/uL (4.0-10.0)
[2021-03-19] MEDS: dexamethasone 4 mg/mL INJ 3 MG IVP (21:55)
[2021-03-20] VITALS (109 sets, daily range): BP systolic 89–126; BP diastolic 46–72; PULSE 64–93; RESP 19–35; TEMP 36.6–37.9; O2SAT 90–97
[2021-03-20] MEDS: dexmedetomidine 400 MCG in sodium chloride 0.9% (100 ml) 100 ML 17.67 MCG IV ×4 (00:03→20:26)
[2021-03-20] MEDS: propofol 1,000 MG/100 ML INJ 16.57 MG IV (00:23)
[2021-03-20 00:50] LABS: LAB Peripheral Smear Sent for Review
[2021-03-20] MEDS: vancomycin 1,500 MG/300 ML PIGGYBACK 200 MG IV ×3 (01:45→18:18)
[2021-03-20] MEDS: ipratropium-albuterol 3 mL Neb INHALATION ×5 (03:43→20:01)
[2021-03-20] MEDS: LORazepam 2 mg/mL INJ 1 mL IVP (03:58)
--- NOTE | 2021-03-20 04:05 | PC.NURSE ---
Sedation weaned throughout the night to assess neurological status. 0345, respiratory rate increased to 40's with O2 sat 86-88%, eyes open, not following any commands slight withdraw to painful stimuli noted. Ativan 2mg given IVP and sedation drips returned to baseline. Will titrate as needed. Current respiratory rate 26 with labored respirations and O2 sat 91% on 60% FIO2.
--- NOTE | 2021-03-20 05:12 | XR_ITS ---
WS: [id number] Exam: XR chest 1V portable [id number] Date/Time of Exam: 03/20/2021 5:17 AM Reason For Exam: intubated, chest tube Comparison 03/19/2021. Widespread groundglass infiltrates throughout both lungs show little change. Right-sided thoracostomy tube is unchanged in position. No obvious pneumothorax. A left-sided central line probably ends in t he SVC. An enteric tube is looped in the gastric cardia. Normal cardiomediastinal silhouette. ET tube ends about 4 cm above the [place] in good position. XR/XR chest 1V portable [id number] IMPRESSION: 1. Bilateral pulmonary infiltrates showing little change. 2. ET tube, enteric tube, and central line all appear to be in satisfactory pos ition. Right-sided chest tube is unchanged in location. No obvious pneumothorax .
[2021-03-20] MEDS: levothyroxine 200 mcg Tablet PO (06:06)
[2021-03-20] MEDS: propofol 1,000 MG/100 ML INJ 27.62 MG IV ×6 (06:42→23:37)
[2021-03-20 08:00] LABS: Basophils % 0.1 %; Eosinophils % 0.1 %; Hemoglobin 9.7 g/dL (11.7-16.6); Lymphocytes # 0.3 10^3/uL (0.8-4.8); Lymphocytes % 2.1 %; Mean Corpuscular HGB Conc 34.6 g/dL (30.0-36.0); Mean Corpuscular Hemoglobin 30.8 pg (28.0-34.0); Mean Corpuscular Volume 88.9 fl (80-94); Mean Platelet Volume 10.3 fL (7.4-10.4); Monocytes # 0.8 10^3/uL (0.2-0.9); Monocytes % 4.9 %; Neutrophils # 14.89 10^3/uL (1.8-7.7); Neutrophils % 91.6 %; Nucleated Red Blood Cells % 0.2 %; Platelet Count 140 10^3/cmm (130-400); Red Blood Count 3.15 10^6/uL (4.1-5.3); Red Cell Distribution Width 15.5 % (12.1-15.1); White Blood Count 16.3 10^3/uL (4.0-10.0)
[2021-03-20 08:28] LABS: Alanine Aminotransferase 30 U/L (0-41); Albumin Level 2.3 g/dL (3.5-5.2); Alkaline Phosphatase 74 IU/L (40-130); Aspartate Amino Transferase 20 U/L (0-40); Blood Urea Nitrogen 26 mg/dL (8-23); Calcium 7.1 mg/dL (8.5-10.5); Carbon Dioxide 28 mmol/L (22-29); Chloride 107 mmol/L (98-107); Globulin 1.9 g/dL (1.3-4.6); Glomerular Filtration Rate 304.8 mL/min (90-130); Glucose 132 mg/dL (65-115); Osmolality Calculated 299 mOsm/kg (285-295); Sodium 141 mmol/L (136-145); Total Bilirubin 1.2 mg/dL (0.15-1.2); Total Protein 4.2 g/dL (6.6-8.7)
[2021-03-20 08:44] LABS: Glucose Point of Care 137 mg/dL (70-110)
[2021-03-20] MEDS: budesonide 0.5 mg/2 mL Neb INHALATION ×2 (08:56→20:01)
[2021-03-20] MEDS: famotidine 20 mg/2 mL INJ IVP ×2 (09:02→20:19)
--- NOTE | 2021-03-20 10:50 | PC.SOCIAL ---
IMM not Updated IMM not updated. Pt is still intubated & not expected to discharge within the next 24-48hrs.
--- NOTE | 2021-03-20 10:50 | PC.SOCIAL ---
IMM Updated Updated pt's on Pg 2 IMM. No questions voiced. Provided pt care nurse a copy to give to pt. Initialed, dated, & timed copy in chart.
--- NOTE | 2021-03-20 11:59 | PC.NUTR ---
Tube feeding recommendation: Continue to recommend initiation of TF as soon as medically appropriate given 12 days of no nutritional intake (with exception of 25% X 2 meals during extubation period). Recommend Jevity 1.2, starting at 15 ml/hr, increasing by 10 ml/hr q 8 hours to goal rate of 70 ml/hr, with 100 ml H2O flushes q 4 hrs, to provide 2016 kcal, 92 g PRO, and 1956 ml fluid. Propofol providing 729 kcal/day at current rate. D5W providing additional 408 kcal, but unclear if running today. If unable to safely feed enterally, continue to recommend initiation of TPN in accordance with [facility] recommendations. Notified Dr. Priest. See full RD assessments for further details.
[2021-03-20 13:40] LABS: Glucose Point of Care 129 mg/dL (70-110)
--- NOTE | 2021-03-20 16:23 | P.PN_ITS ---
Subjective Subjective: Interval history: Patient has remained hemodynamically stable. Afebrile. No further bleeding through chest tube. Lovenox held since yesterday morning. Continues to remain sedated, on pressor support with Levophed but lesser than yesterday. Documented urine output 1800 in the last 24 hours. Medications: Reviewed: Yes Vitals/I&O/Wt Last Vital Signs Temp 98.9 F 03/20/21 12:00 Pulse 69 03/20/21 16:18 Resp 25 H 03/20/21 16:15 BP 99/53 03/20/21 15:00 Pulse Ox 92 03/20/21 16:15 03/20/21 03/20/21 03/20/21 06:59 14:59 22:59 Intake Total 967.461 / 3584.020 867.637 / 867.637 Output Total 960 / 2130 Balance 7.461 / 1454.020 867.637 / 867.637 Weight last 48 hrs Weight 94.211 kg Weight 94.892 kg Physical Exam Narrative: EXAM NARRATIVE: General: Intubated on MV HEENT: ET tube in place. Chest: Vent support CVS: S1-S2 regular, no murmurs, no tachycardia, no gallops, no rubs Abdomen:non-distended : Rodríguez Neuro: Sedation Urinary Catheter Management^: Rodríguez: Cath Placed During This Visit: yes Reason for Continuing Indwelling Catheter: Accurate Measurement of Urinary Output in Critically Ill Patients Urinary Catheter Date of Insertion: 03/09/21 Urinary Catheter Time of Insertion: 22:34 Data : 03/20/21 07:39 03/20/21 07:39 Micro: Microbiology 03/18/21 13:30 Gram Stain - Final Sputum - Endotracheal Tube Aspirate Sputum Culture - Preliminary Gram Negative Rods 03/18/21 13:20 Body Fluid Culture - Preliminary Pleural Fluid 03/19/21 20:06 Blood Culture - Preliminary Blood SPECIMEN COLLECTED 03/19/21 20:00 Blood Culture - Preliminary Blood SPECIMEN COLLECTED 03/16/21 09:00 Blood Culture - Preliminary Blood Staphylococcus sp coag neg 03/16/21 09:05 Blood Culture - Preliminary Blood A&P Assessment and plan (1) Septic shock: Status: Acute (2) Acute respiratory failure due to severe acute respiratory syndrome coronavirus 2 (SARS-CoV-2) infection: Status: Acute (3) Pulmonary embolism associated with COVID-19: Status: Acute (4) Infection due to Stenotrophomonas maltophilia: Status: Acute (5) Pneumothorax: Status: Acute (6) Transaminitis: Status: Acute (7) D-dimer, elevated: Status: Acute Additional A&P Information Acute respiratory failure with hypoxia due to COVID 19 pneumonia with acute pulmonary embolism along with superimposed bacterial infection and hemo-pneu mothorax Intubated and placed on MV on 03/09 -extubated 03/14 Reintubated on 03/17 am. Requiring multiple tube exchanges because of cuff leak. Chest tube placement on March 17 - S/p Remdesivir, Actemera - Continue decadron. Patient has finished 10-day course so we will decrease the dose to 3 mg IV daily for next 5 days and then stop. - Noted to have a bleed including chest tube. CT chest results appreciated.. Case discussed with radiologist and pulmonology team. Possibility of chest tube eroding subcostal blood vessel leading to bleeding. If patient continues to remain stable can plan for replacing the tube. Unfortunately if he starts bleeding again patient is at high risk for cardiothoracic surgery. The above has been discussed with family. Continue to hold off on Lovenox for now. Repeat hemoglobin has remained stable. Patient has leukocytosis along with septic shock. Sputum culture growing stenotrophomonas. Repeat sputum culture from ET tube growing gram-negative rods. For now continue Levaquin, imipenem, vancomycin. Repeat sputum culture and fluid culture for now pending. If patient does not improve or leukocytosis worsens can plan for bronchoscopy. Appreciate pulmonary recommendations. Septic shock: Antibiotics as above. Blood cultures so far negative. Pending. Continue Levophed keeping mean arterial pressure over 65. Check stool studies to rule out C. difficile. Strict input output charting. Transaminitis - Resolved - LFT returned to normal Hypothyroidism hx of papillary thyroid carcinoma - Status post thyroidectomy - Levothyroxine 200 mcg p.o. daily History of laryngeal cancer. GI prophylaxis - Pepcid 20 mg IV BID Hold Lovenox given bleeding through chest tube. Patient remains stable in next 24 hours with plan to start on tube feedings. We will plan to start slow tube feedings to prevent refeeding syndrome as has been n.p.o. for over a week during this hospitalization. Full code. Prognosis: Severely guarded. Family including daughter updated about grave prognosis, worsening covid, superimposed stenotrophomonas bacterial infection, subsegmental PE, loculated pneumothorax, complicated by bleeding through chest tube on anticoagulation. Daughter verbalized understanding and wanted to do everything to do for now and will decide on further goals of care after talking pt.s . Attestations Medical Necessity Statement*: Requires further hospitalization for management of ARDS secondary to COVID-19 pneumonia, ventilator dependent, hemopneumothorax in setting of full dose anticoagulation for pulmonary embolism, septic shock Critical Care Time: The high probability of a clinically significant, sudden or life threatening deterioration of the patient's [pulmonary, cardiac, ID] sys tem(s) required my full and direct attention, intervention and personal management. The critical care time is as shown. This time is in addition to time spent performing any reported procedures but includes the following: [x] Data and vital sign review and interpretation [x] Patient assessment, examination and intervention [x] Documentation [x] Medication orders and management Critical Care Time (min): 80 Coding Level of Care Code Acute Multimedia Services Manager for [facility] Fwd Diagnoses Septic shock A41.9; R65.21 Acute respiratory failure due to severe acute respiratory syndrome coronavirus 2 (SARS-CoV-2) infection U07.1; J96.00 Pulmonary embolism associated with COVID-19 U07.1; I26.99 Infection due to Stenotrophomonas maltophilia A49.8 Pneumothorax J93.9 Transaminitis R74.01 D-dimer, elevated R79.89
--- NOTE | 2021-03-20 18:39 | PM.ACPR ---
Procedure/Consent Time out: Time Out Performed: Yes Consent: Consent for Procedure: Consent obtained from other (indicate) () Procedure Narrative: Name of the procedure: Percutaneous tracheostomy. Indication: Prolonged mechanical ventilation. Medications: 1% lidocaine 10 mL, the patient was sedated and paralyzed in the intensive care unit. Description of the procedure: The thyroid cartilage, cricoid cartilage and suprasternal notch was identified and marked. A high-frequency ultrasound probe was also used to confirm the anatomic landmarks. The neck was extended by putting a roll under his shoulder. The bronchoscope was introduced through the endotracheal tube. The endotracheal tube was pulled until it reached the subglottic area. A good visualization of the upper trachea was obtained with the bronchoscope. The site was prepared using sterile technique. The skin and subcutaneous tissue was anesthetized with 1% lidocaine. A vertical incision was made in the midline overlying the second and third tracheal ring. The incision was bluntly dissected with a hemostat. The needle was then inserted in between the second and third tracheal ring. The tip of the needle was noted in the center of the upper trachea. The guidewire was then introduced. Using modified Seldinger technique a size 6 Shiley tracheostomy tube was inserted. Post procedure bronchoscopy through the tracheostomy tube revealed good positioning of the distal end of the tracheostomy tube. The tracheostomy tube was in the lumen and not touching the butler. The tracheostomy tube was secured with 2 sutures and tracheostomy tie. Blood loss: 2 mL. Complications: None. Chest x-ray: Pending Acute Procedures Epistaxis Control: Time out performed: Yes
[2021-03-20 18:47] LABS: Glucose Point of Care 125 mg/dL (70-110)
--- NOTE | 2021-03-20 20:07 | PM.PN ---
Subjective Subjective: Interval history: - pt seen at bedside - appears hemodynmically and clinincally stable - no more bloody chest tube output and stable H&H - FIO2 requirement at 70% - Labs and imaging reviewed Medications: Reviewed: Yes Vitals/I&O/Wt Last Vital Signs Temp 98.9 F 03/20/21 12:00 Pulse 67 03/20/21 20:01 Resp 25 H 03/20/21 20:01 BP 99/53 03/20/21 15:00 Pulse Ox 91 03/20/21 20:01 03/20/21 03/20/21 03/20/21 06:59 14:59 22:59 Intake Total 967.461 / 3584.020 867.637 / 867.637 371.21 / 1238.847 Output Total 960 / 2130 900 / 900 Balance 7.461 / 1454.020 867.637 / 867.637 -528.79 / 338.847 Weight last 48 hrs Weight 207 lb 11.2 oz Weight 209 lb 3.2 oz Physical Exam Narrative: EXAM NARRATIVE: General: Lying in bed, sedated and connected to ventilator HEENT:NCAT, PERRLA, EOMI Neck: Supple Lungs: Bilateral diffuse crackles; right chest tube in place; no bloody secretions in the atrium Heart: s1/s2, RRR Abd: soft, NT, ND, BS + Normoactive Extremities: No edema 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 and 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 SKIN: no rash LDA: # CVC: Left subclavian central line 03/09/2021 # Rodríguez: 03/09/2021 # Right side chest tube 03/17/21 Urinary Catheter Management^: Rodríguez: Cath Placed During This Visit: yes Reason for Continuing Indwelling Catheter: Accurate Measurement of Urinary Output in Critically Ill Patients Urinary Catheter Date of Insertion: 03/09/21 Urinary Catheter Time of Insertion: 22:34 Data : 03/20/21 07:39 03/20/21 07:39 Other Labs: Laboratory Results WBC 16.3 10^3/uL (4.0-10.0) H 03/20/21 07:39 RBC 3.15 10^6/uL (4.1-5.3) L 03/20/21 07:39 Hgb 9.7 g/dL (11.7-16.6) L 03/20/21 07:39 Hct 28.0 % (42.0-52.0) L 03/20/21 07:39 MCV 88.9 fl (80-94) 03/20/21 07:39 MCH 30.8 pg (28.0-34.0) 03/20/21 07:39 MCHC 34.6 g/dL (30.0-36.0) 03/20/21 07:39 RDW 15.5 % (12.1-15.1) H 03/20/21 07:39 Plt Count 140 10^3/cmm (130-400) 03/20/21 07:39 MPV 10.3 fL (7.4-10.4) 03/20/21 07:39 Neut % (Auto) 91.6 % 03/20/21 07:39 Lymph % (Auto) 2.1 % 03/20/21 07:39 [place] % (Auto) 4.9 % 03/20/21 07:39 Eos % (Auto) 0.1 % 03/20/21 07:39 Baso % (Auto) 0.1 % 03/20/21 07:39 Neut # (Auto) 14.89 10^3/uL (1.8-7.7) H 03/20/21 07:39 Lymph # (Auto) 0.3 10^3/uL (0.8-4.8) L 03/20/21 07:39 [place] # (Auto) 0.8 10^3/uL (0.2-0.9) 03/20/21 07:39 Eos # (Auto) 0.0 10^3/uL (0.0-0.8) 03/20/21 07:39 Baso # (Auto) 0.0 10^3/uL (0.0-0.1) 03/20/21 07:39 Nucleated RBC % (auto) 0.2 % 03/20/21 07:39 Total Counted 100 (0-100) 03/19/21 04:00 Atypical Lymphs % 0.0 % (0-5) 03/19/21 04:00 Absolute Neutrophils 17.1 10^3/cmm (1.4-6.5) H 03/19/21 04:00 Segmented Neutrophils 90 % 03/19/21 04:00 Abs Segm Neuts (Man) 16.0 10/cmm (1.6-7.1) H 03/19/21 04:00 Band Neutrophils 6.0 % 03/19/21 04:00 Abs Band Neuts (Man) 1.1 10^3/cmm (0.0-1.2) 03/19/21 04:00 Absolute Lymphocytes 0.2 10^3/cmm (1.2-3.4) L 03/19/21 04:00 Lymphocytes (Manual) 1 % 03/19/21 04:00 Monocytes (Manual) 3.0 % 03/19/21 04:00 Absolute Monocytes 0.5 10^3/cmm (0.1-0.6) 03/19/21 04:00 Eosinophils (Manual) 0 % 03/19/21 04:00 Absolute Eosinophils 0.0 10^3/cmm (0.0-0.7) 03/19/21 04:00 Basophils (Manual) 0.0 % 03/19/21 04:00 Absolute Basophils 0.0 10^3/cmm (0.0-0.2) 03/19/21 04:00 Metamyelocytes 1.0 % 03/14/21 04:25 Myelocytes 1.0 % 03/14/21 04:25 Nucleated RBCs 1.0 /100WBC (0-1) 03/14/21 04:25 Nucleated RBCs # 0.0 /100WBC 03/20/21 07:39 Platelet Estimate Decreased (Normal) 03/19/21 04:00 PT 14.60 SECONDS (12.1-14.9) 03/19/21 08:50 INR 1.11 (0.8-1.2) 03/19/21 08:50 APTT 33.6 SECONDS (23.9-36.7) 03/19/21 08:50 Fibrinogen 341 mg/dL (174-498) 03/19/21 08:50 Fibrin Degrad Products Pos, 10-40 ug/mL (NEG) H 03/19/21 08:50 D-Dimer 1.51 ug/mIFEU (0-0.59) H 03/19/21 08:50 Specimen Type Arterial 03/19/21 18:27 Sample Site Radial, left 03/19/21 18:27 ABG pH 7.35 (7.35-7.45) 03/19/21 18:27 ABG pCO2 52.6 mmHg (35-45) H 03/19/21 18: ABG pO2 67.7 mmHg (80.0-100.0) L 03/19/21 18: ABG HCO3 28.9 mmol/L (22-26) H 03/19/21 18: ABG O2 Saturation 94.0 03/19/21 18: ABG Base Excess 2.8 mmol/L (-2.0-2.0) H 03/19/21 18: Gus Test Pos 03/19/21 18: VBG pH 7.47 (7.32-7.42) H 03/05/21 15:10 VBG pCO2 41.5 mmHg (41-51) 03/05/21 15:10 VBG pO2 29.2 mmHg (25-40) 03/05/21 15:10 VBG HCO3 30.0 mmol/L (24-28) H 03/05/21 15:10 VBG Base Excess 5.8 mmol/L (-3.0-3.0) H 03/05/21 15:10 VBG Hematocrit 7.5 % (42-52) L 03/05/21 15:10 A-a O2 Gradient 52.3 mmHg (5-10) H 03/19/21 18: Hematocrit 24.2 % (42-52) L 03/19/21 18:27 Hgb O2 Saturation 91.5 % (95-100) L 03/19/21 18: Carboxyhemoglobin 1.7 %THgb (0.4-20.1) 03/19/21 18: Methemoglobin 1.0 % (0.4-1.5) 03/19/21 18: Total Hemoglobin 7.9 g/dL (14-18) L 03/19/21 18: Sodium 141.0 mmol/L (131-143) 03/19/21 18: Potassium 3.5 mmol/L (3.5-5.0) 03/19/21 18: Glucose 131.0 mg/dL (70-115) H 03/19/21 18:27 Ionized Calcium 1.2 mmol/L (1.1-1.4) 03/19/21 18:27 O2 Delivery Device Vent 03/19/21 18:27 O2 Liters/Min 60.0 % 03/16/21 04:45 Mechanical Rate 20.0 03/17/21 04:50 FiO2 75.0 % 03/19/21 18:27 Tidal Volume 0.50 03/17/21 04:50 PEEP 5.0 cmH20 03/19/21 18:27 [employer]visor [employer] Cak 03/19/21 18:27 Sodium 141 mmol/L (136-145) 03/20/21 07:39 Potassium 4.0 mmol/L (3.5-5.1) 03/20/21 07:39 Chloride 107 mmol/L (98-107) 03/20/21 07:39 Carbon Dioxide 28 mmol/L (22-29) 03/20/21 07:39 Anion Gap 10.0 (5-19) 03/20/21 07:39 BUN 26 mg/dL (8-23) H 03/20/21 07:39 Creatinine 0.3 mg/dL (0.7-1.2) L 03/20/21 07:39 GFR Calculation 304.8 mL/min (90-130) H 03/20/21 07:39 Glucose 132 mg/dL (65-115) H 03/20/21 07:39 POC Glucose 125 mg/dL (70-110) H 03/20/21 18:22 Calculated Osmolality 299 mOsm/kg (285-295) H 03/20/21 07:39 Lactic Acid 1.4 mmol/L (0.5-2.2) 03/05/21 14:35 Calcium 7.1 mg/dL (8.5-10.5) L 03/20/21 07:39 Magnesium 1.9 mg/dL (1.7-2.3) 03/18/21 04:30 Ferritin 1510 ng/mL (30-400) H 03/18/21 04:30 Total Bilirubin 1.2 mg/dL (0.15-1.2) 03/20/21 07:39 AST 20 U/L (0-40) 03/20/21 07:39 ALT 30 U/L (0-41) 03/20/21 07:39 Alkaline Phosphatase 74 IU/L (40-130) 03/20/21 07:39 Lactate Dehydrogenase 660 U/L (135-225) H 03/06/21 03:35 C-Reactive Protein 13.1 mg/L (0.0-4.9) H 03/18/21 04:30 NT-Pro-B Natriuret Pep 287 pg/mL (0-125) H 03/05/21 14:35 Total Protein 4.2 g/dL (6.6-8.7) L 03/20/21 07:39 Albumin 2.3 g/dL (3.5-5.2) L 03/20/21 07:39 Globulin 1.9 g/dL (1.3-4.6) 03/20/21 07:39 Triglycerides 250 mg/dL (0-150) H 03/14/21 04:25 Procalcitonin 0.43 ng/mL (0-0.5) 03/19/21 04:00 Vancomycin Trough 15.0 ug/mL (10-15) 03/19/21 08:50 Nasal/Oral COVID-19 PCR Detected H 03/05/21 16:30 SARS-CoV-2 Ag (Rapid) Negative (Negative) 03/05/21 23:00 Blood Type A Positive 03/19/21 13:25 Rho(D) Type Positive 03/19/21 13:25 Impressions Chest CTA 03/09/21 13:47 IMPRESSION: Positive for subsegmental right lower lobe pulmonary embolism. Bilateral pneumonia consistent with COVID-19 pneumonia. Findings discussed with Dr. Edwards by Dr. Rodrick Espinosa at 4:37 p.m., 03/09/2021. Radiation Dose CTDIVOL = (mGy): DLP = 567.74 (mGy-cm) Chest CT 03/19/21 13:19 IMPRESSION: 1. Stable moderate right anterior and peripheral pneumothorax. Right chest tube appears in good position with tip in the right lung apex. 2. No significant chest wall hematoma. Small amount of edema and induration at the chest tube insertion site. 3. Small amount of fluid in the right pleural space. 4. Diffuse bilateral hazy groundglass infiltrates compatible with COVID 19 pneumonia. Progressed airspace consolidation right lower lobe with air bronchograms. Small amount of airspace consolidation left lower lobe. 5. Endotracheal tube with tip above the [place]. Notified Jose Alfredo Priest MD at 03/19/2021 2:39 PM. Chest X-Ray 03/20/21 05:12 IMPRESSION: 1. Bilateral pulmonary infiltrates showing little change. 2. ET tube, enteric tube, and central line all appear to be in satisfactory position. Right-sided chest tube is unchanged in location. No obvious pneumothorax. Micro: Microbiology 03/18/21 13:30 Gram Stain - Final Sputum - Endotracheal Tube Aspirate Sputum Culture - Preliminary Gram Negative Rods 03/18/21 13:20 Body Fluid Culture - Preliminary Pleural Fluid 03/19/21 20:06 Blood Culture - Preliminary Blood SPECIMEN COLLECTED 03/19/21 20:00 Blood Culture - Preliminary Blood SPECIMEN COLLECTED 03/16/21 09:00 Blood Culture - Preliminary Blood Staphylococcus sp coag neg 03/16/21 09:05 Blood Culture - Preliminary Blood A&P Assessment and plan (1) Acute respiratory failure due to severe acute respiratory syndrome coronavirus 2 (SARS-CoV-2) infection: Status: Acute (2) D-dimer, elevated: Status: Acute (3) Transaminitis: Status: Acute (4) DVT prophylaxis: Status: Acute (5) Pneumonia due to gram-negative bacteria: Status: Acute (6) Pulmonary embolism associated with COVID-19: Status: Acute Additional A&P Information #Acute respiratory #acute hypoxic respiratory failure secondary to ARDS due to COVID-19 pneumonia complicated by right subsegmental PE #Right lung pneumothorax-s/p chest tube placement 03/17/2021 - #Stenotrophomonas maltophilia-sensitive to Levaquin #Transaminitis due to COVID-19 pneumonia-improved #Hypothyroidism #BPH #Hypertension - Covid PCR positive, CRP 138 > 13 - CTA Positive for PE - intubated 03/09/2021, sedated and connected to ventilator-completed 2 proning sessions -Successful awakening trial and breathing trial, following commands-extubated to high flow 50 L 50% on 03/14/2021 -Reintubated 03/16/2021 night for gradual deterioration and worsening of COVID ARDS and ET tube exchanged immediately after intubation -ET tube cuff leak noted again 03/17/21 and changed -Chest x-ray right large pneumothorax-s/p chest tube placement 03/17/21-post procedure chest x-ray showed significant improvement; 12 hours after chest tube placement patient started Sanguinous discharge-possibly chest tube might have eroded subcostal blood vessel; held lovenox (being given for PE), and monitor H&H and transfuse to keep h&h > 02/13 - CT chest 03/19/21 showed: Stable moderate right anterior and peripheral pneumothorax. Right chest tube appears in good position with tip in the right lung apex. - Dexamethasone 10mg daily x 14 days - tapered to 3mg daily for 5 days -DuoNeb nebulizations and Pulmicort nebulization scheduled -completed remdesivir 5-day protocol started 03/06/2021 and extended course -On dexamethasone 6 mg daily started 03/05/2021 -Monitor inflammatory markers every 48 hours -s/p 1 dose of Actemra 03/09/2021 -Urine Legionella negative; bacterial antigens negative; MRSA nares negative, low procalcitonin- -Sputum cultures 03/10/2021 + for Stenotrophomonas maltophilia on levaquin 03/13/21 - low grade fevers wbc down to 16K today- C[place]vas cultures pending - already broaden coverage with vancomycin, levaquin and imipenam -+1.4L / + 4.3L ; k 3.4 - supplemented -Monitor renal functions and urine output-try to keep negative to even -Flomax 0.4 mg p.o. daily for BPH -held Lovenox 100 q12 hr for Right subsegmental PE in view of bloody chest tube drainage -Levothyroxine 200 mcg PO daily -Diabetes-A1c 7.5 -Continue tube feeds -Sugars controlled, insulin scale coverage-monitor sugars -[id number] for GI prophylaxis -Full code -Prognosis guarded -updated family -about grave prognosis, worsening covid, superimposed stenotrophomonas bacterial infection, subsegmental PE, loculated pneumothorax, complicated by bleeding through chest tube on anticoagulation. Daughter verbalized understanding and wanted to do everything to do for now and will decide on further goals of care after talking pt.s . Discussed with hospitalist, RN, RT covering the patient Attestations Medical Necessity Statement*: Acute hypoxic respiratory failure secondary to ARDS due to COVID-19 pneumonia complicated by pulmonary embolism requiring mechanical ventilation for respiratory support Time Spent in Patient Care: Greater than 35 minutes (>than 50% of time spent in counselling and/or direct pt care on unit). Critical Care Time: The high probability of a clinically significant, sudden or life threatening deterioration of the patient's [respiratory, hepatic, endocrine] system(s) required my full and direct attention, intervention and personal management. The critical care time is as shown. 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
[2021-03-20] MEDS: sennosides-docusate Tablet 1 TAB PO (20:19)
[2021-03-20 22:12] LABS: Glucose Point of Care 102 mg/dL (70-110)
[2021-03-20] MEDS: dexamethasone 4 mg/mL INJ 3 MG IVP (22:44)
[2021-03-21] VITALS (76 sets, daily range): BP systolic 90–180; BP diastolic 46–97; PULSE 62–135; RESP 20–34; TEMP 37–38.1; O2SAT 90–99
[2021-03-21] MEDS: acetaminophen 325 mg Tablet 650 MG PO (00:11)
[2021-03-21] MEDS: ipratropium-albuterol 3 mL Neb INHALATION ×7 (00:24→23:28)
[2021-03-21] MEDS: vancomycin 1,500 MG/300 ML PIGGYBACK 200 MG IV ×3 (01:52→17:19)
[2021-03-21] MEDS: dexmedetomidine 400 MCG in sodium chloride 0.9% (100 ml) 100 ML 17.67 MCG IV (02:25)
[2021-03-21 02:42] LABS: Glucose Point of Care 118 mg/dL (70-110)
[2021-03-21] MEDS: propofol 1,000 MG/100 ML INJ 27.62 MG IV ×6 (03:06→23:52)
[2021-03-21] MEDS: levothyroxine 200 mcg Tablet PO (06:04)
[2021-03-21 06:14] LABS: Basophils % 0.1 %; Eosinophils # 0.1 10^3/uL (0.0-0.8); Eosinophils % 0.4 %; Hematocrit 30.6 % (42.0-52.0); Hemoglobin 10.2 g/dL (11.7-16.6); Lymphocytes # 0.3 10^3/uL (0.8-4.8); Mean Corpuscular HGB Conc 33.3 g/dL (30.0-36.0); Mean Corpuscular Hemoglobin 31.1 pg (28.0-34.0); Mean Corpuscular Volume 93.3 fl (80-94); Mean Platelet Volume 10.1 fL (7.4-10.4); Monocytes # 0.8 10^3/uL (0.2-0.9); Monocytes % 6.2 %; Neutrophils # 11.97 10^3/uL (1.8-7.7); Neutrophils % 89.1 %; Nucleated Red Blood Cells % 0 %; Platelet Count 123 10^3/cmm (130-400); Red Blood Count 3.28 10^6/uL (4.1-5.3); Red Cell Distribution Width 16.4 % (12.1-15.1); White Blood Count 13.5 10^3/uL (4.0-10.0)
[2021-03-21 06:45] LABS: Alanine Aminotransferase 32 U/L (0-41); Albumin Level 2.5 g/dL (3.5-5.2); Alkaline Phosphatase 146 IU/L (40-130); Anion Gap 7.5 (5-19); Aspartate Amino Transferase 23 U/L (0-40); Blood Urea Nitrogen 22 mg/dL (8-23); Calcium 7.2 mg/dL (8.5-10.5); Carbon Dioxide 32 mmol/L (22-29); Chloride 108 mmol/L (98-107); Glomerular Filtration Rate 304.8 mL/min (90-130); Glucose 147 mg/dL (65-115); Osmolality Calculated 302 mOsm/kg (285-295); Potassium 4.5 mmol/L (3.5-5.1); Sodium 143 mmol/L (136-145); Total Bilirubin 0.7 mg/dL (0.15-1.2); Total Protein 4.5 g/dL (6.6-8.7)
[2021-03-21 07:21] LABS: Slide Review Slide Review Perform
[2021-03-21 07:45] LABS: Glucose Point of Care 166 mg/dL (70-110)
[2021-03-21] MEDS: famotidine 20 mg/2 mL INJ IVP ×2 (08:00→19:46)
[2021-03-21] MEDS: aspirin 81 mg EC Tablet PO (08:00)
[2021-03-21] MEDS: docusate sodium 100 mg Capsule PO ×2 (08:00→17:19)
[2021-03-21] MEDS: budesonide 0.5 mg/2 mL Neb INHALATION ×2 (08:38→20:18)
[2021-03-21] MEDS: dexmedetomidine 400 MCG in sodium chloride 0.9% (100 ml) 100 ML 12.62 MCG IV ×3 (08:47→17:31)
[2021-03-21] MEDS: FUROsemide 10 mg/mL SDV 2mL 20 MG IVP (09:28)
[2021-03-21 10:14] LABS: Iron 31 ug/dL (59-158); Percent Saturation 20.8 % (20-50); Thyroid Stimulating Hormone 0.14 uIU/mL (0.27-4.20); Total Iron Binding Capacity 149 mcg/dl; Unsaturated Iron Binding 118 ug/dL (112-347)
[2021-03-21 11:43] LABS: Glucose Point of Care 152 mg/dL (70-110)
--- NOTE | 2021-03-21 13:38 | P.PN_ITS ---
Subjective Subjective: Interval history: -Low-grade fever 100.5 WBC count trending down- 13 K -FiO2 requirement down to 60% -90 mL of serosanguineous fluid noted in the chest tube -Given 30 cc normal saline through the chest tube -Labs and imaging reviewed Medications: Reviewed: Yes Vitals/I&O/Wt Last Vital Signs Temp 98.6 F 03/21/21 12:00 Pulse 99 03/21/21 13:00 Resp 20 H 03/21/21 12:07 BP 149/71 03/21/21 13:00 Pulse Ox 95 03/21/21 13:00 03/20/21 03/21/21 03/21/21 22:59 06:59 14:59 Intake Total 1210.355 / 2077.992 1216.235 / 3294.227 778.401 / 778.401 Output Total 900 / 900 1650 / 2550 1450 / 1450 Balance 310.355 / 1177.992 -433.765 / 744.227 -671.599 / -671.599 Weight last 48 hrs Weight 207 lb 11.2 oz Physical Exam Narrative: EXAM NARRATIVE: General: Lying in bed, sedated and connected to ventilator HEENT:NCAT, PERRLA, EOMI Neck: Supple Lungs: Bilateral diffuse crackles; right chest tube in place; no bloody secretions in the atrium Heart: s1/s2, RRR Abd: soft, NT, ND, BS + Normoactive Extremities: No edema AVIONICS INSTALLER: Sedated and 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 SKIN: no rash LDA: # CVC: Left subclavian central line 03/09/2021 # Rodríguez: 03/09/2021 # Right side chest tube 03/17/21 Urinary Catheter Management^: Rodríguez: Cath Placed During This Visit: yes Reason for Continuing Indwelling Catheter: Accurate Measurement of Urinary Output in Critically Ill Patients Urinary Catheter Date of Insertion: 03/09/21 Urinary Catheter Time of Insertion: 22:34 Data : 03/21/21 16:15 03/21/21 05:43 Other Labs: Laboratory Results WBC 13.5 10^3/uL (4.0-10.0) H 03/21/21 05:43 RBC 3.28 10^6/uL (4.1-5.3) L 03/21/21 05:43 Hgb 10.2 g/dL (11.7-16.6) L 03/21/21 05:43 Hct 30.6 % (42.0-52.0) L 03/21/21 05:43 MCV 93.3 fl (80-94) 03/21/21 05:43 MCH 31.1 pg (28.0-34.0) 03/21/21 05:43 MCHC 33.3 g/dL (30.0-36.0) 03/21/21 05:43 RDW 16.4 % (12.1-15.1) H 03/21/21 05:43 Plt Count 123 10^3/cmm (130-400) L 03/21/21 05:43 MPV 10.1 fL (7.4-10.4) 03/21/21 05:43 Neut % (Auto) 89.1 % 03/21/21 05:43 Lymph % (Auto) 2.0 % 03/21/21 05:43 Schleicher % (Auto) 6.2 % 03/21/21 05:43 Eos % (Auto) 0.4 % 03/21/21 05:43 Baso % (Auto) 0.1 % 03/21/21 05:43 Neut # (Auto) 11.97 10^3/uL (1.8-7.7) H 03/21/21 05:43 Lymph # (Auto) 0.3 10^3/uL (0.8-4.8) L 03/21/21 05:43 Schleicher # (Auto) 0.8 10^3/uL (0.2-0.9) 03/21/21 05:43 Eos # (Auto) 0.1 10^3/uL (0.0-0.8) 03/21/21 05:43 Baso # (Auto) 0.0 10^3/uL (0.0-0.1) 03/21/21 05:43 Nucleated RBC % (auto) 0 % 03/21/21 05:43 Total Counted 100 (0-100) 03/19/21 04:00 Atypical Lymphs % 0.0 % (0-5) 03/19/21 04:00 Absolute Neutrophils 17.1 10^3/cmm (1.4-6.5) H 03/19/21 04:00 Segmented Neutrophils 90 % 03/19/21 04:00 Abs Segm Neuts (Man) 16.0 10/cmm (1.6-7.1) H 03/19/21 04:00 Band Neutrophils 6.0 % 03/19/21 04:00 Abs Band Neuts (Man) 1.1 10^3/cmm (0.0-1.2) 03/19/21 04:00 Absolute Lymphocytes 0.2 10^3/cmm (1.2-3.4) L 03/19/21 04:00 Lymphocytes (Manual) 1 % 03/19/21 04:00 Monocytes (Manual) 3.0 % 03/19/21 04:00 Absolute Monocytes 0.5 10^3/cmm (0.1-0.6) 03/19/21 04:00 Eosinophils (Manual) 0 % 03/19/21 04:00 Absolute Eosinophils 0.0 10^3/cmm (0.0-0.7) 03/19/21 04:00 Basophils (Manual) 0.0 % 03/19/21 04:00 Absolute Basophils 0.0 10^3/cmm (0.0-0.2) 03/19/21 04:00 Metamyelocytes 1.0 % 03/14/21 04:25 Myelocytes 1.0 % 03/14/21 04:25 Nucleated RBCs 1.0 /100WBC (0-1) 03/14/21 04:25 Nucleated RBCs # 0.0 /100WBC 03/21/21 05:43 Platelet Estimate Decreased (Normal) 03/19/21 04:00 PT 14.60 SECONDS (12.1-14.9) 03/19/21 08:50 INR 1.11 (0.8-1.2) 03/19/21 08:50 APTT 33.6 SECONDS (23.9-36.7) 03/19/21 08:50 Fibrinogen 341 mg/dL (174-498) 03/19/21 08:50 Fibrin Degrad Products Pos, 10-40 ug/mL (NEG) H 03/19/21 08:50 D-Dimer 1.51 ug/mIFEU (0-0.59) H 03/19/21 08:50 Specimen Type Arterial 03/19/21 18:27 Sample Site Radial, left 03/19/21 18:27 ABG pH 7.35 (7.35-7.45) 03/19/21 18:27 ABG pCO2 52.6 mmHg (35-45) H 03/19/21 18: ABG pO2 67.7 mmHg (80.0-100.0) L 03/19/21 18: ABG HCO3 28.9 mmol/L (22-26) H 03/19/21 18: ABG O2 Saturation 94.0 03/19/21 18: ABG Base Excess 2.8 mmol/L (-2.0-2.0) H 03/19/21 18:27 Gus Test Pos 03/19/21 18: VBG pH 7.47 (7.32-7.42) H 03/05/21 15:10 VBG pCO2 41.5 mmHg (41-51) 03/05/21 15:10 VBG pO2 29.2 mmHg (25-40) 03/05/21 15:10 VBG HCO3 30.0 mmol/L (24-28) H 03/05/21 15:10 VBG Base Excess 5.8 mmol/L (-3.0-3.0) H 03/05/21 15:10 VBG Hematocrit 7.5 % (42-52) L 03/05/21 15:10 A-a O2 Gradient 52.3 mmHg (5-10) H 03/19/21 18: Hematocrit 24.2 % (42-52) L 03/19/21 18: Hgb O2 Saturation 91.5 % (95-100) L 03/19/21 18: Carboxyhemoglobin 1.7 %THgb (0.4-20.1) 03/19/21 18: Methemoglobin 1.0 % (0.4-1.5) 03/19/21 18: Total Hemoglobin 7.9 g/dL (14-18) L 03/19/21 18: Sodium 141.0 mmol/L (131-143) 03/19/21 18: Potassium 3.5 mmol/L (3.5-5.0) 03/19/21 18: Glucose 131.0 mg/dL (70-115) H 03/19/21 18: Ionized Calcium 1.2 mmol/L (1.1-1.4) 03/19/21 18:27 O2 Delivery Device Vent 03/19/21 18:27 O2 Liters/Min 60.0 % 03/16/21 04:45 Mechanical Rate 20.0 03/17/21 04:50 FiO2 75.0 % 03/19/21 18:27 Tidal Volume 0.50 03/17/21 04:50 PEEP 5.0 cmH20 03/19/21 18:27 Recreation Superintendent ID Cak 03/19/21 18:27 Sodium 143 mmol/L (136-145) 03/21/21 05:43 Potassium 4.5 mmol/L (3.5-5.1) 03/21/21 05:43 Chloride 108 mmol/L (98-107) H 03/21/21 05:43 Carbon Dioxide 32 mmol/L (22-29) H 03/21/21 05:43 Anion Gap 7.5 (5-19) 03/21/21 05:43 BUN 22 mg/dL (8-23) 03/21/21 05:43 Creatinine 0.3 mg/dL (0.7-1.2) L 03/21/21 05:43 GFR Calculation 304.8 mL/min (90-130) H 03/21/21 05:43 Glucose 147 mg/dL (65-115) H 03/21/21 05:43 POC Glucose 152 mg/dL (70-110) H 03/21/21 11:37 Calculated Osmolality 302 mOsm/kg (285-295) H 03/21/21 05:43 Lactic Acid 1.4 mmol/L (0.5-2.2) 03/05/21 14:35 Calcium 7.2 mg/dL (8.5-10.5) L 03/21/21 05:43 Magnesium 1.9 mg/dL (1.7-2.3) 03/18/21 04:30 Iron 31 ug/dL (59-158) L 03/21/21 05:43 TIBC 149 mcg/dl 03/21/21 05:43 % Saturation 20.8 % (20-50) 03/21/21 05:43 Unsat Iron Binding 118 ug/dL (112-347) 03/21/21 05:43 Ferritin 1510 ng/mL (30-400) H 03/18/21 04:30 Total Bilirubin 0.7 mg/dL (0.15-1.2) 03/21/21 05:43 AST 23 U/L (0-40) 03/21/21 05:43 ALT 32 U/L (0-41) 03/21/21 05:43 Alkaline Phosphatase 146 IU/L (40-130) H 03/21/21 05:43 Lactate Dehydrogenase 660 U/L (135-225) H 03/06/21 03:35 C-Reactive Protein 13.1 mg/L (0.0-4.9) H 03/18/21 04:30 NT-Pro-B Natriuret Pep 287 pg/mL (0-125) H 03/05/21 14:35 Total Protein 4.5 g/dL (6.6-8.7) L 03/21/21 05:43 Albumin 2.5 g/dL (3.5-5.2) L 03/21/21 05:43 Globulin 2.0 g/dL (1.3-4.6) 03/21/21 05:43 Triglycerides 250 mg/dL (0-150) H 03/14/21 04:25 Procalcitonin 0.43 ng/mL (0-0.5) 03/19/21 04:00 TSH 0.14 uIU/mL (0.27-4.20) L 03/21/21 05:43 Vancomycin Trough 15.0 ug/mL (10-15) 03/19/21 08:50 Nasal/Oral COVID-19 PCR Detected H 03/05/21 16:30 SARS-CoV-2 Ag (Rapid) Negative (Negative) 03/05/21 23:00 Blood Type A Positive 03/19/21 13:25 Rho(D) Type Positive 03/19/21 13:25 Impressions Chest CTA 03/09/21 13:47 IMPRESSION: Positive for subsegmental right lower lobe pulmonary embolism. Bilateral pneumonia consistent with COVID-19 pneumonia. Findings discussed with Dr. Edwards by Dr. Rodrick Espinosa at 4:37 p.m., 03/09/2021. Radiation Dose CTDIVOL = (mGy): DLP = 567.74 (mGy-cm) Chest CT 03/19/21 13:19 IMPRESSION: 1. Stable moderate right anterior and peripheral pneumothorax. Right chest tube appears in good position with tip in the right lung apex. 2. No significant chest wall hematoma. Small amount of edema and induration at the chest tube insertion site. 3. Small amount of fluid in the right pleural space. 4. Diffuse bilateral hazy groundglass infiltrates compatible with COVID 19 pneumonia. Progressed airspace consolidation right lower lobe with air bronchograms. Small amount of airspace consolidation left lower lobe. 5. Endotracheal tube with tip above the [place]. Notified Jose Alfredo Priest MD at 03/19/2021 2:39 PM. Chest X-Ray 03/20/21 05:12 IMPRESSION: 1. Bilateral pulmonary infiltrates showing little change. 2. ET tube, enteric tube, and central line all appear to be in satisfactory position. Right-sided chest tube is unchanged in location. No obvious pneumothorax. Micro: Microbiology 03/18/21 13:30 Gram Stain - Final Sputum - Endotracheal Tube Aspirate Sputum Culture - Preliminary Gram Negative Rods 03/18/21 13:20 Body Fluid Culture - Preliminary Pleural Fluid 03/19/21 20:06 Blood Culture - Preliminary Blood NEGATIVE TO DATE 03/19/21 20:00 Blood Culture - Preliminary Blood NEGATIVE TO DATE A&P Assessment and plan (1) Acute respiratory failure due to severe acute respiratory syndrome coronavirus 2 (SARS-CoV-2) infection: Status: Acute (2) D-dimer, elevated: Status: Acute (3) Transaminitis: Status: Acute (4) DVT prophylaxis: Status: Acute (5) Pneumonia due to gram-negative bacteria: Status: Acute (6) Pulmonary embolism associated with COVID-19: Status: Acute Additional A&P Information #Acute respiratory #acute hypoxic respiratory failure secondary to ARDS due to COVID-19 pneumonia complicated by right subsegmental PE #Right lung pneumothorax-s/p chest tube placement 03/17/2021 - #Stenotrophomonas maltophilia-sensitive to Levaquin #Transaminitis due to COVID-19 pneumonia-improved #Hypothyroidism #BPH #Hypertension - Covid PCR positive, CRP 138 > 13 - CTA Positive for PE - intubated 03/09/2021, sedated and connected to ventilator-completed 2 proning sessions-FiO2 down to 40%; -Successful awakening trial over 2 days and breathing trial successful FiO2 40%, following commands-extubated to high flow 50 L 50% on 03/14/2021 -After 2 days, FiO2 requirement increased to 100% and he was tachypneic and so was reintubated 03/16/2021 night for gradual deterioration and worsening of ?? COVID ARDS VS new infection; there is significant leak and so ET tube exchanged immediately after intubation -ET tube cuff leak noted again next day 03/17/21 and changed -Chest x-ray right large pneumothorax-s/p chest tube placement 03/17/21-post procedure chest x-ray showed significant improvement; 12 hours after chest tube placement patient started having 200 mL sanguinous discharge-as per night nurse patient was moved from the left lateral position to supine position and the bleeding started. Possibly chest tube might have eroded subcostal blood vessel;next day he had both 460 cc sanguinous discharge & bleeding noted around the chest tube site - CT chest 03/19/21 showed: Stable moderate right anterior and peripheral pneumothorax. Right chest tube appears in good position with tip in the right lung apex. - held lovenox (being given for PE), and monitor H&H and transfuse to keep h&h > 7/21 -Since morning time anticoagulation-H&H has been stable and patient is no more bleeding; he did not require any prbc transfusions - Dexamethasone 10mg daily x 14 days - tapered to 3mg daily for 5 days -DuoNeb nebulizations and Pulmicort nebulization scheduled -completed remdesivir 5-day protocol and extended course -On dexamethasone 6 mg daily started 03/05/2021 -Monitor inflammatory markers every 48 hours -s/p 1 dose of Actemra 03/09/2021 -Urine Legionella negative; bacterial antigens negative; MRSA nares negative, procalcitonin 0.66 -Sputum cultures 03/10/2021 + for Stenotrophomonas maltophilia on levaquin 03/13/21; leukocytosis went up to 46,000 and platelets down to 90; DIC panel negative except for some fibrin degradation products ; pancultures sent and broadened coverage with vancomycin, levaquin and imipenam on 03/18/2021 -since then there has been a steady decline in WBC and today it is 13 K -Sputum cultures from 03/18/2021 showed gram-negative rods-identification and sensitivity pending - platelets have been stable since transfusion of 1 unit platelets -+ 744 cc / + 4.3L ; Monitor renal functions and urine output-try to keep negative to even -Flomax 0.4 mg p.o. daily for BPH -held Lovenox 100 q12 hr for Right subsegmental PE in view of bloody chest tube drainage -Levothyroxine 200 mcg PO daily -Diabetes-A1c 7.5 -Continue tube feeds -Sugars controlled, insulin scale coverage-monitor sugars -[id number] for GI prophylaxis -Full code -Prognosis guarded -updated family -about grave prognosis, worsening covid, superimposed stenotrophomonas bacterial infection and now gram-negative rods, subsegmental PE, loculated pneumothorax, complicated by bleeding through chest tube on ant icoagulation. Daughter verbalized understanding and wanted to do everything to do for now and will decide on further goals of care after talking pt.s . Discussed with hospitalist, RN, RT covering the patient Attestations Medical Necessity Statement*: Acute hypoxic respiratory failure secondary to ARDS due to COVID-19 pneumonia complicated by pulmonary embolism requiring mechanical ventilation for respiratory support Time Spent in Patient Care: Greater than 35 minutes (>than 50% of time spent in counselling and/or direct pt care on unit) . Critical Care Time: The high probability of a clinically significant, sudden or life threatening deterioration of the patient's [respiratory, hepatic, endocrine, neurological] system(s) required my full and direct attention, intervention and personal management. The critical care time is as shown. 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
[2021-03-21] MEDS: propofol 1,000 MG/100 ML INJ 22.1 MG IV (13:40)
[2021-03-21] MEDS: hyDRALAzine 20 mg/mL INJ 1 mL 10 MG IVP (13:45)
--- NOTE | 2021-03-21 14:14 | PC.NURSE ---
Hydralazine given d/t HTN, pt breathing more labored. Sedation has been decreased per orders. Increased propofol d/t increased labored breathing.
--- NOTE | 2021-03-21 15:25 | XR_ITS ---
WS: [id number] PORTABLE CHEST HISTORY: pneumothorax COMPARISON: 03/20/2021 Nasogastric tube and endotracheal tubes are in good position. LEFT central line is present with tip t erminating before the SVC. Single RIGHT chest tube with tip directed superiorly unchanged in position . No residual pneumothorax. Bilateral pulmonary opacifications. No acute improvement. There is pleural thickening along the RIGHT lateral thorax and at the RIGHT costophrenic angle. May be a combination of fluid or hemothorax. Pro gressed since 03/19/2021 but unchanged since 03/20/2021. Cardiac size: Normal. Mediastinum/Aorta: Mild atherosclerosis aorta. No osseous abnormality seen. XR/XR chest 1V portable [id number] IMPRESSION: 1. Nasogastric and endotracheal tubes in good position. 2. Right-sided chest tube unchanged in position with no residual pneumothorax appreciated. 3. Increased pleural thickening RIGHT thorax. May be pleural fluid or hemothor ax. Similar to the study on 03/20/2021 but new since 03/19/2021.
[2021-03-21] MEDS: metoprolol tartrate 1 mg/1 mL SDV 5 mL 2.5 MG IVP (15:30)
--- NOTE | 2021-03-21 15:56 | PC.NURSE ---
Attempted to wean sedation today, pt became tachy and hypertensive. Metoprolol and hydralazine given per orders. Chest tube chamber changed per MD orders. CXR obtained, waiting on lab to draw CBC. Light red drainage noted in chest tube. PT appears more labored in breathing. Will monitor.
[2021-03-21 16:27] LABS: Basophils # 0.1 10^3/uL (0.0-0.1); Basophils % 0.3 %; Eosinophils % 0.2 %; Hematocrit 33.9 % (42.0-52.0); Hemoglobin 10.9 g/dL (11.7-16.6); Lymphocytes # 0.3 10^3/uL (0.8-4.8); Lymphocytes % 1.6 %; Mean Corpuscular HGB Conc 32.2 g/dL (30.0-36.0); Mean Corpuscular Hemoglobin 31.2 pg (28.0-34.0); Mean Corpuscular Volume 97.1 fl (80-94); Monocytes # 1.5 10^3/uL (0.2-0.9); Monocytes % 8.4 %; Neutrophils # 15.04 10^3/uL (1.8-7.7); Neutrophils % 84.9 %; Nucleated Red Blood Cells # 0.1 /100WBC; Nucleated Red Blood Cells % 0.6 %; Platelet Count 154 10^3/cmm (130-400); Red Blood Count 3.49 10^6/uL (4.1-5.3); Red Cell Distribution Width 16.9 % (12.1-15.1); White Blood Count 17.7 10^3/uL (4.0-10.0)
[2021-03-21 17:04] LABS: Glucose Point of Care 195 mg/dL (70-110)
--- NOTE | 2021-03-21 17:09 | PM.PN ---
Subjective Subjective: Interval history: Has remained hemodynamically stable has remained hemodynamically stable and fever up to 100 Fahrenheit in last 24 hours. Sedation on Precedex of 0.5, fentanyl 100, propofol and Versed of 6 in last 24 hours. Off Levophed. During the day sedation was being weaned off and he became tachycardic and tachypneic so was placed back on sedation. Planning to decrease Versed. Urine output last 24 hours over 3.5 L. Medications: Reviewed: Yes Vitals/I&O/Wt Last Vital Signs Temp 99.0 F 03/21/21 15:30 Pulse 135 H 03/21/21 15:30 Resp 20 H 03/21/21 12:07 BP 180/97 03/21/21 15:30 Pulse Ox 90 03/21/21 15:30 03/21/21 03/21/21 03/21/21 06:59 14:59 22:59 Intake Total 1216.235 / 3294.227 929.231 / 929.231 537.033 / 1466.264 Output Total 1650 / 2550 1450 / 1450 635 / 2085 Balance -433.765 / 744.227 -520.769 / -520.769 -97.967 / -618.736 Weight last 48 hrs Weight 94.211 kg Physical Exam Narrative: EXAM NARRATIVE: General: Intubated on MV HEENT: ET tube in place. Chest: Vent support CVS: S1-S2 regular, no murmurs, no tachycardia, no gallops, no rubs Abdomen:non-distended : Rodríguez Neuro: Sedation Urinary Catheter Management^: Rodríguez: Cath Placed During This Visit: yes Reason for Continuing Indwelling Catheter: Accurate Measurement of Urinary Output in Critically Ill Patients Urinary Catheter Date of Insertion: 03/09/21 Urinary Catheter Time of Insertion: 22:34 Data : 03/21/21 16:15 03/21/21 05:43 Micro: Microbiology 03/18/21 13:30 Gram Stain - Final Sputum - Endotracheal Tube Aspirate Sputum Culture - Preliminary Gram Negative Rods 03/18/21 13:20 Body Fluid Culture - Preliminary Pleural Fluid 03/19/21 20:06 Blood Culture - Preliminary Blood NEGATIVE TO DATE 03/19/21 20:00 Blood Culture - Preliminary Blood NEGATIVE TO DATE A&P Assessment and plan (1) Septic shock: Status: Acute (2) Acute respiratory failure due to severe acute respiratory syndrome coronavirus 2 (SARS-CoV-2) infection: Status: Acute (3) Pulmonary embolism associated with COVID-19: Status: Acute (4) Infection due to Stenotrophomonas maltophilia: Status: Acute (5) Pneumothorax: Status: Acute (6) Transaminitis: Status: Acute (7) D-dimer, elevated: Status: Acute Additional A&P Information Acute respiratory failure with hypoxia due to COVID 19 pneumonia with acute pulmonary embolism along with superimposed bacterial infection and hemo-pneumothorax Intubated and placed on MV on 03/09 -extubated 03/14 Reintubated on 03/17 am. Requiring multiple tube exchanges because of cuff leak. Chest tube placement on March 17 - S/p Remdesivir, Actemera - Continue decadron. Patient has finished 10-day course so we will decrease the dose to 3 mg IV daily for next 5 days and then stop. - Noted to have a bleed including chest tube. CT chest results appreciated.. Case discussed with radiologist and pulmonology team. Possibility of chest tube eroding subcostal blood vessel leading to bleeding. If patient continues to remain stable can plan for replacing the tube. Unfortunately if he starts bleeding again patient is at high risk for cardiothoracic surgery. The above has been discussed with family. Continue to hold off on Lovenox for now. Repeat hemoglobin has remained stable. Patient has leukocytosis along with septic shock. Sputum culture growing stenotrophomonas. Repeat sputum culture from ET tube growing gram-negative rods. For now continue Levaquin, imipenem, vancomycin. Repeat sputum culture and fluid culture for now pending. If patient does not improve or leukocytosis worsens can plan for bronchoscopy. Appreciate pulmonary recommendations. Septic shock: Antibiotics as above. Blood cultures so far negative. Pending. Continue Levophed keeping mean arterial pressure over 65. Check stool studies to rule out C. difficile. Strict input output charting. Transaminitis - Resolved - LFT returned to normal Hypothyroidism hx of papillary thyroid carcinoma - Status post thyroidectomy - Levothyroxine 200 mcg p.o. daily History of laryngeal cancer. GI prophylaxis - Pepcid 20 mg IV BID Hold Lovenox given bleeding through chest tube. Patient remains stable in next 24 hours with plan to start on tube feedings. We will plan to start slow tube feedings to prevent refeeding syndrome as has been n.p.o. for over a week during this hospitalization. Full code. Prognosis: Severely guarded. Family including daughter updated about grave prognosis, worsening covid, superimposed stenotrophomonas bacterial infection, subsegmental PE, loculated pneumothorax, complicated by bleeding through chest tube on anticoagulation. Daughter verbalized understanding and wanted to do everything to do for now and will decide on further goals of care after talking pt.s . Plan for the day: Continue to monitor chest tube drain, try to wean sedation as possible going forward the plan would be to see if patient can be extubated versus needle for trach. Once that is achieved it will be planned for possible removal of chest tube. Case discussed with lacquer machine feeder. Appreciate recommendations., wean oxygen supplementation as possible keeping saturation over 90%. Attestations Medical Necessity Statement*: Requires further hospitalization for management of severe ARDS, ventilator dependent in setting of COVID-19 pneumonia,superadded bacterial pneumonia, pulmonary embolism being complicated by hemopneumothorax Critical Care Time: The high probability of a clinically significant, sudden or life threatening deterioration of the patient's [cardiac, pulmonary, renal, neurological] system(s) required my full and direct attention, intervention and personal management. The critical care time is as shown. This time is in addition to time spent performing any reported procedures but includes the following: [x] Data and vital sign review and interpretation [x] Patient assessment, examination and intervention [x] Documentation [x] Medication orders and management Critical Care Time (min): 60 Coding Level of Care Code Acute Slag Expander for [facility] Diagnoses Septic shock A41.9; R65.21 Acute respiratory failure due to severe acute respiratory syndrome coronavirus 2 (SARS-CoV-2) infection U07.1; J96.00 Pulmonary embolism associated with COVID-19 U07.1; I26.99 Infection due to Stenotrophomonas maltophilia A49.8 Pneumothorax J93.9 Transaminitis R74.01 D-dimer, elevated R79.89
--- NOTE | 2021-03-21 18:19 | PC.NURSE ---
Shift Note Frequent safety and comfort rounds continue. Orders and/or nursing care completed as indicated. Patient monitored for response to intervention and treatment(s). Education provided includes treatment plan and medication regimen, daughter verbalizes understanding of pt condition. VSS, CT in place, gtts infusing per orders. Will continue to monitor.
[2021-03-21] MEDS: levofloxacin-dextrose 5 % 750 MG/150 ML PREMIX 100 MG IV (19:46)
[2021-03-21] MEDS: sennosides-docusate Tablet 1 TAB PO (20:54)
[2021-03-21 21:07] LABS: Glucose Point of Care 118 mg/dL (70-110)
[2021-03-21] MEDS: dexamethasone 4 mg/mL INJ 3 MG IVP (22:12)
[2021-03-22] VITALS (65 sets, daily range): BP systolic 92–147; BP diastolic 44–67; PULSE 68–115; RESP 20–36; TEMP 36.8–37.5; O2SAT 87–100
[2021-03-22] MEDS: acetaminophen 325 mg Tablet 650 MG PO ×2 (00:50→23:22)
[2021-03-22] MEDS: propofol 1,000 MG/100 ML INJ 27.62 MG IV ×6 (01:06→21:23)
[2021-03-22] MEDS: dexmedetomidine 400 MCG in sodium chloride 0.9% (100 ml) 100 ML 17.67 MCG IV (01:42)
[2021-03-22] MEDS: vancomycin 1,500 MG/300 ML PIGGYBACK 200 MG IV ×3 (02:08→17:13)
[2021-03-22] MEDS: ipratropium-albuterol 3 mL Neb INHALATION ×6 (03:24→23:16)
[2021-03-22 04:42] LABS: Basophils % 0.2 %; Eosinophils # 0.1 10^3/uL (0.0-0.8); Eosinophils % 0.4 %; Hemoglobin 9.5 g/dL (11.7-16.6); Lymphocytes # 0.3 10^3/uL (0.8-4.8); Mean Corpuscular HGB Conc 30.6 g/dL (30.0-36.0); Mean Corpuscular Hemoglobin 30.4 pg (28.0-34.0); Mean Platelet Volume 9.7 fL (7.4-10.4); Monocytes # 1.1 10^3/uL (0.2-0.9); Monocytes % 7.4 %; Neutrophils # 12.53 10^3/uL (1.8-7.7); Nucleated Red Blood Cells % 0.2 %; Platelet Count 125 10^3/cmm (130-400); Red Blood Count 3.13 10^6/uL (4.1-5.3); Red Cell Distribution Width 17.1 % (12.1-15.1); White Blood Count 14.3 10^3/uL (4.0-10.0)
[2021-03-22 05:18] LABS: Alanine Aminotransferase 32 U/L (0-41); Albumin Level 2.4 g/dL (3.5-5.2); Alkaline Phosphatase 100 IU/L (40-130); Aspartate Amino Transferase 18 U/L (0-40); Blood Urea Nitrogen 22 mg/dL (8-23); Calcium 7.2 mg/dL (8.5-10.5); Carbon Dioxide 35 mmol/L (22-29); Chloride 108 mmol/L (98-107); Globulin 2.1 g/dL (1.3-4.6); Glomerular Filtration Rate 304.8 mL/min (90-130); Glucose 151 mg/dL (65-115); Osmolality Calculated 308 mOsm/kg (285-295); Sodium 146 mmol/L (136-145); Total Bilirubin 0.5 mg/dL (0.15-1.2); Total Protein 4.5 g/dL (6.6-8.7)
[2021-03-22 05:32] LABS: ABG PH Result 7.26 (7.35-7.45); Alveolar-Arterial Oxygen Gradi 34.6 mmHg (5-10); Arterial Blood Gas Hematocrit 31.8 % (42-52); Base Excess ABG 7.1 mmol/L (-2.0-2.0); Blood Gas Allen Test Pos; Blood Gas Operator Identificat JB; Blood Gas Sample Site Brachial, right; Blood Gas Sample Type Arterial; Blood Gas Tidal Volume 0.45; Carboxyhemoglobin 1.7 %THgb (0.4-20.1); HCO3 ABG 36.1 mmol/L (22-26); Ionized Calcium Level - ABG 1.2 mmol/L (1.1-1.4); Methemoglobin 0.9 % (0.4-1.5); Oxygen Device VENT; Oxygen Saturation ABG 93.4; PO2 ABG 68.6 mmHg (80.0-100.0); Potassium Level - ABG 3.9 mmol/L (3.5-5.0); Total Hemoglobin 10.4 g/dL (14-18)
[2021-03-22 05:40] LABS: ABG PCO2 79.9 mmHg (35-45)
[2021-03-22] MEDS: levothyroxine 200 mcg Tablet PO (06:16)
--- NOTE | 2021-03-22 06:26 | PC.NURSE ---
Attempted to wean versed throughout shift with little success. Patient remains tachypneic throughout shift with tachypnea significantly increasing when attempting to wean. Patient is afrbile, but diaphoretic and mottled. Patient had desat episode while attempting to turn, RT called to bedside, increased O2 and tube placement checked.
[2021-03-22] MEDS: aspirin 81 mg EC Tablet PO (07:13)
[2021-03-22] MEDS: famotidine 20 mg/2 mL INJ IVP ×2 (07:13→20:29)
[2021-03-22] MEDS: docusate sodium 100 mg Capsule PO ×2 (07:15→17:13)
[2021-03-22 07:48] LABS: Glucose Point of Care 193 mg/dL (70-110)
--- NOTE | 2021-03-22 08:47 | XRR_ITS ---
PROCEDURE INFORMATION: Exam: XR Chest Exam date and time: 03/22/2021 8:47 AM Age: 60 years old Clinical indication: Dyspnea; Patient HX: Covid +, on vent; Additional info: Pneumonia TECHNIQUE: Imaging protocol: XR of the chest. Views: 1 view. COMPARISON: CR XR chest 1V portable [id number] 03/21/2021 3:49 PM FINDINGS: Tubes, catheters and devices: An endotracheal tube, nasogastric tube, left subclavian catheter and right chest tube remain in stable satisfactory position. Lungs: There are extensive diffuse bilateral pulmonary infiltrates especially in the right lung which are unchanged. Pleural spaces: There is pleural thickening along the right lateral chest wall which is unchanged and which may represent small loculated effusion. No pneumothorax. Heart/Mediastinum: Unremarkable. No cardiomegaly. Bones/joints: Unremarkable. XR/XR chest 1V portable [id number] IMPRESSION: No significant change of prominent extensive bilateral pulmonary infiltrates. No pneumothorax is seen.
--- NOTE | 2021-03-22 08:47 | P.PN_ITS ---
Subjective Subjective: Interval history: -Patient seen at bedside today -Off pressors and still requiring sedation -Continues to be on 70% FiO2 -Additional 20 mL sanguinous output noted overnight after giving 30 cc flush -Labs and imaging reviewed Medications: Reviewed: Yes Vitals/I&O/Wt Last Vital Signs Temp 98.4 F 03/22/21 06:00 Pulse 73 03/22/21 07:00 Resp 32 H 03/22/21 05:41 BP 99/52 03/22/21 07:00 Pulse Ox 94 03/22/21 07:00 03/21/21 03/22/21 03/22/21 22:59 06:59 14:59 Intake Total 1479.917 / 2409.148 1777.054 / 4186.202 100 / 100 Output Total 635 / 2085 1250 / 3335 Balance 844.917 / 324.148 527.054 / 851.202 100 / 100 Weight last 48 hrs Weight 206 lb Physical Exam Narrative: EXAM NARRATIVE: General: Lying in bed, sedated and connected to ventilator HEENT:NCAT, PERRLA, EOMI Neck: Supple Lungs: Bilateral diffuse crackles; right chest tube in place; bloody secretions in the atrium Heart: s1/s2, RRR Abd: soft, NT, ND, BS + Normoactive Extremities: No edema CIVIL ENGINEERING ASSISTANT: Sedated and 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 SKIN: no rash LDA: # CVC: Left subclavian central line 03/09/2021 # Rodríguez: 03/09/2021 # Right side chest tube 03/17/21 Urinary Catheter Management^: Rodríguez: Cath Placed During This Visit: yes Reason for Continuing Indwelling Catheter: Accurate Measurement of Urinary Output in Critically Ill Patients Urinary Catheter Date of Insertion: 03/09/21 Urinary Catheter Time of Insertion: 22:34 Data : 03/23/21 03:19 03/23/21 03:19 Other Labs: Laboratory Results WBC 14.3 10^3/uL (4.0-10.0) H 03/22/21 04:10 RBC 3.13 10^6/uL (4.1-5.3) L 03/22/21 04:10 Hgb 9.5 g/dL (11.7-16.6) L 03/22/21 04:10 Hct 31.0 % (42.0-52.0) L 03/22/21 04:10 MCV 99.0 fl (80-94) H 03/22/21 04:10 MCH 30.4 pg (28.0-34.0) 03/22/21 04:10 MCHC 30.6 g/dL (30.0-36.0) 03/22/21 04:10 RDW 17.1 % (12.1-15.1) H 03/22/21 04:10 Plt Count 125 10^3/cmm (130-400) L 03/22/21 04:10 MPV 9.7 fL (7.4-10.4) 03/22/21 04:10 Neut % (Auto) 88.0 % 03/22/21 04:10 Lymph % (Auto) 2.0 % 03/22/21 04:10 Mccormick % (Auto) 7.4 % 03/22/21 04:10 Eos % (Auto) 0.4 % 03/22/21 04:10 Baso % (Auto) 0.2 % 03/22/21 04:10 Neut # (Auto) 12.53 10^3/uL (1.8-7.7) H 03/22/21 04:10 Lymph # (Auto) 0.3 10^3/uL (0.8-4.8) L 03/22/21 04:10 Mccormick # (Auto) 1.1 10^3/uL (0.2-0.9) H 03/22/21 04:10 Eos # (Auto) 0.1 10^3/uL (0.0-0.8) 03/22/21 04:10 Baso # (Auto) 0.0 10^3/uL (0.0-0.1) 03/22/21 04:10 Nucleated RBC % (auto) 0.2 % 03/22/21 04:10 Total Counted 100 (0-100) 03/19/21 04:00 Atypical Lymphs % 0.0 % (0-5) 03/19/21 04:00 Absolute Neutrophils 17.1 10^3/cmm (1.4-6.5) H 03/19/21 04:00 Segmented Neutrophils 90 % 03/19/21 04:00 Abs Segm Neuts (Man) 16.0 10/cmm (1.6-7.1) H 03/19/21 04:00 Band Neutrophils 6.0 % 03/19/21 04:00 Abs Band Neuts (Man) 1.1 10^3/cmm (0.0-1.2) 03/19/21 04:00 Absolute Lymphocytes 0.2 10^3/cmm (1.2-3.4) L 03/19/21 04:00 Lymphocytes (Manual) 1 % 03/19/21 04:00 Monocytes (Manual) 3.0 % 03/19/21 04:00 Absolute Monocytes 0.5 10^3/cmm (0.1-0.6) 03/19/21 04:00 Eosinophils (Manual) 0 % 03/19/21 04:00 Absolute Eosinophils 0.0 10^3/cmm (0.0-0.7) 03/19/21 04:00 Basophils (Manual) 0.0 % 03/19/21 04:00 Absolute Basophils 0.0 10^3/cmm (0.0-0.2) 03/19/21 04:00 Metamyelocytes 1.0 % 03/14/21 04:25 Myelocytes 1.0 % 03/14/21 04:25 Nucleated RBCs 1.0 /100WBC (0-1) 03/14/21 04:25 Nucleated RBCs # 0.0 /100WBC 03/22/21 04:10 Platelet Estimate Decreased (Normal) 03/19/21 04:00 PT 14.60 SECONDS (12.1-14.9) 03/19/21 08:50 INR 1.11 (0.8-1.2) 03/19/21 08:50 APTT 33.6 SECONDS (23.9-36.7) 03/19/21 08:50 Fibrinogen 341 mg/dL (174-498) 03/19/21 08:50 Fibrin Degrad Products Pos, 10-40 ug/mL (NEG) H 03/19/21 08:50 D-Dimer 1.51 ug/mIFEU (0-0.59) H 03/19/21 08:50 Specimen Type Arterial 03/22/21 16:30 Sample Site Brachial, right 03/22/21 16:30 ABG pH 7.43 (7.35-7.45) 03/22/21 16:30 ABG pCO2 57.9 mmHg (35-45) H 03/22/21 16:30 ABG pO2 52.4 mmHg (80.0-100.0) L 03/22/21 16:30 ABG HCO3 38.2 mmol/L (22-26) H 03/22/21 16:30 ABG O2 Saturation 88.9 03/22/21 16:30 ABG Base Excess 12.1 mmol/L (-2.0-2.0) H 03/22/21 16:30 Gus Test Pos 03/22/21 16:30 VBG pH 7.47 (7.32-7.42) H 03/05/21 15:10 VBG pCO2 41.5 mmHg (41-51) 03/05/21 15:10 VBG pO2 29.2 mmHg (25-40) 03/05/21 15:10 VBG HCO3 30.0 mmol/L (24-28) H 03/05/21 15:10 VBG Base Excess 5.8 mmol/L (-3.0-3.0) H 03/05/21 15:10 VBG Hematocrit 7.5 % (42-52) L 03/05/21 15:10 A-a O2 Gradient 39.8 mmHg (5-10) H 03/22/21 16:30 Hematocrit 29.1 % (42-52) L 03/22/21 16:30 Hgb O2 Saturation 86.4 % (95-100) L 03/22/21 16:30 Carboxyhemoglobin 1.8 %THgb (0.4-20.1) 03/22/21 16:30 Methemoglobin 1.1 % (0.4-1.5) 03/22/21 16:30 Total Hemoglobin 9.5 g/dL (14-18) L 03/22/21 16:30 Sodium 146.0 mmol/L (131-143) H 03/22/21 16:30 Potassium 3.5 mmol/L (3.5-5.0) 03/22/21 16:30 Glucose 153.0 mg/dL (70-115) H 03/22/21 16:30 Ionized Calcium 1.1 mmol/L (1.1-1.4) 03/22/21 16:30 O2 Delivery Device Vent 03/22/21 16:30 O2 Liters/Min 60.0 % 03/16/21 04:45 Mechanical Rate 20.0 03/17/21 04:50 FiO2 60.0 % 03/22/21 16:30 Tidal Volume 0.50 03/22/21 16:30 PEEP 5.0 cmH20 03/22/21 16:30 Video Systems Engineer ID Bd 03/22/21 16:30 Sodium 144 mmol/L (136-145) 03/22/21 15:32 Potassium 3.7 mmol/L (3.5-5.1) 03/22/21 15:32 Chloride 103 mmol/L (98-107) 03/22/21 15:32 Carbon Dioxide 34 mmol/L (22-29) H 03/22/21 15:32 Anion Gap 10.7 (5-19) 03/22/21 15:32 BUN 20 mg/dL (8-23) 03/22/21 15:32 Creatinine 0.3 mg/dL (0.7-1.2) L 03/22/21 15:32 GFR Calculation 304.8 mL/min (90-130) H 03/22/21 15:32 Glucose 145 mg/dL (65-115) H 03/22/21 15:32 POC Glucose 204 mg/dL (70-110) H 03/22/21 20:32 Calculated Osmolality 303 mOsm/kg (285-295) H 03/22/21 15:32 Lactic Acid 1.4 mmol/L (0.5-2.2) 03/05/21 14:35 Calcium 7.4 mg/dL (8.5-10.5) L 03/22/21 15:32 Magnesium 1.9 mg/dL (1.7-2.3) 03/18/21 04:30 Iron 31 ug/dL (59-158) L 03/21/21 05:43 TIBC 149 mcg/dl 03/21/21 05:43 % Saturation 20.8 % (20-50) 03/21/21 05:43 Unsat Iron Binding 118 ug/dL (112-347) 03/21/21 05:43 Ferritin 1510 ng/mL (30-400) H 03/18/21 04:30 Total Bilirubin 0.5 mg/dL (0.15-1.2) 03/22/21 15:32 AST 16 U/L (0-40) 03/22/21 15:32 ALT 26 U/L (0-41) 03/22/21 15:32 Alkaline Phosphatase 103 IU/L (40-130) 03/22/21 15:32 Lactate Dehydrogenase 660 U/L (135-225) H 03/06/21 03:35 C-Reactive Protein 13.1 mg/L (0.0-4.9) H 03/18/21 04:30 NT-Pro-B Natriuret Pep 287 pg/mL (0-125) H 03/05/21 14:35 Total Protein 4.6 g/dL (6.6-8.7) L 03/22/21 15:32 Albumin 2.5 g/dL (3.5-5.2) L 03/22/21 15:32 Globulin 2.1 g/dL (1.3-4.6) 03/22/21 15:32 Triglycerides 250 mg/dL (0-150) H 03/14/21 04:25 Procalcitonin 0.43 ng/mL (0-0.5) 03/19/21 04:00 TSH 0.14 uIU/mL (0.27-4.20) L 03/21/21 05:43 Free T4 0.56 ng/dL (0.82-1.77) L 03/22/21 15:32 Free T3 0.7 PG/ML (2.0-4.4) L 03/22/21 15:32 Vancomycin Trough 15.0 ug/mL (10-15) 03/19/21 08:50 Nasal/Oral COVID-19 PCR Detected H 03/05/21 16:30 SARS-CoV-2 Ag (Rapid) Negative (Negative) 03/05/21 23:00 Blood Type A Positive 03/19/21 13:25 Rho(D) Type Positive 03/19/21 13:25 Impressions Chest CTA 03/09/21 13:47 IMPRESSION: Positive for subsegmental right lower lobe pulmonary embolism. Bilateral pneumonia consistent with COVID-19 pneumonia. Findings discussed with Dr. Edwards by Dr. Rodrick Espinosa at 4:37 p.m., 03/09/2021. Radiation Dose CTDIVOL = (mGy): DLP = 567.74 (mGy-cm) Chest CT 03/19/21 13:19 IMPRESSION: 1. Stable moderate right anterior and peripheral pneumothorax. Right chest tube appears in good position with tip in the right lung apex. 2. No significant chest wall hematoma. Small amount of edema and induration at the chest tube insertion site. 3. Small amount of fluid in the right pleural space. 4. Diffuse bilateral hazy groundglass infiltrates compatible with COVID 19 pneumonia. Progressed airspace consolidation right lower lobe with air broncho grams. Small amount of airspace consolidation left lower lobe. 5. Endotracheal tube with tip above the [place]. Notified Jose Alfredo Priest MD at 03/19/2021 2:39 PM. Chest X-Ray 03/22/21 08:47 IMPRESSION: No significant change of prominent extensive bilateral pulmonary infiltrates. No pneumothorax is seen. Micro: Microbiology 03/16/21 09:05 Blood Culture - Preliminary Blood Staphylococcus epidermidis 03/16/21 09:00 Blood Culture - Preliminary Blood Staphylococcus epidermidis 03/18/21 13:30 Gram Stain - Final Sputum - Endotracheal Tube Aspirate Sputum Culture - Preliminary Gram Negative Rods 03/18/21 13:20 Body Fluid Culture - Preliminary Pleural Fluid A&P Assessment and plan (1) Acute respiratory failure due to severe acute respiratory syndrome coronavirus 2 (SARS-CoV-2) infection: Status: Acute (2) D-dimer, elevated: Status: Acute (3) Transaminitis: Status: Acute (4) DVT prophylaxis: Status: Acute (5) Pneumonia due to gram-negative bacteria: Status: Acute (6) Pulmonary embolism associated with COVID-19: Status: Acute (7) Staphylococcus epidermidis bacteremia: Status: Acute Additional A&P Information #Acute respiratory #acute hypoxic respiratory failure secondary to ARDS due to COVID-19 pneumonia complicated by right subsegmental PE #Right lung pneumothorax-s/p chest tube placement 03/17/2021 - #Stenotrophomonas maltophilia-sensitive to Levaquin #Transaminitis due to COVID-19 pneumonia-improved #Hypothyroidism #BPH #Hypertension - Covid PCR positive, CRP 138 > 13 - CTA Positive for PE -Currently 7.4 3/57/52/38/88% on CMV 500/5/60% FiO2 - intubated 03/09/2021, sedated and connected to ventilator-completed 2 proning sessions-FiO2 down to 40%; -Successful awakening trial over 2 days and breathing trial successful FiO2 40%, following commands-extubated to high flow 50 L 50% on 03/14/2021 -After 2 days, FiO2 requirement increased to 100% and he was tachypneic and so was reintubated 03/16/2021 night for gradual deterioration and worsening of ?? COVID ARDS VS new infection; there is significant leak and so ET tube exchanged immediately after intubation;ET tube cuff leak noted again next day 03/17/21 and changed -Chest x-ray right large pneumothorax-s/p chest tube placement 03/17/21-post procedure chest x-ray showed significant improvement; 12 hours after chest tube placement patient started having 200 mL sanguinous discharge-as per night nurse patient was moved from the left lateral position to supine position and the bleeding started. Possibly chest tube might have eroded subcostal blood vessel;next day he had both 460 cc sanguinous discharge & bleeding noted around the chest tube site - CT chest 03/19/21 showed: Stable moderate right anterior and peripheral pneumothorax. Right chest tube appears in good position with tip in the right lung apex. - held lovenox (being given for PE), and monitor H&H and transfuse to keep h&h > 7/ -Since discontinuation of anticoagulation anticoagulation-H&H has been stable and patient is 110 cc output over 3 shifts; he did not require any prbc transfusions - Dexamethasone 10mg daily x 14 days - tapered to 3mg daily for 5 days -DuoNeb nebulizations and Pulmicort nebulization scheduled -completed remdesivir 5-day protocol and extended course -Monitor inflammatory markers every 48 hours -s/p 1 dose of Actemra 03/09/2021; initially Urine Legionella negative; bacterial antigens negative; MRSA nares negative, procalcitonin 0.66 -Sputum cultures 03/10/2021 + for Stenotrophomonas maltophilia on levaquin 03/13/21; leukocytosis went up to 46,000 and platelets down to 90; DIC panel negative except for some fibrin degradation products ; -03/16/2021-10/28 blood culture bottles grew staph epidermidis -03/18/2021 sputum cultures grew stenotrophomonas resistant to Levaquin -Currently patient is on vancomycin, imipenam since 03/18/2021 and Bactrim 03/22/2021 -Sputum cultures from 03/18/2021 showed gram-negative rods-identification and sensitivity pending - platelets have been stable since transfusion of 1 unit platelets -+ 850 cc/ + 5.5 L ; Monitor renal functions and urine output-try to keep negative to even -we will give 1 dose Lasix 40 mg -Flomax 0.4 mg p.o. daily for BPH -held Lovenox 100 q12 hr for Right subsegmental PE in view of bloody chest tube drainage -Levothyroxine 200 mcg PO daily -Diabetes-A1c 7.5 -Continue tube feeds -Sugars controlled, insulin scale coverage-monitor sugars -[id number] for GI prophylaxis -Full code -Prognosis guarded -updated family -about grave prognosis, worsening covid, superimposed stenotrophomonas bacterial infection and now gram-negative rods, subsegmental PE, loculated pneumothorax, complicated by bleeding through chest tube on anticoagulation. Daughter verbalized understanding and wanted to do everything to do for now and will decide on further goals of care after talking pt.s . Discussed with hospitalist, RN, RT covering the patient Attestations Medical Necessity Statement*: Acute hypoxic respiratory failure secondary to ARDS due to COVID-19 pneumonia complicated by pulmonary embolism requiring mechanical ventilation for respiratory support Time Spent in Patient Care: Greater than 35 minutes (>than 50% of time spent in counselling and/or direct pt care on unit) . Critical Care Time: The high probability of a clinically significant, sudden or life threatening deterioration of the patient's [respiratory, hepatic, endocrine, neurological] system(s) required my full and direct attention, intervention and personal management. The critical care time is as shown. This time is in addition to time spent performing any reported procedures but includes the following: [x] Data and vital sign review and interpretation [x] Patient assessment, examination and intervention [x] Documentation [x] Medication orders and management Critical Care Time (min): 45 Coding Level of Care Code Established Pt Acute Modular Home Crew Member for g Fwd Patient Type Established History Comprehensive Exam Comprehensive Medical Decision Making High Complexity Diagnoses Acute respiratory failure due to severe acute respiratory syndrome coronavirus 2 (SARS-CoV-2) infection U07.1; J96.00 D-dimer, elevated R79.89 Transaminitis R74.01 DVT prophylaxis Z29.9 Pneumonia due to gram-negative bacteria J15.6 Pulmonary embolism associated with COVID-19 U07.1; I26.99 Staphylococcus epidermidis bacteremia R78.81; B95.7 Time Spent (min) 45
[2021-03-22] MEDS: FUROsemide 10 mg/mL SDV 4mL 40 MG IVP (09:13)
[2021-03-22] MEDS: budesonide 0.5 mg/2 mL Neb INHALATION ×2 (09:41→20:14)
--- NOTE | 2021-03-22 09:49 | PC.SOCIAL ---
IMM update IMM not updated due to patient being intubated and not expected to DC in the next 24-48 hours.
[2021-03-22] MEDS: dexmedetomidine 400 MCG in sodium chloride 0.9% (100 ml) 100 ML 12.62 MCG IV ×2 (10:02→19:16)
[2021-03-22] MEDS: sulfamethoxazole-trimeth inj 480 MG in dextrose 5 % 500 ML 500 MG IV ×2 (11:03→19:50)
[2021-03-22 11:08] LABS: ABG PCO2 68.6 mmHg (35-45); ABG PH Result 7.35 (7.35-7.45); Base Excess ABG 10.4 mmol/L (-2.0-2.0); PO2 ABG 63.5 mmHg (80.0-100.0)
[2021-03-22 11:09] LABS: Arterial Blood Gas Hematocrit 31.4 % (42-52); Blood Gas Allen Test Pos; Blood Gas Operator Identificat ED; Blood Gas Sample Site Radial, left; Blood Gas Sample Type Arterial; Blood Gas Tidal Volume 0.45; Carboxyhemoglobin 1.9 %THgb (0.4-20.1); HGB O2 Sat 90.4 % (95-100); Ionized Calcium Level - ABG 1.1 mmol/L (1.1-1.4); Methemoglobin 1.1 % (0.4-1.5); Oxygen Device VENT; Oxygen Saturation ABG 93.1; Potassium Level - ABG 3.4 mmol/L (3.5-5.0); Total Hemoglobin 10.2 g/dL (14-18)
--- NOTE | 2021-03-22 12:10 | PC.NUTR ---
Tube feeding recommendation: TF at 50 ml/hr providing 1440 kcal/day, Propofol @ 27.62 ml/hr providing 729 kcal/day. Also receives meds in D5W at times per chart review. Total kcal exceeding estimated needs. Recommend decrease TF rate to 40 ml/hr at this time. May resume goal of 60 ml/hr at later time when propofol decreased. Recommend monitoring Mg, Phos, and triglycerides, in addition to glucose, electrolytes and renal function. See full RD assessment for further details.
[2021-03-22 15:28] LABS: Glucose Point of Care 169 mg/dL (70-110)
--- NOTE | 2021-03-22 16:20 | P.PN_ITS ---
Subjective Subjective: Interval history: Documents overnight. Patient has remained hemodynamically stable. Currently off pressors. Continues to remain on sedation with Precedex, fentanyl, Versed. Ventilator settings changed today morning after the ABG results. Urine output in last 24 hours around 3 L. Chest tube drainage 110 cc. Has remained afebrile last 24 hours. Medications: Reviewed: Yes Vitals/I&O/Wt Last Vital Signs Temp 98.6 F 03/22/21 12:00 Pulse 80 03/22/21 15:17 Resp 27 H 03/22/21 15:18 BP 92/50 03/22/21 13:30 Pulse Ox 91 03/22/21 15:18 03/22/21 03/22/21 03/22/21 06:59 14:59 22:59 Intake Total 1777.054 / 4186.202 1141.974 / 1141.974 Output Total 1250 / 3335 Balance 527.054 / 478.019 1075.974 / 1141.974 Weight last 48 hrs Weight 93.44 kg Physical Exam Narrative: EXAM NARRATIVE: General: Intubated on MV HEENT: ET tube in place. Chest: Vent support CVS: S1-S2 regular, no murmurs, no tachycardia, no gallops, no rubs Abdomen:non-distended : Rodríguez Neuro: Sedation Urinary Catheter Management^: Rodríguez: Cath Placed During This Visit: yes Reason for Continuing Indwelling Catheter: Accurate Measurement of Urinary Output in Critically Ill Patients Urinary Catheter Date of Insertion: 03/09/21 Urinary Catheter Time of Insertion: 22:34 Data : 03/22/21 04:10 03/22/21 04:10 Micro: Microbiology 03/16/21 09:05 Blood Culture - Final Blood Staphylococcus epidermidis 03/16/21 09:00 Blood Culture - Final Blood Staphylococcus epidermidis 03/18/21 13:20 Body Fluid Culture - Final Pleural Fluid 03/18/21 13:30 Gram Stain - Final Sputum - Endotracheal Tube Aspirate Sputum Culture - Final Stenotrophomonas maltophilia A&P Assessment and plan (1) Septic shock: Status: Acute (2) Staphylococcus epidermidis bacteremia: Status: Acute (3) Acute respiratory failure due to severe acute respiratory syndrome coronavirus 2 (SARS-CoV-2) infection: Status: Acute (4) Pulmonary embolism associated with COVID-19: Status: Acute (5) Infection due to Stenotrophomonas maltophilia: Status: Acute (6) Pneumothorax: Status: Acute (7) Transaminitis: Status: Acute (8) D-dimer, elevated: Status: Acute Additional A&P Information Acute respiratory failure with hypoxia due to COVID 19 pneumonia with acute pulmonary embolism along with superimposed bacterial infection and hemo- pneumothorax Intubated and placed on MV on 03/09 -extubated 03/14 Reintubated on 03/17 am. Requiring multiple tube exchanges because of cuff leak. Chest tube placement on March 17 - S/p Remdesivir, Actemera - Continue decadron. Patient has finished 10-day course so we will decrease the dose to 3 mg IV daily for next 5 days and then stop. Noted to have a bleed including chest tube. CT chest results appreciated.. Case discussed with radiologist and pulmonology team. Possibility of chest tube eroding subcostal blood vessel leading to bleeding. If patient continues to remain stable can plan for replacing the tube. Unfortunately if he starts bleeding again patient is at high risk for cardiothoracic surgery. The above has been discussed with family. Continue to hold off on Lovenox for now. Repeat hemoglobin has remained stable. Staph bacteremia: Blood cultures from positive for staph epidermidis. Repeat blood cultures from so far negative. Sputum culture growing stenotrophomonas. For now continue with vancomycin, imipenem. Stop Levaquin as stenotrophomonas is resistant now. Switch to Bactrim 10 to 15 mg/kg body weight daily. Will monitor renal functions. Appreciate pulmonary recommendations. Septic shock: Off pressor support. Leukocytosis improving. Antibiotics as above. Repeat blood cultures so far negative. Continue Levophed keeping mean arterial pressure over 65. Check stool studies to rule out C. difficile. Strict input output charting. Transaminitis - Resolved - LFT returned to normal Hypothyroidism hx of papillary thyroid carcinoma - Status post thyroidectomy - Levothyroxine 200 mcg p.o. daily History of laryngeal cancer. GI prophylaxis Pepcid 20 mg IV BID Hold Lovenox given bleeding through chest tube. Patient remains stable in next 24 hours with plan to start on tube feedings. We will plan to start slow tube feedings to prevent refeeding syndrome as has been n.p.o. for over a week during this hospitalization. Full code. Prognosis: Severely guarded. Family including daughter updated about grave prognosis, worsening covid, superimposed stenotrophomonas bacterial infection, subsegmental PE, loculated pneumothorax, complicated by bleeding through chest tube on anticoagulation. Daughter verbalized understanding and wanted to do everything to do for now and will decide on further goals of care after talking pt.s . Plan for the day: Continue to monitor chest tube drain, try to wean sedation as possible going forward the plan would be to see if patient can be extubated versus needle for trach. Once that is achieved it will be planned for possible removal of chest tube. Case discussed with wood tile installer. Appreciate recommendations., wean oxygen supplementation as possible keeping saturation over 90%. Attestations Medical Necessity Statement*: Patient requires further hospitalization for sepsis, acute respiratory failure secondary to bacterial pneumonia, hemopneumothorax, staph bacteremia in setting of recent COVID-19 pneumonia Critical Care Time: The high probability of a clinically significant, sudden or life threatening deterioration of the patient's [pulmonary, cardiac, ID] system(s) required my full and direct attention, intervention and personal management. The critical care time is as shown. This time is in addition to time spent performing any reported procedures but includes the following: [x] Data and vital sign review and interpretation [x] Patient assessment, examination and intervention [x] Documentation [x] Medication orders and management Critical Care Time (min): 60 Coding Level of Care Code Acute Brickmason Apprentice for [facility] Fwd Diagnoses Septic shock A41.9; R65.21 Staphylococcus epidermidis bacteremia R78.81; B95.7 Acute respiratory failure due to severe acute respiratory syndrome coronavirus 2 (SARS-CoV-2) infection U07.1; J96.00 Pulmonary embolism associated with COVID-19 U07.1; I26.99 Infection due to Stenotrophomonas maltophilia A49.8 Pneumothorax J93.9 Transaminitis R74.01 D-dimer, elevated R79.89
[2021-03-22 16:43] LABS: ABG PCO2 57.9 mmHg (35-45); ABG PH Result 7.43 (7.35-7.45); Alveolar-Arterial Oxygen Gradi 39.8 mmHg (5-10); Arterial Blood Gas Hematocrit 29.1 % (42-52); Base Excess ABG 12.1 mmol/L (-2.0-2.0); Blood Gas Allen Test Pos; Blood Gas Operator Identificat BD; Blood Gas Sample Site Brachial, right; Blood Gas Sample Type Arterial; Carboxyhemoglobin 1.8 %THgb (0.4-20.1); HCO3 ABG 38.2 mmol/L (22-26); HGB O2 Sat 86.4 % (95-100); Ionized Calcium Level - ABG 1.1 mmol/L (1.1-1.4); Methemoglobin 1.1 % (0.4-1.5); Oxygen Device VENT; Oxygen Saturation ABG 88.9; PO2 ABG 52.4 mmHg (80.0-100.0); Potassium Level - ABG 3.5 mmol/L (3.5-5.0); Total Hemoglobin 9.5 g/dL (14-18)
[2021-03-22 17:24] LABS: Alanine Aminotransferase 26 U/L (0-41); Albumin Level 2.5 g/dL (3.5-5.2); Alkaline Phosphatase 103 IU/L (40-130); Anion Gap 10.7 (5-19); Aspartate Amino Transferase 16 U/L (0-40); Blood Urea Nitrogen 20 mg/dL (8-23); Calcium 7.4 mg/dL (8.5-10.5); Carbon Dioxide 34 mmol/L (22-29); Chloride 103 mmol/L (98-107); Globulin 2.1 g/dL (1.3-4.6); Glomerular Filtration Rate 304.8 mL/min (90-130); Glucose 145 mg/dL (65-115); Osmolality Calculated 303 mOsm/kg (285-295); Potassium 3.7 mmol/L (3.5-5.1); Sodium 144 mmol/L (136-145); Total Bilirubin 0.5 mg/dL (0.15-1.2); Total Protein 4.6 g/dL (6.6-8.7)
[2021-03-22 17:39] LABS: Free T4 Free Thyroxine 0.56 ng/dL (0.82-1.77); T3 Free 0.7 PG/ML (2.0-4.4)
--- NOTE | 2021-03-22 17:59 | PC.NURSE ---
Shift Note Frequent safety and comfort rounds continue. Orders and nursing care completed as indicated. Medication changes per physician's order, see mar. Patient monitored for response to intervention and treatments. Unable to educate at this time pt intubated and sedated. Family called and updated on patient status. Patient family verbalized understanding. Will continue to monitor.
[2021-03-22] MEDS: sennosides-docusate Tablet 1 TAB PO (20:29)
[2021-03-22 20:36] LABS: Glucose Point of Care 204 mg/dL (70-110)
[2021-03-22] MEDS: dexamethasone 4 mg/mL INJ 3 MG IVP (22:15)
[2021-03-23] VITALS (65 sets, daily range): BP systolic 88–154; BP diastolic 45–72; PULSE 62–106; RESP 29–40; TEMP 36.7–37.7; O2SAT 88–98
[2021-03-23] MEDS: propofol 1,000 MG/100 ML INJ 27.62 MG IV ×7 (00:45→21:23)
[2021-03-23 00:58] LABS: Arterial Blood Gas Hematocrit 43.8 % (42-52); Base Excess ABG 7.9 mmol/L (-2.0-2.0); Blood Gas Operator Identificat JB; Blood Gas Sample Site Brachial, right; Blood Gas Sample Type Arterial; Carboxyhemoglobin 1.5 %THgb (0.4-20.1); HCO3 ABG 37.6 mmol/L (22-26); HGB O2 Sat 91.5 % (95-100); Ionized Calcium Level - ABG 1.1 mmol/L (1.1-1.4); Methemoglobin 1.2 % (0.4-1.5); Oxygen Device VENT; Oxygen Saturation ABG 94.1; PO2 ABG 89.1 mmHg (80.0-100.0); Potassium Level - ABG 3.5 mmol/L (3.5-5.0); Total Hemoglobin 14.3 g/dL (14-18)
[2021-03-23 00:59] LABS: ABG PCO2 77.2 mmHg (35-45)
--- NOTE | 2021-03-23 01:18 | PC.RESP ---
jama abg due to pt having increaseing of etco2 through the shift. Increased rate to 28, and increased peep 8 fio2 to 75% pt having decreased spo2 shortly after abg was drawn, all vent changes made at the same time
[2021-03-23] MEDS: vancomycin 1,500 MG/300 ML PIGGYBACK 200 MG IV (01:45)
[2021-03-23] MEDS: ipratropium-albuterol 3 mL Neb INHALATION ×6 (03:12→23:19)
[2021-03-23] MEDS: sulfamethoxazole-trimeth inj 480 MG in dextrose 5 % 500 ML 500 MG IV ×3 (03:29→19:41)
[2021-03-23] MEDS: dexmedetomidine 400 MCG in sodium chloride 0.9% (100 ml) 100 ML 25.24 MCG IV ×5 (03:29→23:04)
[2021-03-23 03:35] LABS: Glucose Point of Care 163 mg/dL (70-110)
[2021-03-23 03:54] LABS: Basophils # 0.1 10^3/uL (0.0-0.1); Basophils % 0.4 %; Eosinophils # 0.2 10^3/uL (0.0-0.8); Eosinophils % 1.3 %; Hematocrit 31.6 % (42.0-52.0); Hemoglobin 9.5 g/dL (11.7-16.6); Lymphocytes # 0.3 10^3/uL (0.8-4.8); Lymphocytes % 1.6 %; Mean Corpuscular HGB Conc 30.1 g/dL (30.0-36.0); Mean Corpuscular Hemoglobin 31.9 pg (28.0-34.0); Monocytes # 1.1 10^3/uL (0.2-0.9); Monocytes % 6.7 %; Neutrophils # 14.71 10^3/uL (1.8-7.7); Neutrophils % 88.7 %; Nucleated Red Blood Cells # 0.1 /100WBC; Nucleated Red Blood Cells % 0.3 %; Platelet Count 106 10^3/cmm (130-400); Red Blood Count 2.98 10^6/uL (4.1-5.3); Red Cell Distribution Width 17.8 % (12.1-15.1); White Blood Count 16.6 10^3/uL (4.0-10.0)
[2021-03-23 04:53] LABS: Alanine Aminotransferase 30 U/L (0-41); Albumin Level 2.5 g/dL (3.5-5.2); Alkaline Phosphatase 104 IU/L (40-130); Blood Urea Nitrogen 19 mg/dL (8-23); Calcium 7.1 mg/dL (8.5-10.5); Carbon Dioxide 33 mmol/L (22-29); Chloride 102 mmol/L (98-107); Glomerular Filtration Rate 304.8 mL/min (90-130); Glucose 143 mg/dL (65-115); Osmolality Calculated 299 mOsm/kg (285-295); Sodium 142 mmol/L (136-145); Total Bilirubin 0.4 mg/dL (0.15-1.2); Total Protein 4.5 g/dL (6.6-8.7)
[2021-03-23 05:01] LABS: ABG PCO2 58.9 mmHg (35-45); Arterial Blood Gas Hematocrit 28.2 % (42-52); Base Excess ABG 10.2 mmol/L (-2.0-2.0); Blood Gas Allen Test Pos; Blood Gas Sample Type Arterial; HCO3 ABG 36.5 mmol/L (22-26); PO2 ABG 59.3 mmHg (80.0-100.0)
[2021-03-23 05:16] LABS: Aspartate Amino Transferase 25 U/L (0-40)
--- NOTE | 2021-03-23 06:00 | XRR_ITS ---
PROCEDURE INFORMATION: Exam: XR Chest Exam date and time: 03/23/2021 6:00 AM Age: 60 years old Clinical indication: Shortness of breath; Prior surgery; Surgery type: Thyroidectomy; Patient HX: F/u covid pneumonia. Intubated with central line. ; Additional info: Covid, vent, oneumo TECHNIQUE: Imaging protocol: XR of the chest. Views: 1 view. COMPARISON: CR XR chest 1V portable [id number] 03/22/2021 9:03 AM FINDINGS: Tubes, catheters and devices: An endotracheal tube is present with the tip 5.5 cm above the [place]. A right chest tube is present in stable satisfactory position. A nasogastric tube extends into the stomach. A left arm PICC is present with the tip projecting on the left innominate vein. Lungs: There are extensive diffuse bilateral pulmonary infiltrates. Pleural spaces: There is minimal pleural thickening along the right lateral chest wall which has decreased since previous study consistent with decreased effusion. No pneumothorax. Heart/Mediastinum: Unremarkable. No cardiomegaly. Bones/joints: Unremarkable. XR/XR chest 1V portable [id number] IMPRESSION: 1. Stable extensive bilateral pulmonary infiltrates. 2. Near complete resolution of right pleural effusion. 3. No pneumothorax.
--- NOTE | 2021-03-23 06:26 | PC.NURSE ---
Patient required increase sedation and oxygen demand while attempting to reposition. Patient had decrease O2 sats, RT called to bedside, patient suctioned and repositioned, and FiO2 increased to 75%. Patient became hypertensive during episode, presedex increased to 1. Will continue to monitor.
[2021-03-23] MEDS: budesonide 0.5 mg/2 mL Neb INHALATION ×2 (07:58→19:57)
[2021-03-23] MEDS: aspirin 81 mg EC Tablet PO (08:21)
[2021-03-23] MEDS: docusate sodium 100 mg Capsule PO ×2 (08:21→17:08)
[2021-03-23] MEDS: levothyroxine 100 mcg SDV 125 MCG IVP (08:24)
[2021-03-23 09:13] LABS: Glucose Point of Care 110 mg/dL (70-110)
[2021-03-23] MEDS: vancomycin 1,500 MG/300 ML PIGGYBACK 150 MG IV ×2 (09:27→17:08)
[2021-03-23] MEDS: famotidine 20 mg/2 mL INJ IVP ×2 (09:51→19:42)
[2021-03-23] MEDS: fentaNYL 50 mcg/mL INJ 2mL 15 MCG IVP (09:53)
[2021-03-23 14:00] LABS: Glucose Point of Care 147 mg/dL (70-110)
--- NOTE | 2021-03-23 15:42 | P.PN_ITS ---
Subjective Subjective: Interval history: Overnight patient had event of hypoxia for which he was placed on pressure control mode. Currently he is off pressors having occasional episodes of breathing over the vent. Being sedated with fentanyl 75, Precedex 1, Versed 6, propofol. Minimal drainage through chest tube. Has remained hemodynamically stable and afebrile. Medications: Reviewed: Yes Vitals/I&O/Wt Last Vital Signs Temp 98.1 F 03/23/21 15:00 Pulse 65 03/23/21 15:00 Resp 32 H 03/23/21 13:30 BP 100/45 03/23/21 15:00 Pulse Ox 95 03/23/21 15:00 03/23/21 03/23/21 03/23/21 06:59 14:59 22:59 Intake Total 2442.764 / 5031.519 1430.527 / 1430.527 Output Total 1500 / 3500 Balance 942.764 / 1663.608 5428.527 / 1430.527 Weight last 48 hrs Weight 94.347 kg Weight 93.44 kg Physical Exam Narrative: EXAM NARRATIVE: General: Intubated on MV HEENT: ET tube in place. Chest: Vent support CVS: S1-S2 regular, no murmurs, no tachycardia, no gallops, no rubs Abdomen:non-distended : Rodríguez Neuro: Sedation Urinary Catheter Management^: Rodríguez: Cath Placed During This Visit: yes Reason for Continuing Indwelling Catheter: Accurate Measurement of Urinary Output in Critically Ill Patients Urinary Catheter Date of Insertion: 03/09/21 Urinary Catheter Time of Insertion: 22:34 Data : 03/23/21 03:19 03/23/21 03:19 Micro: Microbiology 03/16/21 09:05 Blood Culture - Final Blood Staphylococcus epidermidis 03/16/21 09:00 Blood Culture - Final Blood Staphylococcus epidermidis A&P Assessment and plan (1) Septic shock: Status: Acute (2) Staphylococcus epidermidis bacteremia: Status: Acute (3) Acute respiratory failure due to severe acute respiratory syndrome coronavirus 2 (SARS-CoV-2) infection: Status: Acute (4) Pulmonary embolism associated with COVID-19: Status: Acute (5) Infection due to Stenotrophomonas maltophilia: Status: Acute (6) Pneumothorax: Status: Acute (7) Transaminitis: Status: Acute (8) D-dimer, elevated: Status: Acute Additional A&P Information Acute respiratory failure with hypoxia due to COVID 19 pneumonia with acute pulmonary embolism along with superimposed bacterial infection and hemo- pneumothorax Intubated and placed on MV on 03/09 -extubated 03/14 Reintubated on 03/17 am. Requiring multiple tube exchanges because of cuff leak. Chest tube placement on March 17 - S/p Remdesivir, Actemera - Continue decadron. Patient has finished 10-day course so we will decrease the dose to 3 mg IV daily for next 5 days and then stop. Noted to have a bleed including chest tube. CT chest results appreciated. Case discussed with radiologist and pulmonology team. Possibility of chest tube eroding subcostal blood vessel leading to bleeding. If patient continues to remain stable can plan for replacing the tube. Unfortunately if he starts bleeding again patient is at high risk for cardiothoracic surgery. The above has been discussed with family. Continue to hold off on Lovenox for now. Repeat hemoglobin has remained stable. Staph bacteremia: Blood cultures from positive for staph epidermidis. Repeat blood cultures from so far negative. Sputum culture growing stenotrophomonas. For now continue with vancomycin, imipenem. Stop Levaquin as stenotrophomonas is resistant now. Switch to Bactrim 10 to 15 mg/kg body weight daily. Will monitor renal functions. Appreciate pulmonary recommendations. Septic shock: Off pressor support. Leukocytosis improving. Antibiotics as above. Repeat blood cultures so far negative. Continue Levophed keeping mean arterial pressure over 65. Check stool studies to rule out C. difficile. Strict input output charting. Transaminitis - Resolved - LFT returned to normal Hypothyroidism hx of papillary thyroid carcinoma - Status post thyroidectomy Low free T3, T4, TSH. Switch PO levothyroxine to IV levothyroxine 125 mcg daily. History of laryngeal cancer. GI prophylaxis Pepcid 20 mg IV BID Hold Lovenox given bleeding through chest tube. TF free water flush 250 ml every 6 hr Full code. Prognosis: Severely guarded. Family including daughter updated about grave prognosis, worsening covid, superimposed stenotrophomonas bacterial infection, subsegmental PE, loculated pneumothorax, complicated by bleeding through chest tube on anticoagulation. 03/23: Further goals of care were discussed with the daughter. We discussed that in last 24 hours patient's mode of ventilation had to be changed because of poor oxygenation. We discussed that if his heart to stop it would be very difficult for him to survive. She states she has spoken to the family and in case if it heart stops they would not want him to be resuscitated/they do not want any kind of chest compressions. CODE STATUS change in the system. Plan for the day: Plan to flush chest tube with 50 cc of normal saline. Continue on pressure control mode. Repeat chest x-ray appreciated. Continue with current current antimicrobials while monitoring for hemodynamics. Plan for sedation vacation. Case discussed with pick pack worker. Appreciate recommendations., wean oxygen supplementation as possible keeping saturation over 90%. Attestations Medical Necessity Statement*: Requires further hospitalization for being ventilator dependent for ARDS secondary COVID-19 pneumonia, acute pulmonary embolism, superadded bacterial pneumonia, hemothorax, staph bacteremia. Critical Care Time: The high probability of a clinically significant, sudden or life threatening deterioration of the patient's [pulmonary, cardiac, ID] system(s) required my full and direct attention, intervention and personal management. The critical care time is as shown. This time is in addition to time spent performing any reported procedures but includes the following: [x] Data and vital sign review and interpretation [x] Patient assessment, examination and intervention [x] Documentation [x] Medication orders and management Critical Care Time (min): 60 Coding Level of Care Code Acute Career Guidance Technician for [facility] Fwd Diagnoses Septic shock A41.9; R65.21 Staphylococcus epidermidis bacteremia R78.81; B95.7 Acute respiratory failure due to severe acute respiratory syndrome coronavirus 2 (SARS-CoV-2) infection U07.1; J96.00 Pulmonary embolism associated with COVID-19 U07.1; I26.99 Infection due to Stenotrophomonas maltophilia A49.8 Pneumothorax J93.9 Transaminitis R74.01 D-dimer, elevated R79.89
--- NOTE | 2021-03-23 17:59 | PC.NURSE ---
Shift Note Frequent safety and comfort rounds continue. Orders and nursing care completed as indicated. Patient given a 15mcg fentanyl IVP today per physician's orders. Patient continues to over breath the ventilator. Chest tube noted to have no drainage the past two shifts orders to flush chest tube with 15ml of sterile saline per physician's orders. Chest tube continues to not drain. Physician notified. Unable to educate patient at this time due to patient sedated and ventilated. Family updated on patient status, verbalized understanding. Will continue to monitor. IV medications currently running: Fentanyl= 75mcg/hr Propofol= 50mg/kg/min Versed= 6mg/hr Precedex= 1mcg/kg/hr Current Vent Settings MODE: PC-AC FIO2: 75% RR: 28 PEEP: 8
[2021-03-23 20:12] LABS: Glucose Point of Care 119 mg/dL (70-110)
[2021-03-23] MEDS: sennosides-docusate Tablet 1 TAB PO (20:58)
[2021-03-23] MEDS: dexamethasone 4 mg/mL INJ 3 MG IVP (20:58)
[2021-03-24] VITALS (64 sets, daily range): BP systolic 94–173; BP diastolic 48–80; PULSE 58–101; RESP 30–37; TEMP 36.9–37.2; O2SAT 94–99; BMI 31.9
[2021-03-24] MEDS: propofol 1,000 MG/100 ML INJ 27.62 MG IV ×5 (01:01→14:59)
[2021-03-24] MEDS: vancomycin 1,500 MG/300 ML PIGGYBACK 150 MG IV (02:57)
[2021-03-24] MEDS: ipratropium-albuterol 3 mL Neb INHALATION ×5 (03:27→20:12)
[2021-03-24] MEDS: dexmedetomidine 400 MCG in sodium chloride 0.9% (100 ml) 100 ML 25.24 MCG IV (04:18)
[2021-03-24] MEDS: sulfamethoxazole-trimeth inj 480 MG in dextrose 5 % 500 ML 500 MG IV ×3 (04:19→19:49)
[2021-03-24 04:59] LABS: Procalcitonin 0.13 ng/mL (0-0.5)
[2021-03-24 05:10] LABS: Basophils % 0.3 %; Eosinophils # 0.1 10^3/uL (0.0-0.8); Hematocrit 24.9 % (42.0-52.0); Hemoglobin 7.8 g/dL (11.7-16.6); Lymphocytes # 0.3 10^3/uL (0.8-4.8); Lymphocytes % 2.7 %; Mean Corpuscular HGB Conc 31.3 g/dL (30.0-36.0); Mean Corpuscular Hemoglobin 30.6 pg (28.0-34.0); Mean Corpuscular Volume 97.6 fl (80-94); Mean Platelet Volume 9.8 fL (7.4-10.4); Monocytes # 0.8 10^3/uL (0.2-0.9); Monocytes % 6.4 %; Neutrophils % 87.4 %; Nucleated Red Blood Cells % 0.2 %; Platelet Count 102 10^3/cmm (130-400); Red Blood Count 2.55 10^6/uL (4.1-5.3); Red Cell Distribution Width 17.5 % (12.1-15.1); White Blood Count 12.8 10^3/uL (4.0-10.0)
[2021-03-24 05:31] LABS: Alanine Aminotransferase 27 U/L (0-41); Albumin Level 2.2 g/dL (3.5-5.2); Alkaline Phosphatase 79 IU/L (40-130); Aspartate Amino Transferase 25 U/L (0-40); Blood Urea Nitrogen 15 mg/dL (8-23); Calcium 6.8 mg/dL (8.5-10.5); Carbon Dioxide 33 mmol/L (22-29); Chloride 100 mmol/L (98-107); Glomerular Filtration Rate 304.8 mL/min (90-130); Glucose 147 mg/dL (65-115); Osmolality Calculated 290 mOsm/kg (285-295); Sodium 138 mmol/L (136-145); Total Bilirubin 0.3 mg/dL (0.15-1.2); Total Protein 4.2 g/dL (6.6-8.7)
[2021-03-24 05:41] LABS: Glucose Point of Care 194 mg/dL (70-110)
--- NOTE | 2021-03-24 06:00 | XRR_ITS ---
PROCEDURE INFORMATION: Exam: XR Chest Exam date and time: 03/24/2021 6:00 AM Age: 60 years old Clinical indication: Shortness of breath; Additional info: zoya Wu oneumo TECHNIQUE: Imaging protocol: XR of the chest. Views: 1 view. Total images: 1 COMPARISON: CR (CHEST, ) 03/23/2021 5:34 AM FINDINGS: Tubes, catheters and devices: Tubes and catheters are unchanged from the prior exam. Lungs: Stable bilateral pleuroparenchymal disease. Pleural spaces: No pneumothorax. Heart/Mediastinum: Heart size is stable when compared to the prior exam. Bones/joints: Unremarkable. XR/XR chest 1V portable [id number] IMPRESSION: 1. Tubes and catheters are unchanged from the prior exam. 2. Stable bilateral pleuroparenchymal disease.
--- NOTE | 2021-03-24 07:06 | PC.NURSE ---
Shift Note Frequent safety and comfort rounds continue. Orders and/or nursing care completed as indicated. Patient monitored for response to intervention and treatment(s). Education provided includes sedation medication. Patient unable to comprehend teaching due to being intubated and sedated. Right chest tube had no output overnight. Rodríguez catheter drained 1100 mls of clear light rocky urine all evening. Tube feedings were held due to gastric residual being above 50 mls. Patient remains unresponsive to painful and verbal stimuli at this time. Vent settings are as follows; mode-PC-AC, FiO2-75%, PEEP-8, Rate-28. Left IJ central line has Versed 6 mg/hr, Precedex 1 mcg/kg/hr, Fentanyl 100 mcg/hr, Propofol 50 mg/kg/min infusing per protocol. Right hand IV is saline locked at this time. Will continue to monitor.
[2021-03-24] MEDS: budesonide 0.5 mg/2 mL Neb INHALATION ×2 (07:54→20:12)
[2021-03-24 08:40] LABS: Glucose Point of Care 115 mg/dL (70-110)
--- NOTE | 2021-03-24 08:40 | ECG_ITS ---
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 Measurements Intervals [place] Rate: 65 P: 38 HI: 168 QRS: 29 QRSD: 103 T: 125 QT: 420 QTc: 439 Interpretive Statements SINUS RHYTHM NONSPECIFIC T-WAVE ABNORMALITY Compared to ECG 03/05/2021 14:24:31 T-wave abnormality now present Electronically Signed On 03-24-2021 19:48:01 CDT by Dennis Briceno M.D. [id number]
--- NOTE | 2021-03-24 08:40 | PM.PN ---
Subjective Subjective: Interval history: Seen multiple times during the day. No acute events overnight. Has remained hemodynamically stable. Off pressors. Documented urine output 2 L in last 24 hours. Net +2.2 L. Patient has been having occasional episodes of breathing over the vent. Currently on Versed of 4, propofol of 40, fentanyl 75, Precedex of 1. Continues to stay on pressure control. Saturating 96% as per the nurse patient has not had any bowel movements for last couple of days. Tube feeds withheld overnight because of excessive residual. Residual checked again in more than 200. For now we will hold off on further tube feeds. Medications: Reviewed: Yes Vitals/I&O/Wt Last Vital Signs Temp 98.9 F 03/24/21 04:00 Pulse 58 L 03/24/21 07:54 Resp 35 H 03/24/21 07:54 BP 106/51 03/24/21 06:30 Pulse Ox 97 03/24/21 07:54 03/23/21 03/24/21 03/24/21 22:59 06:59 14:59 Intake Total 1515.114 / 2945.641 1326.942 / 4272.583 36.833 / 36.833 Output Total 900 / 900 1100 / 2000 Balance 615.114 / 2045.641 226.942 / 2272.583 36.833 / 36.833 Weight last 48 hrs Weight 103.873 kg Weight 94.347 kg Physical Exam Narrative: EXAM NARRATIVE: General: Intubated on MV HEENT: ET tube in place. Chest: Vent support CVS: S1-S2 regular, no murmurs, no tachycardia, no gallops, no rubs Abdomen:non-distended : Rodríguez Neuro: Sedation Urinary Catheter Management^: Rodríguez: Cath Placed During This Visit: yes Reason for Continuing Indwelling Catheter: Accurate Measurement of Urinary Output in Critically Ill Patients Urinary Catheter Date of Insertion: 03/09/21 Urinary Catheter Time of Insertion: 22:34 Data : 03/24/21 04:55 03/24/21 04:56 A&P Assessment and plan (1) Septic shock: Status: Acute (2) Staphylococcus epidermidis bacteremia: Status: Acute (3) Acute respiratory failure due to severe acute respiratory syndrome coronavirus 2 (SARS-CoV-2) infection: Status: Acute (4) Pulmonary embolism associated with COVID-19: Status: Acute (5) Infection due to Stenotrophomonas maltophilia: Status: Acute (6) Pneumothorax: Status: Acute (7) Transaminitis: Status: Acute (8) D-dimer, elevated: Status: Acute Additional A&P Information Acute respiratory failure with hypoxia due to COVID 19 pneumonia with acute pulmonary embolism along with superimposed bacterial infection and hemo-pneumothorax Intubated and placed on MV on 03/09 -extubated 03/14 Reintubated on 03/17 am. Requiring multiple tube exchanges because of cuff leak. Chest tube placement on March 17 - S/p Remdesivir, Actemera - Continue decadron. Patient has finished 10-day course so we will decrease the dose to 3 mg IV daily for next 5 days and then stop. Last dose of Decadron today. Noted to have a bleed including chest tube. CT chest results appreciated. Case discussed with radiologist and pulmonology team. Possibility of chest tube eroding subcostal blood vessel leading to bleeding. If patient continues to remain stable can plan for replacing the tube. Unfortunately if he starts bleeding again patient is at high risk for cardiothoracic surgery. The above has been discussed with family. Continue to hold off on Lovenox for now. Repeat hemoglobin has remained stable. Staph bacteremia: Blood cultures from positive for staph epidermidis. Repeat blood cultures from so far negative. Sputum culture growing stenotrophomonas. Continue vancomycin and Bactrim. Will monitor renal functions. Anemia: Most likely dilutional. IV Lasix 40 mg stat. Will monitor urine output during the day and repeat Lasix again if needed. We will keep hemoglobin over 8. If repeat hemoglobin in the afternoon less than 8 will transfuse 1 unit PRBC. Appreciate pulmonary recommendations. Septic shock: Off pressor support. Leukocytosis improving. Antibiotics as above. Repeat blood cultures so far negative. Continue Levophed keeping mean arterial pressure over 65. Check stool studies to rule out C. difficile. Strict input output charting. Transaminitis - Resolved - LFT returned to normal Hypothyroidism hx of papillary thyroid carcinoma - Status post thyroidectomy Low free T3, T4, TSH. Switch PO levothyroxine to IV levothyroxine 125 mcg daily. Repeat thyroid panel in a.m. History of laryngeal cancer. GI prophylaxis Pepcid 20 mg IV BID Hold Lovenox given bleeding through chest tube. TF free water flush 100 ml every 6 hr. Tube feeds stopped today because of excessive residual. We will continue to monitor. Full code. Bowel regimen. Prognosis: Severely guarded. Family including daughter updated about grave prognosis, worsening covid, superimposed stenotrophomonas bacterial infection, subsegmental PE, loculated pneumothorax, complicated by bleeding through chest tube on anticoagulation. 03/23: Further goals of care were discussed with the daughter. We discussed that in last 24 hours patient's mode of ventilation had to be changed because of poor oxygenation. We discussed that if his heart to stop it would be very difficult for him to survive. She states she has spoken to the family and in case if it heart stops they would not want him to be resuscitated/they do not want any kind of chest compressions. CODE STATUS change in the system. Plan for the day: Plan to flush chest tube with 50 cc of normal saline. Continue on pressure control mode. Repeat chest x-ray appreciated. Continue with current current antimicrobials while monitoring for hemodynamics. Plan for sedation vacation. Case discussed with rural electrification engineer. Appreciate recommendations., wean oxygen supplementation as possible keeping saturation over 90%. Attestations Medical Necessity Statement*: Requires further hospitalization for management for ARDS secondary to COVID-19 pneumonia, superadded bacterial pneumonia, pulmonary embolism getting complicated by hemopneumothorax Critical Care Time: The high probability of a clinically significant, sudden or life threatening deterioration of the patient's [respiratory, cardiac, ID] system(s) required my full and direct attention, intervention and personal management. The critical care time is as shown. This time is in addition to time spent performing any reported procedures but includes the following: [x] Data and vital sign review and interpretation [x] Patient assessment, examination and intervention [x] Documentation [x] Medication orders and management Critical Care Time (min): 60 Coding Level of Care Code Acute Radio Sales Account Executive for [facility] Fwd Diagnoses Septic shock A41.9; R65.21 Staphylococcus epidermidis bacteremia R78.81; B95.7 Acute respiratory failure due to severe acute respiratory syndrome coronavirus 2 (SARS-CoV-2) infection U07.1; J96.00 Pulmonary embolism associated with COVID-19 U07.1; I26.99 Infection due to Stenotrophomonas maltophilia A49.8 Pneumothorax J93.9 Transaminitis R74.01 D-dimer, elevated R79.89
[2021-03-24] MEDS: aspirin 81 mg EC Tablet PO (08:45)
[2021-03-24] MEDS: FUROsemide 10 mg/mL SDV 4mL 40 MG IVP ×2 (08:46→15:47)
[2021-03-24] MEDS: docusate sodium 100 mg Capsule PO ×2 (08:46→17:27)
[2021-03-24] MEDS: famotidine 20 mg/2 mL INJ IVP ×2 (08:46→19:53)
[2021-03-24] MEDS: levothyroxine 100 mcg SDV 125 MCG IVP (09:14)
[2021-03-24] MEDS: vancomycin 1,500 MG/300 ML PIGGYBACK 200 MG IV ×2 (09:15→17:27)
--- NOTE | 2021-03-24 09:23 | PC.NURSE ---
Shift Note Frequent safety and comfort rounds continue. Orders and/or nursing care completed as indicated. Patient monitored for response to intervention and treatment(s). Education provided includes[Ventilation, sedation, and chest tube management]. Patient and/or contact representative [Patient's daughter verbally stated she understood]. Will continue to monitor. Received bed side shift report from off going nurse. Pt's plan of care reviewed. Pt is resting in bed. Respirations are even and unlabored. No s/sx of distress noted. Pt is currently intubated and sedated. Pt has moments of breathing in the 40's for a short period of time before dropping back down into the 20's-30's. Has has a gastric residual of 250mL. TF has been off for approx 4 hours. Pt had a drop in hemoglobin overnight from 9.5 to 7.8. No bleeding noted. Minimal drainage noted from chest tube. Dr. Martinez was notified of the high residual and drop in hemoglobin. New orders given. Pt's daughter called this morning and an update was given. Bed in lowest and locked position, call light within reach, x's 3 rails up. Bed alarm on. Will continue to monitor.
[2021-03-24] MEDS: magnesium hydroxide 30 mL UDC PO (10:42)
[2021-03-24 10:59] LABS: Magnesium 2.1 mg/dL (1.7-2.3); Phosphorus 2.6 mg/dL (2.5-4.5)
[2021-03-24] MEDS: dexmedetomidine 400 MCG in sodium chloride 0.9% (100 ml) 100 ML 17.67 MCG IV (12:14)
[2021-03-24 12:55] LABS: Glucose Point of Care 139 mg/dL (70-110)
--- NOTE | 2021-03-24 14:19 | PC.SOCIAL ---
IMM update IMM not updated due to patient being intubated and not expected to DC in the next 24-48 hours.
[2021-03-24 16:43] LABS: Basophils % 0.3 %; Eosinophils # 0.4 10^3/uL (0.0-0.8); Eosinophils % 3.4 %; Hematocrit 27.7 % (42.0-52.0); Hemoglobin 8.8 g/dL (11.7-16.6); Lymphocytes # 0.4 10^3/uL (0.8-4.8); Lymphocytes % 3.1 %; Mean Corpuscular HGB Conc 31.8 g/dL (30.0-36.0); Mean Corpuscular Hemoglobin 31.5 pg (28.0-34.0); Mean Corpuscular Volume 99.3 fl (80-94); Mean Platelet Volume 9.2 fL (7.4-10.4); Monocytes # 1.1 10^3/uL (0.2-0.9); Monocytes % 8.8 %; Neutrophils # 10.37 10^3/uL (1.8-7.7); Neutrophils % 81.1 %; Nucleated Red Blood Cells # 0.1 /100WBC; Nucleated Red Blood Cells % 0.4 %; Platelet Count 113 10^3/cmm (130-400); Red Blood Count 2.79 10^6/uL (4.1-5.3); Red Cell Distribution Width 18.2 % (12.1-15.1); White Blood Count 12.8 10^3/uL (4.0-10.0)
[2021-03-24] MEDS: propofol 1,000 MG/100 ML INJ 33.15 MG IV ×3 (17:13→23:30)
[2021-03-24] MEDS: dexmedetomidine 400 MCG in sodium chloride 0.9% (100 ml) 100 ML 10.1 MCG IV (19:50)
[2021-03-24] MEDS: sennosides-docusate Tablet 1 TAB PO (19:53)
[2021-03-24 20:18] LABS: Glucose Point of Care 111 mg/dL (70-110)
[2021-03-25] VITALS (60 sets, daily range): BP systolic 88–174; BP diastolic 44–92; PULSE 64–111; RESP 30–36; TEMP 36.6–37.7; O2SAT 85–98; BMI 31.6
[2021-03-25] MEDS: vancomycin 1,500 MG/300 ML PIGGYBACK 200 MG IV ×3 (02:13→17:44)
[2021-03-25] MEDS: propofol 1,000 MG/100 ML INJ 33.15 MG IV ×8 (02:31→23:06)
[2021-03-25 02:54] LABS: Glucose Point of Care 100 mg/dL (70-110)
[2021-03-25 03:30] LABS: Hematocrit 30.2 % (42.0-52.0); Hemoglobin 9.5 g/dL (11.7-16.6); Mean Corpuscular HGB Conc 31.5 g/dL (30.0-36.0); Mean Corpuscular Hemoglobin 30.7 pg (28.0-34.0); Mean Corpuscular Volume 97.7 fl (80-94); Mean Platelet Volume 9.4 fL (7.4-10.4); Platelet Count 131 10^3/cmm (130-400); Red Blood Count 3.09 10^6/uL (4.1-5.3); Red Cell Distribution Width 18.6 % (12.1-15.1); White Blood Count 14.1 10^3/uL (4.0-10.0)
[2021-03-25] MEDS: ipratropium-albuterol 3 mL Neb INHALATION ×7 (03:45→23:41)
[2021-03-25 03:50] LABS: Alanine Aminotransferase 38 U/L (0-41); Albumin Level 2.5 g/dL (3.5-5.2); Alkaline Phosphatase 129 IU/L (40-130); Anion Gap 7.7 (5-19); Aspartate Amino Transferase 42 U/L (0-40); Blood Urea Nitrogen 12 mg/dL (8-23); Calcium 7.2 mg/dL (8.5-10.5); Carbon Dioxide 39 mmol/L (22-29); Chloride 97 mmol/L (98-107); Globulin 2.6 g/dL (1.3-4.6); Glomerular Filtration Rate 486.7 mL/min (90-130); Glucose 106 mg/dL (65-115); Osmolality Calculated 290 mOsm/kg (285-295); Potassium 3.7 mmol/L (3.5-5.1); Sodium 140 mmol/L (136-145); Total Bilirubin 0.4 mg/dL (0.15-1.2); Total Protein 5.1 g/dL (6.6-8.7)
[2021-03-25 04:33] LABS: Absolute Eosinophils 0.7 10^3/cmm (0.0-0.7); Absolute Segmented Neutrophil 11.7 10/cmm (1.6-7.1); Eosinophils 5 %; Lymphocytes 9 %; Monocytes Absolute 0.4 10^3/cmm (0.1-0.6); Segmented Neutrophils 83 %; Total Cells Counted 100 (0-100)
[2021-03-25 04:34] LABS: Absolute Neutrophil 11.7 10^3/cmm (1.4-6.5); Lymphocytes Absolute 1.3 10^3/cmm (1.2-3.4); Platelet Estimate Decreased (Normal); Poikilocytosis Trace
[2021-03-25] MEDS: sulfamethoxazole-trimeth inj 480 MG in dextrose 5 % 500 ML 500 MG IV ×3 (04:48→20:36)
--- NOTE | 2021-03-25 06:00 | XRR_ITS ---
PROCEDURE INFORMATION: Exam: XR Chest Exam date and time: 03/25/2021 6:00 AM Age: 60 years old Clinical indication: Dyspnea; Additional info: Covid, vent, oneumo TECHNIQUE: Imaging protocol: XR of the chest. Views: 1 view. COMPARISON: CR (CHEST, ) 03/24/2021 6:09 AM FINDINGS: Tubes, catheters and devices: Support tubes and lines are in good position. Lungs: Stable bilateral infiltrates. Pleural spaces: Unremarkable. No pleural effusion. No pneumothorax. Heart/Mediastinum: Unremarkable. No cardiomegaly. Bones/joints: Unremarkable. XR/XR chest 1V portable [id number] IMPRESSION: 1. Support tubes and lines are in good position. 2. Stable bilateral infiltrates.
--- NOTE | 2021-03-25 06:30 | PC.NURSE ---
Shift Note Frequent safety and comfort rounds continue. Orders and/or nursing care completed as indicated. Patient monitored for response to intervention and treatment(s). Education provided includes treatment plan and sedation medications. Patient unable to comprehend teaching due to being intubated and sedated. Patient currently unresponsive to verbal and painful stimuli. Left IJ central line infusing Propofol 60 mcg/kg/min, Precedex 0.4 mcg/kg/hr, Fentanyl 100 mcg/hr, and Versed 4 mg/hr. OG tube has Jevity tube feeding running at 15mls/hr with 50 ml flush Q4. Patient tolerating well, no gastric residual when aspirated. Rodríguez catheter drained 1600 mls dark yellow urine all evening. Vent settings are as follows; mode-PC-AC, FiO2-70%, Rate-28, PEEP-8. Will continue to monitor.
[2021-03-25] MEDS: budesonide 0.5 mg/2 mL Neb INHALATION ×2 (08:00→19:45)
[2021-03-25 08:07] LABS: Glucose Point of Care 113 mg/dL (70-110)
[2021-03-25] MEDS: famotidine 20 mg/2 mL INJ IVP ×2 (08:16→20:31)
[2021-03-25] MEDS: artificial tears Op Oint 3.5 gm 1 APPLIC EYE-BOTH ×2 (08:16→16:47)
[2021-03-25] MEDS: docusate sodium 100 mg Capsule PO ×2 (08:16→17:44)
[2021-03-25] MEDS: aspirin 81 mg EC Tablet PO (08:18)
[2021-03-25] MEDS: dexmedetomidine 400 MCG in sodium chloride 0.9% (100 ml) 100 ML 10.1 MCG IV ×3 (08:24→20:30)
--- NOTE | 2021-03-25 08:34 | PC.CHAP ---
Pastoral Care Encounter/Spiritual Assessment Type of Contact [] Declined high school librarian visit [] Patient/Family/Request visit [] Outpatient visit [] Follow-up visit [] Physician referral [] Code/Alert [x] Routine visit [] Staff referral [] Actively dying [] Patient sleeping [] Family support [] [] Out of room [] Palliative care [] [] Receiving care in room [] Pre-surgical visit [] Trauma [] Long length of stay [x] ICU visit [] Other: covid Relational/Emotional Strength [] Patient feels connected with others/family/visitors/staff [] Distress [] Loneliness/isolation [] Abandonment Spirituality of Patient [] Person of Basilia [] Attends Druze of their Basilia [] Believes in Prayer [] Reads Bible or Islam materials [] There are Spiritual issues to be addressed Gyroscope Technician Interventions [x] Prayer [] Active listening [] Non-anxious presence [] Spiritual/emotional support [] Crisis/trauma care [] Spiritual counseling [] Bereavement support [] Provided bereavement packet [] Provided Bible/devotional materials [] Provided toy/stuffed animal, coloring book to patient or family member [] Provided Communion [] Anointing/[place] [] Salvation [x] Completed spiritual assessment [] Other: Impact on Illness or Injury [] Angry [] Fearful [] Anxious [] Often cries [] Exhaustion [] Unable to work [] Unable to attend restorationist [] Unable to walk/stand [] Unable to read [] Unable to drive [] Unable to eat/drink [] Unable to sleep [] Unable to be with family [] Patient intubated [] Other: Summary Time spent with patient
--- NOTE | 2021-03-25 09:26 | NUR.SHIFT ---
Frequent safety and comfort rounds continue. Orders and/or nursing care completed as indicated. Patient monitored for response to intervention and treatments. Patient breathing labored. Respirations are 30 breaths per minute, patient is breathing over the vent rate. Respiratory notified. Patient IV medications are as follows: Fentanyl 100mcg/min, Versed 6mg/hr, Propofol 50 mcg/kg/min, Precedex 0.4 mcg/kg/min. Will continue to monitor.
[2021-03-25 09:42] LABS: Vancomycin Trough 15.7 ug/mL (10-15)
--- NOTE | 2021-03-25 09:54 | PC.NURSE ---
OG Tube Management Patient received 9:00 AM medication through his OG tube. Patient's tube feeding stopped and residual check. 0 mL of residual pulled back. Air then pushed into patient's OG tube to check placement and chest x-ray report checked prior to administration. 50 mL of water was pushed into patient's OG tube, 30 mL of water and medication pushed through tube and then flushed with 50 mL of water. Patient tolerated well. Will continue to monitor.
--- NOTE | 2021-03-25 10:16 | XRR_ITS ---
PROCEDURE INFORMATION: Exam: XR Chest Exam date and time: 03/25/2021 10:16 AM Age: 60 years old Clinical indication: Device placement; Tracheostomy placement or adjustment; Additional info: New deviated trachea to right TECHNIQUE: Imaging protocol: XR of the chest. Views: 1 view. COMPARISON: CR (CHEST, ) 03/25/2021 4:03 AM FINDINGS: Tubes, catheters and devices: Endotracheal tube is in satisfactory position. Feeding tube is in satisfactory position. Left subclavian approach central line is in satisfactory position, with distal tip in the left brachiocephalic vein, approximately 11 cm above the SVC/RA junction. Lungs: Low lung volumes. Persistent bilateral airspace opacities. No large pleural effusion or pneumothorax. Pleural spaces: See Lungs finding. Heart/Mediastinum: Stable cardiomediastinal silhouette. Bones/joints: No acute osseous injury identified. XR/XR chest 1V portable [id number] IMPRESSION: Persistent bilateral airspace opacities.
--- NOTE | 2021-03-25 10:16 | PC.NURSE ---
Addendum entered by MEHDI Noel 03/25/21 10:29: Dr. Mustafa assessed patient and said that he does not believe that it is deviation. Chest x-ray obtained. Waiting on results. Will continue to monitor patient. Original Note: Patient Assessment Patient has large deviation of the trachea to the right side. Dr. Mustafa notified. Stat chest x-ray ordered. Will continue to monitor.
--- NOTE | 2021-03-25 11:56 | PC.NURSE ---
Ventilator Settings Vent Settings As Follows: FiO2- 70 TV- 0.95 PEEP- 8 RR- 28 Patient is currently breathing at a rate of 35. Will continue to monitor.
--- NOTE | 2021-03-25 12:00 | PC.NURSE ---
Addendum entered by MEHDI Noel 03/26/21 12:00: Patient's feeding pump is set to 50mL flushes every 4 hours. The order is for 100 mL every 4 hours. Snorkelling Instructor, Elida and I discussed this and she notified the doctor to clarify. Original Note: Feeding Patient's feeding (Jevity) was running at 15mL/ hr with 50 mL flushes. Order is for 40mL/hr. This nurse titrated the amount to 25mL/hr and will continue to increase by 10mL/hr until 40mL is met. Patient latest residual was 0mL. Will continue to monitor patient's residual and tolerance to feeding.
[2021-03-25] MEDS: levothyroxine 100 mcg SDV 125 MCG IVP (13:22)
[2021-03-25 14:47] LABS: Glucose Point of Care 143 mg/dL (70-110)
--- NOTE | 2021-03-25 15:40 | PC.NURSE ---
Chest Tube Dressing Patient's chest tube dressing changed. Foul odor and serosanguinous/brown drainage noted from the old dressing. Site cleansed with betadine and dressed with gauze pads and secured with foam tape.
--- NOTE | 2021-03-25 16:13 | PC.NURSE ---
Patient residual checked, no residual present. Patient's feeding adjusted to 35mL/hr. Head of bed elevated to 30 degrees. Patient tolerating well. Will continue to monitor and increase feeding as tolerated.
--- NOTE | 2021-03-25 16:48 | PC.NURSE ---
Suction Suction canister emptied today with 800 mL of bright red blood and saliva mixture. The canister had accumulated fluids over a couple days. Will continue to monitor.
--- NOTE | 2021-03-25 18:00 | PC.NURSE ---
Patient residual checked, 40 mL of residual present and put back into stomach. Patient's feeding adjusted to 40 mL/hr. Head of bed elevated to 30 degrees. Patient tolerating well. Feeding is set to the amount order in the patient's chart with 50 mL flushes every hour. Will continue to monitor.
--- NOTE | 2021-03-25 19:10 | P.PN_ITS ---
Subjective Subjective: Interval history: Intubated, sedated. Overbreathing the vent. Occasionally getting anxious. Vitals/I&O/Wt Last Vital Signs Temp 98.5 F 03/25/21 18:00 Pulse 102 H 03/25/21 18:00 Resp 34 H 03/25/21 15:33 BP 148/76 03/25/21 18:00 Pulse Ox 94 03/25/21 18:00 03/25/21 03/25/21 03/25/21 06:59 14:59 22:59 Intake Total 1618.058 / 4209.296 1445.637 / 1445.637 80.665 / 1526.302 Output Total 1600 / 4362 1000 / 1000 800 / 1800 Balance 18.058 / -152.704 445.637 / 445.637 -719.335 / -273.698 Weight last 48 hrs Weight 102.994 kg Weight 103.873 kg Physical Exam Const: COMMON NORMALS: no acute distress GENERAL APPEARANCE: patient mechanically ventilated HENMT: COMMON NORMALS: oropharynx normal OTHER: In afternoon some swelling noted around right side of the neck Neck/C-Spine: COMMON NORMALS: no JVD Resp: COMMON NORMALS: normal respiratory effort and clear to auscultation bilaterally AUSCULTATION: clear to auscultation bilaterally Cardio: COMMON NORMALS: no JVD, regular rhythm, S1 normal heart sound present, S2 normal heart sound present and No murmurs present (Cardio) RHYTHM: regular rhythm HEART SOUNDS: S1 normal heart sound present and S2 normal heart sound present GI: COMMON NORMALS: Normal to inspection, nondistended, normoactive bowel sounds present, Soft to palpation and non-tender PALPATION: Yes Soft to palpation Extremity: COMMON NORMALS: no joint enlargement GENERAL: Yes edema (2+ anasarca) Skin: COMMON NORMALS: no rashes or lesions noted GENERAL SKIN EXAM: no rashes or lesions noted Urinary Catheter Management^: Rodríguez: Cath Placed During This Visit: yes Reason for Continuing Indwelling Catheter: Accurate Measurement of Urinary Output in Critically Ill Patients Urinary Catheter Date of Insertion: 03/09/21 Urinary Catheter Time of Insertion: 22:34 Data : 03/25/21 03:00 03/25/21 03:00 Micro: Microbiology 03/19/21 20:06 Blood Culture - Final Blood NO GROWTH AFTER 5 DAYS 03/19/21 20:00 Blood Culture - Final Blood NO GROWTH AFTER 5 DAYS A&P Assessment and plan (1) Acute respiratory failure due to severe acute respiratory syndrome coronavirus 2 (SARS-CoV-2) infection: Continues with mechanical ventilatory support. Later in the afternoon today noted some swelling around right side of his neck. Appears to have some m ild subcutaneous emphysema. No tracheal deviation noted. Chest x-ray obtained, no recurrence of pneumothorax seen. Contin[facility]. Gets anxious, restless, overbreathing the vent. Persistent infiltrates appear unchanged in chest x-ray. Discussed his condition with his family. Discussed he appears uncomfortable. At this time they understand he is severely ill, understand that there is very high risk of mortality. Would like to give him more time, continue with current treatment. We will add additional pushes of Ativan as needed, morphine as needed in case appearing in pain. Continue sedation, mechanical ventilatory support. With noted anasarca discussed also we will repeat Lasix. With stenotrophomonas infection, discussed we are also continuing antibiotics. With PE, discussed we are continuing anticoagulation. Continue attempts to wean down as tolerating off mechanical ventilatory support. At this time he does not appear to be yet ready to transition to long-term acute care, does not yet appear to be ready for consideration of tracheostomy. Status: Acute (2) Pulmonary embolism associated with COVID-19: Anticoagulation Status: Acute (3) Infection due to Stenotrophomonas maltophilia: Continue Bactrim Status: Acute (4) Pneumothorax: Chest tube in place, so far without recurrence Status: Acute (5) Staphylococcus epidermidis bacteremia: bottles. Vancomycin continued for now. Without growth on repeat culture. Status: Acute (6) Septic shock: Resolved. Weaned off pressor. Status: Acute (7) Transaminitis: Improved. Status: Acute (8) D-dimer, elevated: Status: Acute Additional A&P Information Continue vancomycin and Bactrim. Will monitor renal functions. Anemia: Most likely dilutional. Improved with diuresis. Repeat Lasix. Hypothyroidism hx of papillary thyroid carcinoma. Pharmacy asking today about switching from IV to levothyroxine per OG. Will change. History of laryngeal cancer. Attestations Medical Necessity Statement*: Continue admission for management of severe COVID-19 pneumonia with hypoxic respiratory failure, ARDS, complicated recently with pneumothorax, PE, superimposed bacterial infection with stenotrophomonas. Coding Level of Care Code Acute Auto Refinisher for Chg Fwd Exam Comprehensive Diagnoses Acute respiratory failure due to severe acute respiratory syndrome coronavirus 2 (SARS-CoV-2) infection U07.1; J96.00 Pulmonary embolism associated with COVID-19 U07.1; I26.99 Infection due to Stenotrophomonas maltophilia A49.8 Pneumothorax J93.9 Staphylococcus epidermidis bacteremia R78.81; B95.7 Septic shock A41.9; R65.21 Transaminitis R74.01 D-dimer, elevated R79.89
[2021-03-25] MEDS: FUROsemide 10 mg/mL SDV 4mL 40 MG IVP (20:31)
[2021-03-25] MEDS: sennosides-docusate Tablet 1 TAB PO (20:31)
[2021-03-26] VITALS (71 sets, daily range): BP systolic 80–181; BP diastolic 41–92; PULSE 71–122; RESP 22–48; TEMP 36.1–37.2; O2SAT 83–97; BMI 31.8
[2021-03-26] MEDS: propofol 1,000 MG/100 ML INJ 33.15 MG IV (02:34)
[2021-03-26] MEDS: vancomycin 1,500 MG/300 ML PIGGYBACK 200 MG IV ×3 (02:52→17:38)
[2021-03-26] MEDS: ipratropium-albuterol 3 mL Neb INHALATION ×6 (03:22→23:45)
[2021-03-26 04:03] LABS: Glucose Point of Care 129 mg/dL (70-110)
[2021-03-26 04:03] LABS: Glucose Point of Care 168 mg/dL (70-110)
[2021-03-26] MEDS: sulfamethoxazole-trimeth inj 480 MG in dextrose 5 % 500 ML 500 MG IV ×3 (04:30→20:18)
[2021-03-26] MEDS: propofol 1,000 MG/100 ML INJ 22.1 MG IV ×3 (05:54→13:46)
--- NOTE | 2021-03-26 06:00 | XRR_ITS ---
PROCEDURE INFORMATION: Exam: XR Chest Exam date and time: 03/26/2021 6:00 AM Age: 60 years old Clinical indication: Other: Hypoxia TECHNIQUE: Imaging protocol: XR of the chest. Views: 1 view. COMPARISON: CR XR chest 1V portable [id number] 03/25/2021 10:27 AM FINDINGS: Tubes, catheters and devices: Endotracheal tube is in satisfactory position. Feeding tube is in satisfactory position. Left subclavian approach central line is in satisfactory position, with distal tip in the left brachiocephalic vein, approximately 9 cm above the SVC/RA junction. Right-sided chest tube remains in satisfactory position. Lungs: Low lung volumes. The interval worsening of bilateral airspace opacities. Pleural spaces: Persistent small right-sided pleural effusion. No pneumothorax. Possible trace pleural fluid on the left. Heart/Mediastinum: See Lungs finding. Bones/joints: Degenerative changes of the spine seen. XR/XR chest 1V portable [id number] IMPRESSION: 1. Interval worsening of bilateral airspace opacities. 2. Persistent small right pleural effusion. Possible trace left pleural effusion. 3. Right-sided chest tube remains in satisfactory position. No pneumothorax.
[2021-03-26 06:01] LABS: Basophils % 0.3 %; Eosinophils # 0.4 10^3/uL (0.0-0.8); Eosinophils % 3.6 %; Hematocrit 23.1 % (42.0-52.0); Hemoglobin 7.3 g/dL (11.7-16.6); Lymphocytes # 0.3 10^3/uL (0.8-4.8); Lymphocytes % 3.1 %; Mean Corpuscular HGB Conc 31.6 g/dL (30.0-36.0); Mean Corpuscular Hemoglobin 30.9 pg (28.0-34.0); Mean Corpuscular Volume 97.9 fl (80-94); Mean Platelet Volume 9.5 fL (7.4-10.4); Monocytes # 0.5 10^3/uL (0.2-0.9); Monocytes % 5.2 %; Neutrophils # 8.18 10^3/uL (1.8-7.7); Neutrophils % 84.5 %; Nucleated Red Blood Cells % 0.3 %; Platelet Count 91 10^3/cmm (130-400); Red Blood Count 2.36 10^6/uL (4.1-5.3); Red Cell Distribution Width 18.8 % (12.1-15.1); White Blood Count 9.7 10^3/uL (4.0-10.0)
[2021-03-26 06:15] LABS: Alanine Aminotransferase 24 U/L (0-41); Albumin Level 1.8 g/dL (3.5-5.2); Alkaline Phosphatase 94 IU/L (40-130); Anion Gap 7.6 (5-19); Aspartate Amino Transferase 22 U/L (0-40); Blood Urea Nitrogen 6 mg/dL (8-23); Chloride 95 mmol/L (98-107); Globulin 2.4 g/dL (1.3-4.6); Glomerular Filtration Rate 486.7 mL/min (90-130); Glucose 149 mg/dL (65-115); Osmolality Calculated 290 mOsm/kg (285-295); Potassium 3.6 mmol/L (3.5-5.1); Sodium 140 mmol/L (136-145); Total Bilirubin 0.3 mg/dL (0.15-1.2); Total Protein 4.2 g/dL (6.6-8.7)
[2021-03-26 06:26] LABS: Carbon Dioxide 41 mmol/L (22-29)
[2021-03-26 06:31] LABS: Thyroid Stimulating Hormone 0.75 uIU/mL (0.27-4.20)
--- NOTE | 2021-03-26 07:22 | PC.NURSE ---
Shift Note Frequent safety and comfort rounds continue. Orders and/or nursing care completed as indicated. Patient monitored for response to intervention and treatment(s). Education provided includes Q2 turn schedule. Patient unable to comprehend teaching due to being intubated and sedated. Patient unresponsive to painful and verbal stimuli at this time. Left IJ central line infusing Precedex 0.4 mcg/kg/hr, Fentanyl 100 mcg/hr, Versed 4 mg/hr, Propofol 40 mcg/kg/min. Patient has a stage 1 pressure injury to the buttocks, changed dressing overnight, it is dry and intact. Rodríguez catheter drained 3250 mls of bright yellow urine all evening. Right chest tube drained 20 mls of sanginous fluid. Tube feedings running at 40 mls/hr with 50 ml free water flush Q4 hrs. No residual from gastric tube when aspirated, patient tolerating feeding well. Vent settings are as follows; mode-PC-AC, FiO2- 80%, rate-28, PEEP-8. Will continue to monitor.
[2021-03-26 07:43] LABS: Free T4 Free Thyroxine 0.61 ng/dL (0.82-1.77)
[2021-03-26] MEDS: budesonide 0.5 mg/2 mL Neb INHALATION ×2 (08:04→20:14)
[2021-03-26 08:19] LABS: Glucose Point of Care 136 mg/dL (70-110)
[2021-03-26] MEDS: aspirin 81 mg EC Tablet PO (08:26)
[2021-03-26] MEDS: famotidine 20 mg/2 mL INJ IVP ×2 (08:26→19:59)
[2021-03-26] MEDS: docusate sodium 100 mg Capsule PO (08:26)
[2021-03-26] MEDS: levothyroxine 200 mcg Tablet OG-TUBE (08:26)
[2021-03-26] MEDS: morphine 4 mg/mL SDV 1 mL IVP ×3 (08:27→23:49)
[2021-03-26 08:33] LABS: Slide Review Slide Review Perform
--- NOTE | 2021-03-26 08:37 | PC.CHAP ---
Pastoral Care Encounter/Spiritual Assessment Type of Contact [] Declined credit card specialist visit [] Patient/Family/Request visit [] Outpatient visit [] Follow-up visit [] Physician referral [] Code/Alert [x] Routine visit [] Staff referral [] Actively dying [] Patient sleeping [] Family support [] [] Out of room [] Palliative care [] [] Receiving care in room [] Pre-surgical visit [] Trauma [] Long length of stay [x] ICU visit [] Other: Relational/Emotional Strength [] Patient feels connected with others/family/visitors/staff [] Distress [] Loneliness/isolation [] Abandonment Spirituality of Patient [] Person of Basilia [] Attends Jainism of their Basilia [] Believes in Prayer [] Reads Bible or Amish materials [] There are Spiritual issues to be addressed Corset Fitter Interventions [x] Prayer [] Active listening [] Non-anxious presence [] Spiritual/emotional support [] Crisis/trauma care [] Spiritual counseling [] Bereavement support [] Provided bereavement packet [] Provided Bible/devotional materials [] Provided toy/stuffed animal, coloring book to patient or family member [] Provided Communion [] Anointing/[place] [] Salvation [x] Completed spiritual assessment [] Other: Impact on Illness or Injury [] Angry [] Fearful [] Anxious [] Often cries [] Exhaustion [] Unable to work [] Unable to attend congregational [] Unable to walk/stand [] Unable to read [] Unable to drive [] Unable to eat/drink [] Unable to sleep [] Unable to be with family [] Patient intubated [] Other: Summary Time spent with patient
--- NOTE | 2021-03-26 08:37 | PC.NURSE ---
Medication Administration Pulled 4mg of Morphine and 20mg of Famotidine. Medications Administered by Denisse Villatoro RN.
--- NOTE | 2021-03-26 08:49 | PC.NURSE ---
Patient blood pressure increased at 181/90, HR 124 and patient sweating and breathing heavy and over the vent. Morphine given by BARBARA Salcedo to help the patient.
--- NOTE | 2021-03-26 08:54 | PC.NURSE ---
STaff spoke with Haley, daughter. regarding pt labs and CXR. Dr. Mustafa on floor now.
--- NOTE | 2021-03-26 09:12 | PC.SOCIAL ---
IMM update IMM not updated due to patient not expected to DC in the next 24-48 hours.
--- NOTE | 2021-03-26 09:42 | PC.NURSE ---
Addendum entered by MEHDI Noel 03/26/21 09:50: Patient now showing signs of improvement. HR is now 105 and the bp is 143/76. Patient is showing less signs of distress and his current respirations are now 31. Will continue to monitor. Original Note: OG Tube Medication Administration Feeding stopped before medication administration. OG Tube placement checked with air and hear in the stomach. Chest x-ray also confirms placement this morning. Patient residual checked, 0 mL of residual present. 50 mL of water flushed through OG tube then 20 mL of medication/water flushed down and flushed again with 50 mL of water. Patient tolerated well. Feeding restarted at 40 mL. Will continue to monitor.
[2021-03-26] MEDS: FUROsemide 10 mg/mL SDV 4mL 40 MG IVP (09:55)
[2021-03-26] MEDS: heparin 5,000 unit/mL INJ 1 mL 5000 UNIT SUBCUT (09:56)
[2021-03-26 10:49] LABS: D Dimer 5.05 ug/mIFEU (0-0.59)
--- NOTE | 2021-03-26 10:57 | USCV_ITS ---
Rickey De Age: 60 Gender: M : 1960 Exam Date: 03/26/2021 14:35 Ordering Phys: Ganesh Mustafa MD Technologist: Jose Manuel Lynn Exam Location: [facility] [place] Indication: BLE SWELLING HISTORY: Lower extremity swelling. PROCEDURES: Venous duplex imaging was performed in bilateral lower extremities. Serial compression, augmentation maneuvers, and spectral Doppler flow evaluation were performed. FINDINGS: Normal 2-D Doppler and augmentation and compressibility throughout the lower extremity venous structures. Additional imaging through the proximal calf veins also reveals no thrombus. Limited evaluation of the greater saphenous vein is patent with no thrombus. CONCLUSIONS No DVT bilateral lower extremities. Dr. Marta Brown DO (Electronically Signed) Final Date: 26 March 2021 15:52 S
--- NOTE | 2021-03-26 11:41 | PM.PN ---
Subjective Subjective: Interval history: Intubated, sedated, this morning more tachycardic, tachypneic. Was given morphine with some improvement in symptoms. Vitals/I&O/Wt Last Vital Signs Temp 98.6 F 03/26/21 08:00 Pulse 96 03/26/21 11:13 Resp 36 H 03/26/21 11:13 BP 133/73 03/26/21 10:30 Pulse Ox 95 03/26/21 11:13 03/25/21 03/26/21 03/26/21 22:59 06:59 14:59 Intake Total 1224.765 / 2670.402 1470.885 / 4141.287 357.133 / 357.133 Output Total 800 / 1800 3270 / 5070 Balance 424.765 / 870.402 -1799.115 / -928.713 357.133 / 357.133 Weight last 48 hrs Weight 103.589 kg Weight 102.994 kg Physical Exam Const: COMMON NORMALS: no acute distress GENERAL APPEARANCE: patient mechanically ventilated HENMT: COMMON NORMALS: oropharynx normal Neck/C-Spine: COMMON NORMALS: no JVD Resp: COMMON NORMALS: normal respiratory effort AUSCULTATION: diminished lung sounds Cardio: COMMON NORMALS: no JVD, regular rhythm, S1 normal heart sound present, S2 normal heart sound present and No murmurs present (Cardio) RHYTHM: regular rhythm HEART SOUNDS: S1 normal heart sound present and S2 normal heart sound present GI: COMMON NORMALS: Normal to inspection, nondistended, normoactive bowel sounds present, Soft to palpation and non-tender PALPATION: Yes Soft to palpation Extremity: COMMON NORMALS: no joint enlargement GENERAL: Yes edema (2+ anasarca) Neuro: COMMON NORMALS: moves all extremities Skin: COMMON NORMALS: no rashes or lesions noted GENERAL SKIN EXAM: no rashes or lesions noted Urinary Catheter Management^: Rodríguez: Cath Placed During This Visit: yes Reason for Continuing Indwelling Catheter: Accurate Measurement of Urinary Output in Critically Ill Patients Urinary Catheter Date of Insertion: 03/09/21 Urinary Catheter Time of Insertion: 22:34 Data : 03/26/21 05:40 03/26/21 05:40 A&P Assessment and plan (1) Acute respiratory failure due to severe acute respiratory syndrome coronavirus 2 (SARS-CoV-2) infection: Worsening FiO2 requirement this morning, up to 80%, some tachycardia noted, continues to be tachypneic. Received morphine appears to have some improvement. We are repeating Lasix due to persistent anasarca. Renal function so far is allowing diuresis. Discussed with the daughter also regarding noted worsening on the chest x-ray. Discussed also with his daughter regarding presence of PE, as well as due to recent bleeding has not been on any anticoagulation. Discussed also noted worsening anemia, hemoglobin 7.3, decrease in platelets to 93,000. Discussed we are requesting PRBC transfusion for him. She is also agreeable for trial of heparin for now prophylactic dose, however, understands that he truly would benefit from anticoagulation if he could tolerate it. We are also assessing lower extremity duplex. She understands that if there are blood clots found there (D-dimer also checked and is higher than previous at 5), he would be at risk of further blood clots, and truly would need to either anticoagulation or if not tolerating this neck step might be also consideration of IVC filter, however, if he was found to be candidate for the procedure given his overall very severe condition. Daughter understands the extremely high risk of mortality. Wants to continue with the current plan. Discussed also with the nursing staff, we are increasing his sedation, increased limits on fentanyl to 200, and on Versed up to max of 7 given he has some persistent tachypnea, tachycardia, intermittently restless. Overbreathing the ventilator. With stenotrophomonas infection, discussed we are also continuing antibiotics. With PE, anticoagulation had been held after his bleeding. As above trial of prophylactic heparin for now. If tolerating, consider trial of heparin drip. Continue attempts to wean down as tolerating off mechanical ventilatory support. At this time he does not appear to be yet ready to transition to long-term acute care, does not yet appear to be ready for consideration of tracheostomy. Status: Acute (2) Pulmonary embolism associated with COVID-19: Anticoagulation Status: Acute (3) Infection due to Stenotrophomonas maltophilia: Continue Bactrim Status: Acute (4) Pneumothorax: Chest tube in place, so far without recurrence Status: Acute (5) Staphylococcus epidermidis bacteremia: 1 set 2/2 bottles. Vancomycin continued for now. Without growth on repeat culture. Status: Acute (6) Septic shock: Resolved. Weaned off pressor. Status: Acute (7) Transaminitis: Improved. Status: Acute (8) D-dimer, elevated: Status: Acute Additional A&P Information Anemia: Requested Hemoccult. BC transfusion. Appears may have some bone marrow suppression. Will request reticulocyte index. Hypothyroidism hx of papillary thyroid carcinoma. Pharmacy asking today about switching from IV to levothyroxine per OG. History of laryngeal cancer. Attestations Medical Necessity Statement*: Continue admission for hypoxic respite failure with severe COVID-19, bacterial superinfection, anemia, trial of initiation of anticoagulation with concomitant PE, worsening respiratory status. Coding Level of Care Code Acute Prospecting Observer for [facility] Fwd Diagnoses Acute respiratory failure due to severe acute respiratory syndrome coronavirus 2 (SARS-CoV-2) infection U07.1; J96.00 Pulmonary embolism associated with COVID-19 U07.1; I26.99 Infection due to Stenotrophomonas maltophilia A49.8 Pneumothorax J93.9 Staphylococcus epidermidis bacteremia R78.81; B95.7 Septic shock A41.9; R65.21 Transaminitis R74.01 D-dimer, elevated R79.89
--- NOTE | 2021-03-26 12:42 | PC.NUTR ---
Addendum entered by Nida Galvin 03/26/21 15:10: Spoke with Dr. Mustafa via phone and received verbal order for Beneprotein as recommended below. Will modify H2O flushes to adjust for additional fluid. New order as follows: Jevity 1.2 at 40 ml/hr, with Beneprotein/H2O flushes q 6 hrs. With each flush, provide 1 scoop (1.5 TBSP) beneprotein mixed with 90 ml water, followed by 60 ml H2O for a total of 150 ml H2O QID. Original Note: Tube feeding recommendation: TF currently running at goal of 40 ml/hr, providing 1152 kcal and 53 g protein. Additional 583 kcal from Propofol @ 22.1 ml/hr. Receiving approximately 83% kcal needs, 55% protein needs. Pt would benefit from additional protein, however given propofol, do not recommend increasing TF rate. Would suggest Beneprotein, 1 unpacked scoop (1.5 tablespoons) mixed with 60-120 ml water QID, to provide additional 6 g protein, and 25 kcal per serving. Flush afterward with 30-60 ml water. (Suggest decreasing current 100 ml q4 flushes to accommodate this additional fluid, per MD discretion). See full RD assessment for further details.
[2021-03-26 13:31] LABS: Glucose Point of Care 173 mg/dL (70-110)
[2021-03-26] MEDS: sodium chloride 0.9% (100 ml) 100 ML 10 ML (15:10)
--- NOTE | 2021-03-26 16:42 | PC.PT ---
Due to pt continued high O2 demands and not able to tolerate any therapy at this time. Will D/C pending change in respiratory status. Please re-order if therapy can assist. Thank you
[2021-03-26] MEDS: hyDRALAzine 20 mg/mL INJ 1 mL 10 MG IVP (17:37)
[2021-03-26] MEDS: docusate sodium 10 mg/mL (5ml) Liq 100 MG OG-TUBE (17:38)
[2021-03-26] MEDS: LORazepam 2 mg/mL INJ 1 mL IVP (17:47)
--- NOTE | 2021-03-26 18:13 | PC.NURSE ---
OG Tube Beneprotein given to patient via OG tube. 1 scoop of beneprotein given/mixed with 60 mL of water. After administration, 90 mL of sterile water was given from the feeding pump. Patient tolerated well. Will continue to monitor.
[2021-03-26 18:38] LABS: Basophils # 0.1 10^3/uL (0.0-0.1); Basophils % 0.5 %; Eosinophils # 0.4 10^3/uL (0.0-0.8); Eosinophils % 3.5 %; Hematocrit 32.6 % (42.0-52.0); Hematocrit 32.9 % (42.0-52.0); Hemoglobin 10.4 g/dL (11.7-16.6); Lymphocytes # 0.4 10^3/uL (0.8-4.8); Lymphocytes % 3.5 %; Mean Corpuscular HGB Conc 31.9 g/dL (30.0-36.0); Mean Corpuscular Hemoglobin 31.3 pg (28.0-34.0); Mean Corpuscular Volume 98.2 fl (80-94); Mean Platelet Volume 9.6 fL (7.4-10.4); Monocytes # 0.8 10^3/uL (0.2-0.9); Neutrophils # 9.41 10^3/uL (1.8-7.7); Neutrophils % 81.1 %; Nucleated Red Blood Cells % 0.3 %; Platelet Count 124 10^3/cmm (130-400); Red Blood Count 3.32 10^6/uL (4.1-5.3); Red Cell Distribution Width 18.5 % (12.1-15.1); Retic Production Index 6.25; Reticulocyte % 7.6 % (0.5-2.0); White Blood Count 11.6 10^3/uL (4.0-10.0)
[2021-03-26 19:26] LABS: Slide Review Slide Review Perform
[2021-03-26] MEDS: dexmedetomidine 400 MCG in sodium chloride 0.9% (100 ml) 100 ML 10.1 MCG IV (19:45)
--- NOTE | 2021-03-26 19:45 | US_ITS ---
WS: [id number] ULTRASOUND SOFT TISSUES RIGHT neck HISTORY: R side swelling COMPARISON: None available. TECHNIQUE: 2-D and color Doppler imaging is submitted. Ultrasound is directed to the RIGHT neck in the area of soft tissue swelling. There is no underlying mass or fluid. No hematoma is evident. Normal appearance of the soft tissues. US/US soft tissue head neck [id number] IMPRESSION: Normal soft tissue ultrasound RIGHT neck. No mass.
--- NOTE | 2021-03-26 19:48 | PC.NURSE ---
patients daughter at bedside. Discussed current plan of care at length. no questions at this time
[2021-03-26 20:18] LABS: Glucose Point of Care 148 mg/dL (70-110)
[2021-03-26 21:22] LABS: Partial Thromboplastin Time 37.2 SECONDS (23.9-36.7)
--- NOTE | 2021-03-26 21:30 | PC.NURSE ---
Received initial PTT results. started heparin gtt. clarified with Dr. grullon that patient is not to receive initial bolus due to bleeding issues today
[2021-03-26] MEDS: heparin drip 25,000 UNIT/500 ML PREMIX 29 UNIT IV (21:38)
--- NOTE | 2021-03-26 22:00 | PC.NURSE ---
Spoke with patients daughter, Haley, at bedside at length regarding code status. Haley wishes for patient to be a no code, but would like to continue current treatment plan at this time.
[2021-03-26] MEDS: propofol 1,000 MG/100 ML INJ 27.62 MG IV (22:08)
[2021-03-26] MEDS: sennosides-docusate Tablet 1 TAB PO (22:57)
[2021-03-27] VITALS (69 sets, daily range): BP systolic 82–179; BP diastolic 43–93; PULSE 67–115; RESP 23–42; TEMP 36.8–37.6; O2SAT 88–97
[2021-03-27] MEDS: propofol 1,000 MG/100 ML INJ 27.62 MG IV ×6 (00:30→19:57)
[2021-03-27] MEDS: vancomycin 1,500 MG/300 ML PIGGYBACK 200 MG IV (01:20)
[2021-03-27] MEDS: sulfamethoxazole-trimeth inj 480 MG in dextrose 5 % 500 ML 500 MG IV ×3 (02:02→21:03)
[2021-03-27 03:23] LABS: Glucose Point of Care 143 mg/dL (70-110)
--- NOTE | 2021-03-27 03:30 | XRR_ITS ---
PROCEDURE INFORMATION: Exam: XR Chest Exam date and time: 03/27/2021 3:30 AM Age: 60 years old Clinical indication: Shortness of breath; Patient HX: Hypoxia. Increased vent pressure. Covid +. Intubated with RT chest tube. ; Additional info: Increased vent pressures TECHNIQUE: Imaging protocol: XR of the chest. Views: 1 view. COMPARISON: CR (CHEST, ) 03/26/2021 5:16 AM FINDINGS: Tubes, catheters and devices: Essentially stable position of right chest tube and left arm PICC catheter. ET tube present, tip about 2 cm above the [place]. NG tube passes beneath the diaphragm, tip likely in the fundus of the stomach. Lungs: Continued diffuse bilateral lung opacities, probably not significantly changed. Pleural spaces: No definite pneumothorax, however a small pneumothorax might not be visible on an image of this technique. Suspect mild to moderate pleural effusions, larger on the right, similar to the prior exam. Heart/Mediastinum: Heart size is within normal limits. Bones/joints: No significant acute finding. XR/XR chest 1V [id number] IMPRESSION: 1. Continued diffuse bilateral lung opacities, probably not significantly changed. 2. Suspect mild to moderate pleural effusions, larger on the right, similar to the prior exam. 3. Other findings discussed above.
[2021-03-27] MEDS: ipratropium-albuterol 3 mL Neb INHALATION ×6 (03:34→23:24)
[2021-03-27 03:59] LABS: Basophils % 0.4 %; Eosinophils # 0.3 10^3/uL (0.0-0.8); Eosinophils % 3.6 %; Hematocrit 27.2 % (42.0-52.0); Hemoglobin 8.6 g/dL (11.7-16.6); Lymphocytes # 0.3 10^3/uL (0.8-4.8); Lymphocytes % 3.6 %; Mean Corpuscular HGB Conc 31.6 g/dL (30.0-36.0); Mean Corpuscular Volume 98.2 fl (80-94); Mean Platelet Volume 9.7 fL (7.4-10.4); Monocytes # 0.6 10^3/uL (0.2-0.9); Neutrophils # 6.85 10^3/uL (1.8-7.7); Neutrophils % 81.8 %; Nucleated Red Blood Cells % 0.2 %; Platelet Count 99 10^3/cmm (130-400); Red Blood Count 2.77 10^6/uL (4.1-5.3); Red Cell Distribution Width 18.4 % (12.1-15.1); White Blood Count 8.4 10^3/uL (4.0-10.0)
[2021-03-27 04:23] LABS: Alanine Aminotransferase 21 U/L (0-41); Albumin Level 1.9 g/dL (3.5-5.2); Alkaline Phosphatase 100 IU/L (40-130); Anion Gap 5.3 (5-19); Aspartate Amino Transferase 20 U/L (0-40); Blood Urea Nitrogen 6 mg/dL (8-23); Chloride 92 mmol/L (98-107); Globulin 2.3 g/dL (1.3-4.6); Glomerular Filtration Rate 486.7 mL/min (90-130); Glucose 150 mg/dL (65-115); Osmolality Calculated 284 mOsm/kg (285-295); Potassium 3.3 mmol/L (3.5-5.1); Sodium 137 mmol/L (136-145); Total Bilirubin 0.2 mg/dL (0.15-1.2); Total Protein 4.2 g/dL (6.6-8.7)
[2021-03-27 04:57] LABS: Carbon Dioxide 43 mmol/L (22-29)
[2021-03-27] MEDS: dexmedetomidine 400 MCG in sodium chloride 0.9% (100 ml) 100 ML 15.14 MCG IV (04:57)
--- NOTE | 2021-03-27 05:26 | PC.NURSE ---
Spoke with Dr. grullon regarding morning labs and PTT results. Received orders to continue heparin gtt for now and continue to monitor.
--- NOTE | 2021-03-27 06:13 | PC.NURSE ---
Shift Note Frequent safety and comfort rounds continue. Orders and nursing care completed as indicated. Patient monitored for response to intervention and treatment. Education provided including code status and what that would look like in the event of cardiac arrest, heparin therapy and possible complications. Patients daughter, chelsea, verbalizes understanding. Patient remains sedated and on ventilator. sedation has been increased throughout the shift to achieve ventilator compliance. patient continues to be asynchronous with the ventilator, breathing in the 40s the majority of the time. Patient does not appear to have any basic reflexes other than pupilary reaction during this shifts assessments. HR and BP have remained WNL. heparin gtt remains on. AM labs have been discussed with hospitalist. Will continue to monitor.
[2021-03-27] MEDS: budesonide 0.5 mg/2 mL Neb INHALATION ×2 (08:11→19:47)
[2021-03-27] MEDS: docusate sodium 10 mg/mL (5ml) Liq 100 MG OG-TUBE ×2 (08:12→18:00)
[2021-03-27] MEDS: famotidine 20 mg/2 mL INJ IVP ×2 (08:13→19:45)
[2021-03-27] MEDS: levothyroxine 200 mcg Tablet OG-TUBE (08:13)
[2021-03-27] MEDS: aspirin 81 mg EC Tablet PO (08:13)
[2021-03-27] MEDS: morphine 4 mg/mL SDV 1 mL IVP (08:16)
[2021-03-27 08:42] LABS: Glucose Point of Care 122 mg/dL (70-110)
--- NOTE | 2021-03-27 08:53 | PC.CHAP ---
Pastoral Care Encounter/Spiritual Assessment Type of Contact [] Declined regional training manager visit [] Patient/Family/Request visit [] Outpatient visit [] Follow-up visit [] Physician referral [] Code/Alert [x] Routine visit [] Staff referral [] Actively dying [] Patient sleeping [] Family support [] [] Out of room [] Palliative care [] [] Receiving care in room [] Pre-surgical visit [] Trauma [] Long length of stay [x] ICU visit [] Other: Relational/Emotional Strength [] Patient feels connected with others/family/visitors/staff [] Distress [] Loneliness/isolation [] Abandonment Spirituality of Patient [] Person of Basilia [] Attends Moravian of their Basilia [] Believes in Prayer [] Reads Bible or Restorationist materials [] There are Spiritual issues to be addressed Pct Interventions [x] Prayer [] Active listening [] Non-anxious presence [] Spiritual/emotional support [] Crisis/trauma care [] Spiritual counseling [] Bereavement support [] Provided bereavement packet [] Provided Bible/devotional materials [] Provided toy/stuffed animal, coloring book to patient or family member [] Provided Communion [] Anointing/Leroy [] Salvation [x] Completed spiritual assessment [] Other: Impact on Illness or Injury [] Angry [] Fearful [] Anxious [] Often cries [] Exhaustion [] Unable to work [] Unable to attend alevism [] Unable to walk/stand [] Unable to read [] Unable to drive [] Unable to eat/drink [] Unable to sleep [] Unable to be with family [] Patient intubated [] Other: Summary Time spent with patient
--- NOTE | 2021-03-27 09:18 | PM.PN ---
Subjective Subjective: Interval history: Intubated, sedated. Currently appears comfortable. Vitals/I&O/Wt Last Vital Signs Temp 99.3 F 03/27/21 08:30 Pulse 78 03/27/21 08:30 Resp 30 H 03/27/21 08:30 BP 115/61 03/27/21 08:30 Pulse Ox 94 03/27/21 08:30 03/26/21 03/27/21 03/27/21 22:59 06:59 14:59 Intake Total 1691.75 / 2964.336 1801.302 / 4765.638 181.019 / 181.019 Output Total 1500 / 0 1250 / 3300 Balance 191.75 / 914.336 551.302 / 1465.638 181.019 / 181.019 Weight last 48 hrs Weight 104.326 kg Weight 103.589 kg Physical Exam Const: COMMON NORMALS: no acute distress GENERAL APPEARANCE: patient mechanically ventilated HENMT: COMMON NORMALS: oropharynx normal Neck/C-Spine: COMMON NORMALS: no JVD Resp: COMMON NORMALS: normal respiratory effort AUSCULTATION: diminished lung sounds Cardio: COMMON NORMALS: no JVD, regular rhythm, S1 normal heart sound present, S2 normal heart sound present and No murmurs present (Cardio) RHYTHM: regular rhythm HEART SOUNDS: S1 normal heart sound present and S2 normal heart sound present GI: COMMON NORMALS: Normal to inspection, nondistended, normoactive bowel sounds present, Soft to palpation and non-tender PALPATION: Yes Soft to palpation Extremity: COMMON NORMALS: no joint enlargement GENERAL: Yes edema (Trace) Neuro: COMMON NORMALS: moves all extremities Skin: COMMON NORMALS: no rashes or lesions noted GENERAL SKIN EXAM: no rashes or lesions noted Urinary Catheter Management^: Rodríguez: Cath Placed During This Visit: yes Reason for Continuing Indwelling Catheter: Accurate Measurement of Urinary Output in Critically Ill Patients Urinary Catheter Date of Insertion: 03/09/21 Urinary Catheter Time of Insertion: 22:34 Data : 03/27/21 03:35 03/27/21 03:35 A&P Assessment and plan (1) Acute respiratory failure due to severe acute respiratory syndrome coronavirus 2 (SARS-CoV-2) infection: Yesterday with worsening hypoxia, FiO2 requirement up to 95%. Discussed with his family, he remains in very precarious position. Very high risk of mortality. Let family know to come visit him if they are able to. Yesterday we repeated a dose of Lasix again, however, today still noted some peripheral edema, but not quite as pronounced. His weight is, however, has been trending up, so we will repeat additional dose today. Sedation was escalated yesterday. Yesterday he also tolerated prophylactic dose anticoagulation without noted outward signs of bleeding. Appears to responded to PRBC transfusion as well. As such additional discussion took place with family regarding advancing to full dose anticoagulation with heparin drip. We discussed it is is rather risky given his current anemia, prior bleeding. However at very high risk of recurrent PE with already known PE. Family were agreeable to start, and he was initiated on it yesterday. So far he has tolerated this. He otherwise continues on Bactrim for stenotrophomonas infection. Empirically also on vancomycin. Last night family had also clarified his CODE STATUS. Per report they had misunderstood medication only, and do want him to continue receiving current treatment, but in case of cardiopulmonary arrest he would be DNR. Continue attempts to wean down as tolerating off mechanical ventilatory support. At this time he does not appear to be yet ready to transition to long-term acute care, does not yet appear to be ready for consideration of tracheostomy. We will see if pulling/crit is available today to follow-up on him as well. Status: Acute (2) Pulmonary embolism associated with COVID-19: Anticoagulation Status: Acute (3) Infection due to Stenotrophomonas maltophilia: Continue Bactrim Status: Acute (4) Pneumothorax: Chest tube in place, so far without recurrence Status: Acute (5) Staphylococcus epidermidis bacteremia: 1 set 2/2 bottles. Vancomycin continued for now. Without growth on repeat culture. Status: Acute (6) Septic shock: Resolved. Weaned off pressor. Status: Acute (7) Transaminitis: Improved. Status: Acute (8) D-dimer, elevated: Status: Acute Additional A&P Information Anemia: Requested Hemoccult. BC transfusion. Appears may have some bone marrow suppression. Adequate bone marrow response. Check DIC panel. Hypokalemia: Replace Hypothyroidism hx of papillary thyroid carcinoma. Continue levothyroxine. History of laryngeal cancer. Attestations Medical Necessity Statement*: Continue admission for cyst management of hypoxic respiratory failure with severe COVID-19, ARDS, complicated by, bacterial superinfection. Coding Level of Care Code Acute Forklift Picker for [facility] Fwd Diagnoses Acute respiratory failure due to severe acute respiratory syndrome coronavirus 2 (SARS-CoV-2) infection U07.1; J96.00 Pulmonary embolism associated with COVID-19 U07.1; I26.99 Infection due to Stenotrophomonas maltophilia A49.8 Pneumothorax J93.9 Staphylococcus epidermidis bacteremia R78.81; B95.7 Septic shock A41.9; R65.21 Transaminitis R74.01 D-dimer, elevated R79.89
[2021-03-27] MEDS: FUROsemide 10 mg/mL SDV 4mL 40 MG IVP (10:34)
[2021-03-27] MEDS: potassium chloride oral liq 20 mEq/15 mL UDC PO (10:34)
[2021-03-27] MEDS: dexmedetomidine 400 MCG in sodium chloride 0.9% (100 ml) 100 ML 17.67 MCG IV ×3 (10:35→23:37)
[2021-03-27] MEDS: vancomycin 1,500 MG/300 ML PIGGYBACK 300 MG IV ×2 (10:35→18:00)
[2021-03-27 10:59] LABS: Basophils % 0.4 %; Eosinophils # 0.3 10^3/uL (0.0-0.8); Eosinophils % 4.5 %; Hematocrit 27.2 % (42.0-52.0); Hemoglobin 8.4 g/dL (11.7-16.6); Lymphocytes # 0.3 10^3/uL (0.8-4.8); Lymphocytes % 3.8 %; Mean Corpuscular HGB Conc 30.9 g/dL (30.0-36.0); Mean Corpuscular Hemoglobin 30.3 pg (28.0-34.0); Mean Corpuscular Volume 98.2 fl (80-94); Mean Platelet Volume 9.7 fL (7.4-10.4); Monocytes # 0.6 10^3/uL (0.2-0.9); Monocytes % 8.2 %; Neutrophils % 79.7 %; Nucleated Red Blood Cells % 0.5 %; Platelet Count 123 10^3/cmm (130-400); Red Blood Count 2.77 10^6/uL (4.1-5.3); Red Cell Distribution Width 18.4 % (12.1-15.1); White Blood Count 7.3 10^3/uL (4.0-10.0)
[2021-03-27 11:29] LABS: Fibrinogen 571 mg/dL (174-498)
[2021-03-27 11:32] LABS: D Dimer 3.97 ug/mIFEU (0-0.59)
[2021-03-27 11:36] LABS: Partial Thromboplastin Time 72.3 SECONDS (23.9-36.7)
[2021-03-27 15:31] LABS: Glucose Point of Care 127 mg/dL (70-110)
[2021-03-27] MEDS: heparin drip 25,000 UNIT/500 ML PREMIX 29 UNIT IV (16:08)
[2021-03-27 17:16] LABS: Partial Thromboplastin Time 58.4 SECONDS (23.9-36.7)
--- NOTE | 2021-03-27 19:22 | PM.PN ---
Subjective Subjective: Interval history: The patient was seen and examined. Is intubated and sedated. The patient is heavily sedated. Any attempt to reduce his sedation has resulted in tachypnea. The patient is still on 70% oxygen. Chest x-ray today revealed bilateral diffuse infiltrate. There had been migration of the right-sided chest tube but no significant pneumothorax. His hemoglobin is more or less stable. Based on the chart, the patient is approximately 10 L fluid positive since admission. Medications: Reviewed: Yes Vitals/I&O/Wt Last Vital Signs Temp 99.6 F 03/27/21 18:00 Pulse 87 03/27/21 18:30 Resp 32 H 03/27/21 18:22 BP 117/55 03/27/21 18:30 Pulse Ox 89 L 03/27/21 18:30 03/27/21 03/27/21 03/27/21 06:59 14:59 22:59 Intake Total 1801.302 / 4765.638 1302.171 / 1302.171 692.434 / 1994.605 Output Total 1250 / 3300 950 / 950 500 / 1450 Balance 551.302 / 1465.638 352.171 / 352.171 192.434 / 544.605 Weight last 48 hrs Weight 230 lb Weight 228 lb 6 oz Physical Exam Narrative: EXAM NARRATIVE: General: Patient is intubated and sedated Neck: No JVD Respiratory: Auscultation: Diminished breath sound bilaterally with minimal crackles at the bases Cardiovascular: Regular rate and rhythm, S1-S2 present, no murmur, bilateral peripheral edema. Abdomen: Soft, nondistended, positive bowel sound Skin: No rash Neuro: Unable to assess, the patient is sedated Urinary Catheter Management^: Rodríguez: Cath Placed During This Visit: yes Reason for Continuing Indwelling Catheter: Accurate Measurement of Urinary Output in Critically Ill Patients Urinary Catheter Date of Insertion: 03/09/21 Urinary Catheter Time of Insertion: 22:34 Data : 03/27/21 10:49 03/27/21 03:35 Attestation for Other Data: I personally reviewed and interpreted the following: Other data: Viewed the patient's laboratory, [place] and neurologic data A&P Assessment and plan (1) Acute respiratory failure due to severe acute respiratory syndrome coronavirus 2 (SARS-CoV-2) infection: This is a 60-year-old gentleman with severe COVID-19. Currently the patient is on volume control mechanical ventilation with an FiO2 of 70%. Any attempt to reduce the sedation was difficult because of profound tachypnea. At this point, the best course of action would be to proceed with tracheostomy which will allow us to reduce the sedation and possibly support him through the process. If the patient does well, he may be able to get transferred to an LTAC. The patient is about 10 L fluid positive. We will diurese him and hopefully that will help with oxygenation as well. Status: Acute (2) Pulmonary embolism associated with COVID-19: The patient is on heparin drip. The hemoglobin has been stable. No significant chest tube output. Status: Acute (3) Pneumothorax: The patient had undergone right-sided chest tube placement for pneumothorax. There has been no titling in the chest tube since this was placed. Based on the recent chest x-ray, there had been a downward shift in the position of the chest tube. I do have concerns whether the chest tube is actually in the lung parenchyma and removal of the chest tube may result in rapid development of pneumothorax. I would prefer to perform the tracheostomy first and see if the patient can breathe on his own and with the presence of negative pressure ventilation the risk of pneumothorax development after removal of the chest tube will be minimized at least somewhat. The chest tube will eventually need to come out at some point. Status: Acute (4) Pneumonia due to gram-negative bacteria: The patient has stenotrophomonas pneumonia. The patient is currently on Bactrim. Status: Acute (5) Acute respiratory failure with hypoxia: Status: Acute Attestations Medical Necessity Statement*: Will defer to the primary team Coding Level of Care Code Acute Automatic Profile Sander Operator for [facility] Fwd Diagnoses Acute respiratory failure due to severe acute respiratory syndrome coronavirus 2 (SARS-CoV-2) infection U07.1; J96.00 Pulmonary embolism associated with COVID-19 U07.1; I26.99 Pneumothorax J93.9 Pneumonia due to gram-negative bacteria J15.6 Acute respiratory failure with hypoxia J96.01 Time Spent (min) 33
[2021-03-27] MEDS: FUROsemide 10 mg/mL SDV 10mL 80 MG IVP (19:45)
[2021-03-27 20:06] LABS: Glucose Point of Care 101 mg/dL (70-110)
--- NOTE | 2021-03-27 21:35 | XRR_ITS ---
PROCEDURE INFORMATION: Exam: XR Chest Exam date and time: 03/27/2021 9:35 PM Age: 60 years old Clinical indication: Shortness of breath; Additional info: Respiratory distress, ett and right sided chest tube TECHNIQUE: Imaging protocol: XR of the chest. Views: 1 view. COMPARISON: CR (CHEST, ) 03/27/2021 3:36 AM FINDINGS: Tubes, catheters and devices: Mid tracheal positioning of the endotracheal tube. Enteric tube in the left upper quadrant of abdomen. Left-sided central venous catheter terminates left innominate vein unchanged from prior. Right pleural drain without change in position. Lungs: Diffuse alveolar ground-glass opacities and increased interstitial opacities similar to comparison. Pleural spaces: Query small right pleural effusion. Negative for pneumothorax. Heart/Mediastinum: Unremarkable. No cardiomegaly. Bones/joints: Unremarkable. XR/XR chest 1V [id number] IMPRESSION: No significant change from prior.
[2021-03-27 21:40] LABS: ABG PH Result 7.33 (7.35-7.45)
[2021-03-27 21:41] LABS: ABG PCO2 94.2 mmHg (35-45); Base Excess ABG 18.9 mmol/L (-2.0-2.0); Blood Gas Allen Test POS; Blood Gas Operator Identificat JB; HCO3 ABG 49.1 mmol/L (22-26); Oxygen Device VENT
[2021-03-27 21:42] LABS: Arterial Blood Gas Hematocrit 34.7 % (42-52); Blood Gas CCRB Time 2142; Blood Gas Drawn By BISJE; Blood Gas Sample Site RIGHT BRACHIAL; Blood Gas Sample Type ARTERIAL; Blood Gas Vent Mode VC-AC
--- NOTE | 2021-03-27 22:10 | PC.NURSE ---
Spoke with Dr Herring regarding recent events including tachycardia, hypertension, tachypnea, and vent asynchrony despite increase of sedation. Discussed recent ABG results and chest xray. Received order to given 40mg lasix if BP not improved after stopping bactrim.
[2021-03-27 23:03] LABS: Partial Thromboplastin Time 57.9 SECONDS (23.9-36.7)
[2021-03-28] VITALS (68 sets, daily range): BP systolic 74–160; BP diastolic 43–87; PULSE 64–122; RESP 27–44; TEMP 36.6–37.4; O2SAT 87–99
[2021-03-28] MEDS: propofol 1,000 MG/100 ML INJ 27.62 MG IV ×3 (00:18→17:47)
[2021-03-28 00:24] LABS: ABG PH Result 7.36 (7.35-7.45); Alveolar-Arterial Oxygen Gradi 44.5 mmHg (5-10); Arterial Blood Gas Hematocrit 45.4 % (42-52); Base Excess ABG 19.1 mmol/L (-2.0-2.0); Blood Gas Allen Test Pos; Blood Gas Operator Identificat JB; Blood Gas Sample Site Radial, right; Blood Gas Sample Type Arterial; Carboxyhemoglobin 2.4 %THgb (0.4-20.1); HCO3 ABG 49.9 mmol/L (22-26); HGB O2 Sat 85.4 % (95-100); Ionized Calcium Level - ABG 1.1 mmol/L (1.1-1.4); Methemoglobin 1.2 % (0.4-1.5); Oxygen Device VENT; Oxygen Saturation ABG 88.6; PO2 ABG 55.4 mmHg (80.0-100.0); Potassium Level - ABG 3.3 mmol/L (3.5-5.0); Total Hemoglobin 14.8 g/dL (14-18)
[2021-03-28 00:25] LABS: ABG PCO2 87.6 mmHg (35-45)
[2021-03-28] MEDS: vancomycin 1,500 MG/300 ML PIGGYBACK 300 MG IV ×3 (01:20→17:48)
[2021-03-28] MEDS: ipratropium-albuterol 3 mL Neb INHALATION ×6 (03:03→23:37)
[2021-03-28 03:09] LABS: Glucose Point of Care 110 mg/dL (70-110)
[2021-03-28] MEDS: FUROsemide 10 mg/mL SDV 10mL 60 MG IVP ×2 (03:10→16:13)
[2021-03-28] MEDS: dexmedetomidine 400 MCG in sodium chloride 0.9% (100 ml) 100 ML 17.67 MCG IV (05:16)
[2021-03-28 07:12] LABS: Basophils # 0.1 10^3/uL (0.0-0.1); Basophils % 0.7 %; Eosinophils # 0.6 10^3/uL (0.0-0.8); Eosinophils % 6.4 %; Hematocrit 30.2 % (42.0-52.0); Hemoglobin 9.4 g/dL (11.7-16.6); Lymphocytes # 0.4 10^3/uL (0.8-4.8); Lymphocytes % 3.8 %; Mean Corpuscular HGB Conc 31.1 g/dL (30.0-36.0); Mean Corpuscular Hemoglobin 30.2 pg (28.0-34.0); Mean Corpuscular Volume 97.1 fl (80-94); Mean Platelet Volume 9.4 fL (7.4-10.4); Monocytes # 0.7 10^3/uL (0.2-0.9); Monocytes % 6.6 %; Neutrophils # 7.74 10^3/uL (1.8-7.7); Neutrophils % 78.3 %; Nucleated Red Blood Cells # 0.1 /100WBC; Nucleated Red Blood Cells % 0.5 %; Platelet Count 157 10^3/cmm (130-400); Red Blood Count 3.11 10^6/uL (4.1-5.3); Red Cell Distribution Width 18.5 % (12.1-15.1); White Blood Count 9.9 10^3/uL (4.0-10.0)
[2021-03-28 07:13] LABS: Partial Thromboplastin Time 52.6 SECONDS (23.9-36.7)
[2021-03-28 07:27] LABS: Alanine Aminotransferase 22 U/L (0-41); Albumin Level 2.1 g/dL (3.5-5.2); Alkaline Phosphatase 110 IU/L (40-130); Anion Gap 5.3 (5-19); Aspartate Amino Transferase 20 U/L (0-40); Blood Urea Nitrogen 8 mg/dL (8-23); Chloride 91 mmol/L (98-107); Globulin 3.1 g/dL (1.3-4.6); Glomerular Filtration Rate 304.8 mL/min (90-130); Glucose 109 mg/dL (65-115); Osmolality Calculated 291 mOsm/kg (285-295); Potassium 3.3 mmol/L (3.5-5.1); Sodium 141 mmol/L (136-145); Total Bilirubin 0.4 mg/dL (0.15-1.2); Total Protein 5.2 g/dL (6.6-8.7)
[2021-03-28] MEDS: budesonide 0.5 mg/2 mL Neb INHALATION ×2 (07:28→19:47)
[2021-03-28 07:42] LABS: Carbon Dioxide 48 mmol/L (22-29)
[2021-03-28] MEDS: morphine 4 mg/mL SDV 1 mL IVP ×3 (09:02→22:13)
[2021-03-28] MEDS: aspirin 81 mg EC Tablet PO (09:06)
[2021-03-28] MEDS: famotidine 20 mg/2 mL INJ IVP ×2 (09:06→20:01)
[2021-03-28] MEDS: levothyroxine 200 mcg Tablet OG-TUBE (09:06)
[2021-03-28] MEDS: docusate sodium 10 mg/mL (5ml) Liq 100 MG OG-TUBE ×2 (09:20→17:48)
[2021-03-28 09:23] LABS: Glucose Point of Care 152 mg/dL (70-110)
--- NOTE | 2021-03-28 09:28 | PC.SOCIAL ---
IMM update Discussed patient's medicare rights with pt's daughter, Haley. Verbalized understanding. Initialed, timed, dated copy in chart.
[2021-03-28] MEDS: LORazepam 2 mg/mL INJ 1 mL IVP ×3 (09:35→20:09)
--- NOTE | 2021-03-28 10:31 | P.PN_ITS ---
Subjective Subjective: Interval history: Intubated, sedated. Not in distress. Vitals/I&O/Wt Last Vital Signs Temp 98.9 F 03/28/21 05:30 Pulse 110 H 03/28/21 08:00 Resp 44 H 03/28/21 09:02 BP 159/76 03/28/21 08:00 Pulse Ox 90 03/28/21 08:00 03/27/21 03/28/21 03/28/21 22:59 06:59 14:59 Intake Total 1678.004 / 2980.175 1483.837 / 4464.012 Output Total 1950 / 2900 1800 / 4700 Balance -271.996 / 80.175 -316.163 / -235.988 Weight last 48 hrs Weight 102.965 kg Weight 104.326 kg Physical Exam Const: COMMON NORMALS: no acute distress GENERAL APPEARANCE: patient mechanically ventilated HENMT: COMMON NORMALS: oropharynx normal Neck/C-Spine: COMMON NORMALS: no JVD Resp: COMMON NORMALS: normal respiratory effort AUSCULTATION: diminished lung sounds Cardio: COMMON NORMALS: no JVD, regular rhythm, S1 normal heart sound present, S2 normal heart sound present and No murmurs present (Cardio) RHYTHM: regular rhythm HEART SOUNDS: S1 normal heart sound present and S2 normal heart sound present GI: COMMON NORMALS: Normal to inspection, nondistended, normoactive bowel sounds present, Soft to palpation and non-tender PALPATION: Yes Soft to palpation Extremity: COMMON NORMALS: no joint enlargement GENERAL: Yes edema (Trace) Neuro: COMMON NORMALS: moves all extremities Skin: COMMON NORMALS: no rashes or lesions noted GENERAL SKIN EXAM: no rashes or lesions noted Urinary Catheter Management^: Rodríguez: Cath Placed During This Visit: yes Reason for Continuing Indwelling Catheter: Accurate Measurement of Urinary Output in Critically Ill Patients Urinary Catheter Date of Insertion: 03/09/21 Urinary Catheter Time of Insertion: 22:34 Data : 03/28/21 06:31 03/28/21 06:31 A&P Assessment and plan (1) Acute respiratory failure due to severe acute respiratory syndrome coronavirus 2 (SARS-CoV-2) infection: Continues with mild improvement in FiO2 requirement down to 75% currently. Continue diuresis. Continue Bactrim for MDRO infection with stenotrophomonas. Additional dose today, then stop as today is day 7. On empiric vancomycin. As per discussion with pulmonology, discussed also with his daughter this morning regarding placement of tracheostomy given need for protracted mechanical ventilation. Hold heparin anticoagulation. Continue attempts to wean down as tolerating off mechanical ventilatory support. Status: Acute (2) Pulmonary embolism associated with COVID-19: Anticoagulation held Status: Acute (3) Infection due to Stenotrophomonas maltophilia: Continue Bactrim. Stop after today. Status: Acute (4) Pneumothorax: Chest tube in place, so far without recurrence Status: Acute (5) Staphylococcus epidermidis bacteremia: 1 set 2/2 bottles. Vancomycin continued for now. Without growth on repeat culture. Status: Acute (6) Septic shock: Resolved. Weaned off pressor. Status: Acute (7) Transaminitis: Improved. Status: Acute (8) D-dimer, elevated: Status: Acute Additional A&P Information Anemia: Responded to PRBC transfusion. Requested Hemoccult. Adequate bone marrow response. No DIC Hypokalemia: Replace Hypothyroidism hx of papillary thyroid carcinoma. Continue levothyroxine. History of laryngeal cancer. Attestations Medical Necessity Statement*: Continue admission for weaning off mechanical ventilatory support in the setting of ARDS, severe COVID-19, tracheostomy placement, completion of treatment of superimposed MDRO bacterial infection. Coding Level of Care Code Acute Teacher Hearing Impaired for [facility] Diagnoses Acute respiratory failure due to severe acute respiratory syndrome coronavirus 2 (SARS-CoV-2) infection U07.1; J96.00 Pulmonary embolism associated with COVID-19 U07.1; I26.99 Infection due to Stenotrophomonas maltophilia A49.8 Pneumothorax J93.9 Staphylococcus epidermidis bacteremia R78.81; B95.7 Septic shock A41.9; R65.21 Transaminitis R74.01 D-dimer, elevated R79.89
--- NOTE | 2021-03-28 10:54 | PC.NURSE ---
Pt is off COVID isolation. Positive results were 22 days. Now on [place] precautions.
[2021-03-28] MEDS: sulfamethoxazole-trimeth inj 480 MG in dextrose 5 % 500 ML 500 MG IV (11:02)
[2021-03-28] MEDS: potassium chloride oral liq 20 mEq/15 mL UDC 40 MEQ PO (11:25)
--- NOTE | 2021-03-28 11:42 | PC.NURSE ---
Attempted call to daughter, Haley, to get concent for trach. Message left to call unit.
[2021-03-28] MEDS: dexmedeTOMIDine 0.9 % NaCL 400 MCG/100 ML PREMIX 18.02 MCG IV ×2 (12:30→17:58)
[2021-03-28 15:01] LABS: Glucose Point of Care 145 mg/dL (70-110)
--- NOTE | 2021-03-28 15:20 | PC.RESP ---
RT Shift Note Frequent safety and respiratory rounds continue. Orders completed as indicated. Patient monitored pre and post treatments throughout shift. Patient [Did.] tolerate treatments appropriately. Condition [.DidNotChange]. Patient and/or logistics service representative educated on respiratory treatment and medications. Patient and/or logistics service representative [unable to comprehend]. Will continue to monitor patient progress.
[2021-03-28] MEDS: lidocaine 1% INJ 20 mL INTRADERMA (16:12)
[2021-03-28] MEDS: rocuronium 10 mg/mL INJ 5mL 50 MG IV (16:12)
--- NOTE | 2021-03-28 17:31 | PC.NUTR ---
Nutrition note: TF was running at goal (03/26-03/27, 03/28 not reported) of 40 ml/hr w/ Beneprotein q 6 hours, and Propofol @ 27.6 providing 1981 kcal and 77 g protein. Stopped at 12:00 for upcoming trach placement. If Propofol not decreased in 1-2 days, suggest decrease TF rate to 35 ml/hr. Nurse anticipates feeding to resume afterwards. Recommend monitoring triglycerides. See full assessment for more details.
--- NOTE | 2021-03-28 17:42 | PM.PN ---
Subjective Subjective: Interval history: The patient was seen and examined. He is intubated and sedated. FiO2 requirement is 65%. The plan was for the patient to undergo percutaneous tracheostomy. Bedside ultrasound revealed high riding innominate artery. In addition, the patient had previous thyroidectomy with anatomic changes. The distance between record cartilage and the innominate artery was minimal to safely perform this procedure. Medications: Reviewed: Yes Vitals/I&O/Wt Last Vital Signs Temp 98.9 F 03/28/21 15:30 Pulse 70 03/28/21 16:00 Resp 38 H 03/28/21 17:32 BP 89/48 03/28/21 16:00 Pulse Ox 90 03/28/21 17:32 03/28/21 03/28/21 03/28/21 06:59 14:59 22:59 Intake Total 1512.004 / 4492.179 0.667 / 0.667 911.833 / 912.500 Output Total 1800 / 4700 Balance -287.996 / -207.821 0.667 / 0.667 911.833 / 912.500 Weight last 48 hrs Weight 227 lb Weight 230 lb Physical Exam Narrative: EXAM NARRATIVE: General: Patient is intubated and sedated Neck: No JVD Respiratory: Auscultation: Diminished breath sound bilaterally with minimal crackles at the bases Cardiovascular: Regular rate and rhythm, S1-S2 present, no murmur, bilateral peripheral edema. Abdomen: Soft, nondistended, positive bowel sound Skin: No rash Neuro: Unable to assess, the patient is sedated Urinary Catheter Management^: Rodríguez: Cath Placed During This Visit: yes Reason for Continuing Indwelling Catheter: Accurate Measurement of Urinary Output in Critically Ill Patients Urinary Catheter Date of Insertion: 03/09/21 Urinary Catheter Time of Insertion: 22:34 Data : 03/28/21 06:31 03/28/21 06:31 Attestation for Other Data: I personally reviewed and interpreted the following: Other data: I have reviewed his laboratory, microbiologic and radiologic data. The patient has significant respiratory acidosis which is compensated. A&P Assessment and plan (1) Acute respiratory failure due to severe acute respiratory syndrome coronavirus 2 (SARS-CoV-2) infection: This is a 60-year-old gentleman with severe COVID-19. Currently the patient is on volume control mechanical ventilation with an FiO2 of 65%. Any attempt to reduce the sedation was difficult because of profound tachypnea. The plan was to perform percutaneous tracheostomy on the patient today. However, bedside ultrasound revealed high riding innominate artery. In addition, the patient had previous thyroidectomy with significant alteration of the anatomy. It is unsafe to perform percutaneous tracheostomy on this patient. He will need open l tracheostomy. Status: Acute (2) Pulmonary embolism associated with COVID-19: The patient is on heparin drip. The hemoglobin has been stable. The heparin drip was stopped this morning which can be restarted. No significant chest tube output. Status: Acute (3) Pneumothorax: The patient had undergone right-sided chest tube placement for pneumothorax. There has been no titling in the chest tube since this was placed. Based on the recent chest x-ray, there had been a downward shift in the position of the chest tube. I do have concerns whether the chest tube is actually in the lung parenchyma and removal of the chest tube may result in rapid development of pneumothorax. I would prefer to perform the tracheostomy first and see if the patient can breathe on his own and with the presence of negative pressure ventilation the risk of pneumothorax development after removal of the chest tube will be minimized at least somewhat. The chest tube will eventually need to come out at some point. Status: Acute (4) Pneumonia due to gram-negative bacteria: The patient has stenotrophomonas pneumonia. The patient is currently on Bactrim. Status: Acute (5) Acute respiratory failure with hypoxia: Status: Acute Attestations Medical Necessity Statement*: Will defer to the primary team Coding Level of Care Code Acute General Ledger Accountant for [facility] Diagnoses Acute respiratory failure due to severe acute respiratory syndrome coronavirus 2 (SARS-CoV-2) infection U07.1; J96.00 Pulmonary embolism associated with COVID-19 U07.1; I26.99 Pneumothorax J93.9 Pneumonia due to gram-negative bacteria J15.6 Acute respiratory failure with hypoxia J96.01
[2021-03-28] MEDS: sennosides-docusate Tablet 1 TAB PO (20:01)
[2021-03-28] MEDS: heparin drip 25,000 UNIT/500 ML PREMIX 29 UNIT IV (20:22)
[2021-03-28 20:23] LABS: Glucose Point of Care 111 mg/dL (70-110)
[2021-03-28] MEDS: propofol 1,000 MG/100 ML INJ 33.15 MG IV ×2 (20:49→23:16)
[2021-03-28] MEDS: dexmedeTOMIDine 0.9 % NaCL 400 MCG/100 ML PREMIX 25.74 MCG IV (23:10)
[2021-03-29] VITALS (70 sets, daily range): BP systolic 88–162; BP diastolic 45–73; PULSE 69–111; RESP 30–393; TEMP 37.1–38.4; O2SAT 78–98
[2021-03-29] MEDS: LORazepam 2 mg/mL INJ 1 mL IVP ×3 (00:32→19:58)
[2021-03-29 00:39] LABS: Partial Thromboplastin Time 41.1 SECONDS (23.9-36.7)
[2021-03-29] MEDS: propofol 1,000 MG/100 ML INJ 33.15 MG IV ×8 (02:05→22:10)
[2021-03-29] MEDS: vancomycin 1,500 MG/300 ML PIGGYBACK 300 MG IV ×3 (02:05→18:02)
[2021-03-29 02:24] LABS: Glucose Point of Care 110 mg/dL (70-110)
[2021-03-29] MEDS: dexmedeTOMIDine 0.9 % NaCL 400 MCG/100 ML PREMIX 25.74 MCG IV ×6 (02:36→22:13)
[2021-03-29] MEDS: morphine 4 mg/mL SDV 1 mL IVP ×5 (02:37→22:10)
[2021-03-29] MEDS: ipratropium-albuterol 3 mL Neb INHALATION ×6 (04:01→23:25)
[2021-03-29] MEDS: FUROsemide 10 mg/mL SDV 10mL 60 MG IVP ×2 (04:02→15:42)
--- NOTE | 2021-03-29 04:34 | NUR.SHIFT ---
Shift Note Frequent safety and comfort rounds continue. Patient attempted to reposition, only able to reposition supine or right side lying, with oral care done Q2 hours. Orders and/or nursing care completed as indicated. Patient monitored for response to sedation, and pain medication; tachypnea throughout shift wtih PRN Ativan and morphine given as needed. Education provided includes medication administration. Patient phlebotomy services representative verbalized understanding. Oxygen sats from 88-98%, NSR, and afebrile throughout shift. Heparin turned off at 0300, and patient NPO at 0000 for procedure in AM. Will continue to monitor.
[2021-03-29 06:49] LABS: Basophils % 0.4 %; Eosinophils # 0.7 10^3/uL (0.0-0.8); Eosinophils % 8.1 %; Hematocrit 27.3 % (42.0-52.0); Hemoglobin 8.3 g/dL (11.7-16.6); Lymphocytes # 0.4 10^3/uL (0.8-4.8); Lymphocytes % 4.8 %; Mean Corpuscular HGB Conc 30.4 g/dL (30.0-36.0); Mean Corpuscular Hemoglobin 30.6 pg (28.0-34.0); Mean Corpuscular Volume 100.7 fl (80-94); Mean Platelet Volume 9.5 fL (7.4-10.4); Monocytes # 0.7 10^3/uL (0.2-0.9); Monocytes % 8.1 %; Neutrophils # 6.04 10^3/uL (1.8-7.7); Neutrophils % 72.8 %; Nucleated Red Blood Cells # 0.1 /100WBC; Nucleated Red Blood Cells % 0.7 %; Platelet Count 191 10^3/cmm (130-400); Red Blood Count 2.71 10^6/uL (4.1-5.3); Red Cell Distribution Width 18.9 % (12.1-15.1); White Blood Count 8.3 10^3/uL (4.0-10.0)
[2021-03-29 07:24] LABS: Alanine Aminotransferase 21 U/L (0-41); Albumin Level 2.1 g/dL (3.5-5.2); Alkaline Phosphatase 84 IU/L (40-130); Anion Gap 8.5 (5-19); Aspartate Amino Transferase 29 U/L (0-40); Blood Urea Nitrogen 12 mg/dL (8-23); Calcium 6.9 mg/dL (8.5-10.5); Chloride 91 mmol/L (98-107); Globulin 2.7 g/dL (1.3-4.6); Glomerular Filtration Rate 304.8 mL/min (90-130); Glucose 82 mg/dL (65-115); Osmolality Calculated 291 mOsm/kg (285-295); Potassium 3.5 mmol/L (3.5-5.1); Sodium 141 mmol/L (136-145); Total Bilirubin 0.3 mg/dL (0.15-1.2); Total Protein 4.8 g/dL (6.6-8.7)
--- NOTE | 2021-03-29 07:27 | PM.CONSULT ---
Providers/Reason For Consult Consulting Physician/Specialty*: Dr. Pappas/cardiothoracic surgery Reason for Consult*: Ventilator dependence; tracheostomy requested Attending Physician: Ganesh Mustafa Primary Care Provider: SARA Sanchez History of Present Illness History of Present Illness Rickey De is a 60 year old male who has been hospitalized since admission on March 05 with respiratory difficulties. He has tested positive for Covid and has required prolonged intubation. He currently is on ventilatory settings of 65% FiO2 with full support. He is requiring heavy sedation to control his respiratory rate. Evaluation yesterday for possible percutaneous tracheostomy revealed distorted anatomy and a high riding innominate artery which precluded tracheostomy placement. I was consulted for assessment for possible open tracheostomy. A bedside ultrasound was performed by Dr. Gambino yesterday noting the distorted anatomy with the high riding innominate artery. I have reviewed the CTA from March 09 which again confirms the innominate artery rising above the sternal notch prior to giving off the right subclavian and right carotid arteries. Of note, this was not mentioned in the radiographic interpretation from the study of March 09. Medical history is significant for papillary thyroid carcinoma subsequent thyroidectomy and radiation therapy. Review of Systems Narrative: Ms. De has been sedated and orally intubated since March 10. Initial presentation was for progressive dyspnea. Meds/Allergies Home Medications and Allergies Home Medications Medication Instructions Recorded Confirmed Last Taken Type aspirin 81 mg tablet,delayed 81 mg PO DAILY@79908/06/20 03/05/21 03/05/21 History release losartan 100 mg tablet 100 mg PO DAILY@79908/06/20 03/05/21 03/05/21 History metoprolol succinate 50 mg 50 mg PO DAILY@179908/06/20 03/05/21 03/04/21 History tablet,extended release 24 hr calcium carbonate-vitamin D3 1 tab PO DAILY@1800 03/05/21 03/05/21 03/04/21 History [Calcium + D] levothyroxine [Euthyrox] 200 mcg PO DAILY@0703/05/21 03/05/21 03/05/21 History Allergies Allergy/AdvReac Type Severity Reaction Status Date / Time No Known Allergies Allergy Verified 03/05/21 13:35 Current Medications Current Medications Generic Name Dose Route Start Last Admin Trade Name Freq PRN Reason Stop Dose Admin Acetaminophen 650 mg 03/05/21 20:05 03/22/21 23:22 Acetaminophen 325 Mg Tablet PO 650 mg Q6H PRN Administration Mild/Mod Pain Or Temp >/= 101 Albuterol/Ipratropium 3 ml 03/18/21 20:00 03/29/21 04:01 Ipratropium-Albuterol 3 Ml Neb INHALATION 3 ml Q4H.RESPIRATORY VICTORIANO Administration Artificial Tears 1 applic 03/17/21 00:44 03/25/21 16:47 Artificial Tears Op Oint 3.5 Gm EYE-BOTH 1 applic PRN PRN Administration DRY EYE(S) Aspirin 81 mg 03/06/21 08:00 03/28/21 09:06 Aspirin 81 Mg Ec Tablet PO 81 mg DAILY@0800 VICTORIANO Administration Budesonide 0.5 mg 03/05/21 20:00 03/28/21 19:47 Budesonide 0.5 Mg/2 Ml Neb INHALATION 0.5 mg BID.RESPIRATORY VICTORIANO Administration Chlorhexidine Gluconate 1 applic 03/28/21 18:00 03/28/21 17:44 Chlorhexidine Gluconate 4% Btl 118 Ml TOPICAL Not Given BID VICTORIANO Docusate Sodium 100 mg 03/26/21 18:00 03/28/21 17:48 Docusate Sodium 10 Mg/Ml (5ml) Liq OG-TUBE 100 mg BID VICTORIANO Administration Famotidine 20 mg 03/09/21 20:00 03/28/21 20:01 Famotidine 20 Mg/2 Ml Inj IVP 20 mg Q12H VICTORIANO Administration Furosemide 60 mg 03/28/21 04:00 03/29/21 04:02 Furosemide 10 Mg/Ml Sdv 10ml IVP 60 mg Q12H VICTORIANO Administration Hydralazine HCl 10 mg 03/11/21 17:22 03/26/21 17:37 Hydralazine 20 Mg/Ml Inj 1 Ml IVP 10 mg Q4H PRN Administration blood pressure Vancomycin/PEG/NADA/Lysine/Water 1,500 mg in 300 mls @ 200 mls/hr 03/16/21 18:00 03/29/21 03:05 Vancocin IV Infused Q8H VICTORIANO Infusion Norepinephrine Bitartrate 4 mg 254 mls @ 0 mls/hr 03/16/21 23:45 03/28/21 20:40 / Dextrose IV 4 mcg/min .Q0M VICTORIANO 15.24 mls/hr Administration Protocol Per Protocol Fentanyl 1,000 mcg/ Sodium 100 mls @ 0 mls/hr 03/16/21 23:45 03/29/21 03:12 Chloride IV 200 mcg/hr .Q0M VICTORIANO 20 mls/hr Administration Protocol Per Protocol Midazolam HCl 100 mg/ Sodium 100 mls @ 0 mls/hr 03/16/21 23:45 03/28/21 23:28 Chloride IV 4 mg/hr .Q0M VICTORIANO 4 mls/hr Administration Protocol Per Protocol Propofol 1,000 mg in 100 mls @ 0 mls/hr 03/16/21 23:45 03/29/21 04:58 Diprivan IV 60 mcg/kg/min .Q0M VICTORIANO 33.15 mls/hr Administration Protocol Per Protocol dexmedeTOMIDine 0.9 % NaCL 400 mcg in 100 mls @ 0 mls/hr 03/28/21 12:30 03/29/21 06:35 Dexmedetomidine-Ns IV 1 mcg/kg/hr .Q0M VICTORIANO 25.74 mls/hr Administration Protocol Per Protocol Heparin Sodium/Sodium Chloride 25,000 unit in 500 mls @ 0 mls/hr 03/28/21 18:15 03/29/21 01:12 Heparin Drip IV 16.02 unit/kg/hr .Q0M VICTORIANO 33 mls/hr Titration Protocol Per Protocol Insulin Aspart 0 unit 03/22/21 09:00 03/29/21 02:21 Insulin Aspart 100 Unit/1 Ml SUBCUT Not Given Q6H [facility] Protocol Levothyroxine Sodium 200 mcg 03/26/21 09:00 03/28/21 09:06 Levothyroxine 200 Mcg Tablet OG-TUBE 200 mcg DAILY VICTORIANO Administration Lorazepam 2 mg 03/25/21 19:33 03/29/21 04:41 Lorazepam 2 Mg/Ml Inj 1 Ml IVP 2 mg Q4H PRN Administration ANXIETY Morphine Sulfate 4 mg 03/25/21 19:33 03/29/21 06:37 Morphine 4 Mg/Ml Sdv 1 Ml IVP 4 mg Q4H PRN Administration SEVERE PAIN Phenylephrine HCl 1 spray 03/17/21 00:38 03/17/21 01:14 Phenylephrine 0.5% Nasal 15 Ml Btl NASAL 1 applic Q4H PRN Administration NASAL CONGESTION Senna/Docusate Sodium 1 tab 08/16/21 21:00 03/28/21 20:01 Sennosides-Docusate Tablet PO 1 tab BEDTIME VICTORIANO Administration PFSH Acute PFSH: Medical History BPH (benign prostatic hyperplasia) Cardiomegaly Elevated PSA Hematuria Hypertriglyceridemia Hypokalemia Hypotension Papillary thyroid carcinoma Prostatitis Surgical History History of thyroidectomy 2015 due to cancer Social History Smoking and tobacco status: never smoked Alcohol intake: never Vitals/I&O/Wt Last Vital Signs Temp 99.0 F 03/29/21 06:00 Pulse 75 03/29/21 06:00 Resp 393 H 03/29/21 06:19 BP 105/60 03/29/21 06:00 Pulse Ox 88 L 03/29/21 06:19 03/28/21 03/29/21 03/29/21 22:59 06:59 14:59 Intake Total 2352.290 / 2956.957 1148.714 / 4105.671 Output Total 1500 / 1500 1800 / 3300 Balance 852.290 / 1456.957 -651.286 / 805.671 Weight last 48 hrs Weight 226 lb Weight 227 lb Physical Exam HENMT: COMMON NORMALS: normocephalic and atraumatic HEAD & SCALP: normocephalic and atraumatic OTHER: Orally intubated. Neck/C-Spine: COMMON NORMALS: No carotid bruits; negative for full ROM, negative for supple and negative for Thyroid normal GENERAL: No normal visual inspection, Yes trachea midline and No anterior neck swelling THYROID: abnormal thyroid CERVICAL SPINE: Yes cervical ROM abnormal and Yes loss of normal cervical lordosis OTHER: There are skin changes related to prior radiotherapy with contracture as well as a healed cervical collar incision. Innominate artery is easily palpable with little space between the thyroid cartilage and the sternal notch. These findings are consistent with the review of the CTA from March 09 as well as the ultrasound performed by Dr. Gambino. Chest: CHEST: Yes Symmetrical chest wall rise OTHER: Right chest tube in position. Resp: COMMON NORMALS: negative for clear to auscultation bilaterally and negative for percussion normal EFFORT & INSPECTION: Yes abnormal respiratory pattern AUSCULTATION: not clear to auscultation bilaterally, crackles, rhonchi and diminished lung sounds PERCUSSION: percussion abnormal Cardio: COMMON NORMALS: regular rhythm, S1 normal heart sound present and No rub (Cardio) RHYTHM: regular rhythm HEART SOUNDS: S1 normal heart sound present Extremity: OTHER: There is generalized peripheral edema Neuro: OTHER: Could not be assessed due to sedation. Urinary Catheter Management^: Rodríguez: Cath Placed During This Visit: yes Reason for Continuing Indwelling Catheter: Accurate Measurement of Urinary Output in Critically Ill Patients Urinary Catheter Date of Insertion: 03/09/21 Urinary Catheter Time of Insertion: 22:34 A&P Assessment and plan (1) Acute respiratory failure due to severe acute respiratory syndrome coronavirus 2 (SARS-CoV-2) infection: Very difficult situation related to his anatomy from his prior thyroidectomy, radiation treatments with subsequent contracture and fibrosis of the soft tissues of his neck, as well as high riding innominate artery which is probably also related to contraction out of his normal position below the sternal notch. I will confer further with Dr. Gambino, our pulmonary colleagues, and our hospitalist service in relation to the pressing need for this tracheostomy. I think this is a high risk procedure with substantial potential for catastrophic complications including major bleeding. If perhaps this is felt to be absolutely necessary, I think this might actually require consideration for division of the innominate artery with oversewing because I am afraid that even with retraction to allow for space with a tracheostomy, its return position would place it in a high risk for subsequent tracheostomy erosion. I did speak at length with Mr. De' daughter this morning. I will be following up with her again as well as with our other colleagues as we determine the best course to proceed. 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
[2021-03-29 07:29] LABS: Carbon Dioxide 45 mmol/L (22-29)
--- NOTE | 2021-03-29 07:46 | PC.NURSE ---
Shift Assessment Patient turned to reposition in bed. Patient saturation decreased to 70's. Patient's oxygen saturation was difficult to get back up. When oxygenated to 100% FiO2, patient oxygen saturation increased to 88% FiO2 but decreased again once the oxygen was decreased again. RT was notified and changed his FiO2 from 65% to 80%. Patient breathing over the ventilator rate and running a temperature of 101.3. Dr. Mustafa notified of patient's status. Will continue to monitor.
[2021-03-29 08:00] LABS: Glucose Point of Care 121 mg/dL (70-110)
[2021-03-29 08:02] LABS: Slide Review Slide Review Perform
--- NOTE | 2021-03-29 08:03 | PC.NURSE ---
Patient was admitted for Covid, but has been in the hospital for 24 days and precautions were removed 03/28/21.
[2021-03-29] MEDS: budesonide 0.5 mg/2 mL Neb INHALATION ×2 (08:13→20:11)
--- NOTE | 2021-03-29 08:21 | XR_ITS ---
WS: [id number] Portable AP semiupright chest, 03/29/2021 Clinical Data: fever Comparison: Portable chest, 03/27/2021. Findings: The left subclavian catheter, endotracheal tube, nasogastric tube and right chest tube pratik in in good position. The bilateral pulmonary opacities remain the same. There is increased opacity in the right apex which may represent pleural fluid. Monitor leads are on the chest wall. XR/XR chest 1V portable [id number] Impression: 1. No change in multiple tubes. 2. No change in patchy bilateral pulmonary opacities consistent with pneumonia.
[2021-03-29] MEDS: famotidine 20 mg/2 mL INJ IVP ×2 (08:55→20:37)
[2021-03-29] MEDS: levothyroxine 200 mcg Tablet OG-TUBE (08:56)
[2021-03-29] MEDS: aspirin 81 mg EC Tablet PO (08:56)
--- NOTE | 2021-03-29 08:56 | PM.PN ---
Subjective Subjective: Interval history: This morning after repositioning for additional evaluation for consideration of tracheostomy he is tachypneic, with desaturation, taking him a while to increase saturation back up, requiring increasing FiO2 transiently to 100%, currently back down to 80. Vitals/I&O/Wt Last Vital Signs Temp 101.1 F H 03/29/21 08:00 Pulse 89 03/29/21 08:20 Resp 31 H 03/29/21 08:16 BP 106/54 03/29/21 08:00 Pulse Ox 91 03/29/21 08:16 03/28/21 03/29/21 03/29/21 22:59 06:59 14:59 Intake Total 2352.290 / 2956.957 1148.714 / 4105.671 187.848 / 187.848 Output Total 1500 / 1500 1800 / 3300 Balance 852.290 / 1456.957 -651.286 / 805.671 187.848 / 187.848 Weight last 48 hrs Weight 102.512 kg Weight 102.965 kg Physical Exam Const: COMMON NORMALS: no acute distress GENERAL APPEARANCE: patient mechanically ventilated HENMT: COMMON NORMALS: oropharynx normal Neck/C-Spine: COMMON NORMALS: no JVD Resp: COMMON NORMALS: normal respiratory effort AUSCULTATION: diminished lung sounds Cardio: COMMON NORMALS: no JVD, regular rhythm, S1 normal heart sound present, S2 normal heart sound present and No murmurs present (Cardio) RHYTHM: regular rhythm HEART SOUNDS: S1 normal heart sound present and S2 normal heart sound present GI: COMMON NORMALS: Normal to inspection, nondistended, normoactive bowel sounds present, Soft to palpation and non-tender PALPATION: Yes Soft to palpation Extremity: COMMON NORMALS: no joint enlargement GENERAL: Yes edema (Trace) Neuro: COMMON NORMALS: moves all extremities Skin: COMMON NORMALS: no rashes or lesions noted GENERAL SKIN EXAM: no rashes or lesions noted Urinary Catheter Management^: Rodríguez: Cath Placed During This Visit: yes Reason for Continuing Indwelling Catheter: Accurate Measurement of Urinary Output in Critically Ill Patients Urinary Catheter Date of Insertion: 03/09/21 Urinary Catheter Time of Insertion: 22:34 Data : 03/29/21 06:15 03/29/21 06:15 A&P Assessment and plan (1) Acute respiratory failure due to severe acute respiratory syndrome coronavirus 2 (SARS-CoV-2) infection: Appreciate pulmonology and risk surgery evaluation and recommendations regards to tracheostomy. Further discussion pending given very difficult anatomy with already high risk procedure given current condition. This morning noted spiking fever. Requested repeat sputum cultures. Chest x-ray. UA. Continue diuresis. Continue Bactrim for MDRO infection with stenotrophomonas. Additional dose today, then stop as today is day 7. On empiric vancomycin. As per discussion with pulmonology, discussed also with his daughter this morning regarding placement of tracheostomy given need for protracted mechanical ventilation. Hold heparin anticoagulation. Continue attempts to wean down as tolerating off mechanical ventilatory support. Status: Acute (2) Pulmonary embolism associated with COVID-19: Anticoagulation held Status: Acute (3) Infection due to Stenotrophomonas maltophilia: Continue Bactrim. Stop after today. Status: Acute (4) Pneumothorax: Chest tube in place, so far without recurrence Status: Acute (5) Staphylococcus epidermidis bacteremia: 1 set 2/2 bottles. Vancomycin continued for now. Without growth on repeat culture. Status: Acute (6) Septic shock: Resolved. Weaned off pressor. Status: Acute (7) Transaminitis: Improved. Status: Acute (8) D-dimer, elevated: Status: Acute Additional A&P Information Anemia: Responded to PRBC transfusion. Requested Hemoccult. Adequate bone marrow response. No DIC Hypokalemia: Replace Hypothyroidism hx of papillary thyroid carcinoma. Continue levothyroxine. History of laryngeal cancer. Sacral decub reported. Reposition as possible, although it has been very difficult due to severe desaturation with even minimal repositioning. Reposition as possible. ICU staff investigating if there is a possibility of different bed/mattress. 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
[2021-03-29] MEDS: docusate sodium 10 mg/mL (5ml) Liq 100 MG OG-TUBE ×2 (08:59→18:02)
--- NOTE | 2021-03-29 09:00 | PC.NURSE ---
OG Medication Administration Feeding not currently running. OG Tube placement checked with air and heard in the stomach. Chest x-ray also confirms placement this morning. Patient residual checked, 10 mL of green residual present. 50 mL of water flushed through OG tube then 30 mL of crushed medication/water flushed down and flushed again with 30 mL of water then 10 mL of liquid medication given and flushed again with 50 mL of water. Patient tolerated well. Will continue to monitor.
[2021-03-29] MEDS: acetaminophen 325 mg Tablet 650 MG PO (09:07)
--- NOTE | 2021-03-29 09:16 | PC.NURSE ---
Telemetry NEW Finding Patient had an 8 beat run of Ventricular Tachycardia, Dr. Mustafa was notified. Will continue to monitor.
--- NOTE | 2021-03-29 09:18 | PC.NURSE ---
Daughter Haley called and states that she wants to change her dad's code status to full code. Dr. Mustafa notified.
[2021-03-29 10:36] LABS: Add Urine Microscopic? YES; Bilirubin Urine Neg (Negative); Blood Urine 3+ (Negative); Glucose Urine UA Norm (Normal); Ketones Urine Negative (Negative); Leukocyte Esterase Urine Negative (Negative); Nitrate Urine Negative (Negative); Protein Urine Trace (Negative); Specific Gravity, Urine 1.015 (1.005-1.030); Urine Appearance Clear (CLEAR); Urine Color Yellow (Yellow); Urobilinogen Urine 1 mg/dL (Negative); pH Urine 5 (5-7)
[2021-03-29 10:49] LABS: Magnesium 1.7 mg/dL (1.7-2.3)
[2021-03-29] MEDS: potassium chloride oral liq 20 mEq/15 mL UDC 40 MEQ PO (10:52)
[2021-03-29 11:08] LABS: Add Urine Culture? Yes; Bacteria Urine TRACE /hpf; Mucus Urine TRACE /hpf; RBC Urine 0-4 /hpf (0-2); Squamous Epithelial Cell Urine 0-4 /hpf (0-5)
--- NOTE | 2021-03-29 12:21 | PM.MISC ---
Miscellaneous Note Purpose of Documentation: I have conferred with my colleagues Dr. Paige and Dr. Feldman. I have reviewed the most recent CT scan of March 09 as compared to a CT scan of 2013 during his initial evaluation of his thyroid papillary carcinoma. It is clear that between these 2 studies the innominate artery, which was situated in a substernal and substernal notch position, has now risen to above the sternal notch, overlying the trachea at the area of traditional tracheostomy. I believe this is indicative of contraction of soft tissues in this region, including the substernal area related to his radiotherapy for his papillary thyroid carcinoma. In this light, it is clear that the innominate artery was also the radiated field, and I feel that attempt at ligation may result in vascular fracture and catastrophic hemorrhage. Given the approach, limited exposure through the cervical incision, along with his other comorbidities including marked desaturation during position changes of the bed, I think it is excessively hazardous to attempt tracheostomy at this time.
--- NOTE | 2021-03-29 14:15 | PC.NURSE ---
Morphine IVP administered by BARBARA Salcedo.
--- NOTE | 2021-03-29 16:27 | PC.NURSE ---
Feeding Resumed Patient tube feeding resumed at 15 mL/hour. Order to increase feeding every 6 hours by 10 mL. Placement confirmed by pushing air through OG tube and listening for gurgling in the stomach. Placement was also confirmed this morning by chest x-ray. 50 mL of green residual was drawn back from OG tube. flushed with 50 mL of water and then tube feedings were started. Will continue to monitor for feeding tolerance.
[2021-03-29] MEDS: sennosides-docusate Tablet 1 TAB PO (20:37)
--- NOTE | 2021-03-29 22:57 | PC.NURSE ---
Spoke with Haley, daughter of patient; clarified that she wanted patient to be full code. She verbal explained back that patient was to have compressions and all medications given in the event of a cardiac or respiratory code. Notified Dr. Driscoll.
[2021-03-30] VITALS (63 sets, daily range): BP systolic 90–141; BP diastolic 50–70; PULSE 69–115; RESP 31–50; TEMP 37.2–37.8; O2SAT 88–96
[2021-03-30] MEDS: LORazepam 2 mg/mL INJ 1 mL IVP ×4 (00:54→21:28)
[2021-03-30] MEDS: propofol 1,000 MG/100 ML INJ 33.15 MG IV ×7 (01:24→22:01)
[2021-03-30 01:45] LABS: Partial Thromboplastin Time 50.8 SECONDS (23.9-36.7)
[2021-03-30] MEDS: dexmedeTOMIDine 0.9 % NaCL 400 MCG/100 ML PREMIX 25.74 MCG IV ×6 (02:06→22:22)
[2021-03-30] MEDS: vancomycin 1,500 MG/300 ML PIGGYBACK 300 MG IV ×2 (02:10→11:18)
[2021-03-30] MEDS: ipratropium-albuterol 3 mL Neb INHALATION ×5 (03:11→19:44)
[2021-03-30] MEDS: FUROsemide 10 mg/mL SDV 10mL 60 MG IVP ×2 (04:24→16:18)
[2021-03-30 04:54] LABS: Basophils # 0.1 10^3/uL (0.0-0.1); Basophils % 0.6 %; Eosinophils # 0.5 10^3/uL (0.0-0.8); Eosinophils % 5.9 %; Hematocrit 25.6 % (42.0-52.0); Hemoglobin 7.6 g/dL (11.7-16.6); Lymphocytes # 0.5 10^3/uL (0.8-4.8); Lymphocytes % 5.8 %; Mean Corpuscular HGB Conc 29.7 g/dL (30.0-36.0); Mean Corpuscular Hemoglobin 30.2 pg (28.0-34.0); Mean Corpuscular Volume 101.6 fl (80-94); Mean Platelet Volume 9.6 fL (7.4-10.4); Monocytes # 0.7 10^3/uL (0.2-0.9); Monocytes % 9.6 %; Neutrophils # 5.74 10^3/uL (1.8-7.7); Neutrophils % 74.2 %; Nucleated Red Blood Cells % 0.4 %; Platelet Count 158 10^3/cmm (130-400); Red Blood Count 2.52 10^6/uL (4.1-5.3); Red Cell Distribution Width 18.6 % (12.1-15.1); White Blood Count 7.7 10^3/uL (4.0-10.0)
--- NOTE | 2021-03-30 05:16 | PC.NURSE ---
Shift Note Frequent safety and comfort rounds continue. Orders and/or nursing care completed as indicated. Patient monitored for response to intervention and treatment. Will continue to monitor. Patient remains tachypneic, but otherwise vitals remain stable. All gtt titrated appropriately. Oral care and repositioning Q2.
[2021-03-30 05:34] LABS: Alanine Aminotransferase 35 U/L (0-41); Albumin Level 2.1 g/dL (3.5-5.2); Alkaline Phosphatase 78 IU/L (40-130); Anion Gap 5.1 (5-19); Aspartate Amino Transferase 65 U/L (0-40); Blood Urea Nitrogen 13 mg/dL (8-23); Calcium 7.2 mg/dL (8.5-10.5); Chloride 92 mmol/L (98-107); Globulin 2.6 g/dL (1.3-4.6); Glomerular Filtration Rate 486.7 mL/min (90-130); Glucose 92 mg/dL (65-115); Osmolality Calculated 294 mOsm/kg (285-295); Potassium 4.1 mmol/L (3.5-5.1); Sodium 142 mmol/L (136-145); Total Bilirubin 0.4 mg/dL (0.15-1.2); Total Protein 4.7 g/dL (6.6-8.7)
[2021-03-30 05:38] LABS: Carbon Dioxide 49 mmol/L (22-29)
[2021-03-30] MEDS: heparin drip 25,000 UNIT/500 ML PREMIX 31 UNIT IV (05:48)
[2021-03-30] MEDS: morphine 4 mg/mL SDV 1 mL IVP ×2 (05:48→19:22)
[2021-03-30] MEDS: budesonide 0.5 mg/2 mL Neb INHALATION ×2 (07:35→19:44)
[2021-03-30] MEDS: levothyroxine 200 mcg Tablet OG-TUBE (08:36)
[2021-03-30] MEDS: famotidine 20 mg/2 mL INJ IVP ×2 (08:36→21:09)
[2021-03-30] MEDS: aspirin 81 mg EC Tablet PO (08:36)
[2021-03-30] MEDS: acetaminophen 325 mg Tablet 650 MG PO ×2 (08:37→21:09)
[2021-03-30] MEDS: docusate sodium 10 mg/mL (5ml) Liq 100 MG OG-TUBE ×2 (08:38→17:17)
[2021-03-30] MEDS: chlorhexidine gluconate 4% Btl 118 mL 1 APPLIC TOPICAL ×2 (09:41→17:17)
[2021-03-30] MEDS: cefepime 1,000 MG in sodium chloride 0.9% (plus) 50 ML 100 MG IV ×2 (09:41→21:33)
--- NOTE | 2021-03-30 10:35 | P.PN_ITS ---
Subjective Subjective: Interval history: Intubated, sedated. Vitals/I&O/Wt Last Vital Signs Temp 100.1 F H 03/30/21 10:00 Pulse 80 03/30/21 10:00 Resp 39 H 03/30/21 10:00 BP 112/56 03/30/21 10:00 Pulse Ox 94 03/30/21 10:00 03/29/21 03/30/21 03/30/21 22:59 06:59 14:59 Intake Total 1867.485 / 2449.241 1505.440 / 3954.681 300 / 300 Output Total 3450 / 3450 1600 / 5050 Balance -1582.515 / -1000.759 -94.560 / -1095.319 300 / 300 Weight last 48 hrs Weight 102.058 kg Weight 102.512 kg Physical Exam Const: COMMON NORMALS: no acute distress GENERAL APPEARANCE: patient mechanically ventilated HENMT: COMMON NORMALS: oropharynx normal Neck/C-Spine: COMMON NORMALS: no JVD Resp: EFFORT & INSPECTION: Yes tachypneic AUSCULTATION: diminished lung sounds Cardio: COMMON NORMALS: no JVD, regular rhythm, S1 normal heart sound present, S2 normal heart sound present and No murmurs present (Cardio) RHYTHM: regular rhythm HEART SOUNDS: S1 normal heart sound present and S2 normal heart sound present GI: COMMON NORMALS: Normal to inspection, nondistended, normoactive bowel sounds present, Soft to palpation and non-tender PALPATION: Yes Soft to palpation Extremity: COMMON NORMALS: no joint enlargement GENERAL: Yes edema (2+) Neuro: COMMON NORMALS: moves all extremities Skin: OTHER: Sacral decub although he is not turned on current exam due to respiratory condition. Urinary Catheter Management^: Rodríguez: Cath Placed During This Visit: yes Reason for Continuing Indwelling Catheter: Accurate Measurement of Urinary Output in Critically Ill Patients Urinary Catheter Date of Insertion: 03/09/21 Urinary Catheter Time of Insertion: 22:34 Data : 03/30/21 03:41 03/30/21 03:41 Micro: Microbiology 03/29/21 17:20 Blood Culture - Preliminary Blood SPECIMEN COLLECTED 03/29/21 17:20 Blood Culture - Preliminary Blood SPECIMEN COLLECTED A&P Assessment and plan (1) Acute respiratory failure due to severe acute respiratory syndrome coronavirus 2 (SARS-CoV-2) infection: Not successfully weaning of sedation. Tachypneic. Fever 100.1. Add empiric cefepime. Continue vancomycin. Continue sedation. Daughter had discussed with her mother, they would like to continue as full code. Daughter would like to come in during weans of sedation to see if she can help calm him while weaning sedatives. Discussed with her with the amount of distress he goes into with trying to wean I do not expect that this may work, and to not take it personally as he is unable to control his symptoms, but definitely we are okay with her trying. Appreciate pulmonology and thoracic surgery evaluation and recommendations regards to tracheostomy. Extensive multidisciplinary discussions took place yesterday with consideration of different options, as well as with the family. No safe approach could be identified with regards to placement of tracheostomy given significantly altered anatomy, multiple prior surgeries, radiation therapy to the neck and upper chest, as well as presence of high riding innominate artery. Follow-up additional sputum cultures. Additional blood culture. Continue diuresis. If hemoglobin stabilizes, consider perhaps switching to Lovenox, although today with decrease in hemoglobin to 7.6. Continue Bactrim for MDRO infection with stenotrophomonas. Completed 7 days of Bactrim infusions. Continue attempts to wean down as tolerating off mechanical ventilatory support. Status: Acute (2) Pulmonary embolism associated with COVID-19: Anticoagulation Status: Acute (3) Infection due to Stenotrophomonas maltophilia: Continue Bactrim. Stop after today. Status: Acute (4) Pneumothorax: Chest tube in place, so far without recurrence Status: Acute (5) Staphylococcus epidermidis bacteremia: 1 set 2/2 bottles. Vancomycin continued for now. Without growth on repeat culture. Status: Acute (6) Septic shock: Resolved. Back on low dose Levophed, although likely also due to the extensive sedation he is requiring. Status: Acute (7) Transaminitis: Improved. Status: Acute (8) D-dimer, elevated: Status: Acute Additional A&P Information Anemia: Responded to PRBC transfusion. Requested Hemoccult. Adequate bone marrow response. No DIC Hypokalemia: Replaced Hypothyroidism hx of papillary thyroid carcinoma. Continue levothyroxine. History of laryngeal cancer. Sacral decub reported. Reposition as possible, although it has been very difficult due to severe desaturation with even minimal repositioning. Reposition as possible. ICU staff investigating if there is a possibility of different bed/mattress. Will likely need debridement if respiratory status will improve at some point. 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
[2021-03-30 10:56] LABS: Partial Thromboplastin Time 39.3 SECONDS (23.9-36.7)
--- NOTE | 2021-03-30 12:10 | PC.NUTR ---
Tube feeding recommendation: No TF order in place per chart, however Jevity 1.2 running at 40 ml/hr per nurse. Nurse reports no flushes ordered. Unclear if Beneprotein being provided. Propofol @ 33.15 providing 875 kcal. Due to high kcal from propofol, recommend decreasing TF rate to 30 ml/hr, and resuming Beneprotein flushes QID as previously ordered for additional 6 g protein per scoop. TF at 30 ml/hr with Beneprotein QID (mixed with 90 ml H2O followed by 60 ml flush each time) would provide 964 kcal, 64 g protein, and 1182 ml H2O. Continue to recommend monitoring triglycerides. See full RD assessment for further details.
--- NOTE | 2021-03-30 15:36 | PC.RESP ---
RT Shift Note Frequent safety and respiratory rounds continue. Orders completed as indicated. Patient monitored pre and post treatments throughout shift. Patient [Did.] tolerate treatments appropriately. Condition DidNotChange]. Patient and/or territory account representative educated on respiratory treatment and medications. Patient and/or territory account representative [unable to comprehend Will continue to monitor patient progress.
--- NOTE | 2021-03-30 16:06 | PC.SOCIAL ---
IMM not Given IMM not updated. Pt is intubated & is not expected to discharge within the next 24-48hrs.
[2021-03-30] MEDS: vancomycin 1,500 MG/300 ML PIGGYBACK 200 MG IV (17:18)
[2021-03-30 17:41] LABS: Vancomycin Trough 17.9 ug/mL (10-15)
[2021-03-30] MEDS: sennosides-docusate Tablet 1 TAB PO (21:09)
[2021-03-30 23:12] LABS: ABG PH Result 7.26 (7.35-7.45); Arterial Blood Gas Hematocrit 28.6 % (42-52); Base Excess ABG 23.6 mmol/L (-2.0-2.0); Blood Gas Sample Site Brachial, right; Blood Gas Sample Type Arterial; HCO3 ABG 54.9 mmol/L (22-26); Oxygen Device VENT; PO2 ABG 59.6 mmHg (80.0-100.0)
--- NOTE | 2021-03-30 23:28 | XRR_ITS ---
PROCEDURE INFORMATION: Exam: XR Chest Exam date and time: 03/30/2021 11:28 PM Age: 60 years old Clinical indication: Dyspnea; Additional info: Tachypnea, tachycardia, hypoxemia TECHNIQUE: Imaging protocol: XR of the chest. Views: 1 view. COMPARISON: CR XR chest 1V portable [id number] 03/29/2021 8:44 AM FINDINGS: Tubes, catheters and devices: Endotracheal tube, nasogastric tube, right thoracostomy tube, and left central line appear unchanged. Lungs: Diffuse nonspecific bilateral pulmonary infiltrates are noted, consistent with pulmonary edema versus bilateral pneumonia. Pleural spaces: Small right pleural effusion. No pneumothorax. Heart/Mediastinum: Cardiac silhouette is partially obscured by bilateral pulmonary infiltrates. Bones/joints: Unremarkable. XR/XR chest 1V portable [id number] IMPRESSION: 1. Diffuse nonspecific bilateral pulmonary infiltrates are noted, consistent with pulmonary edema versus bilateral pneumonia. Worsening consolidation noted at the right lung base when compared to the prior study. 2. Small right pleural effusion.
--- NOTE | 2021-03-30 23:29 | PC.NURSE ---
RT at bedside for ABG r/t increase FiO2 requirements and respiratory rate sustaining 40-50's. Contacted Dr. Driscoll, orders to increase fentanyl to 250 mcg/hr and versed to 8 mg/hr. Will continue to monitor
[2021-03-31] VITALS (64 sets, daily range): BP systolic 83–147; BP diastolic 49–75; PULSE 79–125; RESP 32–52; TEMP 36.8–39; O2SAT 85–96
[2021-03-31] MEDS: FUROsemide 10 mg/mL SDV 4mL 40 MG IVP (00:04)
[2021-03-31] MEDS: ipratropium-albuterol 3 mL Neb INHALATION ×6 (00:47→23:50)
[2021-03-31] MEDS: propofol 1,000 MG/100 ML INJ 33.15 MG IV ×8 (01:40→21:27)
[2021-03-31] MEDS: cisatracurium 100 MG in sodium chloride 0.9% 50 ML IV (01:45)
[2021-03-31] MEDS: dexmedeTOMIDine 0.9 % NaCL 400 MCG/100 ML PREMIX 25.74 MCG IV ×6 (02:23→18:11)
[2021-03-31] MEDS: vancomycin 1,500 MG/300 ML PIGGYBACK 300 MG IV ×3 (02:24→17:43)
[2021-03-31] MEDS: FUROsemide 10 mg/mL SDV 10mL 60 MG IVP (03:17)
[2021-03-31 04:42] LABS: Basophils # 0.1 10^3/uL (0.0-0.1); Basophils % 0.3 %; Eosinophils # 0.1 10^3/uL (0.0-0.8); Eosinophils % 0.5 %; Hematocrit 29.3 % (42.0-52.0); Hemoglobin 8.7 g/dL (11.7-16.6); Lymphocytes # 0.3 10^3/uL (0.8-4.8); Lymphocytes % 1.8 %; Mean Corpuscular HGB Conc 29.7 g/dL (30.0-36.0); Mean Corpuscular Hemoglobin 31.1 pg (28.0-34.0); Mean Corpuscular Volume 104.6 fl (80-94); Mean Platelet Volume 9.1 fL (7.4-10.4); Monocytes # 0.9 10^3/uL (0.2-0.9); Monocytes % 5.6 %; Neutrophils # 14.94 10^3/uL (1.8-7.7); Neutrophils % 90.1 %; Nucleated Red Blood Cells # 0.1 /100WBC; Nucleated Red Blood Cells % 0.4 %; Platelet Count 182 10^3/cmm (130-400); Red Cell Distribution Width 19.3 % (12.1-15.1); White Blood Count 16.6 10^3/uL (4.0-10.0)
[2021-03-31 05:04] LABS: Alanine Aminotransferase 36 U/L (0-41); Albumin Level 2.5 g/dL (3.5-5.2); Alkaline Phosphatase 94 IU/L (40-130); Aspartate Amino Transferase 52 U/L (0-40); Blood Urea Nitrogen 13 mg/dL (8-23); Calcium 7.5 mg/dL (8.5-10.5); Chloride 91 mmol/L (98-107); Globulin 2.9 g/dL (1.3-4.6); Glomerular Filtration Rate 486.7 mL/min (90-130); Glucose 130 mg/dL (65-115); Osmolality Calculated 294 mOsm/kg (285-295); Potassium 3.5 mmol/L (3.5-5.1); Sodium 141 mmol/L (136-145); Total Bilirubin 0.7 mg/dL (0.15-1.2); Total Protein 5.4 g/dL (6.6-8.7); Triglycerides 181 mg/dL (0-150)
[2021-03-31 05:14] LABS: ABG PH Result 7.28 (7.35-7.45); Arterial Blood Gas Hematocrit 24.6 % (42-52); Base Excess ABG 24.5 mmol/L (-2.0-2.0); Blood Gas Sample Site Brachial, right; Blood Gas Sample Type Arterial; HCO3 ABG 54.7 mmol/L (22-26); Oxygen Device VENT; PO2 ABG 64.6 mmHg (80.0-100.0)
[2021-03-31 05:28] LABS: Anion Gap 4.5 (5-19)
[2021-03-31 05:29] LABS: Carbon Dioxide 49 mmol/L (22-29)
--- NOTE | 2021-03-31 06:25 | NUR.SHIFT ---
Patient was tachypneic, tachycardic,hypertensive, with intermittent periods of desaturation lasting greater than 10 minutes and a low grade fever throughout shift. Critical pCO2, vent settings adjusted as needed, per RT and Dr. Driscoll notified. Orders to start nimbex. Nimbex started at 0200, gtt adjustments made as necessary. Respiratory rate decreased to 30-40's, and patient NSR with sats staying 90% and above. Good urine output. All other gtt adjusted as necessary. Will continue to monitor. 0200: TOF: 3/4, BIS: 43 0400: TOF: 2/4, BIS: 31 0600: TOF: 2/4, BIS: 28
[2021-03-31] MEDS: budesonide 0.5 mg/2 mL Neb INHALATION ×2 (07:51→19:54)
[2021-03-31 07:56] LABS: Glucose Point of Care 121 mg/dL (70-110)
[2021-03-31 07:56] LABS: Glucose Point of Care 116 mg/dL (70-110)
[2021-03-31 07:56] LABS: Glucose Point of Care 150 mg/dL (70-110)
[2021-03-31 07:58] LABS: Glucose Point of Care 138 mg/dL (70-110)
[2021-03-31 07:58] LABS: Glucose Point of Care 115 mg/dL (70-110)
[2021-03-31 07:58] LABS: Glucose Point of Care 126 mg/dL (70-110)
[2021-03-31 07:59] LABS: Glucose Point of Care 172 mg/dL (70-110)
[2021-03-31 07:59] LABS: Glucose Point of Care 106 mg/dL (70-110)
[2021-03-31] MEDS: aspirin 81 mg EC Tablet PO (08:26)
[2021-03-31] MEDS: levothyroxine 200 mcg Tablet OG-TUBE (08:27)
[2021-03-31] MEDS: famotidine 20 mg/2 mL INJ IVP ×2 (08:27→20:47)
[2021-03-31] MEDS: cefepime 1,000 MG in sodium chloride 0.9% (plus) 50 ML 100 MG IV ×2 (08:33→21:35)
[2021-03-31] MEDS: chlorhexidine gluconate 4% Btl 118 mL 1 APPLIC TOPICAL ×2 (08:34→17:43)
[2021-03-31] MEDS: docusate sodium 10 mg/mL (5ml) Liq 100 MG OG-TUBE ×2 (08:34→17:43)
--- NOTE | 2021-03-31 09:13 | P.PN_ITS ---
Subjective Subjective: Interval history: He had a difficult night, become more tachypneic, with worsening saturation, had to go up on FiO2 of 100%. Restarted on a paralytic agent. Vitals/I&O/Wt Last Vital Signs Temp 98.3 F 03/31/21 07:58 Pulse 86 03/31/21 07:58 Resp 40 H 03/31/21 07:58 BP 83/52 03/31/21 07:58 Pulse Ox 95 03/31/21 07:58 03/30/21 03/31/21 03/31/21 22:59 06:59 14:59 Intake Total 2010.507 / 2655.519 1941.566 / 4597.085 66.883 / 66.883 Output Total 1800 / 1800 2900 / 4700 Balance 210.507 / 855.519 -958.434 / -102.915 66.883 / 66.883 Weight last 48 hrs Weight 101.605 kg Weight 102.058 kg Physical Exam Const: COMMON NORMALS: no acute distress GENERAL APPEARANCE: patient mechanically ventilated HENMT: COMMON NORMALS: oropharynx normal Neck/C-Spine: COMMON NORMALS: no JVD Resp: COMMON NORMALS: normal respiratory effort EFFORT & INSPECTION: Yes tachypneic AUSCULTATION: diminished lung sounds Cardio: COMMON NORMALS: no JVD, regular rhythm, S1 normal heart sound present, S2 normal heart sound present and No murmurs present (Cardio) RHYTHM: regular rhythm HEART SOUNDS: S1 normal heart sound present and S2 normal heart sound present GI: COMMON NORMALS: Normal to inspection, nondistended, normoactive bowel sounds present, Soft to palpation and non-tender PALPATION: Yes Soft to palpation Extremity: COMMON NORMALS: no joint enlargement GENERAL: Yes edema (2+) Neuro: COMMON NORMALS: moves all extremities Skin: COMMON NORMALS: no rashes or lesions noted GENERAL SKIN EXAM: no rashes or lesions noted OTHER: Sacral decub although he is not turned on cur rent exam due to respiratory condition. Urinary Catheter Management^: Rodríguez: Cath Placed During This Visit: yes Reason for Continuing Indwelling Catheter: Accurate Measurement of Urinary Output in Critically Ill Patients Urinary Catheter Date of Insertion: 03/09/21 Urinary Catheter Time of Insertion: 22:34 Data : 03/31/21 03:40 03/31/21 03:40 Micro: Microbiology 03/29/21 17:20 Blood Culture - Preliminary Blood NEGATIVE TO DATE 03/29/21 17:20 Blood Culture - Preliminary Blood NEGATIVE TO DATE 03/29/21 10:00 Urine Culture - Preliminary Urine,Clean Catch Yeast A&P Assessment and plan (1) Acute respiratory failure due to severe acute respiratory syndrome coronavirus 2 (SARS-CoV-2) infection: Worsening FiO2 requirement, worsening tachypnea. On chest x-ray bilateral infiltrates due to edema versus pneumonia, worsening consolidation in right lung base. Continue sedation, escalate paralytic. Continue empiric antibiotics with cefepime, vancomycin. Also growing yeast in the urine, add fluconazole. Appreciate pulmonology and thoracic surgery evaluation and recommendations. Tracheostomy was not found a safe option. Follow-up additional sputum cultures. Additional blood culture. Continue Bactrim for MDRO infection with stenotrophomonas. Completed 7 days of Bactrim infusions. Continue attempts to wean down as tolerating off mechanical ventilatory support. Status: Acute (2) Pulmonary embolism associated with COVID-19: Anticoagulation Status: Acute (3) Infection due to Stenotrophomonas maltophilia: Could not tolerate Bactrim infusions well due to volume of infusions but completed 7 days. Status: Acute (4) Pneumothorax: Chest tube in place, so far without recurrence Status: Acute (5) Staphylococcus epidermidis bacteremia: 1 set 2/2 bottles. Vancomycin continued for now. Without growth on repeat culture. Status: Acute (6) Septic shock: Resolved. Back on low dose Levophed, although likely also due to the extensive sedation he is requiring. Status: Acute (7) Transaminitis: Improved. Status: Acute (8) D-dimer, elevated: Status: Acute Additional A&P Information Anemia: Responded to PRBC transfusion. Requested Hemoccult. Adequate bone marrow response. No DIC Hypokalemia: Replaced Hypothyroidism hx of papillary thyroid carcinoma. Continue levothyroxine. History of laryngeal cancer. Sacral decub reported. Reposition as possible, although it has been very difficult due to severe desaturation with even minimal repositioning. Reposition as possible. ICU staff investigating if there is a possibility of different bed/mattress. Will likely need debridement if respiratory status will improve at some point. Attestations Medical Necessity Statement*: Continue admission for assessment of management of worsening hypoxic respiratory failure, diffuse alveolar damage following severe COVID-19. Coding Level of Care Code Acute Pyrometer Operator for [facility] Fwd Diagnoses Acute respiratory failure due to severe acute respiratory syndrome coronavirus 2 (SARS-CoV-2) infection U07.1; J96.00 Pulmonary embolism associated with COVID-19 U07.1; I26.99 Infection due to Stenotrophomonas maltophilia A49.8 Pneumothorax J93.9 Staphylococcus epidermidis bacteremia R78.81; B95.7 Septic shock A41.9; R65.21 Transaminitis R74.01 D-dimer, elevated R79.89
[2021-03-31] MEDS: FUROsemide 10 mg/mL SDV 10mL 80 MG IVP ×2 (09:38→20:48)
[2021-03-31 13:12] LABS: Glucose Point of Care 140 mg/dL (70-110)
[2021-03-31] MEDS: fluconazole premix 200 MG/100 ML PREMIX 100 MG IV (13:28)
--- NOTE | 2021-03-31 15:39 | PC.RESP ---
RT Shift Note Frequent safety and respiratory rounds continue. Orders completed as indicated. Patient monitored pre and post treatments throughout shift. Patient [Did.] tolerate treatments appropriately. Condition [.DidNotChange]. Patient and/or sales representative gas service educated on respiratory treatment and medications. Patient and/or sales representative gas service [unable to comprehend]. Will continue to monitor patient progress.
[2021-03-31] MEDS: cisatracurium 100 MG in sodium chloride 0.9% 50 ML 12.25 MG IV (16:17)
--- NOTE | 2021-03-31 18:24 | PC.NURSE ---
Shift Note Frequent safety and comfort rounds continue. Orders and/or nursing care completed as indicated. Patient monitored for response to intervention and treatment(s). Education provided includes sedation and paralytic medications. Patient and/or it sales representative verbalized understanding. Will continue to monitor.
[2021-03-31] MEDS: acetaminophen 325 mg Tablet 650 MG PO (19:26)
[2021-03-31] MEDS: dexmedeTOMIDine 0.9 % NaCL 400 MCG/100 ML PREMIX 36.04 MCG IV ×2 (20:47→23:28)
[2021-03-31] MEDS: sennosides-docusate Tablet 1 TAB PO (20:47)
[2021-03-31 20:48] LABS: Glucose Point of Care 127 mg/dL (70-110)
[2021-03-31] MEDS: cisatracurium 100 MG in sodium chloride 0.9% 50 ML 36.74 MG IV (21:08)
[2021-03-31] MEDS: cisatracurium 100 MG in sodium chloride 0.9% 50 ML 30.62 MG IV (23:51)
[2021-04-01] VITALS (70 sets, daily range): BP systolic 87–132; BP diastolic 49–68; PULSE 66–97; RESP 26–42; TEMP 36.4–37.6; O2SAT 86–95
[2021-04-01] MEDS: propofol 1,000 MG/100 ML INJ 33.15 MG IV ×10 (01:18→22:58)
[2021-04-01] MEDS: dexmedeTOMIDine 0.9 % NaCL 400 MCG/100 ML PREMIX 36.04 MCG IV ×9 (02:15→23:46)
[2021-04-01] MEDS: vancomycin 1,500 MG/300 ML PIGGYBACK 300 MG IV ×3 (02:30→18:27)
[2021-04-01] MEDS: ipratropium-albuterol 3 mL Neb INHALATION ×6 (03:07→23:38)
[2021-04-01] MEDS: cisatracurium 100 MG in sodium chloride 0.9% 50 ML 30.62 MG IV ×5 (03:08→12:42)
[2021-04-01 03:49] LABS: Glucose Point of Care 131 mg/dL (70-110)
[2021-04-01 04:22] LABS: Basophils # 0.1 10^3/uL (0.0-0.1); Basophils % 0.6 %; Eosinophils # 0.3 10^3/uL (0.0-0.8); Eosinophils % 3.1 %; Hematocrit 22.8 % (42.0-52.0); Hemoglobin 6.6 g/dL (11.7-16.6); Lymphocytes # 0.5 10^3/uL (0.8-4.8); Mean Corpuscular HGB Conc 28.9 g/dL (30.0-36.0); Mean Corpuscular Hemoglobin 30.6 pg (28.0-34.0); Mean Corpuscular Volume 105.6 fl (80-94); Mean Platelet Volume 9.4 fL (7.4-10.4); Monocytes # 0.6 10^3/uL (0.2-0.9); Monocytes % 7.2 %; Neutrophils # 7.11 10^3/uL (1.8-7.7); Neutrophils % 81.4 %; Nucleated Red Blood Cells % 0.3 %; Platelet Count 171 10^3/cmm (130-400); Red Blood Count 2.16 10^6/uL (4.1-5.3); Red Cell Distribution Width 19.4 % (12.1-15.1); White Blood Count 8.7 10^3/uL (4.0-10.0)
[2021-04-01 04:50] LABS: Alanine Aminotransferase 26 U/L (0-41); Albumin Level 2.6 g/dL (3.5-5.2); Alkaline Phosphatase 67 IU/L (40-130); Aspartate Amino Transferase 36 U/L (0-40); Blood Urea Nitrogen 17 mg/dL (8-23); Calcium 7.6 mg/dL (8.5-10.5); Chloride 91 mmol/L (98-107); Globulin 2.5 g/dL (1.3-4.6); Glomerular Filtration Rate 304.8 mL/min (90-130); Glucose 106 mg/dL (65-115); Osmolality Calculated 302 mOsm/kg (285-295); Potassium 3.2 mmol/L (3.5-5.1); Sodium 145 mmol/L (136-145); Total Bilirubin 0.5 mg/dL (0.15-1.2); Total Protein 5.1 g/dL (6.6-8.7)
[2021-04-01 04:57] LABS: Arterial Blood Gas Hematocrit 28.6 % (42-52); Blood Gas Sample Site Brachial, right; Blood Gas Sample Type Arterial; HCO3 ABG 54.5 mmol/L (22-26); Oxygen Device VENT; PO2 ABG 66.6 mmHg (80.0-100.0)
[2021-04-01 05:15] LABS: Anion Gap 7.2 (5-19)
[2021-04-01 05:19] LABS: Carbon Dioxide 50 mmol/L (22-29)
--- NOTE | 2021-04-01 06:19 | PC.NURSE ---
Per community relations assistant doctor, move up nimbex to decrease respiratory rate. Nimbex increased as needed. Patient febrile during shift, with respiratory rate sustaining 30-40's. Oral care ,TOF, BIS, and repositioning done Q2. Will continue to monitor. 2000: TOF: 3/4, BIS: 20 2200: TOF: 2/4, BIS: 21 0000: TOF: 2/4, BIS: 34 0200: TOF: 1/4, BIS: 28 0400: TOF: 2/4, BIS: 21 0600: TOF: 2/4, BIS: 20
--- NOTE | 2021-04-01 06:33 | PC.SOCIAL ---
IM follow up not given. Patient is still on vent and discharge not expected within 2 days.
[2021-04-01] MEDS: budesonide 0.5 mg/2 mL Neb INHALATION ×2 (07:42→20:02)
--- NOTE | 2021-04-01 07:53 | PM.PN ---
Subjective Subjective: Interval history: Sedated and paralyzed on ventilator, however he is overbreathing the ventilator. Medications: Reviewed: Yes Vitals/I&O/Wt Last Vital Signs Temp 98.8 F 04/01/21 07:34 Pulse 72 04/01/21 07:46 Resp 37 H 04/01/21 07:46 BP 118/58 04/01/21 07:34 Pulse Ox 94 04/01/21 07:46 03/31/21 04/01/21 04/01/21 22:59 06:59 14:59 Intake Total 2485.928 / 3190.208 2080.148 / 5270.356 57.917 / 57.917 Output Total 2600 / 2600 1200 / 3800 Balance -114.072 / 590.208 880.148 / 1470.356 57.917 / 57.917 Weight last 48 hrs Weight 102.058 kg Weight 101.605 kg Physical Exam Narrative: EXAM NARRATIVE: Sedated, on ventilator, overbreathing HEENT: Endotracheal and oropharyngeal tube noted Neck supple Cardiovascular regular rate and rhythm Lungs coarse bilateral Abdomen is soft. A few bowel sounds are heard Extremities no cyanosis clubbing. 1+ edema present bilaterally. Urinary Catheter Management^: Rodríguez: Cath Placed During This Visit: yes Reason for Continuing Indwelling Catheter: Accurate Measurement of Urinary Output in Critically Ill Patients Urinary Catheter Date of Insertion: 03/09/21 Urinary Catheter Time of Insertion: 22:34 Data : 04/01/21 03:27 04/01/21 03:27 Micro: Microbiology 03/29/21 10:00 Urine Culture - Final Urine,Clean Catch Yeast Other data: ABG 7.3, 111, 66 No chest x-ray done today Last urine culture yeast. Last sputum culture stenotrophomonas. Last blood culture March 29 - to date. Previous staph epidermidis. A&P Assessment and plan (1) Acute respiratory failure due to severe acute respiratory syndrome coronavirus 2 (SARS-CoV-2) infection: Worsening FiO2 requirement now at 90%, worsening tachypnea despite Nimbex. Escalate paralytic Continue multiple sedatives including Versed, fentanyl, propofol, Precedex Continue empiric antibiotics with cefepime, vancomycin. Continue fluconazole. Yeast noted in the urine By 2 specialties, tracheostomy is not an option He completed 7 days of Bactrim. Overall clinical course is worsening, and prognosis poor. T-max 102.2 over the last 24 hours. Status: Acute (2) Pulmonary embolism associated with COVID-19: Restart heparin drip. It appears this was discontinued or held for tracheostomy. Status: Acute (3) Infection due to Stenotrophomonas maltophilia: Could not tolerate Bactrim infusions well due to volume of infusions but completed 7 days. Status: Acute (4) Pneumothorax: Chest tube in place, so far without recurrence. Chest tube can likely be removed. We will do this when pulmonary is available. Status: Acute (5) Staphylococcus epidermidis bacteremia: Currently on vancomycin. Repeat culture negative to date. Status: Acute (6) Septic shock: Resolved. On low-dose norepinephrine secondary to sedation Status: Acute (7) Transaminitis: Improved. Status: Acute (8) D-dimer, elevated: Status: Acute Additional A&P Information Anemia. Multifactorial. Transfuse 1 unit packed red blood cells today. Hypokalemia. Replaced today Hypothyroidism hx of papillary thyroid carcinoma. Continue levothyroxine. History of laryngeal cancer. Sacral decub reported. Keep pressure off area as much as possible. May ultimately need debridement. Nutrition. Currently receiving tube feeds. Rate currently at 40ml/hour Updated daughter. CODE STATUS changed to no CPR or defibrillation but she still wants aggressive care in the ICU. Attestations Medical Necessity Statement*: Needs continued hospitalization secondary to severe COVID-19 pneumonia requiring mechanical ventilation with subsequent ARDS and multiple other comorbidities. Critical Care Time: The high probability of a clinically significant, sudden or life threatening deterioration of the patient's [pulmonary, renal, infectious disease] system(s) required my full and direct attention, intervention and personal management. The critical care time is as shown. This time is in addition to time spent performing any reported procedures but includes the following: [x] Data and vital sign review and interpretation [x] Patient assessment, examination and intervention [x] Documentation [x] Medication orders and management Critical Care Time (min): 36 Coding Level of Care Code Acute Transportation Services Representative for [facility] Fwd Diagnoses Acute respiratory failure due to severe acute respiratory syndrome coronavirus 2 (SARS-CoV-2) infection U07.1; J96.00 Pulmonary embolism associated with COVID-19 U07.1; I26.99 Infection due to Stenotrophomonas maltophilia A49.8 Pneumothorax J93.9 Staphylococcus epidermidis bacteremia R78.81; B95.7 Septic shock A41.9; R65.21 Transaminitis R74.01 D-dimer, elevated R79.89
--- NOTE | 2021-04-01 08:22 | PC.CHAP ---
Pastoral Care Encounter/Spiritual Assessment Type of Contact [] Declined fishery division chief visit [] Patient/Family/Request visit [] Outpatient visit [] Follow-up visit [] Physician referral [] Code/Alert [x] Routine visit [] Staff referral [] Actively dying [] Patient sleeping [] Family support [] [] Out of room [] Palliative care [] [] Receiving care in room [] Pre-surgical visit [] Trauma [] Long length of stay [x] ICU visit [] Other: Relational/Emotional Strength [] Patient feels connected with others/family/visitors/staff [] Distress [] Loneliness/isolation [] Abandonment Spirituality of Patient [] Person of Basilia [] Attends Nondenominational of their Basilia [] Believes in Prayer [] Reads Bible or Hoahaoism materials [] There are Spiritual issues to be addressed Fac Engineer Interventions [x] Prayer [] Active listening [] Non-anxious presence [] Spiritual/emotional support [] Crisis/trauma care [] Spiritual counseling [] Bereavement support [] Provided bereavement packet [] Provided Bible/devotional materials [] Provided toy/stuffed animal, coloring book to patient or family member [] Provided Communion [] Anointing/[place] [] Salvation [x] Completed spiritual assessment [] Other: Impact on Illness or Injury [] Angry [] Fearful [] Anxious [] Often cries [] Exhaustion [] Unable to work [] Unable to attend mormon [] Unable to walk/stand [] Unable to read [] Unable to drive [] Unable to eat/drink [] Unable to sleep [] Unable to be with family [] Patient intubated [] Other: Summary Time spent with patient
[2021-04-01 08:41] LABS: Glucose Point of Care 120 mg/dL (70-110)
[2021-04-01] MEDS: FUROsemide 10 mg/mL SDV 10mL 80 MG IVP ×2 (08:56→20:01)
[2021-04-01] MEDS: aspirin 81 mg EC Tablet PO (08:57)
[2021-04-01] MEDS: levothyroxine 200 mcg Tablet OG-TUBE (08:57)
[2021-04-01] MEDS: lidocaine 1% 5 ML in potassium chloride premix 100 ML 25 ML IV (08:58)
[2021-04-01] MEDS: famotidine 20 mg/2 mL INJ IVP ×2 (08:58→20:01)
[2021-04-01] MEDS: docusate sodium 10 mg/mL (5ml) Liq 100 MG OG-TUBE ×2 (08:59→18:25)
[2021-04-01] MEDS: chlorhexidine gluconate 4% Btl 118 mL 1 APPLIC TOPICAL ×2 (08:59→18:25)
[2021-04-01] MEDS: cefepime 1,000 MG in sodium chloride 0.9% (plus) 50 ML 100 MG IV ×2 (10:46→22:04)
[2021-04-01] MEDS: heparin drip 25,000 UNIT/500 ML PREMIX 57.15 UNIT IV (12:43)
[2021-04-01] MEDS: fluconazole premix 200 MG/100 ML PREMIX 100 MG IV (13:56)
--- NOTE | 2021-04-01 15:38 | PC.RESP ---
RT Shift Note Frequent safety and respiratory rounds continue. Orders completed as indicated. Patient monitored pre and post treatments throughout shift. Patient [Did.] tolerate treatments appropriately. Condition [.DidNotChange]. Patient and/or dental detail representative educated on respiratory treatment and medications. Patient and/or dental detail representative [unable to comprehend]. Will continue to monitor patient progress.
[2021-04-01] MEDS: sodium chloride 0.9% 250 ML 10 ML IV (16:35)
--- NOTE | 2021-04-01 18:10 | PC.NURSE ---
Blood from 03/26/21 Blood issues on 03/26/21 was never ended . In order to correctly document current blood being transfused. Previous unit has been ended by this nurse today/now.
[2021-04-01 19:23] LABS: Partial Thromboplastin Time 33.8 SECONDS (23.9-36.7)
[2021-04-01 19:54] LABS: Glucose Point of Care 139 mg/dL (70-110)
[2021-04-02] VITALS (70 sets, daily range): BP systolic 89–120; BP diastolic 47–86; PULSE 63–99; RESP 20–336; TEMP 35.8–36.8; O2SAT 84–96
[2021-04-02 00:45] LABS: Partial Thromboplastin Time 35.4 SECONDS (23.9-36.7)
[2021-04-02] MEDS: heparin 5,000 unit/mL INJ 1 mL IV ×3 (01:20→15:00)
[2021-04-02] MEDS: vancomycin 1,500 MG/300 ML PIGGYBACK 200 MG IV ×3 (01:33→18:18)
[2021-04-02] MEDS: propofol 1,000 MG/100 ML INJ 33.15 MG IV ×10 (01:34→23:50)
[2021-04-02 02:12] LABS: Glucose Point of Care 152 mg/dL (70-110)
[2021-04-02] MEDS: dexmedeTOMIDine 0.9 % NaCL 400 MCG/100 ML PREMIX 36.04 MCG IV ×7 (02:30→22:03)
[2021-04-02] MEDS: ipratropium-albuterol 3 mL Neb INHALATION ×6 (03:36→23:38)
[2021-04-02 05:01] LABS: Arterial Blood Gas Hematocrit 23.5 % (42-52); Base Excess ABG 21.5 mmol/L (-2.0-2.0); Blood Gas Allen Test Pos; Blood Gas Operator Identificat JB; Blood Gas Sample Site Radial, right; Blood Gas Sample Type Arterial; HCO3 ABG 52.6 mmol/L (22-26); Oxygen Device VENT; PO2 ABG 70.5 mmHg (80.0-100.0)
--- NOTE | 2021-04-02 05:59 | PC.NURSE ---
Shift Note Frequent safety and comfort rounds continue. Orders and/or nursing care completed as indicated. Patient monitored for response to intervention and treatment(s). Education provided includes appropriate sedation for vent compliance. Family verbalized understanding but needs reinforcement. Will continue to monitor. Time: BIS: TOF 1999 35 10/28 2100 40 / 2200 42 / 2300 38 10/28 0000 50 / 0100 55 / 0200 39 / 0300 42 10/28 0400 53 4.4 0500 36 10/28 0600 38 10/28
[2021-04-02 06:15] LABS: Glucose Point of Care 162 mg/dL (70-110)
--- NOTE | 2021-04-02 07:00 | XRR_ITS ---
PROCEDURE INFORMATION: Exam: XR Chest Exam date and time: 04/02/2021 7:00 AM Age: 60 years old Clinical indication: Dyspnea; Additional info: Resp failure TECHNIQUE: Imaging protocol: XR of the chest. Views: 1 view. Total images: 1 COMPARISON: CR (CHEST, ) 03/30/2021 11:42 PM FINDINGS: Tubes, catheters and devices: Right chest tube with proximal port at the rib margin unchanged from prior exam. Tubes and catheters are unchanged from the prior exam. Multiple surgical clips are present. Lungs: Stable bilateral pleuroparenchymal disease. Pleural spaces: No pneumothorax. Heart/Mediastinum: Heart size is stable when compared to the prior exam. Bones/joints: Osseous structures are unchanged from the prior exam. Other findings: X-ray is slightly rotated. XR/XR chest 1V portable [id number] IMPRESSION: 1. Tubes and catheters are unchanged from the prior exam. 2. Stable bilateral pleuroparenchymal disease.
[2021-04-02 07:49] LABS: Basophils # 0.1 10^3/uL (0.0-0.1); Basophils % 0.9 %; Eosinophils # 0.4 10^3/uL (0.0-0.8); Eosinophils % 5.1 %; Hematocrit 28.3 % (42.0-52.0); Hemoglobin 8.3 g/dL (11.7-16.6); Lymphocytes # 0.4 10^3/uL (0.8-4.8); Lymphocytes % 4.5 %; Mean Corpuscular HGB Conc 29.3 g/dL (30.0-36.0); Mean Corpuscular Hemoglobin 30.3 pg (28.0-34.0); Mean Corpuscular Volume 103.3 fl (80-94); Mean Platelet Volume 9.7 fL (7.4-10.4); Monocytes # 0.6 10^3/uL (0.2-0.9); Monocytes % 7.7 %; Neutrophils # 5.83 10^3/uL (1.8-7.7); Neutrophils % 75.7 %; Nucleated Red Blood Cells # 0.1 /100WBC; Platelet Count 186 10^3/cmm (130-400); Red Blood Count 2.74 10^6/uL (4.1-5.3); Red Cell Distribution Width 20.6 % (12.1-15.1); White Blood Count 7.7 10^3/uL (4.0-10.0)
[2021-04-02] MEDS: famotidine 20 mg/2 mL INJ IVP ×2 (07:57→19:34)
[2021-04-02] MEDS: aspirin 81 mg EC Tablet PO (07:57)
[2021-04-02 08:12] LABS: Alanine Aminotransferase 29 U/L (0-41); Albumin Level 2.3 g/dL (3.5-5.2); Alkaline Phosphatase 83 IU/L (40-130); Blood Urea Nitrogen 19 mg/dL (8-23); Calcium 7.5 mg/dL (8.5-10.5); Chloride 93 mmol/L (98-107); Globulin 2.9 g/dL (1.3-4.6); Glomerular Filtration Rate 304.8 mL/min (90-130); Glucose 123 mg/dL (65-115); Osmolality Calculated 298 mOsm/kg (285-295); Sodium 142 mmol/L (136-145); Total Bilirubin 0.6 mg/dL (0.15-1.2); Total Protein 5.2 g/dL (6.6-8.7)
[2021-04-02 08:22] LABS: Slide Review Slide Review Perform
[2021-04-02 08:26] LABS: Partial Thromboplastin Time 38.5 SECONDS (23.9-36.7)
[2021-04-02] MEDS: budesonide 0.5 mg/2 mL Neb INHALATION ×2 (08:35→19:50)
[2021-04-02 08:50] LABS: Anion Gap 7.2 (5-19); Aspartate Amino Transferase 38 U/L (0-40); Carbon Dioxide 45 mmol/L (22-29); Potassium 3.2 mmol/L (3.5-5.1)
[2021-04-02] MEDS: heparin drip 25,000 UNIT/500 ML PREMIX 65.32 UNIT IV (08:58)
[2021-04-02] MEDS: FUROsemide 10 mg/mL SDV 10mL 80 MG IVP (09:09)
[2021-04-02] MEDS: levothyroxine 200 mcg Tablet OG-TUBE (09:09)
[2021-04-02] MEDS: chlorhexidine gluconate 4% Btl 118 mL 1 APPLIC TOPICAL ×2 (09:10→18:16)
[2021-04-02] MEDS: docusate sodium 10 mg/mL (5ml) Liq 100 MG OG-TUBE ×2 (09:10→18:16)
--- NOTE | 2021-04-02 09:27 | PM.PN ---
Subjective Subjective: Interval history: -Patient seen at bedside today -Labs and imaging reviewed -ABG showed pH 7.20 and a PCO2 134-patient on pressure control PIP 32/RR 30/PEEP 8/FiO2 90%-MV 8.5 L there is component of respiratory acidosis and metabolic alkalosis -Plan is to change to volume control mode and see if patient can generate a minute ventilation of 10 L -So far did not tolerate weaning off sedation-and last weekend required paralytic Medications: Reviewed: Yes Vitals/I&O/Wt Last Vital Signs Temp 97.8 F 04/02/21 05:00 Pulse 77 04/02/21 08:42 Resp 44 H 04/02/21 08:36 BP 95/51 04/02/21 05:00 Pulse Ox 90 04/02/21 08:36 04/01/21 04/02/21 04/02/21 22:59 06:59 14:59 Intake Total 2890.617 / 4157.660 1487.142 / 5644.802 65.195 / 65.195 Output Total 1999 / 1999 200 / 2200 Balance 890.617 / 2157.660 1287.142 / 3444.802 65.195 / 65.195 Weight last 48 hrs Weight 283 lb 3.2 oz Weight 225 lb Physical Exam Narrative: EXAM NARRATIVE: General: Lying in bed, sedated and connected to ventilator HEENT:NCAT, PERRLA, EOMI Neck: Supple Lungs: Bilateral diffuse crackles; right chest tube in place; bloody secretions in the atrium Heart: s1/s2, RRR Abd: soft, NT, ND, BS + Normoactive Extremities: 2+ bilateral pitting pedal edema and also extremities appear swollen 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 and 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 SKIN: no rash LDA: # Rodríguez: 03/09/2021 # Right side chest tube 03/17/21 Urinary Catheter Management^: Rodríguez: Cath Placed During This Visit: yes Reason for Continuing Indwelling Catheter: Accurate Measurement of Urinary Output in Critically Ill Patients Urinary Catheter Date of Insertion: 03/09/21 Urinary Catheter Time of Insertion: 22:34 Data : 04/02/21 07:29 04/02/21 07:29 Other Labs: Laboratory Results WBC 7.7 10^3/uL (4.0-10.0) 04/02/21 07:29 Corrected WBC Cancelled 03/24/21 03:18 RBC 2.74 10^6/uL (4.1-5.3) L 04/02/21 07:29 Hgb 8.3 g/dL (11.7-16.6) L 04/02/21 07:29 Hct 28.3 % (42.0-52.0) L 04/02/21 07:29 MCV 103.3 fl (80-94) H 04/02/21 07:29 MCH 30.3 pg (28.0-34.0) 04/02/21 07:29 MCHC 29.3 g/dL (30.0-36.0) L 04/02/21 07: RDW 20.6 % (12.1-15.1) H 04/02/21 07:29 Plt Count 186 10^3/cmm (130-400) 04/02/21 07:29 MPV 9.7 fL (7.4-10.4) 04/02/21 07:29 Gran % Cancelled 03/24/21 03:18 Neut % (Auto) 75.7 % 04/02/21 07:29 Lymph % (Auto) 4.5 % 04/02/21 07:29 [place] % (Auto) 7.7 % 04/02/21 07:29 Eos % (Auto) 5.1 % 04/02/21 07:29 Baso % (Auto) 0.9 % 04/02/21 07:29 Reticulocyte % (Auto) 7.6 % (0.5-2.0) H 03/26/21 17:00 Neut # (Auto) 5.83 10^3/uL (1.8-7.7) 04/02/21 07:29 Lymph # (Auto) 0.4 10^3/uL (0.8-4.8) L 04/02/21 07:29 [place] # (Auto) 0.6 10^3/uL (0.2-0.9) 04/02/21 07:29 Eos # (Auto) 0.4 10^3/uL (0.0-0.8) 04/02/21 07:29 Baso # (Auto) 0.1 10^3/uL (0.0-0.1) 04/02/21 07:29 Absolute Gran (auto) Cancelled 03/24/21 03:18 Nucleated RBC % (auto) 1.0 % 04/02/21 07:29 Total Counted 100 (0-100) 03/25/21 03:00 Atypical Lymphs % 0.0 % (0-5) 03/25/21 03:00 Absolute Neutrophils 11.7 10^3/cmm (1.4-6.5) H 03/25/21 03:00 Segmented Neutrophils 83 % 03/25/21 03:00 Abs Segm Neuts (Man) 11.7 10/cmm (1.6-7.1) H 03/25/21 03:00 Band Neutrophils 0.0 % 03/25/21 03:00 Abs Band Neuts (Man) 0.0 10^3/cmm (0.0-1.2) 03/25/21 03:00 Absolute Lymphocytes 1.3 10^3/cmm (1.2-3.4) 03/25/21 03:00 Lymphocytes (Manual) 9 % 03/25/21 03:00 Monocytes (Manual) 3.0 % 03/25/21 03:00 Absolute Monocytes 0.4 10^3/cmm (0.1-0.6) 03/25/21 03:00 Eosinophils (Manual) 5 % 03/25/21 03:00 Absolute Eosinophils 0.7 10^3/cmm (0.0-0.7) 03/25/21 03:00 Basophils (Manual) 0.0 % 03/25/21 03:00 Absolute Basophils 0.0 10^3/cmm (0.0-0.2) 03/25/21 03:00 Metamyelocytes 1.0 % 03/14/21 04:25 Myelocytes 1.0 % 03/14/21 04:25 Nucleated RBCs 1.0 /100WBC (0-1) 03/14/21 04:25 Nucleated RBCs # 0.1 /100WBC 04/02/21 07:29 Platelet Estimate Decreased (Normal) 03/25/21 03:00 Poikilocytosis Trace 03/25/21 03:00 Retic Production Index 6.25 03/26/21 17:00 PT 13.50 SECONDS (12.1-14.9) 03/27/21 10:49 INR 1.00 (0.8-1.2) 03/27/21 10:49 APTT 38.5 SECONDS (23.9-36.7) H 04/02/21 07:29 Fibrinogen 571 mg/dL (174-498) H 03/27/21 10:49 Fibrin Degrad Products Neg, <10 ug/mL (NEG) 03/27/21 10:49 D-Dimer 3.97 ug/mIFEU (0-0.59) H 03/27/21 10:49 Specimen Type Arterial 04/02/21 04:33 Sample Site Radial, right 04/02/21 04:33 ABG pH 7.20 (7.35-7.45) L 04/02/21 04:33 ABG pCO2 134.0 mmHg (35-45) H* 04/02/21 04:33 ABG pO2 70.5 mmHg (80.0-100.0) L 04/02/21 04:33 ABG HCO3 52.6 mmol/L (22-26) H 04/02/21 04:33 ABG O2 Saturation 88.6 03/28/21 00:11 ABG Base Excess 21.5 mmol/L (-2.0-2.0) H 04/02/21 04:33 Gus Test Pos 04/02/21 04:33 VBG pH 7.47 (7.32-7.42) H 03/05/21 15:10 VBG pCO2 41.5 mmHg (41-51) 03/05/21 15:10 VBG pO2 29.2 mmHg (25-40) 03/05/21 15:10 VBG HCO3 30.0 mmol/L (24-28) H 03/05/21 15:10 VBG Base Excess 5.8 mmol/L (-3.0-3.0) H 03/05/21 15:10 VBG Hematocrit 7.5 % (42-52) L 03/05/21 15:10 A-a O2 Gradient 44.5 mmHg (5-10) H 03/28/21 00:11 Hematocrit 23.5 % (42-52) L 04/02/21 04:33 Hgb O2 Saturation 85.4 % (95-100) L 03/28/21 00:11 Carboxyhemoglobin 2.4 %THgb (0.4-20.1) 03/28/21 00:11 Methemoglobin 1.2 % (0.4-1.5) 03/28/21 00:11 Total Hemoglobin 14.8 g/dL (14-18) 03/28/21 00:11 Sodium 139.0 mmol/L (131-143) 03/28/21 00:11 Potassium 3.3 mmol/L (3.5-5.0) L 03/28/21 00:11 Glucose 154.0 mg/dL (70-115) H 03/28/21 00:11 Ionized Calcium 1.1 mmol/L (1.1-1.4) 03/28/21 00:11 Respiration Rate 24.0 % 03/27/21 21:21 O2 Delivery Device Vent 04/02/21 04:33 O2 Liters/Min 60.0 % 03/16/21 04:45 Vent Mode Vc-ac 03/27/21 21:21 Mechanical Rate 20.0 03/17/21 04:50 FiO2 90.0 % 04/02/21 04:33 Tidal Volume .40 03/27/21 21:21 PEEP 8.0 cmH20 04/02/21 04:33 Specimen Drawn By Tosin 03/27/21 21:21 Solar Electric Practitioner ID Benedict 04/02/21 04:33 Blood Gas Notified Time 214103/27/21 21:21 Sodium 142 mmol/L (136-145) 04/02/21 07:29 Potassium 3.2 mmol/L (3.5-5.1) L 04/02/21 07:29 Chloride 93 mmol/L (98-107) L 04/02/21 07:29 Carbon Dioxide 45 mmol/L (22-29) H* 04/02/21 07:29 Anion Gap 7.2 (5-19) 04/02/21 07:29 BUN 19 mg/dL (8-23) 04/02/21 07:29 Creatinine 0.3 mg/dL (0.7-1.2) L 04/02/21 07:29 GFR Calculation 304.8 mL/min (90-130) H 04/02/21 07:29 Glucose 123 mg/dL (65-115) H 04/02/21 07:29 POC Glucose 162 mg/dL (70-110) H 04/02/21 06:12 Calculated Osmolality 298 mOsm/kg (285-295) H 04/02/21 07:29 Lactic Acid 1.4 mmol/L (0.5-2.2) 03/05/21 14:35 Calcium 7.5 mg/dL (8.5-10.5) L 04/02/21 07:29 Phosphorus 2.6 mg/dL (2.5-4.5) 03/24/21 04:56 Magnesium 1.7 mg/dL (1.7-2.3) 03/29/21 06:15 Iron 31 ug/dL (59-158) L 03/21/21 05:43 TIBC 149 mcg/dl 03/21/21 05:43 % Saturation 20.8 % (20-50) 03/21/21 05:43 Unsat Iron Binding 118 ug/dL (112-347) 03/21/21 05:43 Ferritin 1510 ng/mL (30-400) H 03/18/21 04:30 Total Bilirubin 0.6 mg/dL (0.15-1.2) 04/02/21 07:29 AST 38 U/L (0-40) 04/02/21 07:29 ALT 29 U/L (0-41) 04/02/21 07:29 Alkaline Phosphatase 83 IU/L (40-130) 04/02/21 07:29 Lactate Dehydrogenase 660 U/L (135-225) H 03/06/21 03:35 C-Reactive Protein 13.1 mg/L (0.0-4.9) H 03/18/21 04:30 NT-Pro-B Natriuret Pep 287 pg/mL (0-125) H 03/05/21 14:35 Total Protein 5.2 g/dL (6.6-8.7) L 04/02/21 07:29 Albumin 2.3 g/dL (3.5-5.2) L 04/02/21 07:29 Globulin 2.9 g/dL (1.3-4.6) 04/02/21 07:29 Triglycerides 181 mg/dL (0-150) H 03/31/21 03:40 Procalcitonin 0.13 ng/mL (0-0.5) 03/24/21 03:18 TSH 0.75 uIU/mL (0.27-4.20) 03/26/21 05:40 Free T4 0.61 ng/dL (0.82-1.77) L 03/26/21 05:40 Free T3 0.7 PG/ML (2.0-4.4) L 03/22/21 15:32 Urine Color Yellow (Yellow) 03/29/21 10:00 Urine Appearance Clear (CLEAR) 03/29/21 10:00 Urine pH 5 (5-7) 03/29/21 10:00 Ur Specific [place] 1.015 (1.005-1.030) 03/29/21 10:00 Urine Protein Trace (Negative) 03/29/21 10:00 Urine Glucose (UA) Norm (Normal) 03/29/21 10:00 Urine Ketones Negative (Negative) 03/29/21 10:00 Urine Blood 3+ (Negative) H 03/29/21 10:00 Urine Nitrate Negative (Negative) 03/29/21 10:00 Urine Bilirubin Neg (Negative) 03/29/21 10:00 Urine Urobilinogen 1 mg/dL (Negative) H 03/29/21 10:00 Ur Leukocyte Esterase Negative (Negative) 03/29/21 10:00 Urine RBC 0-4 /hpf (0-2) H 03/29/21 10:00 Urine WBC None /hpf (0-5) 03/29/21 10:00 Ur Squamous Epith Cells 0-4 /hpf (0-5) H 03/29/21 10:00 Amorphous Sediment Not Reportable 03/29/21 10:00 Urine Bacteria Trace /hpf (NONE) 03/29/21 10:00 Urine Mucus Trace /hpf 03/29/21 10:00 Urine Yeast 1+ /hpf H 03/29/21 10:00 Vancomycin Trough 17.9 ug/mL (10-15) H 03/30/21 16:57 Nasal/Oral COVID-19 PCR Detected H 03/05/21 16:30 SARS-CoV-2 Ag (Rapid) Negative (Negative) 03/05/21 23:00 Blood Type A Positive 04/01/21 11:13 Rho(D) Type Positive 04/01/21 11:13 Antibody Screen Negative 04/01/21 11:13 Crossmatch See Detail 04/01/21 11:13 Impressions Chest CTA 03/09/21 13:47 IMPRESSION: Positive for subsegmental right lower lobe pulmonary embolism. Bilateral pneumonia consistent with COVID-19 pneumonia. Findings discussed with Dr. Edwards by Dr. Rodrick Espinosa at 4:37 p.m., 03/09/2021. Radiation Dose CTDIVOL = (mGy): DLP = 567.74 (mGy-cm) Chest CT 03/19/21 13:19 IMPRESSION: 1. Stable moderate right anterior and peripheral pneumothorax. Right chest tube appears in good position with tip in the right lung apex. 2. No significant chest wall hematoma. Small amount of edema and induration at the chest tube insertion site. 3. Small amount of fluid in the right pleural space. 4. Diffuse bilateral hazy groundglass infiltrates compatible with COVID 19 pneumonia. Progressed airspace consolidation right lower lobe with air bronchograms. Small amount of airspace consolidation left lower lobe. 5. Endotracheal tube with tip above the [place]. Notified Jose Alfredo Priest MD at 03/19/2021 2:39 PM. Head/Neck Ultrasound 03/26/21 19:45 IMPRESSION: Normal soft tissue ultrasound RIGHT neck. No mass. Chest X-Ray 04/02/21 07:00 IMPRESSION: 1. Tubes and catheters are unchanged from the prior exam. 2. Stable bilateral pleuroparenchymal disease. A&P Assessment and plan (1) Acute respiratory failure due to severe acute respiratory syndrome coronavirus 2 (SARS-CoV-2) infection: Status: Acute (2) D-dimer, elevated: Status: Acute (3) Transaminitis: Status: Acute (4) DVT prophylaxis: Status: Acute (5) Pneumonia due to gram-negative bacteria: Status: Acute (6) Pulmonary embolism associated with COVID-19: Status: Acute (7) Staphylococcus epidermidis bacteremia: Status: Acute Additional A&P Information #acute hypoxic/hypercapnic respiratory failure secondary to ARDS due to COVID-19 pneumonia #right subsegmental PE on heparin drip #Right lung pneumothorax-s/p chest tube placement 03/17/2021 - #MDR Stenotrophomonas maltophilia pneumonia-completed 7 days of Bactrim #Transaminitis due to COVID-19 pneumonia-improved #Hypothyroidism #BPH #Hypertension - Covid PCR positive, CRP 138 > 13 - CTA Positive for PE -- intubated 03/09/2021, sedated and connected to ventilator-completed 2 proning sessions-FiO2 down to 40%; -Successful awakening trial over 2 days and breathing trial successful FiO2 40%, following commands-extubated to high flow 50 L 50% on 03/14/2021 -After 2 days, FiO2 requirement increased to 100% and he was tachypneic and so was reintubated 03/16/2021 night for gradual deterioration and worsening of ?? COVID ARDS VS new infection; there is significant leak and so ET tube exchanged immediately after intubation;ET tube cuff leak noted again next day 03/17/21 and changed -Currently 7.2 0/134/70/50 2/88% on pressure control PIP 32/RR 30/PEEP 8/FiO2 90%-MV 8.5 L there is component of respiratory acidosis and metabolic alkalosis; Plan is to change to volume control mode and see if patient can generate minute ventilation of 10 L and washout some CO2; also there is a possibility that there is significant space ventilation -Patient is making good urine on Lasix 80 mg IV push but is still significantly positive fluid balance and clinically volume overloaded; agree with albumin infusion to pull third spaced fluids and added Diamox 500 mg daily -So far does not tolerate weaning off sedation-and last weekend required paralytic-currently on Nimbex 8, Versed 8, propofol 30, fentanyl 25 -Also currently on Levophed 3 mg/h-possible secondary to sedation -Chest x-ray right large pneumothorax-s/p chest tube placement 03/17/21 and initially there was titling seen immediately post chest tube insertion and post procedure chest x-ray showed significant improvement; after an hour or we cannot visualize any tidaling; 12 hours after chest tube placement patient started having 200 mL sanguinous discharge-as per night nurse patient was moved from the left lateral position to supine position and the bleeding started. Possibly chest tube might have eroded subcostal blood vessel;next day he had both 460 cc sanguinous discharge & bleeding noted around the chest tube site; CT chest 03/19/21 showed: Stable moderate right anterior and peripheral pneumothorax. Right chest tube appears in good position with tip in the right lung apex. Upon review there was a concern if it is intraparenchymal. - held lovenox (being given for PE) and Since discontinuation of anticoagulation-patient required only 1 PRBC transfusion and for most of the days H&H remained stable -Last week Heparin drip was initiated for PE and was held briefly for possible tracheostomy but due to high riding innominate artery over the traditional tracheostomy site-it was deemed unsafe to do tracheostomy on this patient; confirmed by CT surgery opinion as well -Restarted on heparin drip while monitoring H&H-no chest tube drainage noted for the last 5 days -I will plan to remove chest tube in the next couple of days -Completed dexamethasone, remdesivir 5-day protocol and extended course; -s/p 1 dose of Actemra 03/09/2021; -Monitor inflammatory markers every 48 hours -DuoNeb nebulizations and Pulmicort nebulization scheduled initially Urine Legionella negative; bacterial antigens negative; MRSA nares negative, procalcitonin 0.66 -Sputum cultures 03/10/2021 + for Stenotrophomonas maltophilia on levaquin 03/13/21; leukocytosis went up to 46,000 and platelets down to 90; DIC panel negative except for some fibrin degradation products ; -03/16/2021-10/28 blood culture bottles grew staph epidermidis -03/18/2021 sputum cultures grew stenotrophomonas resistant to Levaquin -completed 7 days of Bactrim -On 03/31/2021 patient started spiking fevers-repeat blood cultures so far negative and since then patient is afebrile -03/29/2021-urine growing yeast-identification pending-recommended to change Rodríguez and patient is already on Diflucan 200 mg daily -Currently patient is on vancomycin, cefepime -Flomax 0.4 mg p.o. daily for BPH -Levothyroxine 200 mcg PO daily -Diabetes-A1c 7.5 -Continue tube feeds -Sugars controlled, insulin scale coverage-monitor sugars -[id number] for GI prophylaxis -DNR-continue aggressive care -Prognosis guarded -updated family -about grave prognosis, worsening covid, superimposed stenotrophomonas bacterial infection and now gram-negative rods, subsegmental PE, loculated pneumothorax, complicated by bleeding through chest tube on anticoagulation. Daughter verbalized understanding and wanted to do everything to do for now and will decide on further goals of care after talking pt.s . Discussed with hospitalist, RN, RT covering the patient Attestations Medical Necessity Statement*: Needs continued hospital stay secondary to severe COVID-19 pneumonia requiring mechanical ventilation. Critical Care Time: Critical Care Time (min): 36 Other Attestations: The high probability of a clinically significant, sudden or life threatening deterioration of the patient's [pulmonary, renal, cardiovascular] system(s) required my full and direct attention, intervention and personal management. The critical care time is as shown. This time is in addition to time spent performing any reported procedures but includes the following: [x] Data and vital sign review and interpretation [x] Patient assessment, examination and intervention [x] Documentation [x] Medication orders and management Coding Level of Care Code Established Pt Acute Legal Assistant for Chg Fwd Patient Type Established History Comprehensive Exam Comprehensive Medical Decision Making High Complexity Diagnoses Acute respiratory failure due to severe acute respiratory syndrome coronavirus 2 (SARS-CoV-2) infection U07.1; J96.00 D-dimer, elevated R79.89 Transaminitis R74.01 DVT prophylaxis Z29.9 Pneumonia due to gram-negative bacteria J15.6 Pulmonary embolism associated with COVID-19 U07.1; I26.99 Staphylococcus epidermidis bacteremia R78.81; B95.7 Time Spent (min) 36
[2021-04-02 10:18] LABS: ABG PH Result 7.22 (7.35-7.45); Arterial Blood Gas Hematocrit 25.6 % (42-52); Base Excess ABG 19.9 mmol/L (-2.0-2.0); Blood Gas Allen Test Pos; Blood Gas Sample Type Arterial; Carboxyhemoglobin 3.8 %THgb (0.4-20.1); HGB O2 Sat 79.9 % (95-100); Ionized Calcium Level - ABG 1.1 mmol/L (1.1-1.4); PO2 ABG 51.1 mmHg (80.0-100.0); Potassium Level - ABG 2.7 mmol/L (3.5-5.0); Total Hemoglobin 8.4 g/dL (14-18)
[2021-04-02 10:19] LABS: Alveolar-Arterial Oxygen Gradi 58.6 mmHg (5-10); Blood Gas Operator Identificat ED; Blood Gas Sample Site Radial, left; Oxygen Device VENT
[2021-04-02] MEDS: cefepime 1,000 MG in sodium chloride 0.9% (plus) 50 ML 100 MG IV ×2 (10:50→22:01)
[2021-04-02] MEDS: acetaZOLAMIDE 250 mg Tablet 500 MG PO (11:27)
[2021-04-02 12:25] LABS: Glucose Point of Care 210 mg/dL (70-110)
--- NOTE | 2021-04-02 12:44 | P.PN_ITS ---
Subjective Subjective: Interval history: Rickey is sedated on the ventilator, and also on paralytic. Medications: Reviewed: Yes Vitals/I&O/Wt Last Vital Signs Temp 98.3 F 04/02/21 11:00 Pulse 66 04/02/21 11:26 Resp 42 H 04/02/21 11:26 BP 100/86 04/02/21 11:00 Pulse Ox 92 04/02/21 11:26 04/01/21 04/02/21 04/02/21 22:59 06:59 14:59 Intake Total 2890.617 / 4157.660 1487.142 / 5644.802 865.195 / 865.195 Output Total 1999 200 / 2200 Balance 890.617 / 2157.660 1287.142 / 3444.802 865.195 / 865.195 Weight last 48 hrs Weight 128.457 kg Weight 102.058 kg Physical Exam Narrative: EXAM NARRATIVE: Sedated, on ventilator, still overbreathing HEENT: Endotracheal and oropharyngeal tube noted Neck supple Cardiovascular regular rate and rhythm Lungs coarse bilateral Abdomen is soft. A few bowel sounds are heard Extremities no cyanosis clubbing. 2+ edema bilaterally Urinary Catheter Management^: Rodríugez: Cath Placed During This Visit: yes Reason for Continuing Indwelling Catheter: Accurate Measurement of Urinary Output in Critically Ill Patients Urinary Catheter Date of Insertion: 03/09/21 Urinary Catheter Time of Insertion: 22:34 Data : 04/02/21 07:29 04/02/21 07:29 A&P Assessment and plan (1) Acute respiratory failure due to severe acute respiratory syndrome coronavirus 2 (SARS-CoV-2) infection: Worsening FiO2 requirement and markedly elevated CO2. I have contacted pulmonary who will be adjusting ventilator as tolerated. Escalate paralytic Continue multiple sedatives including Versed, fentanyl, propofol, Precedex Continue empiric antibiotics with cefepime, vancomycin. Continue fluconazole. Yeast noted in the urine By 2 specialties, tracheostomy is not an option He completed 7 days of Bactrim. Overall appears clinically worse. However, temperature curve is improved. Status: Acute (2) Pulmonary embolism associated with COVID-19: Heparin drip restarted. No evidence of bleeding currently. Status: Acute (3) Infection due to Stenotrophomonas maltophilia: Completed 7 days of Bactrim infusions Status: Acute (4) Pneumothorax: Chest tube in place, so far without recurrence. Pulmonary is clamping chest tube, to determine if this can be removed. Status: Acute (5) Staphylococcus epidermidis bacteremia: Currently on vancomycin. Repeat culture negative to date. Status: Acute (6) Septic shock: Resolved. On low-dose norepinephrine secondary to sedation. Status: Acute (7) Transaminitis: Improved. Status: Acute (8) D-dimer, elevated: Status: Acute Additional A&P Information Anemia. Multifactorial. Transfuse 1 unit packed red blood cells April 01. Was also transfused earlier in hospital course. Volume overload. Add albumin to help with diuresis as he has overall increased body fluid as well as hypotension. Metabolic alkalosis. Diamox added. Hypokalemia. Replace Hypothyroidism hx of papillary thyroid carcinoma. Continue levothyroxine. History of laryngeal cancer. Sacral decub reported. Keep pressure off area as much as possible. May ultima tely need debridement. Nutrition. Currently receiving tube feeds. Rate currently at 40ml/hour Updated daughter. CODE STATUS changed to no CPR or defibrillation but she still wants aggressive care in the ICU. Attestations Medical Necessity Statement*: Needs continued hospital stay secondary to severe COVID-19 pneumonia requiring mechanical ventilation. Critical Care Time: Critical Care Time (min): 34 Other Attestations: The high probability of a clinically significant, sudden or life threatening deterioration of the patient's [pulmonary, cardiovascular] system(s) required my full and direct attention, intervention and personal management. The critical care time is as shown. This time is in addition to time spent performing any reported procedures but includes the following: [x] Data and vital sign review and interpretation [x] Patient assessment, examination and intervention [x] Documentation [x] Medication orders and management Coding Level of Care Code Acute Bioinformatics Support Specialist for [facility] Fwd Diagnoses Acute respiratory failure due to severe acute respiratory syndrome coronavirus 2 (SARS-CoV-2) infection U07.1; J96.00 Pulmonary embolism associated with COVID-19 U07.1; I26.99 Infection due to Stenotrophomonas maltophilia A49.8 Pneumothorax J93.9 Staphylococcus epidermidis bacteremia R78.81; B95.7 Septic shock A41.9; R65.21 Transaminitis R74.01 D-dimer, elevated R79.89
[2021-04-02] MEDS: fluconazole premix 200 MG/100 ML PREMIX 100 MG IV (12:57)
[2021-04-02] MEDS: lidocaine 1% 5 ML in potassium chloride premix 100 ML 25 ML IV (13:35)
[2021-04-02 14:00] LABS: Partial Thromboplastin Time 44.1 SECONDS (23.9-36.7)
--- NOTE | 2021-04-02 15:00 | XRR_ITS ---
PROCEDURE INFORMATION: Exam: XR Chest Exam date and time: 04/02/2021 3:00 PM Age: 60 years old Clinical indication: Condition or disease; Lung condition and disease; Pneumothorax TECHNIQUE: Imaging protocol: XR of the chest. Views: 1 view. COMPARISON: CR (CHEST, ) 04/02/2021 5:02 AM FINDINGS: Tubes, catheters and devices: Endotracheal tube with its tip above the [place] approximately 4.6 cm. Nasogastric tube with its tip in the stomach. Left approach PICC line catheter with its tip in the brachiocephalic vein. Right sided chest tube with its side port and the rib margin unchanged from prior study. Lungs: There are patchy opacities in bilateral lungs. Pleural spaces: Small right pleural effusion. Heart/Mediastinum: Unremarkable. No cardiomegaly. Bones/joints: Unremarkable. XR/XR chest 1V portable [id number] IMPRESSION: 1. Interval placement of a nasogastric tube with its tip in the stomach. Remaining catheters unchanged. 2. Stable bilateral pleural-parenchymal disease.
--- NOTE | 2021-04-02 17:08 | PC.NURSE ---
Garcia: Garcia changed per phone order from Dr. Niño. 16F garcia catheter removed after deflating balloon. New 16F garcia catheter placed using sterile technique and 10ml of sterile water placed in balloon. Good clear yellow urine returned.
[2021-04-02 17:12] LABS: Alveolar-Arterial Oxygen Gradi 56.2 mmHg (5-10); Arterial Blood Gas Hematocrit 38.4 % (42-52); Base Excess ABG 14.2 mmol/L (-2.0-2.0); Blood Gas Allen Test Pos; Blood Gas Operator Identificat CAK; Blood Gas Sample Site Radial, left; Blood Gas Sample Type Arterial; Blood Gas Tidal Volume 0.32; Carboxyhemoglobin 3.5 %THgb (0.4-20.1); HCO3 ABG 47.9 mmol/L (22-26); HGB O2 Sat 85.4 % (95-100); Ionized Calcium Level - ABG 1.1 mmol/L (1.1-1.4); Methemoglobin 0.9 % (0.4-1.5); Oxygen Device VENT; Oxygen Saturation ABG 89.4; PO2 ABG 61.5 mmHg (80.0-100.0); Potassium Level - ABG 3.2 mmol/L (3.5-5.0); Total Hemoglobin 12.5 g/dL (14-18)
[2021-04-02 17:19] LABS: ABG PH Result 7.17 (7.35-7.45)
--- NOTE | 2021-04-02 18:40 | PC.NURSE ---
Shift Note/Chest Tube Frequent safety and comfort rounds continue. Orders and/or nursing care completed as indicated. Patient monitored for response to intervention and treatment(s). Education provided includes ventalation and potassium replacement. Patient and/or bilingual sales representative verbalize understanding. Will continue to monitor. Chest Tube flushed with 60ml of sterile saline, clamped for 30min then unclamped. No drainage noted. Reported to shake table operator to clamp at [address] Niño.
[2021-04-02] MEDS: potassium chloride ER 20 mEq Tablet 40 MEQ PO (19:34)
[2021-04-02 19:57] LABS: Glucose Point of Care 105 mg/dL (70-110)
[2021-04-02] MEDS: bumetanide 0.25 mg/mL SDV 10 mL 2 MG IVP (20:22)
[2021-04-02 20:43] LABS: Partial Thromboplastin Time 55.9 SECONDS (23.9-36.7)
[2021-04-03] VITALS (34 sets, daily range): BP systolic 71–129; BP diastolic 41–66; PULSE 61–108; RESP 36–45; TEMP 35.8–36.4; O2SAT 85–92
[2021-04-03] MEDS: heparin drip 25,000 UNIT/500 ML PREMIX 73.48 UNIT IV (00:11)
[2021-04-03] MEDS: vancomycin 1,500 MG/300 ML PIGGYBACK 200 MG IV ×2 (01:08→11:00)
[2021-04-03] MEDS: dexmedeTOMIDine 0.9 % NaCL 400 MCG/100 ML PREMIX 36.04 MCG IV ×4 (01:08→12:49)
[2021-04-03] MEDS: propofol 1,000 MG/100 ML INJ 33.15 MG IV ×4 (01:37→10:33)
[2021-04-03 01:39] LABS: Glucose Point of Care 113 mg/dL (70-110)
[2021-04-03 02:43] LABS: Hematocrit 27.1 % (42.0-52.0); Hemoglobin 7.7 g/dL (11.7-16.6); Mean Corpuscular HGB Conc 28.4 g/dL (30.0-36.0); Mean Corpuscular Hemoglobin 29.7 pg (28.0-34.0); Mean Corpuscular Volume 104.6 fl (80-94); Mean Platelet Volume 9.6 fL (7.4-10.4); Platelet Count 176 10^3/cmm (130-400); Red Blood Count 2.59 10^6/uL (4.1-5.3); Red Cell Distribution Width 19.7 % (12.1-15.1); White Blood Count 8.5 10^3/uL (4.0-10.0)
[2021-04-03 02:56] LABS: Partial Thromboplastin Time 48.7 SECONDS (23.9-36.7)
[2021-04-03 02:59] LABS: Alanine Aminotransferase 24 U/L (0-41); Albumin Level 2.9 g/dL (3.5-5.2); Alkaline Phosphatase 89 IU/L (40-130); Anion Gap 8.5 (5-19); Aspartate Amino Transferase 24 U/L (0-40); Blood Urea Nitrogen 20 mg/dL (8-23); Calcium 7.8 mg/dL (8.5-10.5); Chloride 94 mmol/L (98-107); Globulin 2.5 g/dL (1.3-4.6); Glucose 110 mg/dL (65-115); Osmolality Calculated 299 mOsm/kg (285-295); Potassium 3.5 mmol/L (3.5-5.1); Sodium 143 mmol/L (136-145); Total Bilirubin 0.9 mg/dL (0.15-1.2); Total Protein 5.4 g/dL (6.6-8.7)
[2021-04-03] MEDS: ipratropium-albuterol 3 mL Neb INHALATION ×3 (03:00→11:53)
[2021-04-03 03:03] LABS: Carbon Dioxide 44 mmol/L (22-29)
[2021-04-03] MEDS: heparin 5,000 unit/mL INJ 1 mL IV (03:12)
[2021-04-03 03:21] LABS: Slide Review Slide Review Perform
[2021-04-03 03:22] LABS: Absolute Eosinophils 0.2 10^3/cmm (0.0-0.7); Absolute Segmented Neutrophil 5.2 10/cmm (1.6-7.1); Band Neutrophils Absolute 1.8 10^3/cmm (0.0-1.2); Eosinophils 3 %; Lymphocytes 7 %; Lymphocytes Absolute 0.6 10^3/cmm (1.2-3.4); Monocytes Absolute 0.1 10^3/cmm (0.1-0.6); Segmented Neutrophils 61 %; Total Cells Counted 100 (0-100)
[2021-04-03 03:23] LABS: Anisocytosis 1+; Basophilic Stippling 1+; Platelet Estimate Normal (Normal); Polychromasia 1+
[2021-04-03 04:54] LABS: Arterial Blood Gas Hematocrit 18.7 % (42-52); Base Excess ABG 13.6 mmol/L (-2.0-2.0); Blood Gas Allen Test Pos; Blood Gas Sample Site Radial, right; Blood Gas Sample Type Arterial; HCO3 ABG 44.1 mmol/L (22-26); Oxygen Device VENT; PO2 ABG 60.7 mmHg (80.0-100.0)
--- NOTE | 2021-04-03 05:24 | PC.NURSE ---
Shift Note Frequent safety and comfort rounds continue. Orders and/or nursing care completed as indicated. Patient monitored for response to intervention and treatment(s). Education provided includes oxygen saturation and vent settings. Family verbalized understanding but needs reinforcement. Will continue to monitor. TIME: BIS: TOF: 1999 35 4/4 2100 39 4/4 2200 42 4/4 2300 46 4/4 000 52 4/4 0100 50 /4 0200 54 / 0300 59 /4 0400 53 / 0500 49 /4 Throughout the night the patients required an increase from 90% FiO2 to 100% and his O2 has been staying anywhere from 86-90%. Pts blood pressure has also continued to decrease throughout the night and required me to increase the Levophed from 6mcg/min to 8 mcg/min. He was stable on 3 mcg/min on 04/01.
[2021-04-03 05:29] LABS: ABG PH Result 7.14 (7.35-7.45)
[2021-04-03 06:39] LABS: Glucose Point of Care 127 mg/dL (70-110)
--- NOTE | 2021-04-03 07:00 | XR_ITS ---
WS: [id number] Portable AP semiupright chest, 04/03/2021 Clinical Data: resp failure Comparison: Portable chest, 04/02/2021 Findings: The endotracheal tube, nasogastric tube and left subclavian catheter remain in the same pos ition. The right chest tube ends in the subcutaneous tissue. The pulmonary opacities have not changed . There is a right pleural effusion and a smaller left effusion. The heart is slightly enlarged. Yoselin tor leads are on the chest wall. XR/XR chest 1V portable [id number] Impression: 1. The right chest tube ends in the subcutaneous tissue and is not within the r ight pleural space. 2. No change in endotracheal tube and left subclavian catheter and nasogastric tube. 3. No change in bilateral pulmonary opacities and right pleural effusion.
[2021-04-03] MEDS: budesonide 0.5 mg/2 mL Neb INHALATION (08:00)
[2021-04-03] MEDS: bumetanide 0.25 mg/mL SDV 10 mL 2 MG IVP (08:17)
[2021-04-03] MEDS: acetaZOLAMIDE 250 mg Tablet 500 MG PO (08:17)
[2021-04-03] MEDS: levothyroxine 200 mcg Tablet OG-TUBE (08:17)
[2021-04-03] MEDS: aspirin 81 mg EC Tablet PO (08:17)
[2021-04-03] MEDS: famotidine 20 mg/2 mL INJ IVP (08:18)
[2021-04-03] MEDS: docusate sodium 10 mg/mL (5ml) Liq 100 MG OG-TUBE (08:31)
[2021-04-03 09:14] LABS: Glucose Point of Care 125 mg/dL (70-110)
--- NOTE | 2021-04-03 09:28 | PC.CHAP ---
Pastoral Care Encounter/Spiritual Assessment Type of Contact [] Declined movie shot camera operator visit [] Patient/Family/Request visit [] Outpatient visit [] Follow-up visit [] Physician referral [] Code/Alert [x] Routine visit [] Staff referral [] Actively dying [] Patient sleeping [] Family support [] [] Out of room [] Palliative care [] [] Receiving care in room [] Pre-surgical visit [] Trauma [] Long length of stay [x] ICU visit [] Other: Relational/Emotional Strength [] Patient feels connected with others/family/visitors/staff [] Distress [] Loneliness/isolation [] Abandonment Spirituality of Patient [] Person of Basilia [] Attends Tenriism of their Basilia [] Believes in Prayer [] Reads Bible or Protestant materials [] There are Spiritual issues to be addressed Nuclear Weapons Specialist Interventions [x] Prayer [] Active listening [] Non-anxious presence [] Spiritual/emotional support [] Crisis/trauma care [] Spiritual counseling [] Bereavement support [] Provided bereavement packet [] Provided Bible/devotional materials [] Provided toy/stuffed animal, coloring book to patient or family member [] Provided Communion [] Anointing/[place] [] Salvation [x] Completed spiritual assessment [] Other: Impact on Illness or Injury [] Angry [] Fearful [] Anxious [] Often cries [] Exhaustion [] Unable to work [] Unable to attend rastafari [] Unable to walk/stand [] Unable to read [] Unable to drive [] Unable to eat/drink [] Unable to sleep [] Unable to be with family [] Patient intubated [] Other: Summary Time spent with patient
--- NOTE | 2021-04-03 09:35 | PC.NURSE ---
Daughter, Haley, called and updated.
[2021-04-03] MEDS: cefepime 1,000 MG in sodium chloride 0.9% (plus) 50 ML 100 MG IV (09:42)
[2021-04-03 10:13] LABS: Partial Thromboplastin Time 78.2 SECONDS (23.9-36.7)
--- NOTE | 2021-04-03 11:33 | PC.SOCIAL ---
IMM not Updated IMM not Updated. Pt is still intubated & is not expected to d/c within the next 24-48hrs.
--- NOTE | 2021-04-03 12:53 | PC.NURSE ---
Family, Haley, talking to Dr. Rahman. Family wishes to make patient comfort measures only.
--- NOTE | 2021-04-03 13:42 | PC.RESP ---
extubated pt extubated to comfort care, family at bedside
--- NOTE | 2021-04-03 13:44 | P.PN_ITS ---
Subjective Subjective: Interval history: -Patient seen at bedside today -Clinically unchanged requiring significantly higher amounts of paralytic, sedation with Versed and propofol -Pupils appear completely dilated -Morning chest x-ray showed chest tube tip in subcutaneous tissue-taken out -Discussed with daughter regarding extremely poor prognosis and the family decided to go for withdrawal of care Medications: Reviewed: Yes Vitals/I&O/Wt Last Vital Signs Temp 97.5 F L 04/03/21 06:38 Pulse 61 04/03/21 13:00 Resp 36 H 04/03/21 13:00 BP 71/41 04/03/21 13:00 Pulse Ox 90 04/03/21 13:00 04/02/21 04/03/21 04/03/21 22:59 06:59 14:59 Intake Total 2869.160 / 4060.145 2525.086 / 6585.231 1972.810 / 1971.810 Output Total 800 / 800 500 / 1300 150 / 150 Balance 2069.160 / 3260.145 2025.086 / 5285.231 1822.810 / 1822.810 Weight last 48 hrs Weight 245 lb Weight 283 lb 3.2 oz Physical Exam Narrative: EXAM NARRATIVE: General: Lying in bed, sedated and connected to ventilator HEENT:NCAT, dilated fixed pupils, EOMI Neck: Supple Lungs: Bilateral diffuse crackles; right chest tube in place; bloody secretions in the atrium Heart: s1/s2, RRR Abd: soft, NT, ND, BS + Normoactive Extremities: 2+ bilateral pitting pedal edema and also extremities appear swollen C D STILL OPERATOR: Sedated and 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 SKIN: no rash LDA: # Rodríguez: 03/09/2021 # Right side chest tube 03/17/21 Urinary Catheter Management^: Rodríguez: Cath Placed During This Visit: yes Reason for Continuing Indwelling Catheter: Accurate Measurement of Urinary Output in Critically Ill Patients Urinary Catheter Date of Insertion: 03/09/21 Urinary Catheter Time of Insertion: 22:34 Data : 04/03/21 02:25 04/03/21 02:25 A&P Assessment and plan (1) Acute respiratory failure due to severe acute respiratory syndrome c oronavirus 2 (SARS-CoV-2) infection: Status: Acute (2) D-dimer, elevated: Status: Acute (3) Transaminitis: Status: Acute (4) DVT prophylaxis: Status: Acute (5) Pneumonia due to gram-negative bacteria: Status: Acute (6) Pulmonary embolism associated with COVID-19: Status: Acute (7) Staphylococcus epidermidis bacteremia: Status: Acute (8) Goals of care, counseling/discussion: Status: Acute Additional A&P Information #acute hypoxic/hypercapnic respiratory failure secondary to ARDS due to COVID- 19 pneumonia #right subsegmental PE on heparin drip #Right lung pneumothorax-s/p chest tube placement 03/17/2021 - #MDR Stenotrophomonas maltophilia pneumonia-completed 7 days of Bactrim #Transaminitis due to COVID-19 pneumonia-improved #Hypothyroidism #BPH #Hypertension #Goals of care discussion - Covid PCR positive, CRP 138 > 13 - CTA Positive for PE -- intubated 03/09/2021, sedated and connected to ventilator-completed 2 proning sessions-FiO2 down to 40%; -Successful awakening trial over 2 days and breathing trial successful FiO2 40%, following commands-extubated to high flow 50 L 50% on 03/14/2021 -After 2 days, FiO2 requirement increased to 100% and he was tachypneic and so was reintubated 03/16/2021 night for gradual deterioration and worsening of ?? COVID ARDS VS new infection; there is significant leak and so ET tube exchanged immediately after intubation;ET tube cuff leak noted again next day 03/17/21 and changed -Currently 7.2 0/134/70/50 2/88% on pressure control PIP 32/RR 30/PEEP 8/FiO2 90%-MV 8.5 L there is component of respiratory acidosis and metabolic alkalosis; Plan is to change to volume control mode and see if patient can generate minute ventilation of 10 L and washout some CO2; also there is a possibility that there is significant space ventilation -Patient is making good urine on Lasix 80 mg IV push but is still significantly positive fluid balance and clinically volume overloaded; agree with albumin infusion to pull third spaced fluids and added Diamox 500 mg daily -So far does not tolerate weaning off sedation-and last weekend required paralytic-currently on Nimbex 8, Versed 8, propofol 30, fentanyl 25 -Also currently on Levophed 3 mg/h-possible secondary to sedation -Chest x-ray right large pneumothorax-s/p chest tube placement 03/17/21 and initially there was titling seen immediately post chest tube insertion and post procedure chest x-ray showed significant improvement; after an hour or we cannot visualize any tidaling; 12 hours after chest tube placement patient started having 200 mL sanguinous discharge-as per night nurse patient was moved from the left lateral position to supine position and the bleeding started. Possibly chest tube might have eroded subcostal blood vessel;next day he had both 460 cc sanguinous discharge & bleeding noted around the chest tube site; CT chest 03/19/21 showed: Stable moderate right anterior and peripheral pneumothorax. Right chest tube appears in good position with tip in the right lung apex. Upon review there was a concern if it is intraparenchymal. - held lovenox (being given for PE) and Since discontinuation of anticoagulation-patient required only 1 PRBC transfusion and for most of the days H&H remained stable -Last week Heparin drip was initiated for PE and was held briefly for possible t racheostomy but due to high riding innominate artery over the traditional tracheostomy site-it was deemed unsafe to do tracheostomy on this patient; confirmed by CT surgery opinion as well -Restarted on heparin drip while monitoring H&H-no chest tube drainage noted for the last 5 days -I will plan to remove chest tube in the next couple of days -Completed dexamethasone, remdesivir 5-day protocol and extended course; -s/p 1 dose of Actemra 03/09/2021; -Monitor inflammatory markers every 48 hours -DuoNeb nebulizations and Pulmicort nebulization scheduled initially Urine Legionella negative; bacterial antigens negative; MRSA nares negative, procalcitonin 0.66 -Sputum cultures 03/10/2021 + for Stenotrophomonas maltophilia on levaquin 03/13/21; leukocytosis went up to 46,000 and platelets down to 90; DIC panel negative except for some fibrin degradation products ; -03/16/2021-10/28 blood culture bottles grew staph epidermidis -03/18/2021 sputum cultures grew stenotrophomonas resistant to Levaquin - completed 7 days of Bactrim -On 03/31/2021 patient started spiking fevers-repeat blood cultures so far negative and since then patient is afebrile -03/29/2021-urine growing yeast-identification pending-recommended to change Rodríguez and patient is already on Diflucan 200 mg daily -Currently patient is on vancomycin, cefepime -Flomax 0.4 mg p.o. daily for BPH -Levothyroxine 200 mcg PO daily -Diabetes-A1c 7.5 -Continue tube feeds -Sugars controlled, insulin scale coverage-monitor sugars -[id number] for GI prophylaxis -updated family -about extremely poor prognosis, worsening covid, superimposed stenotrophomonas bacterial infection subsegmental PE, loculated pneumothorax, complicated by bleeding through chest tube on anticoagulation. And dilated fixe d pupils with high requirements of sedation and paralytic. Family verbalized understanding and wanted withdrawal of care and subsequently patient was terminally extubated and . Discussed with hospitalist, RN, RT covering the patient Attestations Medical Necessity Statement*: Needs continued hospital stay for end-of-life care, precipitated by severe COVID-19 pneumonia. Time Spent in Patient Care: Greater than 35 minutes Critical Care Time: The high probability of a clinically significant, sudden or life threatening deterioration of the patient's [neurological, pulmonary, goals of care discussion] system(s) required my full and direct attention, intervention and personal management. The critical care time is as shown. This time is in addition to time spent performing any reported procedures but includes the following: [x] Data and vital sign review and interpretation [x] Patient assessment, examination and intervention [x] Documentation [x] Medication orders and management Critical Care Time (min): 38 Coding Level of Care Code Established Pt Acute Finance Consultant for [facility] Patient Type Established History Comprehensive Exam Comprehensive Medical Decision Making Moderate Complexity Diagnoses Acute respiratory failure due to severe acute respiratory syndrome coronavirus 2 (SARS-CoV-2) infection U07.1; J96.00 D-dimer, elevated R79.89 Transaminitis R74.01 DVT prophylaxis Z29.9 Pneumonia due to gram-negative bacteria J15.6 Pulmonary embolism associated with COVID-19 U07.1; I26.99 Staphylococcus epidermidis bacteremia R78.81; B95.7 Goals of care, counseling/discussion Z71.89 Time Spent (min) 38
--- NOTE | 2021-04-03 13:49 | P.PN_ITS ---
Subjective Subjective: Interval history: I saw Mr. De this morning as well as this afternoon. I discussed his case with his daughter again this afternoon, and after careful contemplation of what desires patient would have wanted she wishes to make him comfort. She has been in discussion with pulmonary critical care as well. Medications: Reviewed: Yes Vitals/I&O/Wt Last Vital Signs Temp 97.5 F L 04/03/21 06:38 Pulse 61 04/03/21 13:00 Resp 36 H 04/03/21 13:00 BP 71/41 04/03/21 13:00 Pulse Ox 90 04/03/21 13:00 04/02/21 04/03/21 04/03/21 22:59 06:59 14:59 Intake Total 2869.160 / 4060.145 2525.086 / 6585.231 1972.810 / 1971.810 Output Total 800 / 800 500 / 1300 150 / 150 Balance 2069.160 / 3260.145 2025.086 / 5285.231 1822.810 / 1822.810 Weight last 48 hrs Weight 111.13 kg Weight 128.457 kg Physical Exam Narrative: EXAM NARRATIVE: General exam is a white male on sedation continuing to be tachypneic Neck supple Cardiovascular regular rate and rhythm Lungs coarse breath sounds bilaterally with widespread crackles and rhonchi Abdomen is soft with positive bowel sounds Extremities 2-3+ edema. Urinary Catheter Management^: Rodríguez: Cath Placed During This Visit: yes Reason for Continuing Indwelling Catheter: Accurate Measurement of Urinary Output in Critically Ill Patients Urinary Catheter Date of Insertion: 03/09/21 Urinary Catheter Time of Insertion: 22:34 Data : 04/03/21 02:25 04/03/21 02:25 A&P Assessment and plan (1) Acute respiratory failure due to severe acute respiratory syndrome coronavirus 2 (SARS-CoV-2) infection: Continues to worsen from a pulmonary standpoint despite optimizing ventilator settings and sedation. He continues to be significantly hypercarbic, acidotic, and difficult to oxygenate. He is currently on 100% FiO2. At this point secondary to the worsening of his severe COVID-19 pneumonia family has wanted to convert him to allow natural , and comfort measures. I have discussed this with pulmonary critical care, as well as his daughter who is the decision maker in the family. Comfort care orders have been written. Status: Acute (2) Pulmonary embolism associated with COVID-19: Changed to comfort care Status: Acute (3) Infection due to Stenotrophomonas maltophilia: Completed 7 days of Bactrim infusions Status: Acute (4) Pneumothorax: Chest tube removed. Comfort care initiated Status: Acute (5) Staphylococcus epidermidis bacteremia: Comfort care initiated, stop antibiotics Status: Acute (6) Septic shock: Discontinue norepinephrine, transitioning to comfort measures Status: Acute (7) Transaminitis: Status: Acute (8) D-dimer, elevated: Status: Acute Additional A&P Information CODE STATUS changed to allow natural , comfort measures initiated Attestations Medical Necessity Statement*: Needs continued hospital stay for end-of-life care, precipitated by severe COVID-19 pneumonia. Time Spent in Patient Care: Greater than 35 minutes Coding Level of Care Code Acute Civil Rights Representative for [facility] Fwd Diagnoses Acute respiratory failure due to severe acute respiratory syndrome coronavirus 2 (SARS-CoV-2) infection U07.1; J96.00 Pulmonary embolism associated with COVID-19 U07.1; I26.99 Infection due to Stenotrophomonas maltophilia A49.8 Pneumothorax J93.9 Staphylococcus epidermidis bacteremia R78.81; B95.7 Septic shock A41.9; R65.21 Transaminitis R74.01 D-dimer, elevated R79.89
--- NOTE | 2021-04-03 14:21 | PC.NURSE ---
TOD 1339, daughter at bedside. MTS called, belongings sent with family. [facility] chosen by family.
--- NOTE | 2021-04-03 14:55 | PC.NURSE ---
Post mortem care provided.
--- NOTE | 2021-04-03 16:04 | PC.NURSE ---
Addendum entered by Jordyn Hubbard RN 04/03/21 16:14: This nurse witnessed Jamie waste Fentanyl and versed gtts. Original Note: Waste Fentanyl 96 ml, Versed 27 ml, wasted with Jordyn Hubbard RN.
--- NOTE | 2021-04-03 16:05 | P.DES_ITS ---
Discharge Providers DDS Date of Admission: 03/05/21 18:40 Date Summary Completed: 04/04/21 Attending Provider at Admission: Ade Briggs Time of : 13:39 Attending Provider at Discharge: Jose Rahman MD Primary Care Provider: SARA Sanchez Diagnoses Hospital Diagnoses (1) Acute respiratory failure due to severe acute respiratory syndrome coronavirus 2 (SARS-CoV-2) infection: (2) Pulmonary embolism associated with COVID-19: (3) Infection due to Stenotrophomonas maltophilia: (4) Pneumothorax: (5) Staphylococcus epidermidis bacteremia: (6) Septic shock: (7) Transaminitis: (8) D-dimer, elevated: Reason for Visit Reason for Visit: SOB Summary Date and Time of Date of : 04/03/21 Time of : 13:39 Summary Summary: Rickey is a 60-year-old white male who presented to the hospital on March 05. He had a past history of thyroid malignancy. He was diagnosed with COVID-19 pneumonia. He was placed on dexamethasone and remdesivir. A CTA was performed and positive for pulmonary embolism. Full dose anticoagulation was started. He was placed on IV antibiotics consisting of Rocephin and azithromycin. He required high flow oxygen, but continued to worsen and was intubated on March 09. He was moved to the ICU and pulmonary critical care consultation was obtained. He had also received 1 dose of Actemra earlier in his hospital course. He had several sessions of proning. Patient initially made some improvement and was extubated on March 14. During the interim before this he was treated with vancomycin and Zosyn during escalation of antibiotics and ulti mately with Levaquin for stenotrophomonas found in sputum. Following extubation the patient initially did well, but then had gradual worsening to the point intubation was required on March 17. Right and sided pneumothorax was noted, and chest tube placed on March 17 as well. On March 19 some bloody drainage from the chest tube was noted and Lovenox had to be discontinued. He did not show significant improvement so tracheostomy was considered, but after consultation with 2 physicians it was determined his anatomy was not such the tracheostomy would be feasible. The ability to manage him on mechanical ventilation continued to worsen during the rest of his hospital course despite restarting anticoagulation. He ended up completing 7 days of Bactrim, and antibiotics consisting of cefepime, vancomycin and antifungal fluconazole was eventually started to no avail. With continued worsening, inability to ventilate him adequately with mechanical ventilation, family wished to make him comfort care on April 03. He quickly passed. Cause of is COVID-19 pneumonia. Additional Data Advance directives?: No Discharge Plan Discharge Patient Disposition: DS Attestations Time Spent in /Discharge Care*: greater than 30 min Quality - AMI: AMI present?: No Quality - Stroke: CVA present?: No Symptom Onset Unknown: No Quality - VTE: VTE present?: Yes Deep Vein Thrombosis/Pulmonary Embolism Present on Admission: No Coding Level of Care Code Acute Senior Business Development Manager for [facility] Fwd Diagnoses Acute respiratory failure due to severe acute respiratory syndrome coronavirus 2 (SARS-CoV-2) infection U07.1; J96.00 Pulmonary embolism associated with COVID-19 U07.1; I26.99 Infection due to Stenotrophomonas maltophilia A49.8 Pneumothorax J93.9 Staphylococcus epidermidis bacteremia R78.81; B95.7 Septic shock A41.9; R65.21 Transaminitis R74.01 D-dimer, elevated R79.89
== END 2021-04-03 15:48 | disposition expired | DRG 207 ==
LOC: ER 14:12 → MEDSURG 19:01 → MS 2A 03-08 15:14 → ICU 03-09 14:37
PROVIDERS: Hospitalist; Internal Medicine; Internal Medicine Critical Care Medicine; Internal Medicine Pulmonary Disease; Student in an Organized Health Care Education/Training Program; Admitting Provider Hospitalist; Emergency Provider Emergency Medicine; PCP Nurse Practitioner Family; Visit Provider Internal Medicine
DX: U07.1 COVID-19 (principal); J12.82 Pneumonia due to coronavirus disease 2019; J80 Acute respiratory distress syndrome; I26.99 Other pulmonary embolism without acute cor pulmonale; J15.6 Pneumonia due to other Gram-negative bacteria; A41.9 Sepsis, unspecified organism; R65.21 Severe sepsis with septic shock; J93.9 Pneumothorax, unspecified; B37.49 Other urogenital candidiasis; D72.829 Elevated white blood cell count, unspecified; I95.9 Hypotension, unspecified; D64.9 Anemia, unspecified; B96.89 Other specified bacterial agents as the cause of diseases classified elsewhere; B95.7 Other staphylococcus as the cause of diseases classified elsewhere; E89.0 Postprocedural hypothyroidism; I10 Essential (primary) hypertension; E78.1 Pure hyperglyceridemia; R74.01 Elevation of levels of liver transaminase levels; L89.159 Pressure ulcer of sacral region, unspecified stage; N40.0 Benign prostatic hyperplasia without lower urinary tract symptoms; E11.9 Type 2 diabetes mellitus without complications; J98.2 Interstitial emphysema; Z51.5 Encounter for palliative care; Z85.850 Personal history of malignant neoplasm of thyroid; Z86.73 Personal history of transient ischemic attack (TIA), and cerebral infarction without residual deficits; Z85.21 Personal history of malignant neoplasm of larynx
CPT/HCPCS: 36415; 36416; 36430; 36592; 36600; 51702; 71045; 71250; 71275; 76536; 80051; 80053; 80202; 80500; 81001; 82330; 82728; 82803; 82805; 82962; 83540; 83550; 83605; 83615; 83735; 83880; 84100; 84145; 84439; 84443; 84478; 84481; 85007; 85014; 85025; 85027; 85045; 85362; 85378; 85384; 85610; 85730; 86140; 86403; 86850; 86900; 86920; 87040; 87070; 87075; 87077; 87086; 87106; 87186; 87205; 87426; 87449; 87635; 87641; 93005; 93970; 94002; 94003; 94640; 94799; 96365; 96367; 96372; 97110; 97161; 97530; 99285; A4570; J0330; J0360; J0456; J0610; J0637; J0692; J0696; J0743; J1100; J1450; J1644; J1650; J1815; J1940; J1956; J2060; J2250; J2270; J2543; J2704; J3010; J3262; J3370; J3480; J3490; J7050; J7626; P9016; P9047; Q9967